=== PATIENT | female | born 1940 | race Caucasian/White ===

== ENCOUNTER 2019-04-19 08:13 | Outpatient (CLI) | payer MEDICARE, SELFPAY ==
[2019-04-17 10:24] VITALS: BMI 24.0
[2019-04-19] VITALS (8 sets, daily range): BP systolic 119–173; BP diastolic 57–77; PULSE 79–110; RESP 20; O2SAT 94–99
--- NOTE | ~2019-04-19 | XR_ITS ---
EXAMINATION: XR chest 1V DATE: 04/19/2019 11:04 INDICATION: Right pleural effusion status post thoracentesis. TECHNIQUE: A single frontal view of the chest was obtained. COMPARISON: Chest CT 04/05/2019 FINDINGS: There is a moderate-sized right pleural effusion. There are airspace opacities at right alejandro g base, likely atelectasis. A calcified left lung nodule and calcified left hilar lymph nodes are con sistent with old granulomatous disease. No pneumothorax. The heart size is normal. There are old heal ed left rib fractures. IMPRESSION: 1. Moderate-sized right pleural effusion with improvement status post thoracentesis. Reviewed, dictated and finalized at location A. AND SCIENCE INSTRUCTOR IMPRESSION: 1. Moderate-sized right pleural effusion with improvement status post thoracent esis.
--- NOTE | ~2019-04-19 | US_ITS ---
EXAMINATION: US thoracentesis DATE: 04/19/2019 11:17 INDICATION: pleural effusion TECHNIQUE: The procedure and its risks, benefits, and alternatives were discussed with the patient. P otential risks discussed included bleeding, infection, and pneumothorax. The patient understood the r isks and agreed to proceed. The skin was prepped and draped in sterile fashion. 1% lidocaine was used for local anesthesia. Under ultrasound guidance, a 5 Fr catheter with trochar was advanced into the right pleural effusion. Fluid was aspirated. The catheter was removed, and a dressing was applied. Th ere were no immediate complications. FINDINGS: Ultrasound images demonstrate a right pleural effusion and the catheter within the fluid. IMPRESSION: 1. Successful ultrasound-guided thoracentesis yielding 1000 mL of clear, sanam-colored fluid. Reviewed, dictated and finalized at location A. MATIC C[employer]TRIF[employer]AL STATION OPERATOR IMPRESSION: 1. Successful ultrasound-guided thoracentesis yielding 1000 mL of clear, sanam -colored fluid.
[2019-04-19 09:20] LABS: Mean Platelet Volume 11.4 fl (7.4-10.4); Platelet Count Result 176 k/mm3 (150-375)
[2019-04-19 09:30] LABS: INR 1.3; Prothrombin Time 15.4 Seconds (11.1-14.7)
--- NOTE | 2019-04-19 13:51 | SUR.PHASEII ---
[address] king on pt condition, ok to be discharged
== END 2019-04-19 13:00 | disposition home or self-care (01) ==
LOC: ANHSURGERY 08:15
PROVIDERS: Radiology Diagnostic Radiology; PCP Family Medicine; Visit Provider Family Medicine
DX: J90 Pleural effusion, not elsewhere classified (principal)
CPT/HCPCS: 32555; 36415; 71045; 85049; 85610

== ENCOUNTER 2019-05-29 14:09 | Inpatient (IN) | payer MEDICARE, SELFPAY ==
[2019-05-29] VITALS (17 sets, daily range): BP systolic 128–227; BP diastolic 53–186; PULSE 89–121; RESP 20–38; TEMP 35.6–37.3; O2SAT 93–100; BMI 23.2
--- NOTE | ~2019-05-29 | XR_ITS ---
EXAMINATION: XR chest 1V portable EXAM DATE: 05/29/2019 14:50 INDICATION: Shortness of breath. TECHNIQUE: Portable AP frontal chest x-ray was obtained. Comparison is made to prior examination from 04/19/2019. FINDINGS: There is large right pleural effusion, interval increase compared to prior examination. The re is adjacent lobar collapse. There is patchy bilateral edema or pneumonia. Difficult to evaluate ca rdiac silhouette given that the right side of the heart is obscured by the pleural effusion. There is left upper lobe granuloma. There is no pneumothorax suspected. There are no osseous abnormalities id entified. IMPRESSION: 1. Worsening, now large right pleural effusion with adjacent lobar atelectasis. 2. Development of moderate bilateral edema and/or pneumonia. Reviewed, dictated and finalized at location B. IMPRESSION: 1. Worsening, now large right pleural effusion with adjacent lobar atelectasis . 2. Development of moderate bilateral edema and/or pneumonia.
--- NOTE | ~2019-05-29 | XR_ITS ---
EXAMINATION: XR chest 1V portable DATE: 05/30/2019 12:32 INDICATION: Right pleural effusion status post thoracentesis. TECHNIQUE: A single frontal view of the chest was obtained. COMPARISON: Chest single view 05/29/2019 FINDINGS: There is a moderate-sized right pleural effusion. There are airspace opacities at the lung bases. A calcified left lung nodule is consistent with old granulomatous disease. No pneumothorax. Th e heart size is normal. IMPRESSION: 1. Moderate-sized right pleural effusion with improvement status post thoracentesis. 2. Airspace opacities at the lung bases with interval improvement, consistent with atelectasis versus pneumonia. Reviewed, dictated and finalized at location A. IMPRESSION: 1. Moderate-sized right pleural effusion with improvement status post thoracent esis. 2. Airspace opacities at the lung bases with interval improvement, consistent w ith atelectasis versus pneumonia.
--- NOTE | ~2019-05-29 | US_ITS ---
EXAMINATION: US thoracentesis DATE: 05/30/2019 12:41 INDICATION: pleural effusion TECHNIQUE: The procedure and its risks, benefits, and alternatives were discussed with the patient. P otential risks discussed included bleeding, infection, and pneumothorax. The patient understood the r isks and agreed to proceed. The skin was prepped and draped in sterile fashion. 1% lidocaine was used for local anesthesia. Under ultrasound guidance, a 5 Fr catheter with trochar was advanced into the right pleural effusion. Fluid was aspirated. The catheter was removed, and a dressing was applied. Th ere were no immediate complications. FINDINGS: Ultrasound images demonstrate a right pleural effusion and the catheter within the fluid. IMPRESSION: 1. Successful ultrasound-guided thoracentesis yielding 1000 mL of clear, yellow fluid. Reviewed, dictated and finalized at location A. IMPRESSION: 1. Successful ultrasound-guided thoracentesis yielding 1000 mL of clear, yello w fluid.
--- NOTE | 2019-05-29 14:14 | ED.SOB ---
HPI - SOB/Dyspnea General Chief Complaint: Shortness of Breath/Dyspnea Stated Complaint: sob, recent thoracentesis Time Seen by Provider: 05/29/19 14:12 Source: patient Mode of arrival: ambulatory Limitations: no limitations History of Present Illness HPI Narrative: Patient is a 78 year old female who presents to the emergency department with complaints of shortness of breath that started a week ago and is worsening. She reports a productive cough with phlegm and a poor appetite. Patient denies chest pain, abdominal pain, headache, fever, chills, or sweats. She states that she had a thoracentesis on 04/19/19 at [facility]. Patient is not on home oxygen and states that he oxygen saturation is normally low. She notes that she had not had a bowel movement in 4 days and yesterday she took pepto bismol and today she had diarrhea. She states that she has been staying inside and she has not been exposed to anyone with COVID-19. She denies having a history of AFIB with RVR. Patient has a history of asthma, ascites, pleural effusion, thyroid cancer, and liver failure. Patients is at the bedside and he denies being around anyone with COVID-19. She used to work in [employer]. MD elicited complaint: shortness of breath Pertinent past history: asthma Onset (ago): week(s) (1) Context: other (thoracentesis) Timing: progressively worsening Known history of: asthma Associated symptoms: cough and other (poor appetite) Related Data Home Medications Medication Instructions Recorded Confirmed furosemide 20 mg PO DAILY 04/17/19 05/29/19 losartan 100 mg PO HS 04/17/19 05/29/19 omeprazole 20 mg PO DAILY 04/17/19 05/29/19 spironolactone 50 mg PO DAILY 04/17/19 05/29/19 tramadol 50 mg PO Q6H PRN 04/17/19 05/29/19 albuterol sulfate [ProAir HFA] 2 puff INHALATION QID PRN 05/29/19 05/29/19 Allergies Allergy/AdvReac Type Severity Reaction Status Date / Time lisinopril Allergy Severe ANAPHYLAXIS Verified 05/29/19 14:22 codeine AdvReac Unknown Nausea and Verified 05/29/19 14:22 Vomiting Review of Systems Review of Systems: All systems reviewed & are unremarkable except as noted in HPI and below Constitutional: Constitutional: Denies chills, Denies fever(s), Reports poor appetite and Denies other (sweats) Cardiovascular: Cardiovascular: Denies chest pain Respiratory: Respiratory: Reports cough and Reports dyspnea Gastrointestinal: Gastrointestinal: Denies abdominal pain and Reports diarrhea Neurologic: Denies headache(s) [facility] Past Medical History Medical History (Updated 05/29/19 @ 14:59 by Kassy Herrera) Ascites Asthma JOEL (nonalcoholic steatohepatitis) Pleural effusion Thyroid cancer Surgical History Surgical History (Updated 05/29/19 @ 14:58 by Kassy Herrera) H/O bilateral cataract extraction H/O partial thyroidectomy H/O: hysterectomy History of thoracentesis Hx of appendectomy Hx of cholecystectomy Hx of LASIK Social History Social History (Updated 05/29/19 @ 14:40 by Kassy Herrera) Smoking status: Never smoker Second hand tobacco smoke exposure: No Alcohol intake: never Substance use: never Living arrangements: with family Gender identity (if verbalized by the patient): Female Spiritual care concerns: No Agree to blood products: Yes Exam Const: General: in distress respiratory Nutritional Appearance: cachectic HENMT: Head: normocephalic and atraumatic Eyes: Pupils: Equal, round and reactive pupils present EOM: EOMs intact bilaterally Resp: Effort & Inspection: Actively coughing, respiratory distress and retractions Auscultation: other (crackles/rales present until patient coughed then lungs were clear) Cardio: Jugular venous distension: no JVD Rate: tachycardic Rhythm: abnormal rhythm irregularly irregular GI: Inspection: other (abdominal prominence) GI Palp: No abdominal tenderness Skin: General skin exam: normal color, dry skin and other (warm) Rashes: no rashes Ursula
--- NOTE | 2019-05-29 14:20 | ECG_ITS ---
Measurements Intervals [place] Rate: 117 P: AK: 0 QRS: -29 QRSD: 103 T: -4 QT: 336 QTc: 470 Interpretive Statements MULTIFOCAL ATRIAL TACHYCARDIA ATRIAL PREMATURE COMPLEXES ANTEROSEPTAL INFARCT, AGE INDETERMINATE CONSIDER INFERIOR INFARCT, AGE INDETERMINATE BASELINE ARTIFACT- V3 ABNORMAL ECG Electronically Signed On 05-29-2019 16:11:26 CDT by Alcides Crowder D.O.
[2019-05-29 14:30] LABS: Basophils Absolute Auto 0.1 K/mm3 (0.0-0.1); Basophils Percent Auto 0.5 % (0.2-1.2); Eosinophils Absolute Auto 0.2 K/mm3 (0-0.3); Eosinophils Percent Auto 1.2 % (0-4.4); Hematocrit 35.3 % (37.0-47.0); Hemoglobin 11.5 g/dL (12.0-15.0); Immature Granulocyte Absolute 0.06 K/mm3 (0.00-0.031); Immature Granulocyte Percent A 0.4 % (0-0.5); Lymphocytes Absolute Auto 2.36 K/mm3 (0.9-3.2); Lymphocytes Percent Auto 17.7 % (18.3-44.2); Mean Corpuscular HGB Conc 32.6 g/dl (32-36); Mean Corpuscular Hemoglobin 29.6 pg (26-34); Mean Corpuscular Volume 90.7 fl (80-100); Mean Platelet Volume 10.8 fl (7.4-10.4); Monocytes Percent Auto 7.8 % (2.6-8.5); Neutrophils Absolute Auto 9.7 K/mm3 (1.3-6.7); Neutrophils Percent Auto 72.4 % (45.5-73.1); Platelet Count Result 210 k/mm3 (150-375); Red Blood Count 3.89 M/mm3 (4.2-5.4); Red Cell Distribution Width 14.6 % (11.5-14.5); White Blood Count 13.4 K/mm3 (4.5-10.0)
[2019-05-29 14:41] LABS: Alanine Aminotransferase 15 U/L (4-35); Albumin Level 3.7 g/dL (3.5-5.1); Alkaline Phosphatase 145 U/L (38-126); Aspartate Amino Transferase 40 U/L (14-36); Bilirubin,Total 1.1 mg/dL (0.2-1.3); Blood Urea Nitrogen 16 mg/dL (7-17); Carbon Dioxide 26 mmol/L (22-30); Chloride 103 mmol/L (98-107); Estimated CRCL calculation 38 ml/min; Estimated Glomerular Filt Rate 53; Glucose 140 mg/dL (65-105); Potassium 3.6 mmol/L (3.4-5.0); Sodium 137 mmol/L (137-145)
[2019-05-29 14:50] LABS: NT Pro B Type Natriuretic Pept 230 PG/ML (5-100)
[2019-05-29 14:53] LABS: Lactic Acid 1.8 mmol/L (0.7-2.1)
[2019-05-29 14:55] LABS: Troponin I < 0.012 ng/mL (0.000-0.034)
[2019-05-29] MEDS: FUROSEMIDE INJ 40 MG/4 ML VIAL IV PUSH (15:52)
--- NOTE | 2019-05-29 16:13 | PC.NURSE ---
Pt swabbed for covid. [facility] authorization # [id number].
--- NOTE | 2019-05-29 16:20 | PC.NURSE ---
No answer in ultrasound. Call to ICU to give report, unable to take.
--- NOTE | 2019-05-29 17:24 | PC.NURSE ---
This patient, Stefanie Pearson I, was admitted to Intensive Care Unit-7. Patient/family oriented to hospital policies and general routines including ID bracelet, bed and alarms, visiting hours, pain management, procedures, bathroom and other care routines, personal items, smoking policy, room service/diet, and visiting hours. Valuables list has been completed. Information on how to activate the Rapid Response Team has been discussed. Patient/Family are encouraged to report perceived risks to care and to ask questions if they do not understand what they are told or what they should do.
--- NOTE | 2019-05-29 18:30 | PM.IMHP ---
H&P: HPI History of Present Illness Chief complaint: Shortness of breath. Narrative: Stefanie Pearson is a 78-year-old female with JOEL and history of breast cancer who presented to the emergency department earlier today for evaluation of shortness of breath. For the past week or so she reports progressive dyspnea on lesser and lesser exertion, much worse over the past 2 days. She has also had a mild cough, occasionally productive of clear phlegm. Chest x-ray today showed a large right pleural effusion with moderate bilateral edema and/or pneumonia. With further questioning, she has had pleural effusions previously with the last thoracentesis being 04/19/2019. Additionally, she mentions having constipation for the last 4 days and took Pepto-Bismol last night, and has since had for, fairly large soft stools. On arrival to the emergency department, she was found to be in atrial fibrillation, which is a new diagnosis for her. She does mention, that on occasion the past couple of days, that will feel as her heart is pounding out of her chest. She is uncertain if it is beating irregularly or not. She denies fever, chills, and sweats. No sinus congestion, rhinorrhea, otalgia, or odynophagia. She denies chest pain and pleuritic pain. She denies orthopnea, PND, and lower extremity edema. She has a history of partial thyroidectomy and was on levothyroxine at 1 point time, but is no longer. Weight fluctuates due to the amount of swelling and ascites that she has on board. No significant hair loss. No recent travel. She has been sheltering in place and denies sick contacts. She does not drink significant amounts of alcohol or caffeine. Review of Systems Review of Systems: Narrative: Twelve systems were reviewed with pertinent positives and negatives as per HPI. No fever, chills, or sweats. No headache or neck ache. No hold nausea or vomiting. She denies blood in mucus in the stool. No dysuria. Except as documented, all other systems were reviewed and are negative. [facility], [facility] Past Medical History Medical History (Updated 05/30/19 @ 00:34 by Deloris Benitez PA-C) Asthma Breast cancer Status post right lumpectomy in 2013. Chronic anemia Essential hypertension JOEL (nonalcoholic steatohepatitis) Osteoarthritis Osteoporosis Surgical History Surgical History (Updated 05/29/19 @ 23:33 by Deloris Benitez PA-C) History of appendectomy History of cataract extraction History of cholecystectomy History of hysterectomy History of laser assisted in situ keratomileusis History of partial thyroidectomy For benign tumor. History of thoracentesis Family History Family History (Updated 05/29/19 @ 23:34 by Deloris Benitez PA-C) Mother Head and neck cancer Sibling Diabetes mellitus Social History Social History (Updated 05/29/19 @ 23:34 by Deloris Benitez PA-C) Social History: The patient lives with her in [place]. She designates her , Abdoulaye, as her surrogate decision maker and she wishes to be a full code. She is a lifelong nonsmoker and denies alcohol and drug use. Spiritual care concerns: No Agree to blood products: Yes Meds Home Medications and Allergies Home Medications Medication Instructions Recorded Confirmed Type furosemide 20 mg PO DAILY 04/17/19 05/29/19 History losartan 100 mg PO HS 04/17/19 05/29/19 History omeprazole 20 mg PO DAILY 04/17/19 05/29/19 History spironolactone 50 mg PO DAILY 04/17/19 05/29/19 History tramadol 50 mg PO Q6H PRN 04/17/19 05/29/19 History albuterol sulfate [ProAir HFA] 2 puff INHALATION QID PRN 05/29/19 05/29/19 History Allergies Allergy/AdvReac Type Severity Reaction Status Date / Time lisinopril Allergy Severe ANAPHYLAXIS Verified 05/29/19 14:22 codeine AdvReac Unknown Nausea and Verified 05/29/19 14:22 Vomiting Vital Signs Vital Signs - 24 hr 05/29/19 14:18 05/29/19 14:20 05/29/19 14:32 Temperature 99.2 F Pulse Rate 12
[2019-05-30] VITALS (14 sets, daily range): BP systolic 140–180; BP diastolic 59–94; PULSE 78–113; RESP 19–31; TEMP 36.4–37.2; O2SAT 92–98
[2019-05-30] MEDS: LOSARTAN POTASSIUM 100 MG TABLET PO (02:56)
[2019-05-30 06:27] LABS: Hemoglobin 10.3 g/dL (12.0-15.0); Mean Corpuscular HGB Conc 33.2 g/dl (32-36); Mean Corpuscular Hemoglobin 29.8 pg (26-34); Mean Corpuscular Volume 89.6 fl (80-100); Mean Platelet Volume 10.9 fl (7.4-10.4); Platelet Count Result 171 k/mm3 (150-375); Red Blood Count 3.46 M/mm3 (4.2-5.4); Red Cell Distribution Width 14.5 % (11.5-14.5); White Blood Count 12.9 K/mm3 (4.5-10.0)
[2019-05-30 06:37] LABS: Alanine Aminotransferase 14 U/L (4-35); Albumin Level 3.4 g/dL (3.5-5.1); Alkaline Phosphatase 127 U/L (38-126); Aspartate Amino Transferase 34 U/L (14-36); Bilirubin,Total 1.3 mg/dL (0.2-1.3); Blood Urea Nitrogen 16 mg/dL (7-17); Calcium 8.9 mg/dL (8.4-10.2); Carbon Dioxide 29 mmol/L (22-30); Chloride 104 mmol/L (98-107); Estimated CRCL calculation 31 ml/min; Estimated Glomerular Filt Rate 43; Glucose 123 mg/dL (65-105); INR 1.3; Potassium 3.7 mmol/L (3.4-5.0); Sodium 137 mmol/L (137-145)
[2019-05-30 06:38] LABS: Partial Thromboplastin Time 30.3 SECONDS (22.3-36.8)
[2019-05-30] MEDS: SPIRONOLACTONE 50 MG TABLET PO (08:49)
[2019-05-30] MEDS: PANTOPRAZOLE 40 MG TABLET PO (08:49)
[2019-05-30] MEDS: FUROSEMIDE 20 MG TABLET PO (08:49)
[2019-05-30 10:04] LABS: IFOB Positive Control Positive; Immunochemical Fecal Occult Bl Negative (N)
[2019-05-30 12:45] LABS: pH Pleural Fluid 7.476 (7.210-7.500)
--- NOTE | 2019-05-30 13:03 | PM.IMPN ---
Progress Note: A&P Assessment and Plan (1) Recurrent right pleural effusion: Code(s): J90 - Pleural effusion, not elsewhere classified Status: Acute Assessment and Plan: Has had previous thoracentesis x 2 with last done here on 04/19/2019. Now S/P thoracentesis here this morning with removal of 1000 mL of clear, yellow fluid. Pleural fluid pH 7.476. Nucleated cells elevated at 1310 but thoracentesis is not new diagnosis for patient. Culture and other studies pending. Pleural effusion better on imaging after thoracentesis. Will monitor this afternoon. Possible discharge later today or at least by tomorrow if stable. COVID-19 testing was initiated in ER with results still pending. Remains on isolation as a result. (2) Pneumonia: Code(s): J18.9 - Pneumonia, unspecified organism Status: Acute Assessment and Plan: Concern on admission with IV ceftriaxone and azithromycin started. Does not appear to be infectious at this point with symptoms improved after thoracentesis. COVID-19 testing initiated as noted above. No fever. Mild elevation of WBC at 12.9 but noted to have mild elevation chronically based on records here. Will stop antibiotics. (3) Atrial tachycardia: Code(s): I47.1 - Supraventricular tachycardia Status: Acute Assessment and Plan: EKG in ER with multifocal atrial tachycardia. With COVID-19 testing pending, echocardiogram not done. Telemetry reviewed on 05/30/2019 with sinus tachycardia with heart rate in low 100s. Adding metoprolol succinate. Will monitor while here. (4) Essential hypertension: Code(s): I10 - Essential (primary) hypertension Status: Acute Assessment and Plan: Blood pressure reviewed on 05/30/2019 and is elevated with SBP 160s-180s. Adding metoprolol succinate as noted above. Continue losartan and diuretics. Will continue to monitor. (5) JOEL (nonalcoholic steatohepatitis): Code(s): K75.81 - Nonalcoholic steatohepatitis (JOEL) Status: Acute Assessment and Plan: Known chronic issue. S/P thoracentesis as noted above. Has not had paracentesis in some time and will not plan to do now. Continue spironolactone and furosemide. (6) Chronic anemia: Code(s): D64.9 - Anemia, unspecified Status: Acute Assessment and Plan: Hgb 10.3 today and stable. (7) DVT prophylaxis: Code(s): Z29.9 - Encounter for prophylactic measures, unspecified Status: Acute Assessment and Plan: SCDs. Time Spent With Patient Time with patient: 15 - 25 minutes Subjective Date/time seen: 05/30/19 13:03 Interval history: Date of Service: 05/30/2019. Admitted with recurrent right pleural effusion. Had thoracentesis already today. Feels much better. Denies shortness of breath. No chest pain. No abdominal pain but hungry. Wants to go home. Review of Systems Review of Systems: Narrative: Feels much better today. Wants to go home. Constitutional: Constitutional: Denies chills and Denies fever(s) ENT: Denies nasal congestion and Denies nasal discharge Cardiovascular: Cardiovascular: Denies chest pain Respiratory: Respiratory: Denies dyspnea Gastrointestinal: Gastrointestinal: Denies abdominal pain, Denies nausea and Denies vomiting Genitourinary: Comments: catheter in place Musculoskeletal: Musculoskeletal: Reports no additional musculoskeletal complaints Integumentary/Breasts: Skin/Breast: Denies rash Neurologic: Denies headache(s) Psychiatric: Psychiatric: Denies confusion Exam Narrative: Exam Narrative: Awake and alert. Const: General: no acute distress HENMT: Mouth: Yes moist mucous membranes Neck: Neck: supple Lymphatic: lymphadenopathy not noted Resp: Auscultation: rales and diminished lung sounds (worse on right) Cardio: Rate: regular rate Rhythm: regular rhythm GI: Inspection: non-distended GI Palp: Yes Soft to palpation and No Tend
[2019-05-30 13:27] LABS: Appearance Pleural Fluid Clear (Clear); Color Pleural Fluid Yellow (Colorless); Nucleated Cell Pleural Fluid 1310 /uL (0-1000); Pleural fluid source Pleural fluid; RBC Pleural Fluid 340 /uL (0-0)
[2019-05-30 13:30] LABS: Lymphocytes Pleural Fluid 67 %; Mesothelial Cells Pleural Flui 30 %; Monocytes Pleural Fluid 1 %; Neutrophils Pleural Fluid 2 % (0-25)
[2019-05-30] MEDS: METOPROLOL SUCCINATE EXT REL 25 MG TABCR PO (15:45)
[2019-05-30 15:50] LABS: Free T4 Free Thyroxine Reflex 1.45 ng/dL (0.78-2.19)
[2019-05-30 17:05] LABS: Total Triiodothyronine (T3) 0.64 NG/ML (0.97-1.69)
--- NOTE | 2019-05-30 17:36 | PM.DS ---
DS: Diagnosis Admitting Diagnosis Admitting Diagnosis: Pleural effusion, not elsewhere classified Discharge Diagnosis (1) Recurrent right pleural effusion: Code(s): J90 - Pleural effusion, not elsewhere classified Status: Acute (2) Pneumonia: Code(s): J18.9 - Pneumonia, unspecified organism Status: Acute Assessment and Plan: RULED OUT (3) Atrial tachycardia: Code(s): I47.1 - Supraventricular tachycardia Status: Acute (4) Essential hypertension: Code(s): I10 - Essential (primary) hypertension Status: Acute (5) JOEL (nonalcoholic steatohepatitis): Code(s): K75.81 - Nonalcoholic steatohepatitis (JOEL) Status: Acute (6) Chronic anemia: Code(s): D64.9 - Anemia, unspecified Status: Acute Assessment and Plan: Hgb 10.3 today and stable. DS: Summary Hospital Course Reason for hospitalization: Shortness of breath. Hospital Course: Date of Service of Discharge: May 30, 2019. History of Present Illness: Patient is a pleasant 78-year-old woman with JOEL, history of breast cancer and recurrent right pleural effusion present to the emergency room for evaluation of shortness of breath. Patient reports increasing shortness of breath on lesser lesser exertion for approximately 1 week. Shortness of breath became worse in the 2 days prior to presentation. She also reports mild cough occasionally productive of a clear sputum. Patient with no recent fever. No chest pain. With increasing symptoms, she presented to the emergency room where imaging did show a large right pleural effusion with moderate bilateral edema and/or pneumonia. Patient did have a thoracentesis done here at [facility] on 04/19/2019. She reports having another thoracentesis prior to the 1 done on 04/19/2019. In the emergency room she was also noted to be tachycardic with concern for atrial fibrillation. With her findings, she was admitted for further evaluation and treatment. Additionally, COVID-19 testing was initiated given increasing shortness of breath with current pandemic. Course in Hospital: Patient was admitted to the IMU where she remained for the duration of her stay. She initially did require 2 L of oxygen. She additionally was also started on IV ceftriaxone and azithromycin to cover for possible pneumonia. Patient was scheduled for ultrasound-guided thoracentesis which was able to be completed around noon on 05/30/2019. She did have removal of 1000 mL of clear fluid with pH normal at 7.476. Pleural fluid did have increased nucleated cells but patient with known previous diagnosis. Patient symptomatically felt much better and was hoping to go home after thoracentesis was completed. She was actually able to wean to room air and no longer required after thoracentesis. An echocardiogram had been ordered but was not completed due to isolation while awaiting COVID-19 testing. Given her improvement after thoracentesis, echocardiogram was not felt necessary at this time. Pneumonia was ruled out during her stay with no plan to continue antibiotics at discharge. Slight elevation of WBC was felt to be either viral in origin or reactive. She did not require paracentesis related to her JOEL during her stay with no GI symptoms throughout her stay. She did however continue spironolactone and furosemide. Hemoglobin remained stable with no sign of bleeding. With regards to tachycardia, on review of EKG patient was noted to have multifocal atrial tachycardia. She did continue to have slight elevation of blood pressure during her stay with metoprolol succinate added. Patient's blood pressure and heart rate did show some improvement with no side effects after starting metoprolol succinate. She did continue her home losartan throughout her stay. With the patient symptomatically improved and not requiring inpatient care, she was discharged home on the afternoon of May 30, 2019. P
[2019-05-31 17:02] LABS: Pneumococcal Antigen Urine Not Detected (Not Detected)
[2019-05-31 18:35] LABS: Legionella pneumophila Ag Ur Not Detected (Not Detected)
[2019-06-01 04:09] LABS: Glucose Pleural Fluid 142 mg/dL; LDH Pleural Fluid 169 U/L; Total Protein Pleural Fluid <3.0 g/dL
--- NOTE | 2019-06-01 11:25 | PC.NURSE ---
Notified patient that her COVID 19 test is negative.
[2019-06-05 14:11] LABS: Albumin Pleural Fluid 1.6 g/dL
== END 2019-05-30 17:55 | disposition home or self-care (01) | DRG 187 ==
LOC: ANHED 14:52 → ANHICU 21:11
PROVIDERS: Physician Assistant; Admitting Provider Family Medicine; Emergency Provider Emergency Medicine; PCP Family Medicine; Visit Provider Hospitalist
DX: J90 Pleural effusion, not elsewhere classified (principal); R64 Cachexia; I47.1 Supraventricular tachycardia; K75.81 Nonalcoholic steatohepatitis (NASH); Z20.828 Contact with and (suspected) exposure to other viral communicable diseases; D64.9 Anemia, unspecified; J45.909 Unspecified asthma, uncomplicated; M19.90 Unspecified osteoarthritis, unspecified site; M81.0 Age-related osteoporosis without current pathological fracture; I10 Essential (primary) hypertension; Z85.850 Personal history of malignant neoplasm of thyroid; Z85.3 Personal history of malignant neoplasm of breast; Z98.42 Cataract extraction status, left eye; Z98.41 Cataract extraction status, right eye; Z90.710 Acquired absence of both cervix and uterus; Z90.49 Acquired absence of other specified parts of digestive tract; Z68.21 Body mass index [BMI] 21.0-21.9, adult
CPT/HCPCS: 32555; 36415; 71045; 80053; 82042; 82274; 82945; 83605; 83615; 83880; 83986; 84157; 84439; 84443; 84478; 84480; 84484; 85025; 85027; 85610; 85730; 87015; 87040; 87070; 87075; 87086; 87102; 87116; 87205; 87206; 87449; 87899; 88104; 88108; 88184; 88305; 89051; 93005; 96365; 96366; 96375; 99285; A9270; J0456; J0696; J1940

== ENCOUNTER 2019-06-05 16:38 | Inpatient (IN) | payer MEDICARE, SELFPAY ==
[2019-06-05] VITALS (9 sets, daily range): BP systolic 108–146; BP diastolic 52–93; PULSE 98–119; RESP 16–40; TEMP 36.4–36.6; O2SAT 96–100; BMI 26.6
--- NOTE | ~2019-06-05 | XR_ITS ---
EXAMINATION: XR chest 1V portable EXAM DATE: 06/05/2019 17:56 INDICATION: Cough and shortness of breath. Right pleural effusion. TECHNIQUE: Portable AP frontal chest x-ray was obtained. Comparison is made to prior examination from 05/30/2019. FINDINGS: There is a large right pleural effusion, was only moderate on 05/29 following a thoracentesis , has increased in size. There is adjacent multisegmental compressive atelectasis. Left lung is clear . There is no pneumothorax suspected. Cardiomediastinal silhouette is normal. There are no osseous ab normalities identified. IMPRESSION: Large right pleural effusion, interval increase in size. Reviewed, dictated and finalized at location A.
--- NOTE | ~2019-06-05 | CT_ITS ---
EXAMINATION: CT chest abdomen wo con DATE: 06/07/2019 12:44 INDICATION: Right pleural effusion. Cirrhosis. TECHNIQUE: Computed tomography (CT) of the chest and abdomen was performed without intravenous contra st. Automated exposure control and iterative reconstruction technique were employed. The dose-length product was 321.44 mGy-cm. COMPARISON: CT chest, abdomen, and pelvis 10/23/2017, chest CT 04/05/2019 FINDINGS: CHEST CT: There are large right and small left pleural effusions. There is dependent passive atelectasis bilate rally. A calcified left lung nodule and calcified left hilar lymph nodes are consistent with old gran ulomatous disease. The heart size is normal. There are coronary artery calcifications. No pericardial effusion. There is a chronic burst fracture of T12. There is mild thoracic spondylosis. There is a c hronic compression fracture of T3. There are old healed bilateral rib fractures. ABDOMEN CT: The liver demonstrates a nodular surface contour, consistent with cirrhosis. There is mild splenomega ly measuring 14.3 cm, consistent with portal venous hypertension. The gallbladder is absent. The sple en and right adrenal gland are normal. There is a 2.1 cm mass in left adrenal gland containing micros copic fat, consistent with an adenoma. The kidneys are normal. There are no dilated loops of bowel. T here is a small volume of ascites. There is widespread edema of the intra-abdominal fat. The stomach is distended with mild wall thickening, likely interstitial edema. 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 There are no pathologically enlarged lymph nodes. There is mild lumbar spondylosis. IMPRESSION: 1. Cirrhosis of the liver with portal venous hypertension. 2. Large right and small left pleural effusions. 3. Small volume of ascites. Reviewed, dictated and finalized at location A.
--- NOTE | ~2019-06-05 | US_ITS ---
EXAMINATION: US thoracentesis DATE: 06/08/2019 14:34 INDICATION: pleural effusion TECHNIQUE: The procedure and its risks, benefits, and alternatives were discussed with the patient. P otential risks discussed included bleeding, infection, and pneumothorax. The patient understood the r isks and agreed to proceed. The skin was prepped and draped in sterile fashion. 1% lidocaine was used for local anesthesia. Under ultrasound guidance, a 5 Fr catheter with trochar was advanced into the right pleural effusion. Fluid was aspirated. The catheter was removed, and a dressing was applied. Th ere were no immediate complications. FINDINGS: Ultrasound images demonstrate a right pleural effusion and the catheter within the fluid. IMPRESSION: 1. Successful ultrasound-guided thoracentesis yielding 1000 mL of yellow fluid. Reviewed, dictated and finalized at location A. IMPRESSION: 1. Successful ultrasound-guided thoracentesis yielding 1000 mL of yellow fluid .
--- NOTE | ~2019-06-05 | XR_ITS ---
EXAMINATION: XR chest 2V EXAM DATE: 06/10/2019 09:10 INDICATION: Right pleural effusion. TECHNIQUE: Portable AP frontal chest x-ray was obtained. Comparison is made to prior examination from 06/09/2019. FINDINGS: There is large right pleural effusion with adjacent right lower, middle lobe atelectasis. S mall left pleural effusion with adjacent subsegmental atelectasis. Cardiac silhouette is stable in si ze compared to prior exam. There is no pneumothorax suspected. There are no osseous abnormalities manuel ntified. Compared to yesterday there has been mild interval increase in size of the right pleural eff usion. IMPRESSION: Large right, small left pleural effusions, adjacent compressive atelectasis. Reviewed, dictated and finalized at location A. IMPRESSION: Large right, small left pleural effusions, adjacent compressive ate lectasis.
--- NOTE | ~2019-06-05 | XR_ITS ---
XR chest 2V 06/08/2019 14:29 Indication: Postthoracentesis. Right pleural effusion. Procedure: AP and lateral views of the chest Comparison: Comparison to multiple prior studies sequentially, with oldest reviewed study dated 09/2019. Findings: Extensive bilateral airspace disease, likely edema. Bilateral pleural effusions, moderate o n the right and small on the left. No pneumothorax. Calcified granuloma left apex. No acute osseous a bnormality. Impression: 1: Bilateral airspace disease, most likely edema. Superimposed pneumonia not excluded. 2: Bilateral pleural effusions, right greater than left. Reviewed, dictated and finalized at location A. Impression: 1: Bilateral airspace disease, most likely edema. Superimposed pneumonia not ex cluded. 2: Bilateral pleural effusions, right greater than left.
--- NOTE | ~2019-06-05 | XR_ITS ---
EXAMINATION: XR chest 1V portable INDICATION: Right pleural effusion TECHNIQUE: Portable AP chest at 1151 hours COMPARISON: 06/06/2019 FINDINGS: A moderate size right pleural effusion persists without significant change. There is a smal l left pleural effusion. Airspace opacities of the right middle and lower lung zones and left lung ba se are stable. There is no pneumothorax. The heart size is normal. A calcified nodule of the left upp er lobe is consistent with old granulomatous disease. IMPRESSION: 1. Stable moderate-sized right pleural effusion. 2. Stable bilateral airspace opacities, likely passive atelectasis. Reviewed, dictated and finalized at location A.
--- NOTE | ~2019-06-05 | XR_ITS ---
EXAMINATION: XR chest 1V DATE: 06/06/2019 12:18 INDICATION: Right pleural effusion status post thoracentesis. TECHNIQUE: A single frontal view of the chest was obtained. COMPARISON: Chest single view 06/05/2019 FINDINGS: A calcified left lung nodule is consistent with old granulomatous disease. There is a moder ate-sized right pleural effusion. There are airspace opacities at the lung bases. No pneumothorax. Th e heart size is normal. IMPRESSION: 1. Moderate-sized right pleural effusion with improvement status post thoracentesis. 2. Airspace opacities at the lung bases, consistent with atelectasis. Pneumonia cannot be excluded. Reviewed, dictated and finalized at location A. IMPRESSION: 1. Moderate-sized right pleural effusion with improvement status post thoracent esis. 2. Airspace opacities at the lung bases, consistent with atelectasis. Pneumonia cannot be excluded.
--- NOTE | ~2019-06-05 | XR_ITS ---
EXAMINATION: XR chest 2V EXAM DATE: 06/09/2019 11:42 INDICATION: Recurrent right pleural effusion, cough. Post thoracentesis. TECHNIQUE: Frontal and lateral projections of the chest obtained and reviewed. Comparison is made to prior examination from 06/08/2019. FINDINGS: Moderate to large right pleural effusion, appearance unchanged compared to prior study, wi th adjacent right lower, middle lobe atelectasis. Small left pleural effusion with adjacent subsegmen sanaz atelectasis. Cardiac silhouette is stable in size compared to prior exam. There is no pneumothora x suspected. There are no osseous abnormalities identified. Accounting for differences in technique, there is no significant interval change. IMPRESSION: 1. Moderate to large right pleural effusion, small pleural effusions, adjacent compressive atelectas is unchanged. Reviewed, dictated and finalized at location A. IMPRESSION: 1. Moderate to large right pleural effusion, small pleural effusions, adjacent compressive atelectasis unchanged.
--- NOTE | ~2019-06-05 | US_ITS ---
EXAMINATION: US thoracentesis DATE: 06/06/2019 12:20 INDICATION: pleural effusion TECHNIQUE: The procedure and its risks, benefits, and alternatives were discussed with the patient. P otential risks discussed included bleeding, infection, and pneumothorax. The patient understood the r isks and agreed to proceed. The skin was prepped and draped in sterile fashion. 1% lidocaine was used for local anesthesia. Under ultrasound guidance, a 5 Fr catheter with trochar was advanced into the right pleural effusion. Fluid was aspirated. The catheter was removed, and a dressing was applied. Th ere were no immediate complications. FINDINGS: Ultrasound images demonstrate a right pleural effusion and the catheter within the fluid. IMPRESSION: 1. Successful ultrasound-guided thoracentesis yielding 1000 mL of yellow fluid. Reviewed, dictated and finalized at location A. IMPRESSION: 1. Successful ultrasound-guided thoracentesis yielding 1000 mL of yellow fluid .
--- NOTE | 2019-06-05 16:45 | ED.GENADULT ---
HPI - General Adult General Chief complaint: Shortness of Breath/Dyspnea Stated complaint: sob/recent thoracentesis Time Seen by Provider: 06/05/19 16:39 Source: patient and family Mode of arrival: wheelchair Limitations: no limitations History of Present Illness HPI narrative: Patient is a 78-year-old with a history of recurrent pleural effusion, history of breast cancer, A. fib, who presents for evaluation of shortness of breath. Patient was discharged on June 04, reportedly has had worsening shortness of breath over the past 2 days. Patient denies any rhinorrhea, runny nose, or congestion. She reports cough and shortness of breath. She denies chest pain or abdominal pain. No nausea, vomiting, leg swelling or leg pain. Coronavirus swab testing from last inpatient admission was negative. Related Data Home Medications Medication Instructions Recorded Confirmed furosemide 20 mg PO DAILY 04/17/19 05/29/19 losartan 100 mg PO HS 04/17/19 05/29/19 omeprazole 20 mg PO DAILY 04/17/19 05/29/19 spironolactone 50 mg PO DAILY 04/17/19 05/29/19 tramadol 50 mg PO Q6H PRN 04/17/19 05/29/19 albuterol sulfate [ProAir HFA] 2 puff INHALATION QID PRN 05/29/19 05/29/19 Allergies Allergy/AdvReac Type Severity Reaction Status Date / Time lisinopril Allergy Severe ANAPHYLAXIS Verified 05/29/19 14:22 codeine AdvReac Unknown Nausea and Verified 05/29/19 14:22 Vomiting Review of Systems Review of Systems: Narrative: CONSTITUTIONAL: Denies fever, chills, or sweats. EYES: Denies visual changes, redness, or discharge. ENT: Denies rhinorrhea, congestion, sore throat, or otalgia. CARDIOVASCULAR: Denies chest pain, palpitations, or edema. RESPIRATORY: Reports cough and shortness of breath GASTROINTESTINAL: Denies abdominal pain, nausea, vomiting, or diarrhea. GENITOURINARY: Denies dysuria or hematuria. SKIN: Denies rash or itching. MUSCULOSKELETAL: Denies back pain, joint pain, or myalgia. NEUROLOGIC: Denies headache, numbness, reports weakness PMFSH Past Medical History Medical History Asthma Breast cancer Status post right lumpectomy in 2013. Chronic anemia Essential hypertension JOEL (nonalcoholic steatohepatitis) Osteoarthritis Osteoporosis Surgical History Surgical History History of appendectomy History of cataract extraction History of cholecystectomy History of hysterectomy History of laser assisted in situ keratomileusis History of partial thyroidectomy For benign tumor. History of thoracentesis Family History Family History Mother Head and neck cancer Sibling Diabetes mellitus Social History Social History Social History: The patient lives with her in [place]. She designates her , Abdoulaye, as her surrogate decision maker and she wishes to be a full code. She is a lifelong nonsmoker and denies alcohol and drug use. Spiritual care concerns: No Agree to blood products: Yes Exam Narrative: Exam Narrative: GENERAL: Awake, alert, conversant, able to speak in full sentences HEAD: Normocephalic, atraumatic. EYES: PERRLA and EOMI. ENT: Nares clear, no rhinorrhea or epistaxis. Mucous membranes slightly dry NECK: Supple. CHEST: Mild respiratory distress, hypoxemia, placed on 2 L via nasal cannula, slightly labored breathing, tachypnea, hypoxemia, crackles bilaterally HEART: Tachycardic rate, sinus rhythm ABDOMEN:Non distended, non tender EXTREMITIES: Normal range of motion. No edema. SKIN: Warm, dry, no rash. NEURO:No focal deficits. Alert and oriented x3 Course Course Emergency Course: Patient presented for return of shortness of breath. At the time of initial assessment, ABCs are intact, vital signs notable for mild tachycardia, hypoxemia, patient was placed on nasal can
--- NOTE | 2019-06-05 17:01 | ECG_ITS ---
Measurements Intervals [place] Rate: 112 P: 35 UT: 176 QRS: -26 QRSD: 92 T: -2 QT: 331 QTc: 453 Interpretive Statements SINUS TACHYCARDIA ATRIAL AND VENTRICULAR PREMATURE COMPLEXES ANTEROSEPTAL INFARCT, AGE INDETERMINATE INFERIOR INFARCT, AGE INDETERMINATE BASELINE ARTIFACT- I, II, V5 ABNORMAL ECG Electronically Signed On 06-06-2019 7:11:45 CDT by Alcides Crowder D.O.
[2019-06-05 17:24] LABS: Alveolar/Arterial O2 Gradient 82.4 mmHg; Base Excess ABG -0.7 mEq/l (+/-2.0); Device NASAL CANNULA; Fractional Inspired Oxygen 28 %; HCO3 ABG 22.7 mEq/l (22.0-26.0); Oxygen Content ABG 15.3 %vol (16.0-22.0); Oxygen Saturation ABG 96.2 % (95.0-100.0); Oxyhemoglobin 94.4 % THb (90.0-100.0); PCO2 ABG 33.2 mmHg (35.0-45.0); PO2 ABG 78.1 mmHg (80.0-100.0); PO2 FiO2 Ratio Arterial Blood 2.79 %; Site Drawn RIGHT BRACHIAL; Total Hemoglobin 11.5 g/dL (12.0-18.0); pH ABG 7.452 (7.350-7.450)
[2019-06-05 17:45] LABS: Basophils Absolute Auto 0.1 K/mm3 (0.0-0.1); Basophils Percent Auto 0.7 % (0.2-1.2); Eosinophils Absolute Auto 0.6 K/mm3 (0-0.3); Eosinophils Percent Auto 3.7 % (0-4.4); Hematocrit 33.5 % (37.0-47.0); Hemoglobin 10.7 g/dL (12.0-15.0); Immature Granulocyte Absolute 0.13 K/mm3 (0.00-0.031); Immature Granulocyte Percent A 0.8 % (0-0.5); Lymphocytes Absolute Auto 3.85 K/mm3 (0.9-3.2); Lymphocytes Percent Auto 23.2 % (18.3-44.2); Mean Corpuscular HGB Conc 31.9 g/dl (32-36); Mean Corpuscular Hemoglobin 29.4 pg (26-34); Mean Platelet Volume 12.1 fl (7.4-10.4); Monocytes Absolute Auto 1.8 K/mm3 (0.1-0.6); Monocytes Percent Auto 10.6 % (2.6-8.5); Neutrophils Absolute Auto 10.1 K/mm3 (1.3-6.7); Platelet Count Result 217 k/mm3 (150-375); Red Blood Count 3.64 M/mm3 (4.2-5.4); Red Cell Distribution Width 15.9 % (11.5-14.5); White Blood Count 16.6 K/mm3 (4.5-10.0)
[2019-06-05 17:55] LABS: INR 1.2; Prothrombin Time 14.7 Seconds (11.1-14.7)
[2019-06-05 17:56] LABS: Partial Thromboplastin Time 29.5 SECONDS (22.3-36.8)
[2019-06-05 18:04] LABS: Alanine Aminotransferase 28 U/L (4-35); Albumin Level 3.5 g/dL (3.5-5.1); Alkaline Phosphatase 146 U/L (38-126); Aspartate Amino Transferase 58 U/L (14-36); Bilirubin,Total 0.6 mg/dL (0.2-1.3); Blood Urea Nitrogen 31 mg/dL (7-17); Calcium 8.6 mg/dL (8.4-10.2); Carbon Dioxide 24 mmol/L (22-30); Chloride 109 mmol/L (98-107); Estimated CRCL calculation 27 ml/min; Estimated Glomerular Filt Rate 40; Glucose 148 mg/dL (65-105); Potassium 3.8 mmol/L (3.4-5.0); Sodium 140 mmol/L (137-145)
[2019-06-05 18:06] LABS: NT Pro B Type Natriuretic Pept 116 PG/ML (5-100)
[2019-06-05 18:15] LABS: Troponin I < 0.012 ng/mL (0.000-0.034)
--- NOTE | 2019-06-05 20:38 | ADMGEN ---
This patient, Stefanie Pearson, was admitted to Medical Room 345-. Patient/family oriented to hospital policies and general routines including ID bracelet, bed and alarms, visiting hours, pain management, procedures, bathroom and other care routines, personal items, smoking policy, room service/diet, and visiting hours. Valuables list has been completed. Information on how to activate the Rapid Response Team has been discussed. Patient/Family are encouraged to report perceived risks to care and to ask questions if they do not understand what they are told or what they should do.
--- NOTE | 2019-06-05 20:56 | PM.IMHP ---
H&P: HPI History of Present Illness Chief complaint: Pleural effusion/hypoxemia Narrative: This is a 78 year old female with known history of JOEL who is followed at [facility] by hepatology and breast cancer who was just admitted and discharged approximately 1 week ago after she was admitted for a recurrent right pleural effusion and underwent thoracentesis. Tonight the patient returned to the hospital tonight with severe shortness of breath, a nonproductive cough and fatigue. She has had ongoing shortness of breath since her last thoracentesis which has slowly progressed. She was supposed to follow up with her PCP tomorrow but her shortness of breath became too severe tonight. The patient was tested for Covid-19 during her last hospitalization which resulted negative. Tonight she denies any worsening abdominal distension, LE edema, fever, chills, chest pain, palpitations, nausea, vomiting, diarrhea, sore throat or focal neurological symptoms. Review of Systems Review of Systems: All systems reviewed & are unremarkable except as noted in HPI and below PMFSH Past Medical History Medical History Asthma Breast cancer Status post right lumpectomy in 2013. Chronic anemia Essential hypertension JOEL (nonalcoholic steatohepatitis) Osteoarthritis Osteoporosis Surgical History Surgical History History of appendectomy History of cataract extraction History of cholecystectomy History of hysterectomy History of laser assisted in situ keratomileusis History of partial thyroidectomy For benign tumor. History of thoracentesis Family History Family History Mother Head and neck cancer Acute myocardial infarction Congestive heart failure Pancreatic cancer Sibling Diabetes mellitus Acute myocardial infarction Social History Social History Social History: The patient lives with her in [place]. She designates her , Abdoulaye, as her surrogate decision maker and she wishes to be a full code. She is a lifelong nonsmoker and denies alcohol and drug use. Smoking status: Never smoker Second hand tobacco smoke exposure: No Alcohol intake: never Substance use: never Gender identity (if verbalized by the patient): Female Spiritual care concerns: No Agree to blood products: Yes Meds Home Medications and Allergies Home Medications Medication Instructions Recorded Confirmed Type furosemide 20 mg PO DAILY 02/25/20 04/14/20 History losartan 100 mg PO DAILY 04/17/19 06/05/19 History omeprazole 20 mg PO DAILY 04/17/19 06/05/19 History albuterol sulfate [ProAir HFA] 2 puff INHALATION QID PRN 05/29/19 06/05/19 History acetaminophen [Tylenol Extra 500 mg PO Q6H PRN 06/05/19 06/05/19 History Strength] Allergies Allergy/AdvReac Type Severity Reaction Status Date / Time lisinopril Allergy Severe ANAPHYLAXIS Verified 05/29/19 14:22 codeine AdvReac Unknown Nausea and Verified 05/29/19 14:22 Vomiting Vital Signs Vital Signs - 24 hr 06/05/19 16:41 06/05/19 16:50 06/05/19 16:51 Temperature 36.6 C Pulse Rate 119 H 117 H Respiratory Rate 40 H Blood Pressure 108/93 H Pulse Oximetry 96 98 06/05/19 17:45 06/05/19 18:15 06/05/19 19:06 Temperature Pulse Rate 109 H 109 H 103 H Respiratory Rate 28 H 24 H 22 H Blood Pressure 133/70 145/62 H 146/67 H Pulse Oximetry 98 98 99 06/05/19 19:47 06/05/19 20:39 Temperature 36.4 C Pulse Rate 100 98 Respiratory Rate 24 H 16 Blood Pressure 122/64 143/52 H Pulse Oximetry 100 99 Exam Const: General: cooperative, alert, awake and other (On oxygen via NC) Nutritional Appearance: well nourished Orientation/consciousness: patient oriented x3 HENMT: Head: normal to inspection General nose exam: Normal external nose
[2019-06-05] MEDS: ACETAMINOPHEN 325 MG TABLET 650 MG PO (20:57)
[2019-06-06] VITALS (13 sets, daily range): BP systolic 123–167; BP diastolic 48–75; PULSE 72–103; RESP 16–28; TEMP 36.6–37.3; O2SAT 92–97
[2019-06-06] MEDS: ACETAMINOPHEN 325 MG TABLET 650 MG PO ×3 (00:57→15:58)
[2019-06-06] MEDS: ONDANSETRON INJ 4 MG/2 ML VIAL IV PUSH (05:11)
--- NOTE | 2019-06-06 11:46 | PM.IMPN ---
Progress Note: A&P Assessment and Plan (1) Recurrent right pleural effusion: Code(s): J90 - Pleural effusion, not elsewhere classified Status: Acute Assessment and Plan: Evident on CXR. Likely secondary to ongoing chronic liver disease and JOEL as the patient has had ascites in the past which also required paracentesis. She has undergone thoracentesis on two prior occasions since March 2019. She is SOB. She is 96% on 2L NC. Therapeutic thoracentesis scheduled for today Pulmonology consult has been ordered to evaluate for possible pleurodesis. Continue oxygen therapy as needed with goal O2 >92%. (2) Leukocytosis: Code(s): D72.829 - Elevated white blood cell count, unspecified Status: Acute Assessment and Plan: Possibly ongoing leukocytosis from recent pneumonia. WBC 16.6 on 06/05/19. She is afebrile and there is no sign of acute infection. Continue to monitor CBC (3) JOEL (nonalcoholic steatohepatitis): Code(s): K75.81 - Nonalcoholic steatohepatitis (JOEL) Status: Chronic Assessment and Plan: Patient sees front desk lead at [facility]. She has undergone paracentesis previously. She is also monitored for varices with EGD and was recently due for appointment but was cancelled due to current pandemic. She does not have significant ascites on exam today. AST is elevated at 58 and ALP is elevated at 146. ALT wnl. Continue to trend LFTs Continue to monitor ascites (4) Essential hypertension: Code(s): I10 - Essential (primary) hypertension Status: Chronic Assessment and Plan: Blood pressure evaluated today and stable at 147/61. Continue home losartan Continue to monitor blood pressure (5) Chronic anemia: Code(s): D64.9 - Anemia, unspecified Status: Chronic Assessment and Plan: Per chart review, she has had anemia for several years. Baseline appears to be 11.0. On 06/04, Hgb 10.7 and Hct 33.5. There are no signs of active bleeding and vitals are stable. Continue to monitor CBC Transfuse prn with threshold Hgb 7.0 Subjective Date/time seen: 06/06/19 11:46 Interval history: Date/time of service: 06/06/2019 at 1130 Ms. Pearson reports she is breathing better than her initial presentation but still is feeling very SOB. She is on 2L NC which has helped her breathing. She denies chest pain, cough, or congestion. Her back is bothering her from lying flat as she has chronic back pain. She has been NPO and reports she is feeling hungry. She had difficulty sleeping last night stating she could not get comfortable. She has been able to get up from bed to transfer to the bedside commodewith assistance. She is able to tolerate this but does feel SOB doing so. She denies urinary symptoms. She denies abdominal pain, N/V/D, fever, chills, dizziness, lightheadedness, headache. She feels somewhat weak. She has trouble hearing and uses hearing aids. Review of Systems Review of Systems: Narrative: A 12 point review of systems was reviewed with pertinent positives and negatives as per HPI. Exam Narrative: Exam Narrative: Ms. Pearson is examined alone today. She is a well nourished 78 year old female who is lying supine in bed. She appears comfortable, is in NARD, and VSS. HR 94, BP 147/61, RR 16, T 98.0F. Neuro: awake, alert and oriented x3, speech clear, no focal neuro deficits noted HEENMT: normocephalic, atraumatic, EOMI, sclerae anicteric, moist oral mucosa, normal oropharynx Neck: supple, no lymphadenopathy, healed surgical scar from thyroid surgery Respiratory: crackles on left side, diminished breath sounds on right, normal respiratory effort without accessory muscle use, 96% on 2L NC Cardio: regular rate, regular rhythm, normal S1 and S2 Abdomen: normal to inspection, protuberant, normoactive bowel sounds, soft, nontender, no rigidity or guarding, no masses Extremities: BLE with scant edema, no erythema, no pain to palpation
[2019-06-06] MEDS: LOSARTAN POTASSIUM 100 MG TABLET PO (14:28)
[2019-06-06] MEDS: PANTOPRAZOLE SOD SESQUIHYDRATE 20 MG TAB PO (14:28)
[2019-06-06] MEDS: FUROSEMIDE 20 MG TABLET PO (14:28)
--- NOTE | 2019-06-06 21:58 | PM.CNPUL ---
Assessment and Plan Assessment and plan (1) Recurrent right pleural effusion: Code(s): J90 - Pleural effusion, not elsewhere classified Status: Acute Assessment and Plan: 1. Has a loud systolic murmur; echo is ordered. May have Aortic Stenosis. If this is due to Aortic stenosis, she will need cardiac evaluation. Start with that. 2. She had 1 L removed by thoracentesis on Apr 20, May 29 and again June 05. Today's procedure is the only fluid that is seen in the lab section. The fluid is consistent with a transudate with normal pH, protein, LDH, glucose. She does have elevated nucleated count 1310 with lymphocyte predominance, and small increase in rbc, not significant. The treatment for her recurrent effusion is to address the underlying cause for accumulation of fluid. She has JOEL, has a transportation analyst at [facility], needs to have her liver issues addressed as this is may be contributing to the recurrent effusions. The interval between needing a thoracentesis is getting shorter. Pleurodesis is an option for recurrent malignant effusions and some nonmalignant effusions. She did not have cytology sent on this specimen. The cytology May 28 was negative for malignancy. A negative cytology on pleural fluid is not sensitive, so she could have a malignant cause, but the remainder of the fluid appears benign, so not highly likely. The pH, rbc count, LDH appear benign. She is requiring low flow O2, saturation is 95% on 2 L, so this could be weaned. She has not had a chest C in our system. This may be helpful to determine if there is an underlying mass, infiltrate, atelectasis; this may add to diagnostic yield. Will call her transportation analyst at [facility] to see what her status is and try to get any records that may help. Pleurodesis is a decision that needs to take into account all the other contributing factors about why she has this. I can discuss with surgery, but overall, this is the type of procedure that thoracic surgeons handle, so she would need to be transferred. May consider [facility] as her other doctors are there. Need to work up her murmur first. (2) Murmur, cardiac: Code(s): R01.1 - Cardiac murmur, unspecified Status: Acute History of Present Illness History of Present Illness Consult date: 06/07/19 Chief complaint: Pleural effusion/hypoxemia Narrative: NEW CONSULT: Stefanie Pearson is a 78 yo female with HTN, anemia, breast cancer 2013, JOEL followed at [facility] bu Dr Sanchez. Her liver is stable, overall. She developed a large Left pleural effusion in 2019, was tapped at [facility]. This year she had a Right pleural effusion tapped Apr 20 with 1 L of yellow fluid, again 4/8 and now 4/15. The fluid is transudative. She presented with increased shortness of breath without signs of infection - no fever, cough, sputum, chills, myalgias, N/N or diarrhea. Review of Systems Review of Systems: All systems reviewed & are unremarkable except as noted in HPI and below PMFSH Past Medical History Medical History Asthma Breast cancer Status post right lumpectomy in 2012. Chronic anemia Essential hypertension JOEL (nonalcoholic steatohepatitis) Osteoarthritis Osteoporosis Surgical History Surgical History History of appendectomy History of cataract extraction History of cholecystectomy History of hysterectomy History of laser assisted in situ keratomileusis History of partial thyroidectomy For benign tumor. History of thoracentesis Family History Family History Mother Head and neck cancer Acute myocardial infarction Congestive heart failure Pancreatic cancer Sibling Diabetes mellitus Acute myocardial infarction Social History Social History Social History: The patient lives with her in
[2019-06-07] VITALS (9 sets, daily range): BP systolic 140–157; BP diastolic 47–67; PULSE 87–103; RESP 12–20; TEMP 36.7–36.8; O2SAT 96–97
--- NOTE | 2019-06-07 | ECHO_ITS ---
Patient Info Name: Stefanie Pearson Age: 78 years : 1940 Gender: Female Ht: 64 in Wt: 155 lbs BSA: 1.80 m2 HR: 94 bpm BP: 123 / 48 mmHg Technical Quality: Fair Exam Date: 06/07/2019 9:48 AM Exam Location: [facility] Patient Status: Inpatient Admit Date: 06/06/2019 Staff Ordering Physician: Nneka Torres MD Grades 9 12 Tutor: Gerri Waggoner RDCS Attending Provider: Alesha Gonzalez PA-C Referring Physician: Brian NAIR; Exam Type: CA echo doppler color flow Study Info Indications R06.02 - Shortness of breath R01.1 - Cardiac murmur, unspecified Complete two-dimensional, color flow and Doppler transthoracic echocardiogram is performed. Summary 1. Left ventricular chamber dimension is normal. 2. Left ventricular systolic function is normal, estimated at 65-70%. 3. There is mildly increased left ventricular wall thickness. 4. The left ventricular diastolic function is grade I diastolic dysfunction. 5. E/e' 12 is mildly elevated. 6. There is moderate aortic valve sclerosis. 7. There is mild to moderate aortic valve stenosis with a peak velocity of 235 cm/s, mean gradient of 12 mmHg, and aortic valve area of 1.5 cm2. 8. By planimetry, aortic valve area is measured to be 1.4 cm2. 9. There is mild mitral valve regurgitation. 10. There is trace tricuspid valve regurgitation. 11. No pulmonary hypertension, estimated pulmonary arterial systolic pressure is 29 mmHg. 12. There are 3 echogenic essentially circumferential masses noted in right lung, measuring 2.8 x 3.3 cm, 2.1 x 2.0 cm, 1.9 x 2.2 cm. It is unclear if these are within lung parenchyma or within pleural effusions. Left Ventricle E/e' 12 is mildly elevated. Left ventricular chamber dimension is normal. Left ventricular systolic function is normal, estimated at 65-70%. There is mildly increased left ventricular wall thickness. The left ventricular diastolic function is grade I diastolic dysfunction. Right Ventricle Right ventricular chamber dimension is normal. Right ventricular systolic function is normal. Left Atria Left atrial chamber dimension is normal. Right Atria Right atrial chamber dimension is normal. Aortic Valve By planimetry, aortic valve area is measured to be 1.4 cm2. The aortic valve is trileaflet. There is moderate aortic valve sclerosis. There is mild to moderate aortic valve stenosis with a peak velocity of 235 cm/s, mean gradient of 12 mmHg, and aortic valve area of 1.5 cm2. There is no aortic valve regurgitation. Pulmonic Valve There is no pulmonic regurgitation. Mitral Valve There is no mitral valve stenosis. There is mild mitral valve regurgitation. Tricuspid Valve There is trace tricuspid valve regurgitation. No pulmonary hypertension, estimated pulmonary arterial systolic pressure is 29 mmHg. Pericardium/Pleural There are 3 echogenic essentially circumferential masses noted in right lung, measuring 2.8 x 3.3 cm, 2.1 x 2.0 cm, 1.9 x 2.2 cm. It is unclear if these are within lung parenchyma or within pleural effusions. There is no pericardial effusion. Inferior Vena Cava Normal inferior vena cava with >50% collapse upon inspiration consistent with normal right atrial pressure, 5 mmHg. Aorta The aortic root size at the sinus of Valsalva is normal. Left Ventricular Outflow Tract Name Value Normal
[2019-06-07 05:51] LABS: Hematocrit 29.3 % (37.0-47.0); Hemoglobin 9.2 g/dL (12.0-15.0); Mean Corpuscular HGB Conc 31.4 g/dl (32-36); Mean Corpuscular Hemoglobin 29.4 pg (26-34); Mean Corpuscular Volume 93.6 fl (80-100); Mean Platelet Volume 10.6 fl (7.4-10.4); Platelet Count Result 163 k/mm3 (150-375); Red Blood Count 3.13 M/mm3 (4.2-5.4); Red Cell Distribution Width 15.9 % (11.5-14.5); White Blood Count 7.5 K/mm3 (4.5-10.0)
[2019-06-07] MEDS: ACETAMINOPHEN 325 MG TABLET 650 MG PO ×4 (05:53→20:25)
[2019-06-07 06:08] LABS: Alanine Aminotransferase 21 U/L (4-35); Albumin Level 2.9 g/dL (3.5-5.1); Alkaline Phosphatase 112 U/L (38-126); Aspartate Amino Transferase 40 U/L (14-36); Bilirubin,Total 0.9 mg/dL (0.2-1.3); Blood Urea Nitrogen 32 mg/dL (7-17); Calcium 8.6 mg/dL (8.4-10.2); Carbon Dioxide 28 mmol/L (22-30); Chloride 107 mmol/L (98-107); Estimated CRCL calculation 24 ml/min; Estimated Glomerular Filt Rate 33; Glucose 117 mg/dL (65-105); Potassium 4.2 mmol/L (3.4-5.0); Sodium 139 mmol/L (137-145)
[2019-06-07] MEDS: FUROSEMIDE 20 MG TABLET PO (09:10)
[2019-06-07] MEDS: PANTOPRAZOLE SOD SESQUIHYDRATE 20 MG TAB PO (09:10)
[2019-06-07] MEDS: LOSARTAN POTASSIUM 100 MG TABLET PO (09:10)
--- NOTE | 2019-06-07 10:47 | PM.IMPN ---
Progress Note: A&P Assessment and Plan (1) Recurrent right pleural effusion: Code(s): J90 - Pleural effusion, not elsewhere classified Status: Acute Assessment and Plan: Evident on CXR. Likely secondary to ongoing chronic liver disease and JEOL as the patient has had ascites in the past which also required paracentesis. She has undergone thoracentesis on two prior occasions since March 2019. She is SOB. She is 96% on 2L NC. Underwent therapeutic thoracentesis 06/05 which yielded 1L yellow transudative fluid with normal pH, LDH, protein, and glucose, elevated lymphocytes and RBC. No cytology reports but prior cytology from previous pleural fluid was negative for malignancy. Pulmonology consult has been ordered to evaluate for possible pleurodesis. If this is indicated, she will need to be transferred to a facility with thoracic surgery. Will need to obtain records from software quality specialist at [facility] at recommendation of Dr. Torres. Continue oxygen therapy as needed with goal O2 >92%. Wean to goal. Consider obtaining chest CT to evaluate for underlying malignancy as cause for recurrent pleural effusions. (2) JOEL (nonalcoholic steatohepatitis): Code(s): K75.81 - Nonalcoholic steatohepatitis (JOEL) Status: Chronic Assessment and Plan: Patient sees software quality specialist at [facility]. She has undergone paracentesis previously. She is also monitored for varices with EGD and was recently due for appointment but was cancelled due to current pandemic. She does not have significant ascites on exam today. AST and ALP were elevated but today ALP wnl and AST trending down. Continue to trend LFTs Continue to monitor ascites Will attempt to obtain records from software quality specialist. JOEL may play a role in recurrent pleural effusion. (3) Murmur, cardiac: Code(s): R01.1 - Cardiac murmur, unspecified Status: Acute Assessment and Plan: Systolic murmur noted on exam by Dr. Torres. Murmur heard best on right chest, which may indicate aortic stenosis. could be contributing to her increased SOB. Echo ordered and being obtained today. Wait for results of Echo. Consider cardiac evaluation depending on results. (4) Leukocytosis: Code(s): D72.829 - Elevated white blood cell count, unspecified Status: Resolved Assessment and Plan: Possibly ongoing leukocytosis from recent pneumonia. WBC 16.6 on 06/05/19. She is afebrile and there is no sign of acute infection. WBC today 7.5. Continue to monitor (5) Essential hypertension: Code(s): I10 - Essential (primary) hypertension Status: Chronic Assessment and Plan: Blood pressure evaluated today and stable at 157/62. Continue home losartan Continue to monitor blood pressure (6) Chronic anemia: Code(s): D64.9 - Anemia, unspecified Status: Chronic Assessment and Plan: Per chart review, she has had normocytic anemia for several years. Today Hgb 9.2 and Hct 29.3. MCV There are no signs of active bleeding and vitals are stable. Continue to monitor CBC Transfuse prn with threshold Hgb 7.0 Subjective Date/time seen: 06/07/19 10:47 Interval history: Date/time seen: 06/07/19 at 1030 Ms. Pearson reports she is doing better today after undergoing therapeutic thoracentesis yesterday. She feels less SOB today. She is now complaining of dry cough that occurs with exertion. She has been ambulating around the room and to the bathroom and the activity brings on the cough. She denies chest pain or orthopnea. She is eating well. She is urinating without difficulty. She denies abdominal pain, N/V/D, fever, chills, dizziness, lightheadedness, palpitations, dysphagia, sore throat, congestion, bleeding, bruising, anxiety or depression. She is hard of hearing. She misses her family given the visitor restrictions but has been staying connected via phone. Review of Systems Review of Systems: Narrative: A 12 p
--- NOTE | 2019-06-07 12:06 | PM.PNPUL ---
Progress Note: A&P Assessment and Plan (1) Pleural effusion: Code(s): J90 - Pleural effusion, not elsewhere classified Status: Acute Assessment and Plan: Quickly recurring right transudated effusion: - DD is hepatic hydrothorax vs CHF. CHF less likely given lack of left pleural effusion, LE edema but still possible. - She may be a candidate for TIPS procedure. Her Hostler Helper at [facility] should be called and discussed with him - will order CT chest/abdomen ( non contrast) to r/o other underlying pathology. No malignant cells seen on pleural effusion on 05/30/19 although this is not very sensitive. Time Spent With Patient Time with patient: Greater than 35 minutes Subjective Date/time seen: 06/07/19 12:06 Interval history: Feelin better after thoracentesis of 1 liter yesterday. Repeat CXR today still shows significant right pleural effusion. She still has an intemittent non productive cough but no fever. Leukocytosis present on admission but has resolved. Pleural effusion has recaccumulated in 1 week but no significant ascites. Chemistry studies on pleural effusion from 05/30/19 suggests a transudated effusion. Echo shows possible mild to moderate with some diastolic dysfucntion. Review of Systems Review of Systems: All systems reviewed & are unremarkable except as noted in HPI and below Exam Const: General: comfortable and no acute distress HENMT: Mouth: Yes moist mucous membranes Neck: Neck: supple and no JVD Resp: Auscultation: diminished lung sounds Other: right > left with dullness to percussion on the right Cardio: Rate: regular rate Rhythm: regular rhythm Heart sounds: Murmur heart sound present (2/6, loudest left lower sternal border and apical area ) GI: Auscultation: normal bowel sounds Other: non distended, no significant ascites Skin: General skin exam: normal color and no rashes or lesions noted Neuro: General: gait normal Speech: normal speech Extrem: General: normal to inspection and normal exam except as noted Psych: Mental Status: mental status grossly normal Affect: normal affect Objective Data Vital Signs Vital Signs: Vital Signs - 24 hr 06/06/19 12:12 06/06/19 14:00 06/06/19 16:00 Temperature 36.8 C Pulse Rate 100 72 90 Respiratory Rate 28 H 16 Blood Pressure 161/67 H 148/62 H Pulse Oximetry 92 97 06/06/19 19:12 06/06/19 20:00 06/06/19 22:00 Temperature 37.3 C Pulse Rate 95 95 Respiratory Rate 20 Blood Pressure 123/48 L Pulse Oximetry 93 95 06/07/19 00:00 06/07/19 04:00 06/07/19 06:00 Temperature 36.8 C Pulse Rate 98 87 94 Respiratory Rate 20 Blood Pressure 157/62 H Pulse Oximetry 96 06/07/19 08:00 Temperature Pulse Rate 103 H Respiratory Rate Blood Pressure Pulse Oximetry Intake/Output Intake/Output: Intake & Output 06/04/19 06/05/19 06/06/19 06/07/19 23:59 23:59 23:59 23:59 Intake Total 1280 240 Output Total 2225 500 Balance -945 -260 Meds/Results Medications: Active Medications Generic Name Dose Route Start Last Admin Trade Name Freq PRN Reason Stop Dose Admin Acetaminophen 650 mg 06/05/19 18:30 06/07/19 10:46 Tylenol Tablet PO 650 mg Q4H PRN Administration Mild Pain (1-3) or Fever Albuterol 2 puff 06/05/19 21:16 Proventil Hfa INHALATION QID PRN Shortness Of Breath Furosemide 20 mg 06/06/19 09:00 06/07/19 09:10 Lasix Tablet PO 20 mg DAILY ROULA Administration Losartan Potassium 100 mg 06/06/19 09:00 06/07/19 09:10 Cozaar PO 100 mg DAILY ROULA Administration Pantoprazole Sodium 20 mg 06/06/19 09:00 06/07/19 09:10 Protonix PO 20 mg QAM ROULA Administration Radiology Results: ITS Impressions Thoracentesis Ultrasound 06/06/19 12:22 IMPRESSION: 1. Successful ultrasound-guided thoracentesis yielding 1000 mL of yellow fluid. Chest X-Ray 06/07/19 11:58 IMPRESSION: 1. Stable moderate-sized right pleural effusion.
[2019-06-08] VITALS (12 sets, daily range): BP systolic 130–156; BP diastolic 58–69; PULSE 86–113; RESP 18–28; TEMP 36.4–37.3; O2SAT 90–96
[2019-06-08 05:30] LABS: Hematocrit 28.8 % (37.0-47.0); Hemoglobin 9.2 g/dL (12.0-15.0); Mean Corpuscular HGB Conc 31.9 g/dl (32-36); Mean Corpuscular Hemoglobin 29.1 pg (26-34); Mean Corpuscular Volume 91.1 fl (80-100); Mean Platelet Volume 10.9 fl (7.4-10.4); Platelet Count Result 167 k/mm3 (150-375); Red Blood Count 3.16 M/mm3 (4.2-5.4); Red Cell Distribution Width 15.4 % (11.5-14.5); White Blood Count 8.1 K/mm3 (4.5-10.0)
[2019-06-08 05:54] LABS: Alanine Aminotransferase 19 U/L (4-35); Albumin Level 2.8 g/dL (3.5-5.1); Alkaline Phosphatase 114 U/L (38-126); Aspartate Amino Transferase 40 U/L (14-36); Bilirubin,Total 0.6 mg/dL (0.2-1.3); Blood Urea Nitrogen 35 mg/dL (7-17); Calcium 8.5 mg/dL (8.4-10.2); Carbon Dioxide 25 mmol/L (22-30); Chloride 108 mmol/L (98-107); Estimated CRCL calculation 25 ml/min; Estimated Glomerular Filt Rate 36; Glucose 121 mg/dL (65-105); Potassium 4.2 mmol/L (3.4-5.0); Sodium 137 mmol/L (137-145)
[2019-06-08] MEDS: ACETAMINOPHEN 325 MG TABLET 650 MG PO (07:23)
[2019-06-08] MEDS: PANTOPRAZOLE SOD SESQUIHYDRATE 20 MG TAB PO (08:41)
[2019-06-08] MEDS: FUROSEMIDE 20 MG TABLET PO (08:41)
[2019-06-08] MEDS: LOSARTAN POTASSIUM 100 MG TABLET PO (08:41)
[2019-06-08] MEDS: LIDOCAINE 5% PATCH 2 PATCH TRANSDERM (09:29)
--- NOTE | 2019-06-08 13:37 | P.PNIM_ITS ---
Progress Note: A&P Assessment and Plan (1) Recurrent right pleural effusion: Code(s): J90 - Pleural effusion, not elsewhere classified Status: Acute Assessment and Plan: Likely secondary to ongoing JOEL. She sees a coating machine helper at [facility]. She has undergone thoracentesis on two prior occasions since March 2019. She is SOB. She is 96% on 2L NC. Underwent therapeutic thoracentesis 06/05 which yielded 1L yellow transudative fluid. No cytology reports but prior cytology from previous pleural fluid was negative for malignancy. Chest CT on 06/06 did not reveal underlying malignancy but did show recurrence of large right pleural effusion. * Right therapeutic thoracentesis today. Interval between thoracentesis is decreasing and effusion is quickly recurring. This will be her 4th thoracentesis since March 2018. * Pulmonology is following the patient. Dr. Torres obtained records from office visit with coating machine helper which reveal portal hypertension. 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 * Spoke to nurse from Dr. Sanz ([facility] Classified Advertising Clerk) office and awaiting phone call from doctor regarding plan of care. Patient may be a candidate for TIPS procedure. * Continue oxygen therapy as needed with goal O2 >92%. Wean to goal. (2) JOEL (nonalcoholic steatohepatitis): Code(s): K75.81 - Nonalcoholic steatohepatitis (JOEL) Status: Chronic Assessment and Plan: Patient sees coating machine helper at [facility]. In September 2018, MELD score was 14. She does not have significant ascites on exam today. LFTs initially elevated but appear to be trending down. MELD score is 12. Records obtained from coating machine helper reveal patient has portal hypertension. * Continue to trend LFTs * Continue to monitor ascites * Patients JOEL likely plays a role in recurrent right pleural effusion. 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 * Continue low sodium diet. (3) Acute kidney injury: Code(s): N17.9 - Acute kidney failure, unspecified Status: Acute Assessment and Plan: At presentation, Cr 1.3 and increased to 1.5 on 06/06. Today, Cr is still elevated at 1.4 but appears to be trending down. Overall, Cr is stable and baseline is unclear. Increase may be related to hepatorenal syndrome. * Hold Losartan and Lasix * Order urine sodium and urine creatinine. * Continue to monitor. (4) Aortic stenosis: Qualifiers: Cardiac valve disease etiology: etiology unspecified Qualified Code(s): I35.0 - Nonrheumatic aortic (valve) stenosis Code(s): I35.0 - Nonrheumatic aortic (valve) stenosis Status: Acute Assessment and Plan: Systolic murmur noted on exam heard best on right chest. Echo revealed mild- moderate aortic valve stenosis. could be contributing to her increased SOB but it is more likely due to recurrent pleural effusion. Besides SOB, she is asymptomatic. * Continue to monitor (5) Essential hypertension: Code(s): I10 - Essential (primary) hypertension Status: Chronic Assessment and Plan: Blood pressure evaluated today and stable at 156/69. * Hold home losartan and furosemide given elevated creatinine. * Continue to monitor blood pressure. * Will add prn hydralazine while home antihypertensives are held. (6) Chronic anemia: Code(s): D64.9 - Anemia, unspecified Status: Chronic Assessment and Plan: Per chart review, she has had normocytic anemia for several years. Today Hgb 9.2 and Hct 28.8. There are no signs of active bleeding and vitals are sta
--- NOTE | 2019-06-08 13:37 | PM.IMPN ---
Progress Note: A&P Assessment and Plan (1) Recurrent right pleural effusion: Code(s): J90 - Pleural effusion, not elsewhere classified Status: Acute Assessment and Plan: Likely secondary to ongoing JOEL. She sees a focusing machine operator at [facility]. She has undergone thoracentesis on two prior occasions since March 2019. She is SOB. She is 96% on 2L NC. Underwent therapeutic thoracentesis 06/05 which yielded 1L yellow transudative fluid. No cytology reports but prior cytology from previous pleural fluid was negative for malignancy. Chest CT on 06/06 did not reveal underlying malignancy but did show recurrence of large right pleural effusion. Right therapeutic thoracentesis today. Interval between thoracentesis is decreasing and effusion is quickly recurring. This will be her 4th thoracentesis since March 2018. Pulmonology is following the patient. Dr. Torres obtained records from office visit with focusing machine operator which reveal portal hypertension. 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 Spoke to nurse from Dr. Sanz ([facility] [employer] Commissioner) office and awaiting phone call from doctor regarding plan of care. Patient may be a candidate for TIPS procedure. Continue oxygen therapy as needed with goal O2 >92%. Wean to goal. (2) JOEL (nonalcoholic steatohepatitis): Code(s): K75.81 - Nonalcoholic steatohepatitis (JOEL) Status: Chronic Assessment and Plan: Patient sees focusing machine operator at [facility]. In September 2018, MELD score was 14. She does not have significant ascites on exam today. LFTs initially elevated but appear to be trending down. MELD score is 12. Records obtained from focusing machine operator reveal patient has portal hypertension. Continue to trend LFTs Continue to monitor ascites Patients JOEL likely plays a role in recurrent right pleural effusion. 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 Continue low sodium diet. (3) Acute kidney injury: Code(s): N17.9 - Acute kidney failure, unspecified Status: Acute Assessment and Plan: At presentation, Cr 1.3 and increased to 1.5 on 06/06. Today, Cr is still elevated at 1.4 but appears to be trending down. Overall, Cr is stable and baseline is unclear. Increase may be related to hepatorenal syndrome. Hold Losartan and Lasix Order urine sodium and urine creatinine. Continue to monitor. (4) Aortic stenosis: Qualifiers: Cardiac valve disease etiology: etiology unspecified Qualified Code(s): I35.0 - Nonrheumatic aortic (valve) stenosis Code(s): I35.0 - Nonrheumatic aortic (valve) stenosis Status: Acute Assessment and Plan: Systolic murmur noted on exam heard best on right chest. Echo revealed mild-moderate aortic valve stenosis. could be contributing to her increased SOB but it is more likely due to recurrent pleural effusion. Besides SOB, she is asymptomatic. Continue to monitor (5) Essential hypertension: Code(s): I10 - Essential (primary) hypertension Status: Chronic Assessment and Plan: Blood pressure evaluated today and stable at 156/69. Hold home losartan and furosemide given elevated creatinine. Continue to monitor blood pressure. Will add prn hydralazine while home antihypertensives are held. (6) Chronic anemia: Code(s): D64.9 - Anemia, unspecified Status: Chronic Assessment and Plan: Per chart review, she has had normocytic anemia for several years. Today Hgb 9.2 and Hct 28.8. There are no signs of active bleeding and vitals are stable. Continue to monitor CBC Transfuse prn with threshold Hgb 7.0 (7) Leukocytosis: Code(s): D72.829 - Elevated white blood cell count, unspecified Status: Resolved Assessment and Plan: WBC 16.6 on 06/05/19, which may have been ongoing from recent pneumonia or may be reactive. She is afebrile and there is no sign of acute infection. WBC today 8.1.
--- NOTE | 2019-06-08 16:35 | PM.PNPUL ---
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 Review of Systems Review of Systems: All systems reviewed & are unremarkable except as noted in HPI and below Exam Const: General: comfortable and no acute distress HENMT: Mouth: Yes moist mucous membranes Neck: Neck: supple and no JVD Resp: Auscultation: diminished lung sounds Other: right > left with dullness to percussion on the right Cardio: Rate: regular rate Rhythm: regular rhythm Heart sounds: Murmur heart sound present (2/6, loudest left lower sternal border and apical area ) GI: Auscultation: normal bowel sounds Other: non distended, no significant ascites Skin: General skin exam: normal color and no rashes or lesions noted Neuro: General: gait normal Speech: normal speech Extrem: General: normal to inspection and normal exam except as noted Psych: Mental Status: mental status grossly normal Affect: normal affect Objective Data Vital Signs Vital Signs: Vital Signs - 24 hr 06/07/19 20:00 06/07/19 21:32 06/08/19 00:00 Temperature 36.7 C Pulse Rate 88 87 86 Respiratory Rate 16 Blood Pressure 146/67 H Pulse Oximetry 97 06/08/19 04:00 06/08/19 05:44 06/08/19 08:00 Temperature 36.6 C Pulse Rate 88 91 109 H Respiratory Rate 24 H Blood Pressure 156/69 H Pulse Oximetry 96 06/08/19 08:41 06/08/19 12:00 06/08/19 14:05 Temperature Pulse Rate 103 H 113 H 104 H Respiratory Rate 24 H 28 H Blood Pressure 155/69 H Pulse Oximetry 96 90 06/08/19 14:20 06/08/19 15:30 Temperature 37.3 C Pulse Rate 106 H 103 H Respiratory Rate 28 H 20 Blood Pressure 133/58 L 155/63 H Pulse Oximetry 91 94 Intake/Output Intake/Output: Intake & Output 06/05/19 06/06/19 06/07/19 06/08/19 23:59 23:59 23:59 23:59 Intake Total 1280 1020 820 Output Total 2225 725 1285 Balance -945 295 -465 Meds/Results Medications: Active Medications Generic Name Dose Route Start Last Admin Trade Name Freq PRN Reason Stop Dose Admin Acetaminophen 650 mg 06/05/19 18:30 06/08/19 07:23 Tylenol Tablet PO 650 mg Q4H PRN Administration Mild Pain (1-3) or Fever Albuterol 2 puff 06/05/19 21:16 Proventil Hfa INHALATION QID PRN Shortness Of Breath Furosemide 20 mg 06/06/19 09:00 06/08/19 08:41 Lasix Tablet PO 20 mg DAILY ROULA Administration Hydralazine HCl 10 mg 06/08/19 14:57 Apresoline Tablet PO QID PRN BP >160 systolic Albumin Human 100 mls @ 60 mls/hr 06/08/19 22:00 Albutein IVPB Q8HR ROULA Lidocaine 2 patch 06/08/19 09:00 06/08/19 09:29 Lidoderm TRANSDERM 2 patch DAILY ROULA Administration Losartan Potassium 100 mg 06/06/19 09:00 06/08/19 08:41 Cozaar PO 100 mg DAILY ROULA Administration Pantoprazole Sodium 20 mg 06/06/19 09:00 06/08/19 08:41 Protonix PO 20 mg QAM ROULA Administration Radiology Results: ITS Impressions Chest/Abdomen CT 06/07/19 12:45 IMPRESSION: 1. Cirrhosis of the liver with portal venous hypertension. 2. Large right and small left pleural effusions. 3. Small volume of ascites. Chest X-Ray 06/08/19 14:32 Impression: 1: Bilateral airspace disease, most likely edema. Superimposed pneumonia not excluded. 2: Bilateral pleural effusions, right greater than left. Thoracentesis Ultrasound 06/08/19 14:42 IMPRESSION: 1. Successful ultrasound-guided thoracentesis y
[2019-06-08] MEDS: ALBUMIN HUMAN 25% 25 GM/100 ML 100 ML IVPB (21:28)
[2019-06-09] VITALS (11 sets, daily range): BP systolic 146–158; BP diastolic 55–70; PULSE 88–108; RESP 18; TEMP 36.7–36.8; O2SAT 93–95
[2019-06-09 05:40] LABS: Hematocrit 28.1 % (37.0-47.0); Mean Corpuscular Hemoglobin 29.3 pg (26-34); Mean Corpuscular Volume 91.5 fl (80-100); Mean Platelet Volume 10.5 fl (7.4-10.4); Platelet Count Result 170 k/mm3 (150-375); Red Blood Count 3.07 M/mm3 (4.2-5.4); Red Cell Distribution Width 15.4 % (11.5-14.5); White Blood Count 8.1 K/mm3 (4.5-10.0)
[2019-06-09] MEDS: ALBUMIN HUMAN 25% 25 GM/100 ML 100 ML IVPB ×3 (05:51→21:55)
[2019-06-09 05:58] LABS: Alanine Aminotransferase 21 U/L (4-35); Albumin Level 3.2 g/dL (3.5-5.1); Alkaline Phosphatase 124 U/L (38-126); Aspartate Amino Transferase 46 U/L (14-36); Bilirubin,Total 0.6 mg/dL (0.2-1.3); Blood Urea Nitrogen 36 mg/dL (7-17); Calcium 8.8 mg/dL (8.4-10.2); Carbon Dioxide 25 mmol/L (22-30); Chloride 108 mmol/L (98-107); Estimated CRCL calculation 27 ml/min; Estimated Glomerular Filt Rate 40; Glucose 113 mg/dL (65-105); Potassium 3.9 mmol/L (3.4-5.0); Sodium 138 mmol/L (137-145)
[2019-06-09 06:42] LABS: Creatinine Urine 75.7 mg/dL
[2019-06-09] MEDS: ONDANSETRON INJ 4 MG/2 ML VIAL IV PUSH (06:42)
[2019-06-09 07:15] LABS: Sodium Urine Random 104 meq/L
[2019-06-09] MEDS: LIDOCAINE 5% PATCH 2 PATCH TRANSDERM (08:41)
[2019-06-09] MEDS: PANTOPRAZOLE SOD SESQUIHYDRATE 20 MG TAB PO (08:41)
[2019-06-09] MEDS: FUROSEMIDE INJ 40 MG/4 ML VIAL 20 MG IV PUSH (11:43)
--- NOTE | 2019-06-09 12:53 | P.PNIM_ITS ---
Progress Note: A&P Assessment and Plan (1) Recurrent right pleural effusion: Code(s): J90 - Pleural effusion, not elsewhere classified Status: Acute Assessment and Plan: Likely secondary to ongoing JOEL. She sees a foreign exchange position clerk at [facility]. She has undergone thoracentesis on two prior occasions since March 2019. She is SOB. She is 96% on 2L NC. Underwent therapeutic thoracentesis 06/05 which yielded 1L yellow transudative fluid. No cytology reports but prior cytology from previous pleural fluid was negative for malignancy. Chest CT on 06/06 did not reveal underlying malignancy but did show recurrence of large right pleural effusion. Underwent right therapeutic thoracentesis again on 06/07 draining 1L yellow fluid. Interval between thoracentesis is decreasing and effusion is quickly recurring. She has had 4 right thoracentesis since March 2018. * Pulmonology is following the patient. Reviewed office visit with foreign exchange position clerk which reveal portal hypertension. Pleural effusion is likely related to he patic hydrothorax. * Spoke to Dr. Doran ([facility] [employer] Operator) on 06/07 who reports she is not a candidate for TIPS or for pleurodesis. Continue IV albumin and IV lasix per [facility] Mononitrotoluene Operator recommendations. * Continue oxygen therapy as needed with goal O2 >92%. Wean to goal. * Monitor daily X-ray * Per Dr. Gunn, if effusions recur she may need small bore chest tube. Will monitor. (2) JOEL (nonalcoholic steatohepatitis): Code(s): K75.81 - Nonalcoholic steatohepatitis (JOEL) Status: Chronic Assessment and Plan: Patient sees foreign exchange position clerk at [facility]. In September 2018, MELD score was 14. She does not have significant ascites on exam today. LFTs initially elevated but appear to be trending down. MELD score is 12. Records obtained from foreign exchange position clerk reveal patient has portal hypertension. * Continue to trend LFTs * Continue to monitor ascites * Patients JOEL likely plays a role in recurrent right pleural effusion. 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 * Continue strict low sodium diet. (3) Acute kidney injury: Code(s): N17.9 - Acute kidney failure, unspecified Status: Acute Assessment and Plan: At presentation, Cr 1.3 and increased to 1.5 on 06/06. Creatinine appears to be trending down and today is 1.3. Increase may be related to hepatorenal syndrome. Per foreign exchange position clerk, baseline is 1.7. * Hold Losartan * Continue to monitor. (4) Aortic stenosis: Qualifiers: Cardiac valve disease etiology: etiology unspecified Qualified Code(s): I35.0 - Nonrheumatic aortic (valve) stenosis Code(s): I35.0 - Nonrheumatic aortic (valve) stenosis Status: Acute Assessment and Plan: Systolic murmur noted on exam heard best on right chest. Echo revealed mild- moderate aortic valve stenosis. could be contributing to her increased SOB but it is more likely due to recurrent pleural effusion. Besides SOB, she is asymptomatic. * Continue to monitor (5) Essential hypertension: Code(s): I10 - Essential (primary) hypertension Status: Chronic Assessment and Plan: Blood pressure evaluated today and stable at 158/70. * Hold home losartan given elevated creatinine. Resume when clinically appropriate. * Continue to monitor blood pressure. * Will add prn hydralazine while home antihypertensives are held. (6) Chronic anemia: Code(s): D64.9 - Anemia, unspecified Status: Chronic Assessment and Plan: Per
--- NOTE | 2019-06-09 12:53 | PM.IMPN ---
Progress Note: A&P Assessment and Plan (1) Recurrent right pleural effusion: Code(s): J90 - Pleural effusion, not elsewhere classified Status: Acute Assessment and Plan: Likely secondary to ongoing JOEL. She sees a info print press operator at [facility]. She has undergone thoracentesis on two prior occasions since March 2019. She is SOB. She is 96% on 2L NC. Underwent therapeutic thoracentesis 06/05 which yielded 1L yellow transudative fluid. No cytology reports but prior cytology from previous pleural fluid was negative for malignancy. Chest CT on 06/06 did not reveal underlying malignancy but did show recurrence of large right pleural effusion. Underwent right therapeutic thoracentesis again on 06/07 draining 1L yellow fluid. Interval between thoracentesis is decreasing and effusion is quickly recurring. She has had 4 right thoracentesis since March 2018. Pulmonology is following the patient. Reviewed office visit with info print press operator which reveal portal hypertension. 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 Spoke to Dr. Doran ([facility] [employer]el[employer]) on 06/07 who reports she is not a candidate for TIPS or for pleurodesis. Continue IV albumin and IV lasix per [facility] [employer] recommendations. Continue oxygen therapy as needed with goal O2 >92%. Wean to goal. Monitor daily X-ray Per Dr. Gunn, if effusions recur she may need small bore chest tube. Will monitor. (2) JOEL (nonalcoholic steatohepatitis): Code(s): K75.81 - Nonalcoholic steatohepatitis (JOEL) Status: Chronic Assessment and Plan: Patient sees info print press operator at [facility]. In September 2018, MELD score was 14. She does not have significant ascites on exam today. LFTs initially elevated but appear to be trending down. MELD score is 12. Records obtained from info print press operator reveal patient has portal hypertension. Continue to trend LFTs Continue to monitor ascites Patients JOEL likely plays a role in recurrent right pleural effusion. 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 Continue strict low sodium diet. (3) Acute kidney injury: Code(s): N17.9 - Acute kidney failure, unspecified Status: Acute Assessment and Plan: At presentation, Cr 1.3 and increased to 1.5 on 06/06. Creatinine appears to be trending down and today is 1.3. Increase may be related to hepatorenal syndrome. Per info print press operator, baseline is 1.7. Hold Losartan Continue to monitor. (4) Aortic stenosis: Qualifiers: Cardiac valve disease etiology: etiology unspecified Qualified Code(s): I35.0 - Nonrheumatic aortic (valve) stenosis Code(s): I35.0 - Nonrheumatic aortic (valve) stenosis Status: Acute Assessment and Plan: Systolic murmur noted on exam heard best on right chest. Echo revealed mild-moderate aortic valve stenosis. could be contributing to her increased SOB but it is more likely due to recurrent pleural effusion. Besides SOB, she is asymptomatic. Continue to monitor (5) Essential hypertension: Code(s): I10 - Essential (primary) hypertension Status: Chronic Assessment and Plan: Blood pressure evaluated today and stable at 158/70. Hold home losartan given elevated creatinine. Resume when clinically appropriate. Continue to monitor blood pressure. Will add prn hydralazine while home antihypertensives are held. (6) Chronic anemia: Code(s): D64.9 - Anemia, unspecified Status: Chronic Assessment and Plan: Per chart review, she has had normocytic anemia for several years. Today Hgb 9.0 and Hct 28.1. There are no signs of active bleeding and vitals are stable. Continue to monitor CBC Transfuse prn with threshold Hgb 7.0 (7) Leukocytosis: Code(s): D72.829 - Elevated white blood cell count, unspecified Status: Resolved Assessment and Plan: WBC 16.6 on 06/05/19, which
[2019-06-09] MEDS: ALBUTEROL SULFATE (*SP) AEROSOL 1 PUFF 2 PUFF INHALATION (13:05)
--- NOTE | 2019-06-09 15:11 | PC.NURSE ---
Waiting on 1400 albumin from pharmacy.
--- NOTE | 2019-06-09 15:54 | PM.PNPUL ---
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 Monitor respiratory status, O2 sats, daily CXR as volume overload and pulmonary edema may develop - I will also add propanolol 20 mg Q8h in an attempt to decrease portal pressures. This can be increased to 40 mg Q8h as tolerated. - If not improving by next week I would consider transferring to [facility] liver service Subjective Date/time seen: 06/09/19 15:54 Interval history: Complains of cough, had another 1000 cc removed by US guided thoracentesis yesterday but unfortunately this is not enough. CXR this morning shows no significant difference when compared to to admission CXR. Alesha spoke to her wrecking mechanic at [facility] and I strongly disagree with him deniying her candidacy without providing a viable alternative treatment. He recommended albumin + lasix but she does not have diffuse volume overload or edema so I'm not sure how effective this is but worth a try. Review of Systems Review of Systems: All systems reviewed & are unremarkable except as noted in HPI and below Exam Const: General: comfortable and no acute distress HENMT: Mouth: Yes moist mucous membranes Neck: Neck: supple and no JVD Resp: Auscultation: diminished lung sounds Other: right > left with dullness to percussion on the right Cardio: Rate: regular rate Rhythm: regular rhythm Heart sounds: Murmur heart sound present (2/6, loudest left lower sternal border and apical area ) GI: Auscultation: normal bowel sounds Other: non distended, no significant ascites Skin: General skin exam: normal color and no rashes or lesions noted Neuro: General: gait normal Speech: normal speech Extrem: General: normal to inspection and normal exam except as noted Psych: Mental Status: mental status grossly normal Affect: normal affect Objective Data Vital Signs Vital Signs: Vital Signs - 24 hr 06/08/19 16:00 06/08/19 20:00 06/08/19 21:51 Temperature 36.4 C Pulse Rate 95 98 96 Respiratory Rate 18 Blood Pressure 130/58 L Pulse Oximetry 95 06/09/19 00:00 06/09/19 04:02 06/09/19 05:24 Temperature 36.7 C Pulse Rate 103 H 91 95 Respiratory Rate 18 Blood Pressure 158/70 H Pulse Oximetry 93 06/09/19 08:00 06/09/19 12:00 06/09/19 14:14 Temperature 36.8 C Pulse Rate 98 108 H 104 H Respiratory Rate 18 Blood Pressure 146/55 H Pulse Oximetry 95 Intake/Output Intake/Output: Intake & Output 06/06/19 06/07/19 06/08/19 06/09/19 23:59 23:59 23:59 23:59 Intake Total 1280 1020 2680 1000 Output Total 2225 725 2485 1425 Balance -945 295 195 -425 Meds/Results Medications: Active Medications Generic Name Dose Route Start Last Admin Trade Name Freq PRN Reason Stop Dose Admin Acetaminophen 650 mg 06/05/19 18:30 06/08/19 07:23 Tylenol Tablet PO 650 mg Q4H PRN Administration Mild Pain (1-3) or Fever Albuterol 2 puff 06/05/19 21:16 06/09/19 13:05 Proventil Hfa INHALATION 2 puff QID PRN Administration Shortness Of Breath Furosemide 20 mg 06/09/19 09:00 06/09/19 11:43 Lasix Inj IV PUSH 20 mg DAILY ROULA Administration Hydralazine HCl 10 mg 06/08/19 14:57 Apresoline Tablet PO QID PRN BP >160 systolic Albumin Human 100 mls @ 60 mls/hr 06/08/19 22:00 06/09/19 07:32 Albutein IVPB Infused Q8HR ROULA Infusion Lidocaine 2 patch 06/08/19 09:00 06/09/19 08:41 Lidoderm TRANSDERM 2 patch DAILY ROULA Administration Losartan Potassium 100 mg 06/06/19 09:00 06/07
[2019-06-09] MEDS: BENZONATATE 100 MG CAPSULE 200 MG PO (17:37)
[2019-06-09] MEDS: PROPRANOLOL HCL 20 MG TABLET PO ×2 (17:38→21:53)
[2019-06-10] VITALS (10 sets, daily range): BP systolic 151–152; BP diastolic 46–59; PULSE 77–86; RESP 18; TEMP 36.9; O2SAT 94–95
[2019-06-10] MEDS: PROPRANOLOL HCL 20 MG TABLET PO ×2 (05:17→13:38)
[2019-06-10] MEDS: ALBUMIN HUMAN 25% 25 GM/100 ML 100 ML IVPB ×2 (05:17→13:36)
[2019-06-10 06:34] LABS: Basophils Percent Auto 0.5 % (0.2-1.2); Eosinophils Absolute Auto 0.4 K/mm3 (0-0.3); Eosinophils Percent Auto 4.8 % (0-4.4); Hematocrit 27.8 % (37.0-47.0); Immature Granulocyte Absolute 0.03 K/mm3 (0.00-0.031); Immature Granulocyte Percent A 0.4 % (0-0.5); Lymphocytes Absolute Auto 1.47 K/mm3 (0.9-3.2); Mean Corpuscular HGB Conc 32.4 g/dl (32-36); Mean Corpuscular Hemoglobin 29.5 pg (26-34); Mean Corpuscular Volume 91.1 fl (80-100); Monocytes Absolute Auto 0.9 K/mm3 (0.1-0.6); Monocytes Percent Auto 10.4 % (2.6-8.5); Neutrophils Absolute Auto 5.4 K/mm3 (1.3-6.7); Neutrophils Percent Auto 65.9 % (45.5-73.1); Platelet Count Result 177 k/mm3 (150-375); Red Blood Count 3.05 M/mm3 (4.2-5.4); Red Cell Distribution Width 15.6 % (11.5-14.5); White Blood Count 8.2 K/mm3 (4.5-10.0)
[2019-06-10 06:37] LABS: Alanine Aminotransferase 20 U/L (4-35); Albumin Level 3.6 g/dL (3.5-5.1); Alkaline Phosphatase 101 U/L (38-126); Aspartate Amino Transferase 42 U/L (14-36); Bilirubin,Total 1.2 mg/dL (0.2-1.3); Blood Urea Nitrogen 33 mg/dL (7-17); Calcium 8.8 mg/dL (8.4-10.2); Carbon Dioxide 25 mmol/L (22-30); Chloride 109 mmol/L (98-107); Estimated CRCL calculation 25 ml/min; Estimated Glomerular Filt Rate 36; Glucose 125 mg/dL (65-105); Potassium 4.1 mmol/L (3.4-5.0); Sodium 140 mmol/L (137-145)
[2019-06-10] MEDS: PANTOPRAZOLE SOD SESQUIHYDRATE 20 MG TAB PO (08:02)
[2019-06-10] MEDS: BENZONATATE 100 MG CAPSULE 200 MG PO ×3 (08:02→17:54)
[2019-06-10] MEDS: FUROSEMIDE INJ 40 MG/4 ML VIAL 20 MG IV PUSH ×2 (08:02→16:00)
[2019-06-10] MEDS: LIDOCAINE 5% PATCH 2 PATCH TRANSDERM (08:02)
--- NOTE | 2019-06-10 14:12 | P.PNIM_ITS ---
Progress Note: A&P Assessment and Plan (1) Recurrent right pleural effusion: Code(s): J90 - Pleural effusion, not elsewhere classified Status: Acute Assessment and Plan: Likely secondary to ongoing JOEL. She sees a home visits nurse at [facility]. She has undergone thoracentesis on two prior occasions since March 2019. She is SOB. She is 96% on 2L NC. Underwent therapeutic thoracentesis 06/05 which yielded 1L yellow transudative fluid. No cytology reports but prior cytology from previous pleural fluid was negative for malignancy. Chest CT on 06/06 did not reveal underlying malignancy but did show recurrence of large right pleural effusion. Underwent right therapeutic thoracentesis again on 06/07 draining 1L yellow fluid. Interval between thoracentesis is decreasing and effusion is quickly recurring. She has had 4 right thoracentesis since March 2018. * Pulmonology is following the patient. Reviewed office visit with home visits nurse which reveal portal hypertension. Pleural effusion is likely related to he patic hydrothorax. * Spoke to Dr. Doran ([facility] [employer]rier) on 06/07 who reports she is not a candidate for TIPS given age or for pleurodesis. Continue IV albumin and IV lasix per [facility] [employer] recommendations. * Continue oxygen therapy as needed with goal O2 >92%. Wean to goal. * Monitor daily X-ray * Discontinue IV albumin per Dr. Gunn * Plan for small bore chest tube insertion tomorrow * Will call [facility] today to initiate transfer to liver service for further treatment - Edited to note: patient accepted for transfer to [facility] liver service on 06/10/[address] Lund at [facility] pending bed availability. (2) JOEL (nonalcoholic steatohepatitis): Code(s): K75.81 - Nonalcoholic steatohepatitis (JOEL) Status: Chronic Assessment and Plan: Patient sees home visits nurse at [facility]. In September 2018, MELD score was 14. She does not have significant ascites on exam today. LFTs initially elevated but appear to be trending down. MELD score is 12. Records obtained from home visits nurse reveal patient has portal hypertension. * Continue to trend LFTs * Continue to monitor ascites * Patients JOEL likely plays a role in recurrent right pleural effusion. 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 * Continue strict low sodium diet. * Continue propranolol to reduce portal pressure * Initiate transfer to [facility] liver service - accepted 06/10/19 pending bed availability (3) Acute kidney injury: Code(s): N17.9 - Acute kidney failure, unspecified Status: Acute Assessment and Plan: At presentation, Cr 1.3 and increased to 1.5 on 06/06. Creatinine appears to be remaining stable and is 1.4 today. Increase may be related to hepatorenal syndrome. Per home visits nurse, baseline is 1.7. * Hold Losartan * Continue to monitor. (4) Aortic stenosis: Qualifiers: Cardiac valve disease etiology: etiology unspecified Qualified Code(s): I35.0 - Nonrheumatic aortic (valve) stenosis Code(s): I35.0 - Nonrheumatic aortic (valve) stenosis Status: Acute Assessment and Plan: Systolic murmur noted on exam heard best on right chest. Echo revealed mild- moderate aortic valve stenosis. could be contributing to her increased SOB but it is more likely due to recurrent pleural effusion. Besides SOB, she is asymptomatic. * Continue to monitor (5) Essential hypertension: Code(s): I10 - Essential (primary) hypertension Status: Chronic Assessment and Plan: Blood pressure raul
--- NOTE | 2019-06-10 14:12 | PM.IMPN ---
Progress Note: A&P Assessment and Plan (1) Recurrent right pleural effusion: Code(s): J90 - Pleural effusion, not elsewhere classified Status: Acute Assessment and Plan: Likely secondary to ongoing JOEL. She sees a digital strategy director at [facility]. She has undergone thoracentesis on two prior occasions since March 2019. She is SOB. She is 96% on 2L NC. Underwent therapeutic thoracentesis 06/05 which yielded 1L yellow transudative fluid. No cytology reports but prior cytology from previous pleural fluid was negative for malignancy. Chest CT on 06/06 did not reveal underlying malignancy but did show recurrence of large right pleural effusion. Underwent right therapeutic thoracentesis again on 06/07 draining 1L yellow fluid. Interval between thoracentesis is decreasing and effusion is quickly recurring. She has had 4 right thoracentesis since March 2018. Pulmonology is following the patient. Reviewed office visit with digital strategy director which reveal portal hypertension. 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 Spoke to Dr. Doran ([facility] [employer]) on 06/07 who reports she is not a candidate for TIPS given age or for pleurodesis. Continue IV albumin and IV lasix per [facility] [employer] recommendations. Continue oxygen therapy as needed with goal O2 >92%. Wean to goal. Monitor daily X-ray Discontinue IV albumin per Dr. Gunn Plan for small bore chest tube insertion tomorrow Will call [facility] today to initiate transfer to liver service for further treatment - Edited to note: patient accepted for transfer to [facility] liver service on 06/10/[address] Lund at [facility] pending bed availability. (2) JOEL (nonalcoholic steatohepatitis): Code(s): K75.81 - Nonalcoholic steatohepatitis (JOEL) Status: Chronic Assessment and Plan: Patient sees digital strategy director at [facility]. In September 2018, MELD score was 14. She does not have significant ascites on exam today. LFTs initially elevated but appear to be trending down. MELD score is 12. Records obtained from digital strategy director reveal patient has portal hypertension. Continue to trend LFTs Continue to monitor ascites Patients JOEL likely plays a role in recurrent right pleural effusion. 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 Continue strict low sodium diet. Continue propranolol to reduce portal pressure Initiate transfer to [facility] liver service - accepted 06/10/19 pending bed availability (3) Acute kidney injury: Code(s): N17.9 - Acute kidney failure, unspecified Status: Acute Assessment and Plan: At presentation, Cr 1.3 and increased to 1.5 on 06/06. Creatinine appears to be remaining stable and is 1.4 today. Increase may be related to hepatorenal syndrome. Per digital strategy director, baseline is 1.7. Hold Losartan Continue to monitor. (4) Aortic stenosis: Qualifiers: Cardiac valve disease etiology: etiology unspecified Qualified Code(s): I35.0 - Nonrheumatic aortic (valve) stenosis Code(s): I35.0 - Nonrheumatic aortic (valve) stenosis Status: Acute Assessment and Plan: Systolic murmur noted on exam heard best on right chest. Echo revealed mild-moderate aortic valve stenosis. could be contributing to her increased SOB but it is more likely due to recurrent pleural effusion. Besides SOB, she is asymptomatic. Continue to monitor (5) Essential hypertension: Code(s): I10 - Essential (primary) hypertension Status: Chronic Assessment and Plan: Blood pressure evaluated today and stable at 151/59. Hold home losartan given elevated creatinine. Resume when clinically appropriate. Continue to monitor blood pressure. Will add prn hydralazine while home antihypertensives are held. (6) Chronic anemia: Code(s): D64.9 - Anemia, unspecified Status: Chronic Assessment and Plan: Per chart review,
--- NOTE | 2019-06-10 17:44 | PC.NURSE ---
Report given to Ivelisse at [facility]. Spoke with patient regarding transfer and is in agreement, and signed transfer form. All questions answered.
--- NOTE | 2019-06-10 18:23 | PC.NURSE ---
Pt left via [facility] to [facility].
--- NOTE | 2019-06-11 07:38 | PM.TDS ---
Transfer Discharge Sum: Prov Provider Date of admission: 06/06/19 09:08 Primary care physician: Megan Bhakta, Admitting clinician: Nathen Farrell MD Attending physician on admission: Nathen Farrell Consults: 06/06/19 Care Coordination Consult Routine Comment: Reason for Consult:: Advanced Directives 06/06/19 05:46 Consult to Physician Routine Comment: Consulting Provider: Nneka Torres collar fuser/MD group to consult: Pulmonology Reason for consultation: Recurrent Pleural effusion - evalute for possible pleurodesis. Has provider been notified: Yes Attending physician on discharge: Dylan Mayorga Discharging clinician: Alesha Gonzalez Anticipated date of transfer: 06/10/19 Receiving physician/facility: Dr. Lund/[facility] DS: Diagnosis Admitting Diagnosis Admitting Diagnosis: Pleural effusion, not elsewhere classified Discharge Diagnosis (1) Recurrent right pleural effusion: Code(s): J90 - Pleural effusion, not elsewhere classified Status: Acute (2) JOEL (nonalcoholic steatohepatitis): Code(s): K75.81 - Nonalcoholic steatohepatitis (JOEL) Status: Chronic (3) Acute kidney injury: Code(s): N17.9 - Acute kidney failure, unspecified Status: Acute (4) Aortic stenosis: Qualifiers: Cardiac valve disease etiology: etiology unspecified Qualified Code(s): I35.0 - Nonrheumatic aortic (valve) stenosis Code(s): I35.0 - Nonrheumatic aortic (valve) stenosis Status: Acute (5) Essential hypertension: Code(s): I10 - Essential (primary) hypertension Status: Chronic (6) Chronic anemia: Code(s): D64.9 - Anemia, unspecified Status: Chronic (7) Leukocytosis: Code(s): D72.829 - Elevated white blood cell count, unspecified Status: Resolved Transfer Discharge Sum: Med Medications Active and Home Medications: Home Medications furosemide 20 mg PO DAILY 04/17/19 [History Confirmed 06/05/19] losartan 100 mg PO DAILY 04/17/19 [History Confirmed 06/05/19] omeprazole 20 mg PO DAILY 04/17/19 [History Confirmed 06/05/19] albuterol sulfate [ProAir HFA] 2 puff INHALATION QID PRN 05/29/19 [History Confirmed 06/05/19] acetaminophen [Tylenol Extra Strength] 500 mg PO Q6H PRN 06/05/19 [History Confirmed 06/05/19] Transfer Discharge Sum: Hosp Hospital Course Hospital course: Date of admission: 06/05/19 Date of transfer: 06/10/19 Stefanie Pearson is a 78 year old female with a PMH significant for JOEL, breast cancer, and HTN who presented to the ED on 06/05/19 with complaints of shortness of breath which had been worsening for 2 days. She had previously been hospitalized 05/28-05/30/19 with right pleural effusion and underwent thoracentesis. She had also previously had thoracentesis in March 2019. At presentation, T 36.6, HR 119, RR 40, WBC 16.6, Cl 109, BUN 31, Cr 1.3, AST 58, ALT 28, ALP 146, Albumin 3.5, BNP 116, ABG with respiratory alkalosis, and CXR with large right pleural effusion. She was admitted to the hospitalist service on 06/05/19 for thoracentesis which was performed on 06/06/19 and yielded 1L yellow transudative fluid. She had some improvement in her SOB but repeat CXR showed persistent effusion. Pulmonology followed the patient. CT chest/abdomen did not reveal underlying malignancy and prior cytology showed no malignant cells. Records were obtained from her wire drawing machine operator at [facility] which revealed she had underlying portal HTN. 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 She required another thoracentesis on 06/08/19 which yielded 1L yellow transudative fluid. I had a conversation with her wire drawing machine operator via phone to determine if she would be a candidate for TIPS procedure, which he denied citing her age as a relative contraindication. He recommended she be started on IV albumin. She was also given IV lasix. However, she did not show any response to these medications and
== END 2019-06-10 18:24 | disposition short-term general hospital (02) | DRG 187 ==
LOC: ANHED 17:13 → ANH3MED 18:44
PROVIDERS: Physician Assistant; Admitting Provider Internal Medicine; Emergency Provider Emergency Medicine; PCP Family Medicine; Visit Provider Internal Medicine
DX: J94.8 Other specified pleural conditions (principal); N17.9 Acute kidney failure, unspecified; I48.20 Chronic atrial fibrillation, unspecified; J98.11 Atelectasis; R09.02 Hypoxemia; K75.81 Nonalcoholic steatohepatitis (NASH); I35.0 Nonrheumatic aortic (valve) stenosis; D64.9 Anemia, unspecified; D72.829 Elevated white blood cell count, unspecified; I10 Essential (primary) hypertension; M19.90 Unspecified osteoarthritis, unspecified site; M81.0 Age-related osteoporosis without current pathological fracture; R01.1 Cardiac murmur, unspecified; Z85.3 Personal history of malignant neoplasm of breast; Z90.49 Acquired absence of other specified parts of digestive tract; Z90.710 Acquired absence of both cervix and uterus; Z98.42 Cataract extraction status, left eye; Z98.41 Cataract extraction status, right eye
CPT/HCPCS: 32555; 36415; 36600; 71045; 71046; 71250; 74150; 80053; 82570; 82805; 83880; 84300; 84484; 85025; 85027; 85610; 85730; 87040; 93005; 93306; 94640; 96374; 99285; A9270; G0378; J1940; J2405; P9047

== ENCOUNTER 2019-06-20 08:30 | Outpatient (CLI) | payer MEDICARE, SELFPAY ==
[2019-06-18 16:22] VITALS: BMI 23.5
[2019-06-20] VITALS (8 sets, daily range): BP systolic 120–155; BP diastolic 48–70; PULSE 86–95; RESP 12–20; O2SAT 92–100
--- NOTE | ~2019-06-20 | US_ITS ---
EXAMINATION: US thoracentesis DATE: 06/20/2019 10:38 INDICATION: pleural effusion TECHNIQUE: The procedure and its risks, benefits, and alternatives were discussed with the patient. P otential risks discussed included bleeding, infection, and pneumothorax. The patient understood the r isks and agreed to proceed. The skin was prepped and draped in sterile fashion. 1% lidocaine was used for local anesthesia. Under ultrasound guidance, a 5 Fr catheter with trochar was advanced into the right pleural effusion. Fluid was aspirated. The catheter was removed, and a dressing was applied. Th ere were no immediate complications. FINDINGS: Ultrasound images demonstrate a right pleural effusion and the catheter within the fluid. IMPRESSION: 1. Successful ultrasound-guided thoracentesis yielding 1000 mL of clear, yellow fluid. Reviewed, dictated and finalized at location A. IMPRESSION: 1. Successful ultrasound-guided thoracentesis yielding 1000 mL of clear, yello w fluid.
--- NOTE | ~2019-06-20 | XR_ITS ---
XR chest 1V 06/20/2019 10:29 Indication: Pleural effusion. Procedure: AP view of the chest Comparison: Comparison to multiple prior studies sequentially, with oldest reviewed study dated 04/08. Findings: Bilateral pleural effusions, right greater than left. There is airspace disease of the lung bases. Calcified granuloma left upper lobe. No pneumothorax. No acute osseous abnormality. Impression: 1: Bibasilar airspace disease which may represent pneumonia, edema and/or atelectasis. 2: Bilateral pleural effusions, right greater than left. Reviewed, dictated and finalized at location A. Impression: 1: Bibasilar airspace disease which may represent pneumonia, edema and/or atele ctasis. 2: Bilateral pleural effusions, right greater than left.
[2019-06-20 09:05] LABS: Platelet Count Result 235 k/mm3 (150-375)
[2019-06-20 09:15] LABS: INR 1.1
--- NOTE | 2019-06-20 12:21 | SUR.PHASEII ---
1218 - dr. king called and updated 1222 - iv dc'd. dressing applied
== END 2019-06-20 08:31 | disposition home or self-care (01) ==
PROVIDERS: Radiology Diagnostic Radiology; PCP Family Medicine
DX: J90 Pleural effusion, not elsewhere classified (principal); R91.8 Other nonspecific abnormal finding of lung field
CPT/HCPCS: 32555; 36415; 71045; 85049; 85610

== ENCOUNTER 2019-06-28 09:10 | Outpatient (CLI) | payer MEDICARE, SELFPAY ==
[2019-06-27 12:37] VITALS: BMI 23.4
--- NOTE | ~2019-06-28 | XR_ITS ---
EXAMINATION: XR chest 1V DATE: 06/28/2019 10:38 INDICATION: Right pleural effusion postthoracentesis TECHNIQUE: Seated AP view of the chest was obtained. COMPARISON: Chest radiograph dated 06/20/[address] dated 06/07/2019 FINDINGS: Small to moderate right and small left pleural effusions. Opacities in the right mid to lower and lef t lower lung zones most likely associated atelectasis although other underlying lung disease cannot b e excluded. Calcified left apical nodule consistent with old granulomatous disease. The cardiomediast inal silhouette appears normal although portions of the cardiac silhouette are obscured by the effusi ons. Chronic T12 first fracture. IMPRESSION: 1. Small left and small to moderate right pleural effusions with associated atelectasis. Reviewed, dictated and finalized at location A. IMPRESSION: 1. Small left and small to moderate right pleural effusions with associated ate lectasis.
--- NOTE | ~2019-06-28 | US_ITS ---
EXAMINATION: US thoracentesis DATE: 06/28/2019 11:03 INDICATION: Right pleural effusion. 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 TECHNIQUE: The procedure and its risks and benefits were discussed with the patient. Potential risks discussed included bleeding, infection, and pneumothorax. The patient understood the risks and agreed to proceed. The skin was prepped and draped in sterile fashion. 1% lidocaine was used for local anes thesia. Under ultrasound guidance, a 5 Fr catheter with trochar was advanced into the right pleural e ffusion. Fluid was aspirated. The catheter was removed, and a dressing was applied. There were no imm ediate complications. FINDINGS: Ultrasound images demonstrate a moderate-sized right pleural effusion and the catheter within the flu id. IMPRESSION: 1. Successful ultrasound-guided thoracentesis yielding 1000 mL of mildly turbid yellowish fluid. Reviewed, dictated and finalized at location A. IMPRESSION: 1. Successful ultrasound-guided thoracentesis yielding 1000 mL of mildly turbi d yellowish fluid.
[2019-06-28 10:45] VITALS: BP 163/68; PULSE 93; O2SAT 97
[2019-06-28 11:00] VITALS: BP 132/53; BP 138/64; BP 144/66; PULSE 100; PULSE 89; PULSE 98; RESP 20; O2SAT 92; O2SAT 94
[2019-06-28 11:15] VITALS: BP 171/63; PULSE 90
[2019-06-28 11:50] VITALS: BP 134/67; PULSE 90; O2SAT 97
--- NOTE | 2019-06-28 11:54 | SUR.PHASEII ---
1150: IV discontinued from LT AC. Catheter intact. Patient tolerated well.
--- NOTE | 2019-06-28 12:28 | SUR.PHASEII ---
1145: Ok to d/c home per Dr. Clemente.
== END 2019-06-28 09:11 | disposition home or self-care (01) ==
LOC: SURGERY 09:16 → ANHIMG 09:19
PROVIDERS: Radiology Diagnostic Radiology; PCP Family Medicine
DX: K75.81 Nonalcoholic steatohepatitis (NASH) (principal); K74.60 Unspecified cirrhosis of liver; R91.8 Other nonspecific abnormal finding of lung field
CPT/HCPCS: 32555; 71045

== ENCOUNTER 2019-07-19 10:29 | Outpatient (CLI) | payer MEDICARE, SELFPAY ==
--- NOTE | ~2019-07-19 | XR_ITS ---
EXAMINATION: XR chest 1V DATE: 07/19/2019 11:36 INDICATION: Right pleural effusion status post thoracentesis. TECHNIQUE: A single frontal view of the chest was obtained. COMPARISON: Chest single view 07/12/2019 FINDINGS: There are moderate-sized pleural effusions, right worse than left. There are airspace opaci ties at the lung bases, likely atelectasis. A calcified left lung nodule is consistent with old granu lomatous disease. No pneumothorax. The heart size is obscured. IMPRESSION: 1. Moderate-sized pleural effusions, right worse than left. Reviewed, dictated and finalized at location A.
--- NOTE | ~2019-07-19 | US_ITS ---
EXAMINATION: US thoracentesis DATE: 07/19/2019 11:46 INDICATION: pleural effusion TECHNIQUE: The procedure and its risks, benefits, and alternatives were discussed with the patient. P otential risks discussed included bleeding, infection, and pneumothorax. The patient understood the r isks and agreed to proceed. The skin was prepped and draped in sterile fashion. 1% lidocaine was used for local anesthesia. Under ultrasound guidance, a 5 Fr catheter with trochar was advanced into the right pleural effusion. Fluid was aspirated. The catheter was removed, and a dressing was applied. Th ere were no immediate complications. FINDINGS: Ultrasound images demonstrate a right pleural effusion and the catheter within the fluid. IMPRESSION: 1. Successful ultrasound-guided thoracentesis yielding 1000 mL of clear, yellow fluid. Reviewed, dictated and finalized at location A. IMPRESSION: 1. Successful ultrasound-guided thoracentesis yielding 1000 mL of clear, yello w fluid.
[2019-07-19 11:44] VITALS: BP 142/71; BP 158/69; PULSE 107; PULSE 99; RESP 30; O2SAT 90; O2SAT 95
== END 2019-07-19 10:30 | disposition home or self-care (01) ==
LOC: ANHIMG 10:36
PROVIDERS: PCP Family Medicine
DX: K75.81 Nonalcoholic steatohepatitis (NASH) (principal); K74.60 Unspecified cirrhosis of liver; J90 Pleural effusion, not elsewhere classified
CPT/HCPCS: 32555; 71045

== ENCOUNTER 2019-07-24 16:50 | Emergency (ER) | payer MEDICARE, SELFPAY ==
--- NOTE | ~2019-07-24 | XR_ITS ---
EXAMINATION: XR chest 1V EXAM DATE: 07/24/2019 17:52 INDICATION: Postthoracentesis. TECHNIQUE: Portable AP frontal chest x-ray was obtained. Comparison is made to prior examination from earlier same date for thoracentesis. FINDINGS: There is moderate to large right pleural effusion. Overall aeration of the right upper lobe does not appear to have improved yet, lung may not have reexpanded at this time. Previously seen rig ht pleural fluid tracking within a fissure is now imaged less tangentially likely accounting for the curvilinear density over the lateral aspect of the aerated right upper lung zone. No pneumothorax abhi pected. There is compressive atelectasis. There is pulmonary vascular congestion. Left upper lobe gra nuloma. IMPRESSION: 1. Moderate to large right pleural effusion, adjacent airspace disease at least partly compressive a telectasis. 2. No pneumothorax suspected. Reviewed, dictated and finalized at location A. IMPRESSION: 1. Moderate to large right pleural effusion, adjacent airspace disease at leas t partly compressive atelectasis. 2. No pneumothorax suspected.
--- NOTE | ~2019-07-24 | US_ITS ---
EXAMINATION: US thoracentesis EXAM DATE: 07/24/2019 17:53 INDICATION: Recurrent right pleural effusion. Tachypnea, shortness of breath. TECHNIQUE: Timeout procedure was performed. I discussed the procedure, its risks and benefits with th e patient. Potential risks discussed included bleeding, infection, and pneumothorax which could poten tially require chest tube. Alternatives were also discussed. The patient understood the risks, was gi preston chance to ask questions, and agreed to proceed. The skin was prepped and draped in sterile fashion. A total of 3 mL 1% lidocaine was used for local a nesthesia. Under ultrasound guidance, a 5 Fr catheter with trochar was advanced into the right pleura l effusion. Fluid was aspirated. The catheter was removed, and a dressing was applied. There were no immediate complications. FINDINGS: Ultrasound images demonstrate a right pleural effusion. IMPRESSION: 1. Successful ultrasound-guided thoracentesis yielding 1000 mL of clear yellow fluid. Reviewed, dictated and finalized at location A.
--- NOTE | ~2019-07-24 | XR_ITS ---
EXAMINATION: XR chest 1V portable EXAM DATE: 07/24/2019 17:22 INDICATION: Tachypnea. Weekly thoracentesis for right pleural effusion. TECHNIQUE: Portable AP frontal chest x-ray was obtained. Comparison is made to prior examination from 07/19/2019. FINDINGS: There is large right-sided pleural effusion, interval increase in size compared to previous examination. Can't evaluate heart size but there is pulmonary vascular congestion. There may be pulm onary edema. Bibasilar compressive atelectasis, can't exclude any underlying pneumonia or cancer. The re are no osseous abnormalities identified. IMPRESSION: Large right pleural effusion, adjacent compressive atelectasis. Pulmonary vascular conge stion. Reviewed, dictated and finalized at location A. IMPRESSION: Large right pleural effusion, adjacent compressive atelectasis. Pu lmonary vascular congestion.
[2019-07-24 16:53] VITALS: PULSE 104; RESP 22; TEMP 36.8; O2SAT 88
--- NOTE | 2019-07-24 16:54 | ED.SOB ---
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 Patient is due for her therapeutic thoracentesis tomorrow, she gets these weekly, but states she has had increased shortness of breath and is going to be unable to make it till tomorrow. Patient reports dry cough without fever. No chest pain. Shortness of breath is worse with exertion. Patient denies lower extremity swelling. She reports some abdominal ascites which is chronic for her. Patient was last admitted to this facility approximately 2 weeks ago, was transferred to [facility] where they did not deem her a candidate for pleurodesis. Patient then discharged home, now to get weekly paracentesis as. Related Data Home Medications Medication Instructions Recorded Confirmed furosemide 60 mg PO DAILY 04/17/19 06/27/19 losartan 100 mg PO DAILY 04/17/19 06/27/19 albuterol sulfate [ProAir HFA] 2 puff INHALATION BID 05/29/19 06/27/19 amlodipine 20 mg PO DAILY 06/18/19 06/27/19 benzonatate 200 mg PO TID 06/18/19 06/27/19 famotidine 20 mg PO DAILY 06/27/19 06/27/19 Allergies Allergy/AdvReac Type Severity Reaction Status Date / Time lisinopril Allergy Severe ANAPHYLAXIS Verified 07/24/19 17:00 codeine AdvReac Unknown Nausea and Verified 07/24/19 17:00 Vomiting acetaminophen [From Tylenol] AdvReac Other Verified 07/24/19 17:00 NSAIDS (Non-Steroidal AdvReac Other Verified 07/24/19 17:00 Anti-Inflamma tramadol AdvReac HALLUCINATI Verified 07/24/19 17:00 ONS Review of Systems Review of Systems: Narrative: CONSTITUTIONAL: Denies fever CARDIOVASCULAR: Denies chest pain RESPIRATORY: Reports cough and shortness of breath GASTROINTESTINAL: Denies abdominal pain SKIN: Denies rash MUSCULOSKELETAL: Denies back pain NEUROLOGIC: Denies headache [facility] Past Medical History Medical History Asthma Breast cancer Status post right lumpectomy in 2013. Chronic anemia Essential hypertension JOEL (nonalcoholic steatohepatitis) Osteoarthritis Osteoporosis Surgical History Surgical History History of appendectomy History of cataract extraction History of cholecystectomy History of hysterectomy History of laser assisted in situ keratomileusis History of partial thyroidectomy For benign tumor. History of thoracentesis Family History Family History Mother Head and neck cancer Acute myocardial infarction Congestive heart failure Pancreatic cancer Sibling Diabetes mellitus Acute myocardial infarction Social History Social History Social History: [place] She designates her , Abdoulaye, as her surrogate decision maker and she wishes to be a full code. She is a lifelong nonsmoker and denies alcohol and drug use. Smoking status: Never smoker Second hand tobacco smoke exposure: No Alcohol intake: never Substance use: never Gender identity (if verbalized by the patient): Female Spiritual care concerns: No Agree to blood products: Yes Exam Narrative: Exam Narrative: GENERAL: Awake, alert, conversant HEAD: Normocephalic, atraumatic. EYES: PERRLA and EOMI. ENT: Nares clear, no rhinorrhea or epistaxis. Mucous membranes moist. NECK: Supple. CHEST: Increased work of breathing, use of accessory muscles to breathe, tachypneic, hypoxemic, crackle
--- NOTE | 2019-07-24 16:57 | PC.NURSE ---
oxygen applied at 2l per nc. patient reports that she uses 1-2L PRN
[2019-07-24 16:58] VITALS: O2SAT 95
[2019-07-24 16:59] VITALS: PULSE 103
--- NOTE | 2019-07-24 17:00 | ECG_ITS ---
Measurements Intervals [place] Rate: 118 P: 52 AK: 177 QRS: -22 QRSD: 89 T: 33 QT: 305 QTc: 428 Interpretive Statements SINUS TACHYCARDIA ATRIAL PREMATURE COMPLEX AND FREQUENT VENTRICULAR PREMATURE COMPLEXES CANNOT RULE OUT SEPTAL INFARCT, AGE INDETERMINATE CONSIDER INFERIOR INFARCT, AGE INDETERMINATE BASELINE ARTIFACT- I, II, AVR, AVF, V1 ABNORMAL ECG Electronically Signed On 07-24-2019 17:09:06 CDT by Alcides Crowder D.O.
[2019-07-24 17:18] LABS: Basophils Absolute Auto 0.1 K/mm3 (0.0-0.1); Basophils Percent Auto 0.6 % (0.2-1.2); Eosinophils Absolute Auto 0.4 K/mm3 (0-0.3); Eosinophils Percent Auto 2.4 % (0-4.4); Hematocrit 36.3 % (37.0-47.0); Hemoglobin 11.7 g/dL (12.0-15.0); Immature Granulocyte Percent A 0.6 % (0-0.5); Lymphocytes Absolute Auto 3.18 K/mm3 (0.9-3.2); Lymphocytes Percent Auto 20.4 % (18.3-44.2); Mean Corpuscular HGB Conc 32.2 g/dl (32-36); Mean Corpuscular Hemoglobin 30.4 pg (26-34); Mean Corpuscular Volume 94.3 fl (80-100); Mean Platelet Volume 11.8 fl (7.4-10.4); Monocytes Absolute Auto 1.5 K/mm3 (0.1-0.6); Monocytes Percent Auto 9.5 % (2.6-8.5); Neutrophils Absolute Auto 10.4 K/mm3 (1.3-6.7); Neutrophils Percent Auto 66.5 % (45.5-73.1); Platelet Count Result 241 k/mm3 (150-375); Red Blood Count 3.85 M/mm3 (4.2-5.4); Red Cell Distribution Width 14.8 % (11.5-14.5); White Blood Count 15.6 K/mm3 (4.5-10.0)
[2019-07-24 17:22] LABS: Alveolar/Arterial O2 Gradient 123.2 mmHg; Base Excess ABG -3.7 mEq/l (+/-2.0); Fractional Inspired Oxygen 32 %; HCO3 ABG 20.4 mEq/l (22.0-26.0); Oxygen Content ABG 15.9 %vol (16.0-22.0); Oxygen Saturation ABG 93.1 % (95.0-100.0); Oxyhemoglobin 91.7 % THb (90.0-100.0); PCO2 ABG 33.7 mmHg (35.0-45.0); PO2 ABG 65.5 mmHg (80.0-100.0); PO2 FiO2 Ratio Arterial Blood 2.05 %; Site Drawn RIGHT BRACHIAL; Total Hemoglobin 12.3 g/dL (12.0-18.0); pH ABG 7.399 (7.350-7.450)
[2019-07-24 17:23] LABS: Device NASAL CANNULA
[2019-07-24 17:28] LABS: INR 1.1
[2019-07-24 17:34] LABS: Blood Urea Nitrogen 35 mg/dL (7-17); Calcium 8.9 mg/dL (8.4-10.2); Carbon Dioxide 21 mmol/L (22-30); Chloride 109 mmol/L (98-107); Estimated CRCL calculation 26 ml/min; Estimated Glomerular Filt Rate 39; Glucose 226 mg/dL (65-105); Potassium 4.6 mmol/L (3.4-5.0); Sodium 137 mmol/L (137-145)
[2019-07-24 17:43] LABS: NT Pro B Type Natriuretic Pept 113 PG/ML (5-100); Troponin I < 0.012 ng/mL (0.000-0.034)
[2019-07-24 17:51] VITALS: BP 171/62; BP 177/84; PULSE 111; PULSE 88; RESP 24; RESP 30; O2SAT 91; O2SAT 94
[2019-07-24 19:21] VITALS: BP 142/86; PULSE 96; RESP 20; O2SAT 99
== END 2019-07-24 19:22 | disposition home or self-care (01) ==
PROVIDERS: Emergency Provider Emergency Medicine; PCP Family Medicine
DX: J90 Pleural effusion, not elsewhere classified (principal); R06.00 Dyspnea, unspecified; J45.909 Unspecified asthma, uncomplicated; I10 Essential (primary) hypertension; Z85.3 Personal history of malignant neoplasm of breast; K75.81 Nonalcoholic steatohepatitis (NASH); M19.90 Unspecified osteoarthritis, unspecified site; M81.0 Age-related osteoporosis without current pathological fracture; Z98.49 Cataract extraction status, unspecified eye; R00.0 Tachycardia, unspecified; I49.1 Atrial premature depolarization; R94.31 Abnormal electrocardiogram [ECG] [EKG]
CPT/HCPCS: 32555; 36415; 36600; 71045; 80048; 82805; 83880; 84484; 85025; 85610; 93005; 99284

== ENCOUNTER 2019-08-01 13:47 | Emergency (ER) | payer MEDICARE, SELFPAY ==
[2019-08-01] VITALS (11 sets, daily range): BP systolic 140–186; BP diastolic 62–113; PULSE 104–117; RESP 16–44; O2SAT 88–100
--- NOTE | ~2019-08-01 | XR_ITS ---
XR chest 1V portable 08/01/2019 14:07 Indication: Shortness of breath Procedure: AP portable chest Comparison: Comparison to multiple prior studies sequentially, with oldest reviewed study dated 07/11. Findings: Large right and small left pleural effusions. Bilateral airspace disease may represent pneu monia and/or atelectasis. No pneumothorax identified. No acute osseous abnormality. No significant ch emily from 07/24/2019 Impression: 1: No significant interval change. Bilateral pleural effusions, right greater than left with bilatera l airspace disease which may reflect atelectasis and/or pneumonia. Reviewed, dictated and finalized at location A. Impression: 1: No significant interval change. Bilateral pleural effusions, right greater t zhang left with bilateral airspace disease which may reflect atelectasis and/or p neumonia.
--- NOTE | ~2019-08-01 | XR_ITS ---
EXAMINATION: XR chest 1V DATE: 08/01/2019 15:27 INDICATION: Pleural effusion status post thoracentesis. TECHNIQUE: A single frontal view of the chest was obtained. COMPARISON: Chest single view 08/01/2019 FINDINGS: There are moderate-sized pleural effusions, right worse than left. There are airspace opaci ties at the lung bases. A calcified left lung nodule is consistent with old granulomatous disease. No pneumothorax. The heart size is obscured. IMPRESSION: 1. Moderate-sized pleural effusions with improvement on the right status post thoracentesis. 2. Stable airspace opacities at the lung bases, consistent with atelectasis versus pneumonia. Reviewed, dictated and finalized at location A. IMPRESSION: 1. Moderate-sized pleural effusions with improvement on the right status post t horacentesis. 2. Stable airspace opacities at the lung bases, consistent with atelectasis chip abhi pneumonia.
--- NOTE | ~2019-08-01 | US_ITS ---
EXAMINATION: US thoracentesis DATE: 08/01/2019 15:33 INDICATION: Right pleural effusion. TECHNIQUE: The procedure and its risks and benefits were discussed with the patient. Potential risks discussed included bleeding, infection, and pneumothorax. The patient understood the risks and agreed to proceed. The skin was prepped and draped in sterile fashion. 1% lidocaine was used for local anes thesia. Under ultrasound guidance, a 5 Fr catheter with trochar was advanced into the large right ple ural effusion. Fluid was aspirated. The catheter was removed, and a dressing was applied. There were no immediate complications. FINDINGS: Ultrasound images demonstrate a large right pleural effusion and the catheter within the fluid. IMPRESSION: 1. Successful ultrasound-guided thoracentesis yielding 1000 mL of cloudy yellow fluid. Reviewed, dictated and finalized at location A. IMPRESSION: 1. Successful ultrasound-guided thoracentesis yielding 1000 mL of cloudy yello w fluid.
--- NOTE | 2019-08-01 13:48 | ECG_ITS ---
Measurements Intervals [place] Rate: 113 P: 55 TN: 176 QRS: -21 QRSD: 88 T: 30 QT: 310 QTc: 426 Interpretive Statements SINUS TACHYCARDIA FREQUENT VENTRICULAR PREMATURE COMPLEXES BORDERLINE R WAVE PROGRESSION, ANTERIOR LEADS CONSIDER INFERIOR INFARCT, AGE INDETERMINATE BASELINE ARTIFACT- I, II, III, AVR, AVL, AVF, V1-V3 ABNORMAL ECG Electronically Signed On 08-01-2019 14:07:29 CDT by Alcides Crowder D.O.
[2019-08-01 14:10] LABS: Basophils Absolute Auto 0.1 K/mm3 (0.0-0.1); Basophils Percent Auto 0.6 % (0.2-1.2); Eosinophils Absolute Auto 0.3 K/mm3 (0-0.3); Eosinophils Percent Auto 1.8 % (0-4.4); Hematocrit 35.6 % (37.0-47.0); Hemoglobin 11.4 g/dL (12.0-15.0); Immature Granulocyte Absolute 0.08 K/mm3 (0.00-0.031); Immature Granulocyte Percent A 0.6 % (0-0.5); Lymphocytes Absolute Auto 2.33 K/mm3 (0.9-3.2); Lymphocytes Percent Auto 16.4 % (18.3-44.2); Mean Corpuscular Volume 93.7 fl (80-100); Mean Platelet Volume 11.6 fl (7.4-10.4); Monocytes Absolute Auto 1.2 K/mm3 (0.1-0.6); Monocytes Percent Auto 8.3 % (2.6-8.5); Neutrophils Absolute Auto 10.3 K/mm3 (1.3-6.7); Neutrophils Percent Auto 72.3 % (45.5-73.1); Platelet Count Result 214 k/mm3 (150-375); Red Cell Distribution Width 14.4 % (11.5-14.5); White Blood Count 14.3 K/mm3 (4.5-10.0)
--- NOTE | 2019-08-01 14:16 | ED.SOB ---
HPI - SOB/Dyspnea General Chief Complaint: Shortness of Breath/Dyspnea Stated Complaint: I CANT BREATH Time Seen by Provider: 08/01/19 14:07 History of Present Illness HPI Narrative: Patient presents with her for extreme shortness of breath. She was oxygenating in the 80s when picked up by EMS. She is in the high 90s now on 2 L nasal prongs. 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 She gets her thoracentesis on a scheduled basis, and is scheduled for tomorrow. She just could not wait. Her appetite is good, she has not been sick, she has known ascites, and her liver doctor is in [place] at [facility]. She has seen the cardiothoracic surgeon there, who told her it was too risky to do the adhesive treatment necessary to keep the effusion from recurring. MD elicited complaint: shortness of breath Pertinent past history: other (Pleural effusion) Onset (ago): hour(s) Timing: constant Related Data Home Medications Medication Instructions Recorded Confirmed furosemide 60 mg PO DAILY 04/17/19 06/27/19 losartan 100 mg PO DAILY 04/17/19 06/27/19 albuterol sulfate [ProAir HFA] 2 puff INHALATION BID 05/29/19 06/27/19 amlodipine 20 mg PO DAILY 06/18/19 06/27/19 benzonatate 200 mg PO TID 06/18/19 06/27/19 famotidine 20 mg PO DAILY 06/27/19 06/27/19 Allergies Allergy/AdvReac Type Severity Reaction Status Date / Time lisinopril Allergy Severe ANAPHYLAXIS Verified 07/24/19 17:00 codeine AdvReac Unknown Nausea and Verified 07/24/19 17:00 Vomiting acetaminophen [From Tylenol] AdvReac Other Verified 07/24/19 17:00 NSAIDS (Non-Steroidal AdvReac Other Verified 07/24/19 17:00 Anti-Inflamma tramadol AdvReac HALLUCINATI Verified 07/24/19 17:00 ONS Review of Systems Review of Systems: Narrative: CONSTITUTIONAL: Denies fever, chills, or sweats. EYES: Denies visual changes, redness, or discharge. ENT: Denies rhinorrhea, congestion, sore throat, or otalgia. CARDIOVASCULAR: Denies chest pain, palpitations, or edema. RESPIRATORY: She has slight cough but severe shortness of breath. GASTROINTESTINAL: Denies abdominal pain, nausea, vomiting, or diarrhea. GENITOURINARY: Denies dysuria or hematuria. SKIN: Denies rash or itching. MUSCULOSKELETAL: Denies back pain, joint pain, or myalgia. NEUROLOGIC: Denies headache, numbness, or weakness. PSYCHIATRIC: Denies anxiety or depression. [facility] Past Medical History Medical History Asthma Breast cancer Status post right lumpectomy in 2013. Chronic anemia Essential hypertension JOEL (nonalcoholic steatohepatitis) Osteoarthritis Osteoporosis Surgical History Surgical History History of appendectomy History of cataract extraction History of cholecystectomy History of hysterectomy History of laser assisted in situ keratomileusis History of partial thyroidectomy For benign tumor. History of thoracentesis Social History Social History Social History: The patient lives with her in [place]. She designates her , Abdoulaye, as her surrogate decision maker and she wishes to be a full code. She is a lifelong nonsmoker and denies alcohol and drug use. Smoking status: Never smoker Second hand tobacco smoke exposure: No Alcohol intake: never Substance use: never Gender identity (if verbalized by the patient): Female Spiritual care concerns: No Agree to blood products: Yes Exam Narrative: Exam Narrative: GENERAL: Well-appearing, well-nourished, and in severe distress. HEAD: Normocephalic, atraumatic. EYES: PERRLA and EOMI. ENT: Nares clear, no rhinorrhea or epistaxis. Mucous membranes moist. NECK: Supple. CHEST: Severely decreased breath sounds on the right side, diffuse retractions, no crackles.. HEART: Regular rate and rhythm. But tacky. no murmur heard.
[2019-08-01 14:23] LABS: Alanine Aminotransferase 27 U/L (4-35); Albumin Level 3.5 g/dL (3.5-5.1); Alkaline Phosphatase 142 U/L (38-126); Aspartate Amino Transferase 51 U/L (14-36); Bilirubin,Total 0.6 mg/dL (0.2-1.3); Blood Urea Nitrogen 39 mg/dL (7-17); Calcium 8.2 mg/dL (8.4-10.2); Carbon Dioxide 24 mmol/L (22-30); Chloride 106 mmol/L (98-107); Estimated CRCL calculation 25 ml/min; Estimated Glomerular Filt Rate 36; Glucose 216 mg/dL (65-105); Potassium 3.9 mmol/L (3.4-5.0); Sodium 136 mmol/L (137-145)
[2019-08-01 14:29] LABS: INR 1.1; Prothrombin Time 14.3 Seconds (11.1-14.7)
[2019-08-01 14:30] LABS: Partial Thromboplastin Time 26.7 SECONDS (22.3-36.8)
== END 2019-08-01 17:42 | disposition home or self-care (01) ==
PROVIDERS: Emergency Provider Emergency Medicine; PCP Family Medicine
DX: R06.00 Dyspnea, unspecified (principal); J90 Pleural effusion, not elsewhere classified; R09.02 Hypoxemia; K75.81 Nonalcoholic steatohepatitis (NASH); K74.60 Unspecified cirrhosis of liver; J45.909 Unspecified asthma, uncomplicated; Z85.3 Personal history of malignant neoplasm of breast; I10 Essential (primary) hypertension; M19.90 Unspecified osteoarthritis, unspecified site; M81.0 Age-related osteoporosis without current pathological fracture; Z98.49 Cataract extraction status, unspecified eye; E89.0 Postprocedural hypothyroidism
CPT/HCPCS: 32555; 36415; 71045; 80053; 85025; 85610; 85730; 93005; 99284

== ENCOUNTER 2019-08-28 08:55 | Outpatient (CLI) | payer MEDICARE, SELFPAY ==
--- NOTE | ~2019-08-28 | US_ITS ---
EXAMINATION: US thoracentesis DATE: 08/28/2019 10:10 INDICATION: Right pleural effusion TECHNIQUE: The procedure and its risks and benefits were discussed with the patient. Potential risks discussed included bleeding, infection, and pneumothorax. The patient understood the risks and agreed to proceed. The skin was prepped and draped in sterile fashion. 1% lidocaine was used for local anes thesia. Under ultrasound guidance, a 5 Fr catheter with trochar was advanced into the moderate-sized right pleural effusion. Fluid was aspirated. The catheter was removed, and a dressing was applied. Th ere were no immediate complications. FINDINGS: Ultrasound images demonstrate a moderate-sized right pleural effusion and the catheter within the flu id. IMPRESSION: 1. Successful ultrasound-guided thoracentesis yielding 1000 mL of clear yellow fluid. Reviewed, dictated and finalized at location A.
--- NOTE | ~2019-08-28 | XR_ITS ---
EXAMINATION: XR chest 1V DATE: 08/28/2019 09:58 INDICATION: Pleural effusion post right thoracentesis TECHNIQUE: frontal view of the chest was obtained. COMPARISON: Chest radiograph dated 08/21/2019 FINDINGS: Small bilateral pleural effusions. Linear discoid atelectasis/scarring in the right lower lung zone a dditional mild bibasilar atelectasis. Calcified nodule at the left upper lung zone consistent with ol d granulomatous disease. No pulmonary edema or pneumothorax. The cardiomediastinal silhouette is norm al. Mild thoracolumbar dextrocurvature. IMPRESSION: 1. Small bilateral pleural effusions with no pneumothorax post right thoracentesis. 2. Opacities in the bilateral lower lung zones most likely atelectasis. Reviewed, dictated and finalized at location A. IMPRESSION: 1. Small bilateral pleural effusions with no pneumothorax post right thoracente sis. 2. Opacities in the bilateral lower lung zones most likely atelectasis.
[2019-08-28 10:05] VITALS: BP 132/65; PULSE 89; RESP 16; O2SAT 98
[2019-08-28 10:06] VITALS: BP 140/73; PULSE 95; RESP 18; O2SAT 93
[2019-08-28 10:07] VITALS: BP 142/68; PULSE 108; RESP 20; O2SAT 95
[2019-08-28 10:20] VITALS: BP 147/66; PULSE 83; RESP 16; O2SAT 99
[2019-08-28 10:35] VITALS: BP 147/66; PULSE 90; RESP 16; O2SAT 99
[2019-08-28 10:55] VITALS: BP 139/78; PULSE 85; RESP 16; O2SAT 98
--- NOTE | 2019-08-28 15:41 | SUR.PHASEII ---
[address] krause on pt condition and vs. ok for discharge per dr krause
== END 2019-08-28 11:30 | disposition home or self-care (01) ==
PROVIDERS: Radiology Diagnostic Radiology; PCP Family Medicine
DX: K75.81 Nonalcoholic steatohepatitis (NASH) (principal); K74.60 Unspecified cirrhosis of liver; J90 Pleural effusion, not elsewhere classified; Z98.890 Other specified postprocedural states; R91.8 Other nonspecific abnormal finding of lung field
CPT/HCPCS: 32555; 71045

== ENCOUNTER 2019-09-18 08:50 | Outpatient (RCR) | payer MEDICARE, SELFPAY ==
[2019-07-06 10:52] VITALS: BP 139/67; PULSE 93; RESP 20; O2SAT 97
[2019-07-06 11:20] VITALS: BP 139/66; PULSE 91; RESP 20; O2SAT 96
[2019-07-06 11:36] VITALS: BP 145/63; BP 153/68; PULSE 100; PULSE 97; RESP 20; O2SAT 92; O2SAT 93
[2019-07-06 11:50] VITALS: BP 135/63; PULSE 89; RESP 20; O2SAT 96
[2019-07-12 15:15] VITALS: BP 144/83; PULSE 97; O2SAT 97
[2019-07-12 15:30] VITALS: BP 144/63; PULSE 93
[2019-07-12 15:42] VITALS: BP 145/63; PULSE 81; RESP 20; O2SAT 92
[2019-07-12 15:43] VITALS: BP 139/66; PULSE 99; RESP 20; O2SAT 96
[2019-07-12 15:45] VITALS: BP 138/60; PULSE 86
[2019-07-12 16:00] VITALS: BP 141/52; PULSE 92
--- NOTE | 2019-07-12 16:16 | SUR.PHASEII ---
1615: Called Dr. Clemente and patient is ok to discharge home.
[2019-07-19 11:40] VITALS: BP 149/55; PULSE 93; RESP 16; O2SAT 95
--- NOTE | 2019-07-19 11:53 | SUR.PHASEII ---
DR. HUI SAID PT MAY HAVE ICE CHIPS AND LEAVE IN 1 HOUR PER PT REQUEST.
--- NOTE | 2019-07-19 11:54 | SUR.PHASEII ---
PIV IN PLACET TO LEFT AC UPON ARRIVAL TO OP AREA.
[2019-07-19 11:55] VITALS: BP 94/59; PULSE 96; RESP 16; O2SAT 93
[2019-07-19 12:05] VITALS: BP 148/59; PULSE 84; RESP 16; O2SAT 96
[2019-07-19 12:20] VITALS: BP 141/55; PULSE 81; RESP 16; O2SAT 96
--- NOTE | 2019-07-19 12:46 | SUR.PHASEII ---
PIV FROM LEFT AC REMOVED; DRESSING PLACED, D/I.
--- NOTE | 2019-07-19 12:47 | SUR.PHASEII ---
CALLED TO TEXTILE STYLIST PT. PT DRESSED, WAITING. TOLERATED SODA.
[2019-08-07 11:50] VITALS: BP 136/65; BP 138/81; PULSE 102; PULSE 103; RESP 22; RESP 24; O2SAT 90; O2SAT 98
[2019-08-07 11:55] VITALS: BP 146/71; PULSE 100; RESP 20; O2SAT 96
--- NOTE | 2019-08-07 12:07 | SUR.PHASEII ---
1207 spoke with and updated him with discharge time
[2019-08-07 12:10] VITALS: BP 172/92; PULSE 94; RESP 24; O2SAT 94
[2019-08-07 12:25] VITALS: BP 139/62; PULSE 93; RESP 20; O2SAT 95
[2019-08-07 12:40] VITALS: BP 132/65; PULSE 93; RESP 20; O2SAT 93
--- NOTE | 2019-08-07 12:53 | SUR.PHASEII ---
[address] king updated him on pt condition, pt is ok for discharge
[2019-08-14 10:37] VITALS: BP 144/71; PULSE 102; O2SAT 99
[2019-08-14 10:55] VITALS: BP 150/65; PULSE 92; O2SAT 95
[2019-08-14 11:10] VITALS: BP 145/69; PULSE 91; O2SAT 96
[2019-08-14 13:04] VITALS: BP 169/74; PULSE 105; RESP 22; O2SAT 96
[2019-08-14 13:05] VITALS: BP 150/70; PULSE 102; RESP 24; O2SAT 99
[2019-08-21 10:08] VITALS: BP 150/58; PULSE 98; RESP 24; O2SAT 92
[2019-08-21 10:17] VITALS: BP 154/105; PULSE 96; TEMP 37.1; O2SAT 95
[2019-08-21 10:21] VITALS: BP 125/64; PULSE 98; RESP 24; O2SAT 95
[2019-08-21 10:47] VITALS: BP 142/56; PULSE 90; TEMP 37.3; O2SAT 95
[2019-08-21 11:16] VITALS: BP 132/62; PULSE 92; O2SAT 95
--- NOTE | 2019-08-21 11:17 | SUR.PHASEII ---
1115- piv removed in lt ac. cath intact.
--- NOTE | 2019-08-21 12:10 | SUR.PHASEII ---
1851- pt did not call to let out pt know he was here. Contacted and he was sitting outside. pt taken to imaging.
[2019-09-04 10:00] VITALS: BP 167/72; PULSE 95
[2019-09-04 10:06] VITALS: BP 140/70; BP 149/71; PULSE 100; PULSE 89; RESP 18; RESP 20; O2SAT 95; O2SAT 96
[2019-09-04 10:20] VITALS: BP 141/69; PULSE 80; O2SAT 97
[2019-09-04 10:40] VITALS: BP 132/70; PULSE 86
[2019-09-04 10:58] VITALS: BP 132/70; PULSE 86
[2019-09-11 10:20] VITALS: BP 165/67; PULSE 96; RESP 16; O2SAT 97
[2019-09-11 10:21] VITALS: BP 146/66; PULSE 91; RESP 20; O2SAT 95
[2019-09-11 10:22] VITALS: BP 143/68; PULSE 96; RESP 20; O2SAT 95
[2019-09-11 10:35] VITALS: BP 144/56; PULSE 91; RESP 16; O2SAT 98
--- NOTE | 2019-09-11 10:39 | SUR.PHASEII ---
DR. HUI CALLED RE: BLOOD SUGAR ORDER; HE SAID TO DISREGARD AND THAT PT CAN LEAVE AFTER 1 HOUR AND NO NEED TO CALL HIM BEFORE SHE LEAVES.
--- NOTE | 2019-09-11 10:42 | SUR.PHASEII ---
LEFT AC PERIPHERAL IV INTACT; SITE WNL.
[2019-09-11 10:50] VITALS: BP 114/65; PULSE 88; RESP 16; O2SAT 98
[2019-09-11 11:05] VITALS: BP 159/63; PULSE 89; RESP 16; O2SAT 97
--- NOTE | 2019-09-11 11:29 | SUR.PHASEII ---
LEFT AC PIV REMOVED; SITE WNL.
--- NOTE | ~2019-09-18 | XR_ITS ---
EXAMINATION: XR chest 1V DATE: 08/07/2019 11:48 INDICATION: Right pleural effusion status post thoracentesis. TECHNIQUE: A single frontal view of the chest was obtained. COMPARISON: Chest single view 08/01/2019 FINDINGS: There are moderate-sized right and small left pleural effusions. A calcified left lung nodu le is consistent with old granulomatous disease. There are airspace opacities in the right perihilar region and at the lung bases. No pneumothorax. The heart size is obscured. IMPRESSION: 1. Moderate-sized right and small left pleural effusions. 2. Airspace opacities in right perihilar region and at the lung bases, likely atelectasis. Reviewed, dictated and finalized at location A. IMPRESSION: 1. Moderate-sized right and small left pleural effusions. 2. Airspace opacities in right perihilar region and at the lung bases, likely a telectasis.
--- NOTE | ~2019-09-18 | XR_ITS ---
EXAMINATION: XR chest 1V DATE: 08/21/2019 10:14 INDICATION: Right pleural effusion post thoracentesis. TECHNIQUE: frontal view of the chest was obtained. COMPARISON: Chest radiograph dated 08/14/2019 FINDINGS: Small bilateral pleural effusions. Masses in the bilateral lower lung zones, with bandlike opacity at the right mid to lower lung zone most likely atelectasis although pneumonia not excludable. No pneum othorax. Calcified nodule at the left apex consistent with old granulomatous disease. The cardiomedia stinal silhouette is normal. IMPRESSION: 1. Small bilateral pleural effusions with no pneumothorax post right thoracentesis. 2. Opacities in the left lower and right mid to lower lung zones most likely atelectasis although und erlying pneumonia is not excludable. Reviewed, dictated and finalized at location A. IMPRESSION: 1. Small bilateral pleural effusions with no pneumothorax post right thoracente sis. 2. Opacities in the left lower and right mid to lower lung zones most likely at electasis although underlying pneumonia is not excludable.
--- NOTE | ~2019-09-18 | XR_ITS ---
XR chest 1V DATE: 09/11/2019 10:14 INDICATION: Pleural effusion. Postthoracentesis examination. TECHNIQUE: AP chest COMPARISON: 09/04/2019 AP chest FINDINGS: There are bibasilar infiltrates and/atelectasis and mild bilateral pleural effusions. There is little interval change in appearance since 09/04/2019. Calcified left apical upper lobe pulmonary granuloma. Heart size appears within normal limits. No pulmonary vascular congestion. No evidence of pneumothora x following reported thoracentesis. Dextro scoliosis of the thoracic spine. Diffuse osteopenia. IMPRESSION: Bibasilar infiltrate and/atelectasis and small bilateral pleural effusions No evidence of pneumothorax following reported thoracentesis Reviewed, dictated and finalized at location B. IMPRESSION: Bibasilar infiltrate and/atelectasis and small bilateral pleural ef fusions No evidence of pneumothorax following reported thoracentesis
--- NOTE | ~2019-09-18 | US_ITS ---
EXAMINATION: US thoracentesis DATE: 08/21/2019 10:24 INDICATION: Left pleural effusion TECHNIQUE: The procedure and its risks and benefits were discussed with the patient. Potential risks discussed included bleeding, infection, and pneumothorax. The patient understood the risks and agreed to proceed. The skin was prepped and draped in sterile fashion. 1% lidocaine was used for local anes thesia. Under ultrasound guidance, a 5 Fr catheter with trochar was advanced into the moderate-sized left pleural effusion. Fluid was aspirated. The catheter was removed, and a dressing was applied. The re were no immediate complications. FINDINGS: Ultrasound images demonstrate a moderate sized left pleural effusion and the catheter within the flui d. IMPRESSION: 1. Successful ultrasound-guided thoracentesis yielding 1000 mL of cloudy yellowish fluid. Reviewed, dictated and finalized at location A. IMPRESSION: 1. Successful ultrasound-guided thoracentesis yielding 1000 mL of cloudy yello wish fluid.
--- NOTE | ~2019-09-18 | XR_ITS ---
EXAMINATION: XR chest 1V DATE: 09/04/2019 09:57 INDICATION: Right pleural effusion post thoracentesis. TECHNIQUE: frontal view of the chest was obtained. COMPARISON: Chest radiograph dated 08/28/2019 FINDINGS: Small bilateral pleural effusions. Airspace opacities at the lung bases which could represent atelect asis and/or pneumonia. Calcified nodule at the left upper lung zone consistent with old granulomatous disease. No pneumothorax. The cardiomediastinal silhouette is normal. Mild thoracic dextrocurvature. IMPRESSION: 1. Small bilateral pleural effusions with no pneumothorax post right thoracentesis. 2. Opacities in the bilateral lower lung zones and favor atelectasis over pneumonia. Reviewed, dictated and finalized at location A. IMPRESSION: 1. Small bilateral pleural effusions with no pneumothorax post right thoracente sis. 2. Opacities in the bilateral lower lung zones and favor atelectasis over pneum onia.
--- NOTE | ~2019-09-18 | US_ITS ---
EXAMINATION: US thoracentesis DATE: 08/14/2019 13:07 INDICATION: Right pleural effusion TECHNIQUE: The procedure and its risks and benefits were discussed with the patient. Potential risks discussed included bleeding, infection, and pneumothorax. The patient understood the risks and agreed to proceed. The skin was prepped and draped in sterile fashion. 1% lidocaine was used for local anes thesia. Under ultrasound guidance, a 5 Fr catheter with trochar was advanced into the moderate-sized right pleural effusion. Fluid was aspirated. The catheter was removed, and a dressing was applied. Th ere were no immediate complications. FINDINGS: Ultrasound images demonstrate a moderate-sized right pleural effusion and the catheter within the flu id. IMPRESSION: 1. Successful ultrasound-guided thoracentesis yielding 1000 mL of cloudy yellow fluid. Reviewed, dictated and finalized at location A. IMPRESSION: 1. Successful ultrasound-guided thoracentesis yielding 1000 mL of cloudy yello w fluid.
--- NOTE | ~2019-09-18 | XR_ITS ---
EXAMINATION: XR chest 1V INDICATION: Right pleural effusion TECHNIQUE: AP view the chest is obtained. COMPARISON: 07/06/2019 FINDINGS: A moderate-sized right pleural effusion persists without significant change. There is a sma ll left pleural effusion, also stable. The cardiomediastinal silhouette is normal. Airspace opacities of the lung bases are unchanged. A calcified nodule of the left upper lobe is consistent with old gr anulomatous disease. IMPRESSION: 1. Stable pleural effusions, moderate on the right and small on the left. 2. Unchanged bibasilar airspace opacities, likely atelectasis. Reviewed, dictated and finalized at location A.
--- NOTE | ~2019-09-18 | US_ITS ---
EXAMINATION: US thoracentesis DATE: 09/04/2019 10:09 INDICATION: Right pleural effusion TECHNIQUE: The procedure and its risks and benefits were discussed with the patient. Potential risks discussed included bleeding, infection, and pneumothorax. The patient understood the risks and agreed to proceed. The skin was prepped and draped in sterile fashion. 1% lidocaine was used for local anes thesia. Under ultrasound guidance, a 5 Fr catheter with trochar was advanced into the right pleural e ffusion. Fluid was aspirated. The catheter was removed, and a dressing was applied. There were no imm ediate complications. FINDINGS: Ultrasound images demonstrate a moderate right pleural effusion and the catheter within the fluid. IMPRESSION: 1. Successful ultrasound-guided thoracentesis yielding 1000 mL of clear yellow fluid. Reviewed, dictated and finalized at location A.
--- NOTE | ~2019-09-18 | US_ITS ---
EXAMINATION: US thoracentesis DATE: 07/06/2019 11:38 INDICATION: pleural effusion TECHNIQUE: The procedure and its risks, benefits, and alternatives were discussed with the patient. P otential risks discussed included bleeding, infection, and pneumothorax. The patient understood the r isks and agreed to proceed. The skin was prepped and draped in sterile fashion. 1% lidocaine was used for local anesthesia. Under ultrasound guidance, a 5 Fr catheter with trochar was advanced into the right pleural effusion. Fluid was aspirated. The catheter was removed, and a dressing was applied. Th ere were no immediate complications. FINDINGS: Ultrasound images demonstrate a right pleural effusion and the catheter within the fluid. IMPRESSION: 1. Successful ultrasound-guided thoracentesis yielding 1000 mL of clear, yellow fluid. Reviewed, dictated and finalized at location A. IMPRESSION: 1. Successful ultrasound-guided thoracentesis yielding 1000 mL of clear, yello w fluid.
--- NOTE | ~2019-09-18 | XR_ITS ---
XR chest 1V DATE: 08/14/2019 10:31 INDICATION: Right pleural effusion TECHNIQUE: AP chest COMPARISON: 08/07/2019 AP chest FINDINGS: There are bilateral pleural effusions, right greater than left, as well as infiltrate and/o r atelectasis in both lower lung zones. IMPRESSION: Minimal interval change since 08/07/2019 Reviewed, dictated and finalized at location A.
--- NOTE | ~2019-09-18 | XR_ITS ---
EXAMINATION: XR chest 1V DATE: 09/18/2019 09:55 INDICATION: Right pleural effusion status post thoracentesis. TECHNIQUE: A single frontal view of the chest was obtained. COMPARISON: Chest single view 09/11/2019 FINDINGS: There are small bilateral pleural effusions. There are airspace opacities at the lung bases . A calcified left lung nodule is consistent with old granulomatous disease. No pneumothorax. The hea rt size is normal. There are old healed left rib fractures. IMPRESSION: 1. Small pleural effusions. 2. Airspace opacities at the lung bases, consistent with atelectasis or less likely pneumonia. Reviewed, dictated and finalized at location A. IMPRESSION: 1. Small pleural effusions. 2. Airspace opacities at the lung bases, consistent with atelectasis or less li rachel pneumonia.
--- NOTE | ~2019-09-18 | US_ITS ---
EXAMINATION: US thoracentesis DATE: 07/12/2019 15:44 INDICATION: Right pleural effusion TECHNIQUE: The procedure and its risks and benefits were discussed with the patient. Potential risks discussed included bleeding, infection, and pneumothorax. The patient understood the risks and agreed to proceed. The skin was prepped and draped in sterile fashion. 1% lidocaine was used for local anes thesia. Under ultrasound guidance, a 5 Fr catheter with trochar was advanced into the right pleural e ffusion. Fluid was aspirated. The catheter was removed, and a dressing was applied. There were no imm ediate complications. FINDINGS: Ultrasound images demonstrate a large right pleural effusion and the catheter within the fluid. IMPRESSION: 1. Successful ultrasound-guided thoracentesis yielding 1000 mL of cloudy yellow fluid. Reviewed, dictated and finalized at location A. IMPRESSION: 1. Successful ultrasound-guided thoracentesis yielding 1000 mL of cloudy yello w fluid.
--- NOTE | ~2019-09-18 | XR_ITS ---
EXAMINATION: XR chest 1V DATE: 07/06/2019 10:51 INDICATION: Right pleural effusion status post thoracentesis. TECHNIQUE: A single frontal view of the chest was obtained. COMPARISON: Chest single view 06/28/2019 FINDINGS: A calcified left lung nodule is consistent with old granulomatous disease. There are modera te-sized right and small left pleural effusions. There are airspace opacities at the lung bases. No p neumothorax. The heart size is normal. IMPRESSION: 1. Moderate-sized right and small left pleural effusions. 2. Airspace opacities at the lung bases, consistent with atelectasis or less likely pneumonia. Reviewed, dictated and finalized at location A. IMPRESSION: 1. Moderate-sized right and small left pleural effusions. 2. Airspace opacities at the lung bases, consistent with atelectasis or less li rachel pneumonia.
--- NOTE | ~2019-09-18 | US_ITS ---
EXAMINATION: US thoracentesis DATE: 09/11/2019 10:30 INDICATION: pleural effusion TECHNIQUE: The procedure and its risks, benefits, and alternatives were discussed with the patient. P otential risks discussed included bleeding, infection, and pneumothorax. The patient understood the r isks and agreed to proceed. The skin was prepped and draped in sterile fashion. 1% lidocaine was used for local anesthesia. Under ultrasound guidance, a 5 Fr catheter with trochar was advanced into the right pleural effusion. Fluid was aspirated. The catheter was removed, and a dressing was applied. Th ere were no immediate complications. FINDINGS: Ultrasound images demonstrate a right pleural effusion and the catheter within the fluid. IMPRESSION: 1. Successful ultrasound-guided thoracentesis yielding 1000 mL of clear, yellow fluid. Reviewed, dictated and finalized at location A. IMPRESSION: 1. Successful ultrasound-guided thoracentesis yielding 1000 mL of clear, yello w fluid.
--- NOTE | ~2019-09-18 | US_ITS ---
EXAMINATION: US thoracentesis DATE: 09/18/2019 10:02 INDICATION: pleural effusion TECHNIQUE: The procedure and its risks, benefits, and alternatives were discussed with the patient. P otential risks discussed included bleeding, infection, and pneumothorax. The patient understood the r isks and agreed to proceed. The skin was prepped and draped in sterile fashion. 1% lidocaine was used for local anesthesia. Under ultrasound guidance, a 5 Fr catheter with trochar was advanced into the right pleural effusion. Fluid was aspirated. The catheter was removed, and a dressing was applied. Th ere were no immediate complications. FINDINGS: Ultrasound images demonstrate a right pleural effusion and the catheter within the fluid. IMPRESSION: 1. Successful ultrasound-guided thoracentesis yielding 1000 mL of yellow fluid. Reviewed, dictated and finalized at location A. IMPRESSION: 1. Successful ultrasound-guided thoracentesis yielding 1000 mL of yellow fluid .
--- NOTE | ~2019-09-18 | US_ITS ---
EXAMINATION: US thoracentesis DATE: 08/07/2019 11:53 INDICATION: pleural effusion TECHNIQUE: The procedure and its risks, benefits, and alternatives were discussed with the patient. P otential risks discussed included bleeding, infection, and pneumothorax. The patient understood the r isks and agreed to proceed. The skin was prepped and draped in sterile fashion. 1% lidocaine was used for local anesthesia. Under ultrasound guidance, a 5 Fr catheter with trochar was advanced into the right pleural effusion. Fluid was aspirated. The catheter was removed, and a dressing was applied. Th ere were no immediate complications. FINDINGS: Ultrasound images demonstrate a right pleural effusion and the catheter within the fluid. IMPRESSION: 1. Successful ultrasound-guided thoracentesis yielding 1000 mL of clear, yellow fluid. Reviewed, dictated and finalized at location A. IMPRESSION: 1. Successful ultrasound-guided thoracentesis yielding 1000 mL of clear, yello w fluid.
[2019-09-18 09:59] VITALS: BP 138/66; BP 143/77; PULSE 96; PULSE 98; RESP 20; RESP 22; O2SAT 95; O2SAT 96
== END 2019-10-04 23:59 | disposition home or self-care (01) ==
LOC: ANHIMG 08:50
PROVIDERS: Radiology Diagnostic Radiology; PCP Family Medicine
DX: J90 Pleural effusion, not elsewhere classified (principal); K75.81 Nonalcoholic steatohepatitis (NASH); K74.60 Unspecified cirrhosis of liver
CPT/HCPCS: 32555; 71045

== ENCOUNTER 2019-09-22 00:45 | Outpatient (CLI) | payer MEDICARE, SELFPAY ==
[2019-09-22 18:31] LABS: SARS-CoV-2 RNA PCR Negative
== END 2019-09-22 00:46 | disposition home or self-care (01) ==
LOC: ANHCOVIDDT 00:45
PROVIDERS: PCP Family Medicine; Visit Provider Radiology Diagnostic Radiology
DX: Z01.812 Encounter for preprocedural laboratory examination (principal); Z11.59 Encounter for screening for other viral diseases
CPT/HCPCS: 87635; C9803; U0003

== ENCOUNTER 2019-10-27 01:08 | Outpatient (CLI) | payer MEDICARE, SELFPAY ==
[2019-10-27 18:12] LABS: SARS-CoV-2 RNA PCR Negative
== END 2019-10-27 01:09 | disposition home or self-care (01) ==
LOC: ANHCOVIDDT 01:10
PROVIDERS: PCP Family Medicine
DX: Z01.812 Encounter for preprocedural laboratory examination (principal); Z20.828 Contact with and (suspected) exposure to other viral communicable diseases
CPT/HCPCS: 87635; C9803; U0003

== ENCOUNTER 2019-11-24 01:15 | Outpatient (CLI) | payer MEDICARE, SELFPAY ==
[2019-11-24 17:58] LABS: SARS-CoV-2 RNA PCR Negative
== END 2019-11-24 01:16 | disposition home or self-care (01) ==
LOC: ANHCOVIDDT 01:15
PROVIDERS: PCP Family Medicine; Visit Provider Family Medicine
DX: Z20.828 Contact with and (suspected) exposure to other viral communicable diseases (principal); Z01.812 Encounter for preprocedural laboratory examination
CPT/HCPCS: 87635; C9803; U0003

== ENCOUNTER 2019-11-27 09:47 | Outpatient (CLI) | payer MEDICARE, SELFPAY ==
--- NOTE | ~2019-11-27 | US_ITS ---
EXAMINATION: US abdomen limited EXAM DATE: 11/27/2019 10:39 INDICATION: Ascites. TECHNIQUE: Multiple grayscale and Doppler images of the abdomen quadrants were obtained (by a technol ogist who performed the scan) and subsequently reviewed. There is no prior study for comparison. FINDINGS: Scanning in the 4 abdominal quadrants demonstrated no evidence of ascites. IMPRESSION: 1. No ascites. Reviewed, dictated and finalized at location B. IMPRESSION: 1. No ascites.
== END 2019-11-27 09:48 | disposition home or self-care (01) ==
PROVIDERS: PCP Family Medicine; Visit Provider Internal Medicine Gastroenterology
DX: K74.69 Other cirrhosis of liver (principal)
CPT/HCPCS: 32555; 76705

== ENCOUNTER 2019-12-18 09:22 | Outpatient (RCR) | payer MEDICARE, SELFPAY ==
[2019-09-18 09:56] VITALS: BP 149/69; PULSE 90; RESP 18; TEMP 36.4; O2SAT 98
--- NOTE | 2019-09-18 10:16 | SUR.PHASEII ---
0956- up in recliner. taking ice chips. no c/o pain. bandaid intact and dry to right posterior chest.
[2019-09-18 10:25] VITALS: BP 174/77; PULSE 91; RESP 18; O2SAT 98
--- NOTE | 2019-09-18 10:28 | SUR.PHASEII ---
1025- ambulated to bathroom with assistance of cane. gait fair. no c/o pain.
--- NOTE | 2019-09-18 10:43 | SUR.PHASEII ---
1044- iv access removed intact and dressing applied.
[2019-09-18 10:50] VITALS: BP 138/66; PULSE 82; RESP 16; O2SAT 98
[2019-09-25] VITALS (7 sets, daily range): BP systolic 146–182; BP diastolic 69–75; PULSE 75–99; RESP 16–20; O2SAT 96–98
--- NOTE | 2019-09-25 11:13 | SUR.PHASEII ---
[address] NICE ON PT CONDITION AND DISCHARGE TIME, CHEST XRAY LOOKS GOOD, PT VSS, ON ROOM AIR, PT DOING FINE. PT WALKED TO BATHROOM TO VOID, NOT SOB. PT OK FOR DISCHARGE PER DR NICE
[2019-10-02 10:40] VITALS: BP 135/57; PULSE 91; RESP 16; TEMP 37.1; O2SAT 97
[2019-10-02 10:43] VITALS: BP 146/69; BP 157/72; PULSE 90; PULSE 95; RESP 20; RESP 24; O2SAT 94; O2SAT 95
[2019-10-02 10:55] VITALS: BP 132/54; PULSE 88; RESP 18; O2SAT 97
[2019-10-02 11:10] VITALS: BP 144/83; PULSE 91; RESP 18; O2SAT 97
[2019-10-02 11:25] VITALS: BP 129/54; PULSE 112; RESP 18; O2SAT 97
[2019-10-02 11:35] VITALS: BP 139/59; PULSE 81; RESP 16; O2SAT 97
[2019-10-09 10:00] VITALS: BP 126/62; PULSE 88; RESP 20; O2SAT 98
[2019-10-09 10:14] VITALS: BP 154/73; PULSE 100; RESP 30; O2SAT 92
[2019-10-09 10:15] VITALS: BP 135/72; PULSE 80; RESP 20
[2019-10-09 10:17] VITALS: BP 127/64; PULSE 100; RESP 30; O2SAT 93
[2019-10-09 10:30] VITALS: BP 127/70; PULSE 78; RESP 20
[2019-10-09 10:45] VITALS: BP 132/72; PULSE 78; RESP 16
[2019-10-16 09:58] VITALS: BP 140/71; PULSE 97; RESP 30; O2SAT 95
[2019-10-16 09:59] VITALS: BP 143/65; PULSE 102; RESP 30; O2SAT 95
[2019-10-16 10:30] VITALS: BP 140/69; PULSE 94; RESP 14
[2019-10-16 11:00] VITALS: BP 161/67; PULSE 91; RESP 14
[2019-10-23] VITALS (7 sets, daily range): BP systolic 109–148; BP diastolic 47–94; PULSE 85–98; RESP 16–30; O2SAT 92–99
--- NOTE | 2019-10-23 11:18 | SUR.PHASEII ---
[address] king about chest xray findings, pt ok for discharge. pt doing ok. no new complaints
[2019-10-30 09:15] VITALS: BP 149/61; PULSE 91; RESP 12; O2SAT 99
[2019-10-30 09:30] VITALS: BP 126/57; PULSE 81; RESP 12; O2SAT 98
[2019-10-30 09:51] VITALS: BP 157/70; PULSE 853; RESP 22; O2SAT 94
[2019-10-30 09:52] VITALS: BP 140/70; PULSE 97; RESP 22; O2SAT 94
[2019-10-30 10:00] VITALS: BP 130/54; PULSE 88; RESP 12; O2SAT 98
[2019-10-30 10:30] VITALS: BP 149/64; PULSE 93; RESP 12; O2SAT 98
[2019-11-06 10:10] VITALS: BP 143/63; PULSE 91; RESP 18; O2SAT 98
[2019-11-06 10:25] VITALS: BP 134/87; PULSE 94; RESP 18; O2SAT 100
[2019-11-06 10:40] VITALS: BP 135/55; PULSE 88; RESP 18; O2SAT 100
[2019-11-06 10:58] VITALS: BP 155/66; PULSE 98; RESP 22; O2SAT 94
[2019-11-06 10:59] VITALS: BP 168/71; PULSE 103; RESP 24; O2SAT 92
[2019-11-06 11:00] VITALS: BP 139/57; PULSE 88; RESP 24; O2SAT 100
[2019-11-14 09:55] VITALS: BP 159/71; PULSE 88; O2SAT 96
[2019-11-14 10:00] VITALS: BP 153/80; BP 171/85; PULSE 107; PULSE 110; RESP 24; O2SAT 91; O2SAT 97
[2019-11-14 10:15] VITALS: BP 156/77; PULSE 82
[2019-11-14 10:30] VITALS: BP 153/79; PULSE 81
[2019-11-14 10:45] VITALS: BP 175/77; PULSE 81; O2SAT 95
--- NOTE | 2019-11-14 10:49 | SUR.PHASEII ---
Patient's BP at 1045 more elevated than it has been d/t ambulation to and from the bathroom.
[2019-11-19 16:42] LABS: Mean Platelet Volume 11.2 fl (7.4-10.4); Platelet Count Result 168 k/mm3 (150-375)
[2019-11-19 16:55] LABS: INR 1.2; Prothrombin Time 15.2 Seconds (11.1-14.7)
[2019-11-20 10:00] VITALS: BP 146/75; PULSE 98; O2SAT 91
[2019-11-20 10:06] VITALS: BP 132/73; PULSE 93; RESP 24; O2SAT 94
[2019-11-20 10:07] VITALS: BP 134/65; PULSE 104; RESP 24; O2SAT 93
[2019-11-20 10:15] VITALS: BP 162/72; PULSE 93
[2019-11-20 10:30] VITALS: BP 162/72; PULSE 87; O2SAT 93
[2019-11-20 10:45] VITALS: BP 149/71; PULSE 86
[2019-11-27 10:30] VITALS: BP 142/85; PULSE 85; RESP 20
[2019-11-27 10:34] VITALS: BP 147/72; PULSE 95; RESP 24; O2SAT 92
[2019-11-27 10:35] VITALS: BP 144/74; PULSE 95; RESP 24; O2SAT 91
[2019-11-27 11:00] VITALS: BP 151/73; PULSE 82; RESP 20
[2019-11-27 12:15] VITALS: BP 164/71; PULSE 81; RESP 20
[2019-11-27 12:28] VITALS: BP 142/70; PULSE 85; RESP 20
--- NOTE | 2019-11-27 12:34 | SUR.PHASEII ---
[address] krause on pt condition, after reading xray and pt being stable, for 1 hour, dr krause ok with discharge
[2019-12-04] VITALS (7 sets, daily range): BP systolic 138–176; BP diastolic 71–81; PULSE 80–96; RESP 20–24; O2SAT 91–94
[2019-12-11 10:00] VITALS: BP 140/74; PULSE 97; RESP 20
[2019-12-11 10:03] VITALS: BP 167/75; PULSE 87; RESP 24; O2SAT 92
[2019-12-11 10:04] VITALS: BP 134/73; PULSE 96; RESP 24; O2SAT 93
[2019-12-11 10:15] VITALS: BP 133/69; PULSE 91; RESP 20
[2019-12-11 10:30] VITALS: BP 153/73; PULSE 98; RESP 20
[2019-12-11 10:45] VITALS: BP 138/69; PULSE 80; RESP 20
--- NOTE | ~2019-12-18 | US_ITS ---
EXAMINATION: US thoracentesis DATE: 10/16/2019 10:03 INDICATION: Right pleural effusion TECHNIQUE: The procedure and its risks and benefits were discussed with the patient. Potential risks discussed included bleeding, infection, and pneumothorax. The patient understood the risks and agreed to proceed. The skin was prepped and draped in sterile fashion. 1% lidocaine was used for local anes thesia. Under ultrasound guidance, a 5 Fr catheter with trochar was advanced into the moderate-sized right pleural effusion. Fluid was aspirated. The catheter was removed, and a dressing was applied. Th ere were no immediate complications. FINDINGS: Ultrasound images demonstrate a moderate-sized right pleural effusion and the catheter within the flu id. IMPRESSION: 1. Successful ultrasound-guided thoracentesis yielding 1000 mL of cloudy yellow fluid. Reviewed, dictated and finalized at location A. IMPRESSION: 1. Successful ultrasound-guided thoracentesis yielding 1000 mL of cloudy yello w fluid.
--- NOTE | ~2019-12-18 | US_ITS ---
EXAMINATION: US thoracentesis DATE: 12/11/2019 10:06 INDICATION: pleural effusion TECHNIQUE: The procedure and its risks and benefits were discussed with the patient. Potential risks discussed included bleeding, infection, and pneumothorax. The patient understood the risks and agreed to proceed. The skin was prepped and draped in sterile fashion. 1% lidocaine was used for local anes thesia. Under ultrasound guidance, a 5 Fr catheter with trochar was advanced into the right pleural e ffusion. Fluid was aspirated. The catheter was removed, and a dressing was applied. There were no imm ediate complications. FINDINGS: Ultrasound images demonstrate a moderate-sized right pleural effusion and the catheter within the flu id. IMPRESSION: 1. Successful ultrasound-guided thoracentesis yielding 1000 mL of clear yellow fluid. Reviewed, dictated and finalized at location A.
--- NOTE | ~2019-12-18 | XR_ITS ---
EXAMINATION: [id number] DATE: 11/20/2019 09:58 INDICATION: Right pleural effusion status post thoracentesis. TECHNIQUE: A single frontal view of the chest was obtained. COMPARISON: Chest single view 11/14/2019 FINDINGS: There are small bilateral pleural effusions. There are airspace opacities at the lung bases , likely atelectasis. A calcified left lung nodule is consistent with old granulomatous disease. No p neumothorax. The heart size is normal. IMPRESSION: 1. Small pleural effusions. 2. Airspace opacities at the lung bases, likely atelectasis. Reviewed, dictated and finalized at location A.
--- NOTE | ~2019-12-18 | XR_ITS ---
EXAMINATION: [id number]_CR DATE: 11/06/2019 10:13 INDICATION: Status post right thoracentesis. TECHNIQUE: frontal view of the chest was obtained. COMPARISON: Chest radiograph dated 10/30/19 FINDINGS: Again seen are small bilateral pleural effusions. No pneumothorax. Calcified nodule at the left apex consistent with old granulomatous disease. Opacities in the bilateral lower lung zones most likely at electasis although pneumonia not excludable. Cardiac silhouette is largely obscured. Mediastinal silh ouette is normal. Mild thoracolumbar dextroscoliosis. IMPRESSION: 1. No pneumothorax. 2. Small bilateral pleural effusions with associated basilar atelectasis versus less likely pneumonia . Reviewed, dictated and finalized at location A. IMPRESSION: 1. No pneumothorax. 2. Small bilateral pleural effusions with associated basilar atelectasis versus less likely pneumonia.
--- NOTE | ~2019-12-18 | US_ITS ---
EXAMINATION: US thoracentesis DATE: 11/14/2019 10:03 INDICATION: pleural effusion TECHNIQUE: The procedure and its risks, benefits, and alternatives were discussed with the patient. P otential risks discussed included bleeding, infection, and pneumothorax. The patient understood the r isks and agreed to proceed. The skin was prepped and draped in sterile fashion. 1% lidocaine was used for local anesthesia. Under ultrasound guidance, a 5 Fr catheter with trochar was advanced into the right pleural effusion. Fluid was aspirated. The catheter was removed, and a dressing was applied. Th ere were no immediate complications. FINDINGS: Ultrasound images demonstrate a right pleural effusion and the catheter within the fluid. IMPRESSION: 1. Successful ultrasound-guided thoracentesis yielding 1000 mL of clear, yellow fluid. Reviewed, dictated and finalized at location A. IMPRESSION: 1. Successful ultrasound-guided thoracentesis yielding 1000 mL of clear, yello w fluid.
--- NOTE | ~2019-12-18 | XR_ITS ---
XR chest 1V DATE: 10/02/2019 10:35 INDICATION: Pleural effusion TECHNIQUE: AP chest COMPARISON: 09/25/2019 AP chest FINDINGS: There are mild bilateral pleural effusions. There are bibasilar infiltrates and/or atelecta sis. Heart size is likely within normal limits. Calcified left upper lobe pulmonary granuloma. IMPRESSION: Persistent bilateral mild pleural effusions and bibasilar infiltrates and/atelectasis, re latively stable since 09/25/2019 Reviewed, dictated and finalized at location A. IMPRESSION: Persistent bilateral mild pleural effusions and bibasilar infiltrat es and/atelectasis, relatively stable since 09/25/2019
--- NOTE | ~2019-12-18 | US_ITS ---
EXAMINATION: US thoracentesis DATE: 11/27/2019 10:36 INDICATION: Right pleural effusion TECHNIQUE: The procedure and its risks and benefits were discussed with the patient. Potential risks discussed included bleeding, infection, and pneumothorax. The patient understood the risks and agreed to proceed. The skin was prepped and draped in sterile fashion. 1% lidocaine was used for local anes thesia. Under ultrasound guidance, a 5 Fr catheter with trochar was advanced into the right pleural e ffusion. Fluid was aspirated. The catheter was removed, and a dressing was applied. There were no imm ediate complications. FINDINGS: Ultrasound images demonstrate a moderate-sized right pleural effusion and the catheter within the flu id. IMPRESSION: 1. Successful ultrasound-guided thoracentesis yielding 1000 mL of clear yellow fluid. Reviewed, dictated and finalized at location A.
--- NOTE | ~2019-12-18 | XR_ITS ---
EXAMINATION: XR chest 1V DATE: 10/23/2019 09:54 INDICATION: Right pleural effusion status post thoracentesis. TECHNIQUE: A single frontal view of the chest was obtained. COMPARISON: Chest single view 10/16/2019 FINDINGS: Calcified left lung nodules and calcified left hilar lymph nodes are consistent with old gr anulomatous disease. There are small pleural effusions. There are airspace opacities at the lung base s, likely atelectasis. No pneumothorax. The heart size is normal. IMPRESSION: 1. Small pleural effusions. 2. Airspace opacities at the lung bases, likely atelectasis. Reviewed, dictated and finalized at location A.
--- NOTE | ~2019-12-18 | XR_ITS ---
XR_[id number] 11/14/2019 09:55 Indication: Pleural effusions. Postthoracentesis. Procedure: AP portable chest Comparison: Comparison to multiple prior studies sequentially, with oldest reviewed study dated 09/2019. Findings: Cardiomegaly with interstitial edema. Moderate bilateral pleural effusions. No pneumothorax identified. Calcified granuloma left upper lobe. No acute osseous abnormality. Impression: 1: Cardiomegaly with interstitial edema. 2: Moderate bilateral pleural effusions. Reviewed, dictated and finalized at location A. Impression: 1: Cardiomegaly with interstitial edema. 2: Moderate bilateral pleural effusions.
--- NOTE | ~2019-12-18 | XR_ITS ---
EXAMINATION: XR chest 1V DATE: 11/27/2019 10:30 INDICATION: Right pleural effusion postthoracentesis TECHNIQUE: frontal view of the chest was obtained. COMPARISON: Chest radiograph dated 10/23/2019 FINDINGS: Opacities in the bilateral lower lung zones consistent with small bilateral pleural effusions and ass ociated atelectasis versus less likely pneumonia. Calcified nodule at the left apex consistent with o ld granulomatous disease. No pulmonary edema or pneumothorax. Heart size is normal. IMPRESSION: 1. Small bilateral pleural effusions with associated bibasilar atelectasis versus less likely pneumon ia. Reviewed, dictated and finalized at location A. IMPRESSION: 1. Small bilateral pleural effusions with associated bibasilar atelectasis vers us less likely pneumonia.
--- NOTE | ~2019-12-18 | US_ITS ---
EXAMINATION: US thoracentesis DATE: 11/20/2019 10:11 INDICATION: pleural effusion TECHNIQUE: The procedure and its risks, benefits, and alternatives were discussed with the patient. P otential risks discussed included bleeding, infection, and pneumothorax. The patient understood the r isks and agreed to proceed. The skin was prepped and draped in sterile fashion. 1% lidocaine was used for local anesthesia. Under ultrasound guidance, a 5 Fr catheter with trochar was advanced into the right pleural effusion. Fluid was aspirated. The catheter was removed, and a dressing was applied. Th ere were no immediate complications. FINDINGS: Ultrasound images demonstrate a right pleural effusion and the catheter within the fluid. IMPRESSION: 1. Successful ultrasound-guided thoracentesis yielding 1000 mL of clear, yellow fluid. Reviewed, dictated and finalized at location A. IMPRESSION: 1. Successful ultrasound-guided thoracentesis yielding 1000 mL of clear, yello w fluid.
--- NOTE | ~2019-12-18 | US_ITS ---
EXAMINATION: US thoracentesis DATE: 12/04/2019 10:06 INDICATION: pleural effusion TECHNIQUE: The procedure and its risks, benefits, and alternatives were discussed with the patient. P otential risks discussed included bleeding, infection, and pneumothorax. The patient understood the r isks and agreed to proceed. The skin was prepped and draped in sterile fashion. 1% lidocaine was used for local anesthesia. Under ultrasound guidance, a 5 Fr catheter with trochar was advanced into the right pleural effusion. Fluid was aspirated. The catheter was removed, and a dressing was applied. Th ere were no immediate complications. FINDINGS: Ultrasound images demonstrate a right pleural effusion and the catheter within the fluid. IMPRESSION: 1. Successful ultrasound-guided thoracentesis yielding 1000 mL of clear, yellow fluid. Reviewed, dictated and finalized at location A. IMPRESSION: 1. Successful ultrasound-guided thoracentesis yielding 1000 mL of clear, yello w fluid.
--- NOTE | ~2019-12-18 | XR_ITS ---
EXAMINATION: XR chest 1V DATE: 12/18/2019 10:08 INDICATION: Right pleural effusion status post thoracentesis. TECHNIQUE: A single frontal view of the chest was obtained. COMPARISON: Chest single view 12/11/2019 FINDINGS: There are small pleural effusions. There are airspace opacities at the lung bases. A calcif ied left lung nodule is consistent with old granulomatous disease. No pneumothorax. The heart size is obscured. IMPRESSION: 1. Small pleural effusions. 2. Airspace opacities at the lung bases, consistent with atelectasis or less likely pneumonia. Reviewed, dictated and finalized at location A. IMPRESSION: 1. Small pleural effusions. 2. Airspace opacities at the lung bases, consistent with atelectasis or less li rachel pneumonia.
--- NOTE | ~2019-12-18 | US_ITS ---
EXAMINATION: US thoracentesis DATE: 12/18/2019 11:11 INDICATION: pleural effusion TECHNIQUE: The procedure and its risks, benefits, and alternatives were discussed with the patient. P otential risks discussed included bleeding, infection, and pneumothorax. The patient understood the r isks and agreed to proceed. The skin was prepped and draped in sterile fashion. 1% lidocaine was used for local anesthesia. Under ultrasound guidance, a 5 Fr catheter with trochar was advanced into the right pleural effusion. Fluid was aspirated. The catheter was removed, and a dressing was applied. Th ere were no immediate complications. FINDINGS: Ultrasound images demonstrate a right pleural effusion and the catheter within the fluid. IMPRESSION: 1. Successful ultrasound-guided thoracentesis yielding 1000 mL of clear, yellow fluid. Reviewed, dictated and finalized at location A. IMPRESSION: 1. Successful ultrasound-guided thoracentesis yielding 1000 mL of clear, yello w fluid.
--- NOTE | ~2019-12-18 | US_ITS ---
EXAMINATION: US thoracentesis DATE: 10/23/2019 10:10 INDICATION: pleural effusion TECHNIQUE: The procedure and its risks, benefits, and alternatives were discussed with the patient. P otential risks discussed included bleeding, infection, and pneumothorax. The patient understood the r isks and agreed to proceed. The skin was prepped and draped in sterile fashion. 1% lidocaine was used for local anesthesia. Under ultrasound guidance, a 5 Fr catheter with trochar was advanced into the right pleural effusion. Fluid was aspirated. The catheter was removed, and a dressing was applied. Th ere were no immediate complications. FINDINGS: Ultrasound images demonstrate a right pleural effusion and the catheter within the fluid. IMPRESSION: 1. Successful ultrasound-guided thoracentesis yielding 1000 mL of clear, yellow fluid. Reviewed, dictated and finalized at location A. IMPRESSION: 1. Successful ultrasound-guided thoracentesis yielding 1000 mL of clear, yello w fluid.
--- NOTE | ~2019-12-18 | US_ITS ---
EXAMINATION: US thoracentesis DATE: 10/02/2019 10:45 INDICATION: Right pleural effusion. TECHNIQUE: The procedure and its risks and benefits were discussed with the patient. Potential risks discussed included bleeding, infection, and pneumothorax. The patient understood the risks and agreed to proceed. The skin was prepped and draped in sterile fashion. 1% lidocaine was used for local anes thesia. Under ultrasound guidance, a 5 Fr catheter with trochar was advanced into the moderate-sized right pleural effusion. Fluid was aspirated. The catheter was removed, and a dressing was applied. Th ere were no immediate complications. FINDINGS: Ultrasound images demonstrate a moderate-sized right pleural effusion and the catheter within the flu id. IMPRESSION: 1. Successful ultrasound-guided thoracentesis yielding 1000 mL of cloudy yellowish fluid. Reviewed, dictated and finalized at location A. IMPRESSION: 1. Successful ultrasound-guided thoracentesis yielding 1000 mL of cloudy yello wish fluid.
--- NOTE | ~2019-12-18 | XR_ITS ---
EXAMINATION: XR chest 1V DATE: 12/11/2019 09:56 INDICATION: Pleural effusions post right thoracentesis. TECHNIQUE: frontal view of the chest was obtained. COMPARISON: Chest radiograph dated 12/04/2019 FINDINGS: Kensinger opacities in the bilateral lower lung zones consistent with small bilateral pleural effusio ns and associated atelectasis and/or pneumonia. Calcified nodule at the left apex consistent with old granulomatous disease. No pneumothorax. Heart size is normal. IMPRESSION: 1. Small bilateral pleural effusions. 2. Opacities at the lung bases most likely atelectasis. Reviewed, dictated and finalized at location A.
--- NOTE | ~2019-12-18 | US_ITS ---
EXAMINATION: US thoracentesis DATE: 10/09/2019 10:26 INDICATION: pleural effusion TECHNIQUE: The procedure and its risks, benefits, and alternatives were discussed with the patient. P otential risks discussed included bleeding, infection, and pneumothorax. The patient understood the r isks and agreed to proceed. The skin was prepped and draped in sterile fashion. 1% lidocaine was used for local anesthesia. Under ultrasound guidance, a 5 Fr catheter with trochar was advanced into the right pleural effusion. Fluid was aspirated. The catheter was removed, and a dressing was applied. Th ere were no immediate complications. FINDINGS: Ultrasound images demonstrate a right pleural effusion and the catheter within the fluid. IMPRESSION: 1. Successful ultrasound-guided thoracentesis yielding 1000 mL of clear, yellow fluid. Reviewed, dictated and finalized at location A. IMPRESSION: 1. Successful ultrasound-guided thoracentesis yielding 1000 mL of clear, yello w fluid.
--- NOTE | ~2019-12-18 | US_ITS ---
EXAMINATION: US thoracentesis DATE: 10/30/2019 09:55 INDICATION: Right pleural effusion. TECHNIQUE: The procedure and its risks and benefits were discussed with the patient. Potential risks discussed included bleeding, infection, and pneumothorax. The patient understood the risks and agreed to proceed. The skin was prepped and draped in sterile fashion. 1% lidocaine was used for local anes thesia. Under ultrasound guidance, a 5 Fr catheter with trochar was advanced into the right pleural e ffusion. Fluid was aspirated. The catheter was removed, and a dressing was applied. There were no imm ediate complications. FINDINGS: Ultrasound images demonstrate a moderate-sized right pleural effusion and the catheter within the flu id. IMPRESSION: 1. Successful ultrasound-guided thoracentesis yielding 1000 mL of clear yellow fluid. Reviewed, dictated and finalized at location A.
--- NOTE | ~2019-12-18 | US_ITS ---
EXAMINATION: US thoracentesis DATE: 11/06/2019 11:02 INDICATION: Right pleural effusion TECHNIQUE: The procedure and its risks and benefits were discussed with the patient. Potential risks discussed included bleeding, infection, and pneumothorax. The patient understood the risks and agreed to proceed. The skin was prepped and draped in sterile fashion. 1% lidocaine was used for local anes thesia. Under ultrasound guidance, a 5 Fr catheter with trochar was advanced into the right pleural e ffusion. Fluid was aspirated. The catheter was removed, and a dressing was applied. There were no imm ediate complications. FINDINGS: Ultrasound images demonstrate a large right pleural effusion and the catheter within the fluid. IMPRESSION: 1. Successful ultrasound-guided thoracentesis yielding 1000 mL of clear yellow fluid. Reviewed, dictated and finalized at location A.
--- NOTE | ~2019-12-18 | XR_ITS ---
EXAMINATION: XR chest 1V DATE: 10/09/2019 09:55 INDICATION: Right pleural effusion status post thoracentesis. TECHNIQUE: A single frontal view of the chest was obtained. COMPARISON: Chest 2 view 10/02/2019 FINDINGS: A calcified left lung nodule is consistent with old granulomatous disease. There are small pleural effusions. There are airspace opacities at the lung bases. No pneumothorax. The heart size is normal. IMPRESSION: 1. Small pleural effusions. 2. Stable airspace opacities at the lung bases, consistent with atelectasis or less likely pneumonia. Reviewed, dictated and finalized at location A.
--- NOTE | ~2019-12-18 | XR_ITS ---
EXAMINATION: XR chest 1V DATE: 12/04/2019 09:52 INDICATION: Right pleural effusion status post thoracentesis. TECHNIQUE: A single frontal view of the chest was obtained. COMPARISON: Chest single view 11/27/2019 FINDINGS: There are small pleural effusions. There are airspace opacities at the lung bases, likely a telectasis. A calcified left lung nodule is consistent with old granulomatous disease. No pneumothora x. The heart size is normal. IMPRESSION: 1. Small pleural effusions. 2. Airspace opacities at the lung bases, likely atelectasis. Reviewed, dictated and finalized at location A.
--- NOTE | ~2019-12-18 | XR_ITS ---
EXAMINATION: XR chest 1V DATE: 10/16/2019 09:57 INDICATION: Pleural effusions post right thoracentesis TECHNIQUE: frontal view of the chest was obtained. COMPARISON: Chest radiograph dated 10/09/2019 FINDINGS: Opacities in the bilateral lower lung zones with blunting at the costophrenic angles consistent with small bilateral pleural effusions with associated atelectasis. Calcified left apical nodule consisten t with old granulomatous disease. No pneumothorax. Heart size is normal. IMPRESSION: 1. Small bilateral pleural effusions. 2. Unchanged opacities at the lung bases consistent with atelectasis or less likely pneumonia. Reviewed, dictated and finalized at location A. IMPRESSION: 1. Small bilateral pleural effusions. 2. Unchanged opacities at the lung bases consistent with atelectasis or less li rachel pneumonia.
--- NOTE | ~2019-12-18 | US_ITS ---
EXAMINATION: US thoracentesis DATE: 09/25/2019 10:21 INDICATION: pleural effusion TECHNIQUE: The procedure and its risks and benefits were discussed with the patient. Potential risks discussed included bleeding, infection, and pneumothorax. The patient understood the risks and agreed to proceed. The skin was prepped and draped in sterile fashion. 1% lidocaine was used for local anes thesia. Under ultrasound guidance, a 5 Fr catheter with trochar was advanced into the right pleural e ffusion. Fluid was aspirated. The catheter was removed, and a dressing was applied. There were no imm ediate complications. FINDINGS: Ultrasound images demonstrate a moderate-sized right pleural effusion and the catheter within the flu id. IMPRESSION: 1. Successful ultrasound-guided thoracentesis yielding 1000 mL of clear yellow fluid. Reviewed, dictated and finalized at location A.
--- NOTE | ~2019-12-18 | XR_ITS ---
EXAMINATION: XR_[id number]_CR DATE: 10/30/2019 09:38 INDICATION: Pleural effusion post right thoracentesis. TECHNIQUE: frontal view of the chest was obtained. COMPARISON: Chest radiograph dated 10/23/2019 FINDINGS: Calcified nodule at the left apex consistent with old granulomatous disease. Small bilateral pleural effusions. Opacities in lung bases likely associated atelectasis. No pulmonary edema or pneumothorax. Heart size is normal. IMPRESSION: 1. Small bilateral pleural effusions. No pneumothorax. 2. Persistent opacities at the bilateral lung bases, likely atelectasis. Reviewed, dictated and finalized at location A.
--- NOTE | ~2019-12-18 | XR_ITS ---
XR chest 1V DATE: 09/25/2019 10:14 INDICATION: Postthoracentesis TECHNIQUE: AP and lateral views COMPARISON: 09/18/2019 AP view FINDINGS: There are bibasilar infiltrates and/or atelectasis and mild bilateral pleural effusions. Heart size appears within normal range. No hilar or mediastinal enlargement. Diffuse osteopenia. One or more probable old left rib fractures. Scoliosis and degenerative changes of the thoracic and lumbar spine. IMPRESSION: Bibasilar infiltrates and/or atelectasis, small pleural effusions No evidence of pneumothorax Reviewed, dictated and finalized at location B.
[2019-12-18 10:08] VITALS: BP 155/95; PULSE 106; RESP 20
[2019-12-18 10:15] VITALS: BP 165/72; PULSE 103; RESP 20
[2019-12-18 10:30] VITALS: BP 166/73; PULSE 95; RESP 20; O2SAT 93
[2019-12-18 10:45] VITALS: BP 143/77; PULSE 95; RESP 20; O2SAT 93
[2019-12-18 11:08] VITALS: BP 161/75; PULSE 90; RESP 24; O2SAT 93
[2019-12-18 11:09] VITALS: BP 150/71; PULSE 98; RESP 24; O2SAT 92
== END 2020-01-03 23:59 | disposition home or self-care (01) ==
LOC: ANHIMG 09:22
PROVIDERS: Radiology Diagnostic Radiology; PCP Family Medicine; Visit Provider Family Medicine
DX: J90 Pleural effusion, not elsewhere classified (principal)
CPT/HCPCS: 32555; 36415; 71045; 85049; 85610; C1729

== ENCOUNTER 2019-12-22 01:23 | Outpatient (CLI) | payer MEDICARE, SELFPAY ==
[2019-12-22 22:13] LABS: SARS-CoV-2 RNA PCR Negative
== END 2019-12-22 01:24 | disposition home or self-care (01) ==
LOC: ANHCOVIDDT 01:23
PROVIDERS: PCP Family Medicine; Visit Provider Family Medicine
DX: Z01.812 Encounter for preprocedural laboratory examination (principal); Z20.828 Contact with and (suspected) exposure to other viral communicable diseases
CPT/HCPCS: 87635; C9803; U0003

== ENCOUNTER 2020-01-19 01:03 | Outpatient (CLI) | payer MEDICARE, SELFPAY ==
[2020-01-19 18:32] LABS: SARS-CoV-2 RNA PCR Negative
== END 2020-01-19 01:04 | disposition home or self-care (01) ==
LOC: ANHCOVIDDT 01:03
PROVIDERS: PCP Family Medicine; Visit Provider Family Medicine
DX: Z01.812 Encounter for preprocedural laboratory examination (principal); Z20.828 Contact with and (suspected) exposure to other viral communicable diseases
CPT/HCPCS: 87635; C9803; U0003

== ENCOUNTER 2020-02-08 13:11 | Outpatient (CLI) | payer MEDICARE, SELFPAY ==
--- NOTE | ~2020-02-08 | XR_ITS ---
EXAMINATION: [id number]_[id number]_CR DATE: 02/08/2020 14:35 INDICATION: Right pleural effusion status post thoracentesis. TECHNIQUE: A single frontal view of the chest was obtained. COMPARISON: Chest single view 02/05/2020 FINDINGS: There are moderate-sized pleural effusions. A calcified left lung nodule is consistent with old granulomatous disease. There are airspace opacities at the lung bases, likely atelectasis. No pn eumothorax. The heart size is obscured. IMPRESSION: 1. Moderate-sized pleural effusions. 2. Airspace opacities at the lung bases, likely atelectasis. Reviewed, dictated and finalized at location A. RVISOR PASTE MIXING
--- NOTE | ~2020-02-08 | US_ITS ---
EXAMINATION: US thoracentesis DATE: 02/08/2020 14:53 INDICATION: pleural effusion TECHNIQUE: The procedure and its risks, benefits, and alternatives were discussed with the patient. P otential risks discussed included bleeding, infection, and pneumothorax. The patient understood the r isks and agreed to proceed. The skin was prepped and draped in sterile fashion. 1% lidocaine was used for local anesthesia. Under ultrasound guidance, a 5 Fr catheter with trochar was advanced into the right pleural effusion. Fluid was aspirated. The catheter was removed, and a dressing was applied. Th ere were no immediate complications. FINDINGS: Ultrasound images demonstrate a right pleural effusion and the catheter within the fluid. IMPRESSION: 1. Successful ultrasound-guided thoracentesis yielding 1000 mL of yellow fluid. Reviewed, dictated and finalized at location A. ITAL ACCOUNT LIAISON IMPRESSION: 1. Successful ultrasound-guided thoracentesis yielding 1000 mL of yellow fluid .
[2020-02-08 14:35] VITALS: BP 155/66; PULSE 101; RESP 20; TEMP 36.9; O2SAT 95
[2020-02-08 14:50] VITALS: BP 145/65; PULSE 93; RESP 22; O2SAT 95
[2020-02-08 14:52] VITALS: BP 144/94; BP 166/71; PULSE 103; RESP 28; O2SAT 93; O2SAT 94
[2020-02-08 15:05] VITALS: BP 135/56; PULSE 88; RESP 20; O2SAT 94
[2020-02-08 15:20] VITALS: BP 171/60; PULSE 96; RESP 20; O2SAT 96
[2020-02-08 15:30] VITALS: BP 148/55; PULSE 90; RESP 20; O2SAT 96
== END 2020-02-08 13:12 | disposition home or self-care (01) ==
PROVIDERS: Radiology Diagnostic Radiology; PCP Family Medicine; Visit Provider Family Medicine
DX: J90 Pleural effusion, not elsewhere classified (principal); R91.8 Other nonspecific abnormal finding of lung field
CPT/HCPCS: 32555

== ENCOUNTER 2020-02-14 00:08 | Outpatient (CLI) | payer MEDICARE, SELFPAY ==
[2020-02-14 17:51] LABS: SARS-CoV-2 RNA PCR Negative
== END 2020-02-14 00:09 | disposition home or self-care (01) ==
LOC: ANHCOVIDDT 00:10
PROVIDERS: PCP Family Medicine; Visit Provider Family Medicine
DX: Z01.812 Encounter for preprocedural laboratory examination (principal); Z20.828 Contact with and (suspected) exposure to other viral communicable diseases
CPT/HCPCS: 87635; C9803; U0003

== ENCOUNTER 2020-03-14 00:25 | Outpatient (CLI) | payer MEDICARE, SELFPAY ==
[2020-03-14 22:24] LABS: SARS-CoV-2 RNA PCR Negative
== END 2020-03-14 00:26 | disposition home or self-care (01) ==
LOC: ANHCOVIDDT 00:25
PROVIDERS: PCP Family Medicine; Visit Provider Family Medicine
DX: Z01.812 Encounter for preprocedural laboratory examination (principal); Z20.822 Contact with and (suspected) exposure to COVID-19
CPT/HCPCS: C9803; U0003; U0005

== ENCOUNTER 2020-03-21 09:13 | Outpatient (RCR) | payer MEDICARE, SELFPAY ==
[2019-12-25] VITALS (7 sets, daily range): BP systolic 140–171; BP diastolic 71–83; PULSE 87–106; RESP 24; O2SAT 92–94
[2020-01-01 10:20] VITALS: BP 154/68; PULSE 96; RESP 20
[2020-01-01 10:35] VITALS: BP 141/70; PULSE 96; RESP 20
[2020-01-01 10:37] VITALS: BP 134/70; BP 151/76; PULSE 97; PULSE 98; RESP 32; O2SAT 91
[2020-01-01 10:50] VITALS: BP 140/64; PULSE 89; RESP 20
[2020-01-01 11:10] VITALS: BP 148/66; PULSE 88; RESP 20
--- NOTE | 2020-01-01 11:27 | SUR.PHASEII ---
1110 - iv merrick'vincent. catheter intact
[2020-01-08 10:07] VITALS: BP 141/83; PULSE 103; RESP 24; O2SAT 90
[2020-01-08 10:08] VITALS: BP 158/74; PULSE 96; RESP 30; O2SAT 90
[2020-01-08 10:09] VITALS: BP 163/71; PULSE 101; RESP 22; O2SAT 94
[2020-01-08 10:20] VITALS: BP 155/69; PULSE 96; RESP 20; O2SAT 94
[2020-01-08 10:35] VITALS: BP 158/70; PULSE 94; RESP 20; O2SAT 94
[2020-01-15 10:05] VITALS: BP 173/90; BP 176/82; PULSE 110; PULSE 114; RESP 24; RESP 28; O2SAT 92; O2SAT 95
[2020-01-15 10:15] VITALS: BP 167/72; PULSE 93; RESP 18
[2020-01-15 10:30] VITALS: BP 168/78; PULSE 86; RESP 20
[2020-01-15 10:45] VITALS: BP 168/72; PULSE 86; RESP 20
[2020-01-22] VITALS (7 sets, daily range): BP systolic 142–166; BP diastolic 49–88; PULSE 79–110; RESP 16–24; O2SAT 95
[2020-01-29 10:56] VITALS: BP 168/74; PULSE 114; RESP 28; O2SAT 95
[2020-01-29 10:57] VITALS: BP 138/70; PULSE 110; RESP 28; O2SAT 95
[2020-01-29 11:00] VITALS: BP 142/72; PULSE 90; RESP 14; O2SAT 97
[2020-01-29 11:30] VITALS: BP 146/60; PULSE 87; RESP 14
[2020-01-29 12:00] VITALS: BP 148/63; PULSE 87; RESP 14; O2SAT 97
--- NOTE | 2020-01-29 15:10 | SUR.PHASEII ---
BANDAID CLEAN DRY INTACT. DR NICE NOTIFIED OF HER DISCHARGE, HE GAVE HIS BLESSING.
[2020-02-01 10:05] VITALS: BP 146/53; PULSE 102; RESP 16; O2SAT 94
[2020-02-01 10:08] VITALS: BP 160/68; PULSE 110; RESP 27; O2SAT 96
[2020-02-01 10:09] VITALS: BP 159/73; PULSE 108; RESP 25; O2SAT 94
[2020-02-01 10:20] VITALS: BP 145/61; PULSE 101; RESP 12; O2SAT 93
[2020-02-01 10:35] VITALS: BP 137/57; PULSE 94; RESP 12; O2SAT 93
[2020-02-01 10:50] VITALS: BP 144/58; PULSE 93; RESP 12; O2SAT 93
[2020-02-05 09:52] VITALS: BP 149/76; BP 151/79; PULSE 107; PULSE 98; RESP 28; O2SAT 94; O2SAT 95
[2020-02-05 09:55] VITALS: BP 112/87; PULSE 99; RESP 16
[2020-02-05 10:10] VITALS: BP 143/55; PULSE 93; RESP 18
[2020-02-05 10:20] VITALS: BP 154/69; PULSE 94; RESP 18
[2020-02-05 10:49] VITALS: BP 140/65; PULSE 94; RESP 18
[2020-02-13] VITALS (7 sets, daily range): BP systolic 130–155; BP diastolic 65–93; PULSE 105–118; RESP 20–26; O2SAT 90–97
--- NOTE | 2020-02-13 12:21 | SUR.PHASEII ---
1100 - dr. Bhakta's office called. spoke with Nella and Lisandra. dr Bhakta aware of pt's o2 at 88%-92% on [facility]air. pt to see Dr. Bhakta tomorrow. Stefanie aware of getting to ER over night if needed. Stefanie verbalizes understanding
[2020-02-18 10:00] VITALS: BP 152/85; PULSE 115; RESP 16; O2SAT 93
[2020-02-18 10:30] VITALS: BP 153/80; PULSE 106; RESP 24; O2SAT 95
[2020-02-18 10:34] VITALS: BP 166/90; PULSE 128; RESP 32; O2SAT 93
[2020-02-18 10:35] VITALS: BP 174/87; PULSE 122; RESP 24; O2SAT 93
[2020-02-18 11:00] VITALS: BP 156/80; PULSE 122; RESP 16; O2SAT 93
[2020-02-20] VITALS (7 sets, daily range): BP systolic 139–158; BP diastolic 67–81; PULSE 94–115; RESP 17–30; O2SAT 93–95
[2020-02-25 12:19] VITALS: BP 153/68; PULSE 108; RESP 21; O2SAT 94
[2020-02-25 12:35] VITALS: BP 152/69; PULSE 102; RESP 22
[2020-02-25 12:45] VITALS: BP 145/62; PULSE 95; RESP 24; O2SAT 92
[2020-02-25 13:10] VITALS: BP 168/67; PULSE 114; RESP 22; O2SAT 92
[2020-02-25 15:07] VITALS: BP 173/69; PULSE 117; RESP 30; O2SAT 93
[2020-02-25 15:08] VITALS: BP 158/67; PULSE 110; RESP 30; O2SAT 97
[2020-02-28 20:00] VITALS: BP 170/83; PULSE 112; RESP 28; O2SAT 95
[2020-02-29 10:12] VITALS: BP 162/69; PULSE 104; RESP 22; O2SAT 94
[2020-02-29 10:23] VITALS: BP 170/83; PULSE 112; RESP 28; O2SAT 95
[2020-02-29 10:26] VITALS: BP 151/68; PULSE 114; RESP 28; O2SAT 95
[2020-02-29 10:42] VITALS: BP 161/74; PULSE 96; RESP 20; O2SAT 95
[2020-02-29 11:12] VITALS: BP 155/67; PULSE 94; RESP 20; O2SAT 95
[2020-03-04 09:45] VITALS: BP 170/69; PULSE 88; RESP 20; O2SAT 93
[2020-03-04 09:47] VITALS: BP 165/68; PULSE 114; RESP 28; O2SAT 97
[2020-03-04 09:48] VITALS: BP 183/76; PULSE 117; RESP 28; O2SAT 95
[2020-03-04 10:00] VITALS: BP 167/65; PULSE 100; RESP 20
[2020-03-04 10:15] VITALS: BP 162/72; PULSE 97; RESP 20; O2SAT 94
[2020-03-04 10:30] VITALS: BP 158/72; PULSE 98; RESP 20
[2020-03-07 10:20] VITALS: BP 144/57; PULSE 97; RESP 20; O2SAT 97
[2020-03-07 10:50] VITALS: BP 121/83; PULSE 106; RESP 20; O2SAT 97
[2020-03-07 10:51] VITALS: BP 157/72; BP 176/73; PULSE 114; PULSE 57; RESP 32; RESP 36; O2SAT 95; O2SAT 96
[2020-03-07 11:20] VITALS: BP 144/57; PULSE 97; RESP 20; O2SAT 97
[2020-03-07 11:50] VITALS: BP 136/80; PULSE 100; RESP 20; O2SAT 100
--- NOTE | 2020-03-07 12:24 | SUR.PHASEII ---
CALLED DR HUI AND GOT HIS BLESSING TO RADHA MEDLEY AT 1150 03/07/20
[2020-03-11 10:00] VITALS: BP 163/76; PULSE 109; RESP 20; O2SAT 93
[2020-03-11 10:01] VITALS: BP 161/76; PULSE 117; RESP 28; O2SAT 94
[2020-03-11 10:02] VITALS: BP 147/81; PULSE 120; RESP 28; O2SAT 93
[2020-03-11 10:36] VITALS: BP 158/72; PULSE 98; RESP 20; O2SAT 93
[2020-03-11 10:50] VITALS: PULSE 78; RESP 20; O2SAT 93
[2020-03-13 12:19] VITALS: BP 166/69; PULSE 101; RESP 17; O2SAT 94
[2020-03-13 12:23] VITALS: BP 151/69; PULSE 110; RESP 28; O2SAT 100
[2020-03-13 12:24] VITALS: BP 154/71; PULSE 117; RESP 30; O2SAT 96
[2020-03-13 12:30] VITALS: BP 160/74; PULSE 90; RESP 16; O2SAT 95
[2020-03-13 12:45] VITALS: BP 159/69; PULSE 88; RESP 16; O2SAT 95
[2020-03-13 13:00] VITALS: BP 155/67; PULSE 98; RESP 16; O2SAT 95
[2020-03-14 10:27] VITALS: BP 138/103; BP 141/64; PULSE 100; PULSE 104; RESP 28; O2SAT 97
[2020-03-14 10:30] VITALS: BP 152/76; PULSE 94; RESP 20
[2020-03-14 11:00] VITALS: BP 147/66; PULSE 80; RESP 20
[2020-03-18 09:56] VITALS: BP 143/91; PULSE 111; RESP 20
[2020-03-18 10:15] VITALS: BP 156/78; PULSE 80; RESP 20
[2020-03-18 10:45] VITALS: O2SAT 93
--- NOTE | ~2020-03-21 | US_ITS ---
EXAMINATION: US thoracentesis DATE: 02/20/2020 10:11 INDICATION: pleural effusion TECHNIQUE: The procedure and its risks and benefits were discussed with the patient. Potential risks discussed included bleeding, infection, and pneumothorax. The patient understood the risks and agreed to proceed. The skin was prepped and draped in sterile fashion. 1% lidocaine was used for local anes thesia. Under ultrasound guidance, a 5 Fr catheter with trochar was advanced into the large right ple ural effusion. Fluid was aspirated. The catheter was removed, and a dressing was applied. There were no immediate complications. FINDINGS: Ultrasound images demonstrate a large right pleural effusion and the catheter within the fluid. IMPRESSION: 1. Successful ultrasound-guided thoracentesis yielding 1000 mL of cloudy yellow fluid. Reviewed, dictated and finalized at location A. R SUPERINTENDENT IMPRESSION: 1. Successful ultrasound-guided thoracentesis yielding 1000 mL of cloudy yello w fluid.
--- NOTE | ~2020-03-21 | XR_ITS ---
. EXAMINATION: XR_[id number]_CR DATE: 01/15/2020 10:00 INDICATION: Right pleural effusion status post thoracentesis. TECHNIQUE: A single frontal view of the chest was obtained. COMPARISON: Chest single view 01/08/2020 FINDINGS: A calcified left lung nodule is consistent with old granulomatous disease. There are modera te-sized pleural effusions. There are airspace opacities in right perihilar region and at the lung ba ses, consistent with atelectasis. No pneumothorax. The heart size is obscured. IMPRESSION: 1. Moderate-sized pleural effusions. Reviewed, dictated and finalized at location A. 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
--- NOTE | ~2020-03-21 | XR_ITS ---
EXAMINATION: [id number]_CR DATE: 01/08/2020 10:06 INDICATION: Right pleural effusion status post thoracentesis. TECHNIQUE: A single frontal view of the chest was obtained. COMPARISON: Chest single view 01/01/2020 FINDINGS: A calcified left lung nodule is consistent with old granulomatous disease. There are small to moderate-sized pleural effusions. There are airspace opacities at the lung bases. No pneumothorax. The heart size is obscured. IMPRESSION: 1. Small to moderate-sized pleural effusions. 2. Airspace opacities at the lung bases, consistent with atelectasis or less likely pneumonia. Reviewed, dictated and finalized at location A. AKER IMPRESSION: 1. Small to moderate-sized pleural effusions. 2. Airspace opacities at the lung bases, consistent with atelectasis or less li rachel pneumonia.
--- NOTE | ~2020-03-21 | XR_ITS ---
EXAMINATION: [id number]_[id number]_CR EXAM DATE: 02/20/2020 10:01 INDICATION: Postthoracentesis. TECHNIQUE: Portable AP frontal chest x-ray was obtained. Comparison is made to prior examination from 02/18/2020. FINDINGS: Reportedly patient had right-sided thoracentesis prior to this x-ray. There are moderate to large bilateral pleural effusions. Adjacent lobar atelectasis. No pneumothorax suspected. Possible s uperimposed edema or pneumonia. Left upper lobe granuloma. Thoracic spondylosis. Can't evaluate heart size, cardiac is silhouetted against the pleural effusions. Compared to 2 days ago, there is less pleural fluid on the right following this thoracentesis. There has been some progression in the quantity of left pleural fluid. IMPRESSION: 1. Moderate to large bilateral pleural effusions. 2. No suspicion of pneumothorax. Reviewed, dictated and finalized at location B. STRIP FINISHER
--- NOTE | ~2020-03-21 | US_ITS ---
EXAMINATION: US thoracentesis DATE: 02/29/2020 10:28 INDICATION: pleural effusion TECHNIQUE: The skin was prepped and draped in sterile fashion. 1% lidocaine was used for local anesth esia. Under ultrasound guidance, a 5 Fr catheter with trochar was advanced into the right pleural eff usion. Fluid was aspirated. The catheter was removed, and a dressing was applied. There were no immed iate complications. FINDINGS: Ultrasound images demonstrate a right pleural effusion and the catheter within the fluid. IMPRESSION: 1. Successful ultrasound-guided thoracentesis yielding 1000 mL of yellow fluid. Reviewed, dictated and finalized at location A. Y PACKER IMPRESSION: 1. Successful ultrasound-guided thoracentesis yielding 1000 mL of yellow fluid .
--- NOTE | ~2020-03-21 | XR_ITS ---
EXAMINATION: [id number]_CR DATE: 03/14/2020 10:24 INDICATION: Bilateral pleural effusions post left thoracentesis TECHNIQUE: frontal view of the chest was obtained. COMPARISON: Chest radiograph dated 03/13/2020 FINDINGS: Decrease in size of a now small left pleural effusion. Interval increase in size of a moderate to lar ge right pleural effusion. Opacities at the right mid and left lower lung zones most likely associate d compressive atelectasis. No pneumothorax. Calcified nodules in the left upper lung zone consistent with old granulomatous disease. Cardiac silhouette remains obscured. Patient is rotated towards the l eft. IMPRESSION: 1. Decrease in a now small left pleural effusion post left thoracentesis and increase in a now modera te to large right pleural effusion. Reviewed, dictated and finalized at location A. RPRISE INFRASTRUCTURE ARCHITECT IMPRESSION: 1. Decrease in a now small left pleural effusion post left thoracentesis and in crease in a now moderate to large right pleural effusion.
--- NOTE | ~2020-03-21 | XR_ITS ---
EXAMINATION: [id number]_CR DATE: 02/25/2020 12:16 INDICATION: Right pleural effusion status post thoracentesis. TECHNIQUE: A single frontal view of the chest was obtained. COMPARISON: Chest single view 02/20/2020 FINDINGS: There are large right and moderate-sized left pleural effusions. There are airspace opaciti es at the lung bases, likely atelectasis. A calcified left lung nodule is consistent with old granulo matous disease. No pneumothorax. The heart size is obscured. IMPRESSION: 1. Large right and moderate-sized left pleural effusions. Reviewed, dictated and finalized at location A. R CUP MACHINE TENDER
--- NOTE | ~2020-03-21 | XR_ITS ---
EXAMINATION: [id number]_CR DATE: 03/18/2020 09:49 INDICATION: Pleural effusion. TECHNIQUE: A single frontal view of the chest was obtained. COMPARISON: Chest single view 03/14/2020 FINDINGS: There are large right and moderate-sized left pleural effusions. There are airspace opaciti es in right upper lobe and at the lung bases, likely atelectasis. A calcified left lung nodule is con sistent with old granulomatous disease. No pneumothorax. The heart size is obscured. IMPRESSION: 1. Large right and moderate-sized left pleural effusions. Reviewed, dictated and finalized at location A. MA NURSE
--- NOTE | ~2020-03-21 | US_ITS ---
EXAMINATION: US thoracentesis DATE: 02/18/2020 10:37 INDICATION: pleural effusion TECHNIQUE: The procedure and its risks and benefits were discussed with the patient. Potential risks discussed included bleeding, infection, and pneumothorax. The patient understood the risks and agreed to proceed. The skin was prepped and draped in sterile fashion. 1% lidocaine was used for local anes thesia. Under ultrasound guidance, a 5 Fr catheter with trochar was advanced into the large right ple ural effusion. Fluid was aspirated. The catheter was removed, and a dressing was applied. There were no immediate complications. FINDINGS: Ultrasound images demonstrate a large right pleural effusion and the catheter within the fluid. IMPRESSION: 1. Successful ultrasound-guided thoracentesis yielding 1000 mL of cloudy yellow fluid. Reviewed, dictated and finalized at location A. ONENT LAB TECH IMPRESSION: 1. Successful ultrasound-guided thoracentesis yielding 1000 mL of cloudy yello w fluid.
--- NOTE | ~2020-03-21 | XR_ITS ---
EXAMINATION: [id number]_CR DATE: 02/05/2020 09:54 INDICATION: Right pleural effusion status post thoracentesis. TECHNIQUE: A single frontal view of the chest was obtained. COMPARISON: Chest single view 02/01/2020 FINDINGS: There are moderate-sized pleural effusions. A calcified left lung nodule is consistent with old granulomatous disease. There are airspace opacities at the lung bases. No pneumothorax. The hear t size is obscured. IMPRESSION: 1. Moderate-sized pleural effusions. 2. Airspace opacities at the lung bases, likely atelectasis. Reviewed, dictated and finalized at location A. TING MACHINE OPERATOR
--- NOTE | ~2020-03-21 | US_ITS ---
EXAMINATION: US thoracentesis DATE: 03/07/2020 10:53 INDICATION: pleural effusion TECHNIQUE: The procedure and its risks, benefits, and alternatives were discussed with the patient. P otential risks discussed included bleeding, infection, and pneumothorax. The patient understood the r isks and agreed to proceed. The skin was prepped and draped in sterile fashion. 1% lidocaine was used for local anesthesia. Under ultrasound guidance, a 5 Fr catheter with trochar was advanced into the right pleural effusion. Fluid was aspirated. The catheter was removed, and a dressing was applied. Th ere were no immediate complications. FINDINGS: Ultrasound images demonstrate a right pleural effusion and the catheter within the fluid. IMPRESSION: 1. Successful ultrasound-guided thoracentesis yielding 1000 mL of clear, yellow fluid. Reviewed, dictated and finalized at location A. TRUCK DRIVER IMPRESSION: 1. Successful ultrasound-guided thoracentesis yielding 1000 mL of clear, yello w fluid.
--- NOTE | ~2020-03-21 | US_ITS ---
EXAMINATION: US thoracentesis DATE: 02/05/2020 09:56 INDICATION: pleural effusion TECHNIQUE: The skin was prepped and draped in sterile fashion. 1% lidocaine was used for local anesth esia. Under ultrasound guidance, a 5 Fr catheter with trochar was advanced into the right pleural eff usion. Fluid was aspirated. The catheter was removed, and a dressing was applied. There were no immed iate complications. FINDINGS: Ultrasound images demonstrate a right pleural effusion and the catheter within the fluid. IMPRESSION: 1. Successful ultrasound-guided thoracentesis yielding 1000 mL of yellow fluid. Reviewed, dictated and finalized at location A. T END MECHANIC IMPRESSION: 1. Successful ultrasound-guided thoracentesis yielding 1000 mL of yellow fluid .
--- NOTE | ~2020-03-21 | US_ITS ---
EXAMINATION: US thoracentesis DATE: 02/01/2020 10:10 INDICATION: pleural effusion TECHNIQUE: The procedure and its risks and benefits were discussed with the patient. Potential risks discussed included bleeding, infection, and pneumothorax. The patient understood the risks and agreed to proceed. The skin was prepped and draped in sterile fashion. 1% lidocaine was used for local anes thesia. Under ultrasound guidance, a 5 Fr catheter with trochar was advanced into the moderate right pleural effusion. Fluid was aspirated. The catheter was removed, and a dressing was applied. There we re no immediate complications. FINDINGS: Ultrasound images demonstrate a moderate right pleural effusion and the catheter within the fluid. IMPRESSION: 1. Successful ultrasound-guided thoracentesis yielding 1000 mL of clear yellow fluid. Reviewed, dictated and finalized at location A. E CLEANER
--- NOTE | ~2020-03-21 | US_ITS ---
EXAMINATION: US thoracentesis DATE: 02/25/2020 15:14 INDICATION: pleural effusion TECHNIQUE: The procedure and its risks, benefits, and alternatives were discussed with the patient. P otential risks discussed included bleeding, infection, and pneumothorax. The patient understood the r isks and agreed to proceed. The skin was prepped and draped in sterile fashion. 1% lidocaine was used for local anesthesia. Under ultrasound guidance, a 5 Fr catheter with trochar was advanced into the right pleural effusion. Fluid was aspirated. The catheter was removed, and a dressing was applied. Th ere were no immediate complications. FINDINGS: Ultrasound images demonstrate a right pleural effusion and the catheter within the fluid. IMPRESSION: 1. Successful ultrasound-guided thoracentesis yielding 1000 mL of clear, yellow fluid. Reviewed, dictated and finalized at location A. MER RECOVERY OPERATOR IMPRESSION: 1. Successful ultrasound-guided thoracentesis yielding 1000 mL of clear, yello w fluid.
--- NOTE | ~2020-03-21 | US_ITS ---
EXAMINATION: US thoracentesis DATE: 12/25/2019 09:47 INDICATION: Right pleural effusion TECHNIQUE: The procedure and its risks and benefits were discussed with the patient. Potential risks discussed included bleeding, infection, and pneumothorax. The patient understood the risks and agreed to proceed. The skin was prepped and draped in sterile fashion. 1% lidocaine was used for local anes thesia. Under ultrasound guidance, a 5 Fr catheter with trochar was advanced into the right pleural e ffusion. Fluid was aspirated. The catheter was removed, and a dressing was applied. There were no imm ediate complications. FINDINGS: Ultrasound images demonstrate a moderate-sized right pleural effusion and the catheter within the flu id. IMPRESSION: 1. Successful ultrasound-guided thoracentesis yielding 1000 mL of clear yellow fluid. Reviewed, dictated and finalized at location A. ECTION TECHNICIAN
--- NOTE | ~2020-03-21 | XR_ITS ---
EXAMINATION: [id number]_[id number]_CR DATE: 03/07/2020 10:47 INDICATION: Right pleural effusion. TECHNIQUE: A single frontal view of the chest was obtained. COMPARISON: Chest single view 03/04/2020 FINDINGS: There are large right and moderate-sized left pleural effusions. A calcified left lung nodu le is consistent with old granulomatous disease. There are airspace opacities at the lung bases, like ly atelectasis. No pneumothorax. The heart size is obscured. IMPRESSION: 1. Large right and moderate-sized left pleural effusions. Reviewed, dictated and finalized at location A. Y MAN
--- NOTE | ~2020-03-21 | US_ITS ---
EXAMINATION: US thoracentesis DATE: 03/11/2020 10:04 INDICATION: Right pleural effusion TECHNIQUE: The procedure and its risks and benefits were discussed with the patient. Potential risks discussed included bleeding, infection, and pneumothorax. The patient understood the risks and agreed to proceed. The skin was prepped and draped in sterile fashion. 1% lidocaine was used for local anes thesia. Under ultrasound guidance, a 5 Fr catheter with trochar was advanced into the right pleural e ffusion. Fluid was aspirated. The catheter was removed, and a dressing was applied. There were no imm ediate complications. FINDINGS: Ultrasound images demonstrate a large right pleural effusion and the catheter within the fluid. IMPRESSION: 1. Successful ultrasound-guided thoracentesis yielding 1000 mL of cloudy yellow fluid. Reviewed, dictated and finalized at location A. H FINISHING RANGE OPERATOR CHIEF IMPRESSION: 1. Successful ultrasound-guided thoracentesis yielding 1000 mL of cloudy yello w fluid.
--- NOTE | ~2020-03-21 | US_ITS ---
EXAMINATION: US thoracentesis DATE: 03/13/2020 12:26 INDICATION: pleural effusion TECHNIQUE: The procedure and its risks and benefits were discussed with the patient. Potential risks discussed included bleeding, infection, and pneumothorax. The patient understood the risks and agreed to proceed. The skin was prepped and draped in sterile fashion. 1% lidocaine was used for local anes thesia. Under ultrasound guidance, a 5 Fr catheter with trochar was advanced into the right pleural e ffusion. Fluid was aspirated. The catheter was removed, and a dressing was applied. There were no imm ediate complications. FINDINGS: Ultrasound images demonstrate a large right pleural effusion and the catheter within the fluid. IMPRESSION: 1. Successful ultrasound-guided thoracentesis yielding 000 mL of cloudy yellow fluid. Reviewed, dictated and finalized at location A. WN SALES AND LENDING TEAM MEMBER
--- NOTE | ~2020-03-21 | US_ITS ---
EXAMINATION: US thoracentesis DATE: 01/01/2020 10:42 INDICATION: Right pleural effusion TECHNIQUE: The procedure and its risks and benefits were discussed with the patient. Potential risks discussed included bleeding, infection, and pneumothorax. The patient understood the risks and agreed to proceed. The skin was prepped and draped in sterile fashion. 1% lidocaine was used for local anes thesia. Under ultrasound guidance, a 5 Fr catheter with trochar was advanced into the right pleural e ffusion. Fluid was aspirated. The catheter was removed, and a dressing was applied. There were no imm ediate complications. FINDINGS: Ultrasound images demonstrate a moderate-sized right pleural effusion and the catheter within the flu id. IMPRESSION: 1. Successful ultrasound-guided thoracentesis yielding 1000 mL of clear dark yellow fluid. Reviewed, dictated and finalized at location A. CIPAL HARDWARE ARCHITECT IMPRESSION: 1. Successful ultrasound-guided thoracentesis yielding 1000 mL of clear dark y ellow fluid.
--- NOTE | ~2020-03-21 | US_ITS ---
EXAMINATION: US thoracentesis DATE: 01/29/2020 10:59 INDICATION: Bilateral pleural effusions TECHNIQUE: The procedure and its risks and benefits were discussed with the patient. Potential risks discussed included bleeding, infection, and pneumothorax. The patient understood the risks and agreed to proceed. The skin was prepped and draped in sterile fashion. 1% lidocaine was used for local anes thesia. Under ultrasound guidance, a 5 Fr catheter with trochar was advanced into the large right ple ural effusion. Fluid was aspirated. The catheter was removed, and a dressing was applied. There were no immediate complications. FINDINGS: Ultrasound images demonstrate a large right pleural effusion and the catheter within the fluid. IMPRESSION: 1. Successful ultrasound-guided thoracentesis yielding 1000 mL of cloudy yellow fluid. Reviewed, dictated and finalized at location A. ROENTEROLOGY TECHNICIAN IMPRESSION: 1. Successful ultrasound-guided thoracentesis yielding 1000 mL of cloudy yello w fluid.
--- NOTE | ~2020-03-21 | XR_ITS ---
EXAMINATION: [id number]_[id number]_CR DATE: 01/29/2020 10:56 INDICATION: Pleural effusion postthoracentesis TECHNIQUE: frontal view of the chest was obtained. COMPARISON: Chest radiograph dated 01/22/2020 FINDINGS: Opacities in the bilateral mid and lower lung zones consistent with moderate-sized bilateral pleural effusions and associated basilar atelectasis and/or pneumonia. No pneumothorax. Calcified left apical nodule consistent with old granulomatous disease. The cardiac silhouette is obscured. IMPRESSION: 1. Bilateral moderate-sized pleural effusions with associated basilar atelectasis and/or pneumonia. Reviewed, dictated and finalized at location A. OM FURRIER IMPRESSION: 1. Bilateral moderate-sized pleural effusions with associated basilar atelectas is and/or pneumonia.
--- NOTE | ~2020-03-21 | XR_ITS ---
EXAMINATION: XR_[id number]_CR DATE: 02/13/2020 10:35 INDICATION: Right pleural effusion status post thoracentesis. TECHNIQUE: A single frontal view of the chest was obtained. COMPARISON: Chest single view 02/08/2020 FINDINGS: A calcified left lung nodule is consistent with old granulomatous disease. There are large right and moderate-sized left pleural effusions. There are airspace opacities at the lung bases, like ly atelectasis. No pneumothorax. The heart size is obscured. IMPRESSION: 1. Large right and moderate-sized left pleural effusions. 2. Airspace opacities at the lung bases, likely atelectasis. Reviewed, dictated and finalized at location A. BINDING MACHINE OPERATOR
--- NOTE | ~2020-03-21 | US_ITS ---
EXAMINATION: US thoracentesis DATE: 03/14/2020 10:29 INDICATION: Bilateral pleural effusions TECHNIQUE: The procedure and its risks and benefits were discussed with the patient. Potential risks discussed included bleeding, infection, and pneumothorax. The patient understood the risks and agreed to proceed. The skin was prepped and draped in sterile fashion. 1% lidocaine was used for local anes thesia. Under ultrasound guidance, a 5 Fr catheter with trochar was advanced into the left pleural ef fusion. Fluid was aspirated. The catheter was removed, and a dressing was applied. There were no imme diate complications. FINDINGS: Ultrasound images demonstrate a moderate-sized left pleural effusion and the catheter within the flui d. IMPRESSION: 1. Successful ultrasound-guided thoracentesis yielding 1000 mL of clear sanam-colored fluid. Reviewed, dictated and finalized at location A. OR DIRECTOR FINANCE IMPRESSION: 1. Successful ultrasound-guided thoracentesis yielding 1000 mL of clear sanam- colored fluid.
--- NOTE | ~2020-03-21 | US_ITS ---
EXAMINATION: US thoracentesis DATE: 03/21/2020 10:09 INDICATION: pleural effusion TECHNIQUE: The skin was prepped and draped in sterile fashion. 1% lidocaine was used for local anesth esia. Under ultrasound guidance, a 5 Fr catheter with trochar was advanced into the right pleural eff usion. Fluid was aspirated. The catheter was removed, and a dressing was applied. There were no immed iate complications. FINDINGS: Ultrasound images demonstrate a right pleural effusion and the catheter within the fluid. IMPRESSION: 1. Successful ultrasound-guided thoracentesis yielding 1000 mL of yellow, cloudy fluid. Reviewed, dictated and finalized at location A. ITE POLISHER MACHINE IMPRESSION: 1. Successful ultrasound-guided thoracentesis yielding 1000 mL of yellow, clou dy fluid.
--- NOTE | ~2020-03-21 | XR_ITS ---
EXAMINATION: [id number]_[id number]_CR DATE: 02/29/2020 10:08 INDICATION: Right pleural effusion status post thoracentesis. TECHNIQUE: A single frontal view of the chest was obtained. COMPARISON: Chest single view 02/25/2020 FINDINGS: There are large right and moderate-sized left pleural effusions. A calcified left lung nodu les consistent with old granulomatous disease. There is atelectasis in the lungs bilaterally with a b asilar predominance. No pneumothorax. The heart size is obscured. IMPRESSION: 1. Large right and moderate-sized left pleural effusions. Reviewed, dictated and finalized at location A. INS SLINGER
--- NOTE | ~2020-03-21 | US_ITS ---
EXAMINATION: US thoracentesis DATE: 03/18/2020 09:54 INDICATION: pleural effusion TECHNIQUE: The skin was prepped and draped in sterile fashion. 1% lidocaine was used for local anesth esia. Under ultrasound guidance, a 5 Fr catheter with trochar was advanced into the left pleural effu suri. Fluid was aspirated. The catheter was removed, and a dressing was applied. There were no immedi ate complications. FINDINGS: Ultrasound images demonstrate a left pleural effusion and the catheter within the fluid. IMPRESSION: 1. Successful ultrasound-guided thoracentesis yielding 1000 mL of yellow fluid. Reviewed, dictated and finalized at location A. NSIC SERGEANT IMPRESSION: 1. Successful ultrasound-guided thoracentesis yielding 1000 mL of yellow fluid .
--- NOTE | ~2020-03-21 | US_ITS ---
EXAMINATION: US thoracentesis DATE: 01/08/2020 10:11 INDICATION: pleural effusion TECHNIQUE: The procedure and its risks, benefits, and alternatives were discussed with the patient. P otential risks discussed included bleeding, infection, and pneumothorax. The patient understood the r isks and agreed to proceed. The skin was prepped and draped in sterile fashion. 1% lidocaine was used for local anesthesia. Under ultrasound guidance, a 5 Fr catheter with trochar was advanced into the right pleural effusion. Fluid was aspirated. The catheter was removed, and a dressing was applied. Th ere were no immediate complications. FINDINGS: Ultrasound images demonstrate a right pleural effusion and the catheter within the fluid. IMPRESSION: 1. Successful ultrasound-guided thoracentesis yielding 1000 mL of clear, yellow fluid. Reviewed, dictated and finalized at location A. L FENCE ERECTOR IMPRESSION: 1. Successful ultrasound-guided thoracentesis yielding 1000 mL of clear, yello w fluid.
--- NOTE | ~2020-03-21 | XR_ITS ---
EXAMINATION: [id number]_[id number]_CR DATE: 01/01/2020 10:23 INDICATION: Pleural effusions post right thoracentesis TECHNIQUE: frontal view of the chest was obtained. COMPARISON: Chest radiograph dated 12/25/2019 FINDINGS: Opacities in the bilateral mid to lower lung zones consistent with small to moderate-sized bilateral pleural effusions with associated compressive atelectasis. This obscures the cardiac silhouette. Medi astinal silhouette is normal. Calcified left apical nodule consistent with old granulomatous disease. No pneumothorax. Mild thoracolumbar dextrocurvature. IMPRESSION: 1. Small to moderate bilateral pleural effusions with associated bibasilar atelectasis. Reviewed, dictated and finalized at location A. FIELD SERVICE ENGINEER IMPRESSION: 1. Small to moderate bilateral pleural effusions with associated bibasilar atel ectasis.
--- NOTE | ~2020-03-21 | XR_ITS ---
EXAMINATION: [id number]_CR DATE: 02/18/2020 10:00 INDICATION: Right pleural effusion postthoracentesis TECHNIQUE: frontal view of the chest was obtained. COMPARISON: Chest radiograph dated 02/13/2020 FINDINGS: Again seen are moderate-sized bilateral pleural effusions. Bandlike discoid atelectasis projecting li rachel obliquely across the right mid to upper lung zone. Opacities in the bilateral mid and lower lung zones most likely associated compressive atelectasis. Calcified left apical nodule consistent with o ld granulomatous disease. No pneumothorax. Cardiac silhouette is obscured. Mediastinal silhouette is normal. IMPRESSION: 1. Moderate-sized bilateral pleural effusions. 2. Opacities at the bilateral lung bases and oblique opacity in the right mid and lower lung zones mo st likely related to atelectasis. Reviewed, dictated and finalized at location A. NING AIDE IMPRESSION: 1. Moderate-sized bilateral pleural effusions. 2. Opacities at the bilateral lung bases and oblique opacity in the right mid a nd lower lung zones most likely related to atelectasis.
--- NOTE | ~2020-03-21 | XR_ITS ---
[id number]_CR DATE: 02/01/2020 10:05 INDICATION: Pleural effusion TECHNIQUE: AP chest COMPARISON: 01/29/2020 AP chest FINDINGS: There are prominent bibasilar infiltrates and/atelectasis and moderate bilateral pleural ef fusions. These findings appear relatively stable since 01/29/2020. IMPRESSION: Persistent prominent bibasilar infiltrate and/atelectasis and moderate pleural effusions Reviewed, dictated and finalized at Location A. Reviewed, dictated and finalized at location A. TROGRAPH OPERATOR IMPRESSION: Persistent prominent bibasilar infiltrate and/atelectasis and moder ate pleural effusions
--- NOTE | ~2020-03-21 | XR_ITS ---
EXAMINATION: [id number]_CR DATE: 03/11/2020 10:02 INDICATION: Status post right thoracentesis TECHNIQUE: frontal view of the chest was obtained. COMPARISON: Chest radiograph dated 03/07/2020 FINDINGS: Lung volumes remain small. Opacities in the mid to lower lung zones consistent with large right and m oderate-sized left pleural effusions with associated bibasilar opacities most likely compressive atel ectasis. Calcified left apical nodule consistent with old granulomatous disease. No pneumothorax. Hea rt size is obscured. The superior mediastinal silhouette is normal. IMPRESSION: 1. Moderate right and moderate-sized left pleural effusions with associated basilar atelectasis. Reviewed, dictated and finalized at location A. TOR CRANE OPERATOR IMPRESSION: 1. Moderate right and moderate-sized left pleural effusions with associated bas ilar atelectasis.
--- NOTE | ~2020-03-21 | XR_ITS ---
EXAMINATION: [id number]_CR DATE: 03/13/2020 12:15 INDICATION: Bilateral pleural effusions post right thoracentesis TECHNIQUE: frontal view of the chest was obtained. COMPARISON: Chest radiograph dated 03/11/2020 FINDINGS: Decrease in size of now moderate bilateral pleural effusions. Opacities in the left midlung zone most likely compressive atelectasis although pneumonia not excludable the appropriate clinical setting. N o pneumothorax. Calcified left apical nodule consistent with old granulomatous disease. Ex silhouette remains largely obscured. IMPRESSION: 1. Decrease in size of moderate bilateral pleural effusions with associated bibasilar atelectasis. Reviewed, dictated and finalized at location A. R REFINER IMPRESSION: 1. Decrease in size of moderate bilateral pleural effusions with associated bib asilar atelectasis.
--- NOTE | ~2020-03-21 | US_ITS ---
EXAMINATION: US thoracentesis DATE: 01/22/2020 10:33 INDICATION: pleural effusion TECHNIQUE: The procedure and its risks, benefits, and alternatives were discussed with the patient. P otential risks discussed included bleeding, infection, and pneumothorax. The patient understood the r isks and agreed to proceed. The skin was prepped and draped in sterile fashion. 1% lidocaine was used for local anesthesia. Under ultrasound guidance, a 5 Fr catheter with trochar was advanced into the right pleural effusion. Fluid was aspirated. The catheter was removed, and a dressing was applied. Th ere were no immediate complications. FINDINGS: Ultrasound images demonstrate a right pleural effusion and the catheter within the fluid. IMPRESSION: 1. Successful ultrasound-guided thoracentesis yielding 1000 mL of clear, yellow fluid. Reviewed, dictated and finalized at location A. DEVELOPER CONSULTANT IMPRESSION: 1. Successful ultrasound-guided thoracentesis yielding 1000 mL of clear, yello w fluid.
--- NOTE | ~2020-03-21 | XR_ITS ---
EXAMINATION: [id number]_[id number]_CR DATE: 03/21/2020 09:58 INDICATION: Right pleural effusion status post thoracentesis. TECHNIQUE: A single frontal view of the chest was obtained. COMPARISON: Chest single view 03/18/2020 FINDINGS: A calcified left lung nodule is consistent with old granulomatous disease. There are large right and moderate-sized left pleural effusions. There are airspace opacities in the lungs with a bas ilar predominance, likely atelectasis. No pneumothorax. The heart size is obscured. IMPRESSION: 1. Large right and moderate-sized left pleural effusions. Reviewed, dictated and finalized at location A. COMMUNICATION TOWER TECHNICIAN
--- NOTE | ~2020-03-21 | XR_ITS ---
[id number]_CR 01/22/2020 09:55 Indication: Right pleural effusion Procedure: AP view of the chest Comparison: Comparison to multiple prior studies sequentially, with oldest reviewed study dated 04/2019. Findings: Bibasilar airspace disease. Bilateral pleural effusions. Visualized bowel gas pattern is no nobstructive. Calcified granuloma left apex. Impression: 1: Persistent bibasilar airspace disease which may represent edema, atelectasis and/or pneumonia. 2: Moderate pleural effusions. Reviewed, dictated and finalized at location B. D ENGAGEMENT PARTNER Impression: 1: Persistent bibasilar airspace disease which may represent edema, atelectasis and/or pneumonia. 2: Moderate pleural effusions.
--- NOTE | ~2020-03-21 | XR_ITS ---
EXAMINATION: [id number]_CR DATE: 12/25/2019 09:43 INDICATION: Pleural effusion post right thoracentesis TECHNIQUE: frontal view of the chest was obtained. COMPARISON: Chest radiograph dated 11/20/2019 FINDINGS: Opacities in the bilateral mid to lower lung zones consistent with small right and small to moderate left pleural effusions with associated atelectasis and/or less likely pneumonia. No pneumothorax. Rafat cified nodule at the left apex consistent with old granulomatous disease. Cardiac silhouette is large ly obscured. IMPRESSION: 1. Small right and [id number] left pleural effusions. 2. Opacities at the lung bases most likely associated atelectasis. Reviewed, dictated and finalized at location A. T LITERACY INSTRUCTOR IMPRESSION: 1. Small right and [id number] left pleural effusions. 2. Opacities at the lung bases most likely associated atelectasis.
--- NOTE | ~2020-03-21 | US_ITS ---
EXAMINATION: US thoracentesis DATE: 02/13/2020 10:44 INDICATION: pleural effusion TECHNIQUE: The skin was prepped and draped in sterile fashion. 1% lidocaine was used for local anesth esia. Under ultrasound guidance, a 5 Fr catheter with trochar was advanced into the right pleural eff usion. Fluid was aspirated. The catheter was removed, and a dressing was applied. There were no immed iate complications. FINDINGS: Ultrasound images demonstrate a right pleural effusion and the catheter within the fluid. IMPRESSION: 1. Successful ultrasound-guided thoracentesis yielding 1000 mL of clear, yellow fluid. Reviewed, dictated and finalized at location A. ALS INTELLIGENCE SUPERINTENDENT IMPRESSION: 1. Successful ultrasound-guided thoracentesis yielding 1000 mL of clear, yello w fluid.
--- NOTE | ~2020-03-21 | US_ITS ---
EXAMINATION: US thoracentesis DATE: 01/15/2020 10:10 INDICATION: pleural effusion TECHNIQUE: The skin was prepped and draped in sterile fashion. 1% lidocaine was used for local anesth esia. Under ultrasound guidance, a 5 Fr catheter with trochar was advanced into the right pleural eff usion. Fluid was aspirated. The catheter was removed, and a dressing was applied. There were no immed iate complications. FINDINGS: Ultrasound images demonstrate a right pleural effusion and the catheter within the fluid. IMPRESSION: 1. Successful ultrasound-guided thoracentesis yielding 1000 mL of clear, yellow fluid. Reviewed, dictated and finalized at location A. SCOOPER MACHINE IMPRESSION: 1. Successful ultrasound-guided thoracentesis yielding 1000 mL of clear, yello w fluid.
--- NOTE | ~2020-03-21 | US_ITS ---
EXAMINATION: US thoracentesis DATE: 03/04/2020 09:52 INDICATION: pleural effusion TECHNIQUE: The procedure and its risks, benefits, and alternatives were discussed with the patient. P otential risks discussed included bleeding, infection, and pneumothorax. The patient understood the r isks and agreed to proceed. The skin was prepped and draped in sterile fashion. 1% lidocaine was used for local anesthesia. Under ultrasound guidance, a 5 Fr catheter with trochar was advanced into the right pleural effusion. Fluid was aspirated. The catheter was removed, and a dressing was applied. Th ere were no immediate complications. FINDINGS: Ultrasound images demonstrate a right pleural effusion and the catheter within the fluid. IMPRESSION: 1. Successful ultrasound-guided thoracentesis yielding 1000 mL of yellow fluid. Reviewed, dictated and finalized at location A. PUMPER IMPRESSION: 1. Successful ultrasound-guided thoracentesis yielding 1000 mL of yellow fluid .
--- NOTE | ~2020-03-21 | XR_ITS ---
EXAMINATION: [id number]_[id number]_CR DATE: 03/04/2020 09:45 INDICATION: Right pleural effusion status post thoracentesis. TECHNIQUE: A single frontal view of the chest was obtained. COMPARISON: Chest single view 02/29/2020 FINDINGS: A calcified left lung nodule is consistent with old granulomatous disease. There are large right and moderate-sized left pleural effusions. There is atelectasis at the lungs with a basilar pre dominance. No pneumothorax. The heart size is obscured. There are old healed left rib fractures. IMPRESSION: 1. Large right and moderate-sized left pleural effusions. Reviewed, dictated and finalized at location A. OR GAME DESIGNER
[2020-03-21 09:55] VITALS: BP 160/71; PULSE 109; RESP 18; O2SAT 97
[2020-03-21 10:06] VITALS: BP 150/71; BP 155/84; PULSE 109; PULSE 114; RESP 26; RESP 28; O2SAT 94
[2020-03-21 10:10] VITALS: BP 160/70; PULSE 106; RESP 20; O2SAT 96
[2020-03-21 10:25] VITALS: BP 154/63; PULSE 96; RESP 20; O2SAT 97
[2020-03-21 10:40] VITALS: BP 157/68; PULSE 89; RESP 18; O2SAT 93
[2020-03-21 11:00] VITALS: BP 170/74; PULSE 109; RESP 20; O2SAT 93
== END 2020-03-24 23:59 | disposition home or self-care (01) ==
LOC: ANHIMG 09:13
PROVIDERS: Radiology Diagnostic Radiology; PCP Family Medicine; Visit Provider Family Medicine
DX: J90 Pleural effusion, not elsewhere classified (principal)
CPT/HCPCS: 32555; C1729

== ENCOUNTER → 2020-04-12 06:34 | Outpatient (CLI) | payer MEDICARE, SELFPAY ==
[2020-04-12 19:11] LABS: SARS-CoV-2 RNA PCR Negative
== END ==
PROVIDERS: PCP Family Medicine; Visit Provider Family Medicine
DX: Z01.812 Encounter for preprocedural laboratory examination (principal); Z20.822 Contact with and (suspected) exposure to COVID-19
CPT/HCPCS: C9803; U0003; U0005

== ENCOUNTER → 2020-05-09 02:27 | Outpatient (CLI) | payer MEDICARE, SELFPAY ==
[2020-05-09 19:28] LABS: SARS-CoV-2 RNA PCR Negative
== END ==
PROVIDERS: PCP Family Medicine
DX: Z01.812 Encounter for preprocedural laboratory examination (principal); Z20.822 Contact with and (suspected) exposure to COVID-19
CPT/HCPCS: C9803; U0003; U0005

== ENCOUNTER 2020-05-30 10:01 | Outpatient (CLI) | payer MEDICARE, SELFPAY ==
--- NOTE | ~2020-05-30 | US_ITS ---
EXAMINATION: US thoracentesis DATE: 05/30/2020 11:18 INDICATION: pleural effusion TECHNIQUE: The procedure and its risks, benefits, and alternatives were discussed with the patient. P otential risks discussed included bleeding, infection, and pneumothorax. The patient understood the r isks and agreed to proceed. The skin was prepped and draped in sterile fashion. 1% lidocaine was used for local anesthesia. Under ultrasound guidance, a 5 Fr catheter with trochar was advanced into the right pleural effusion. Fluid was aspirated. The catheter was removed, and a dressing was applied. Th ere were no immediate complications. FINDINGS: Ultrasound images demonstrate a right pleural effusion and the catheter within the fluid. IMPRESSION: 1. Successful ultrasound-guided thoracentesis yielding 1200 mL of cloudy, yellow fluid. Reviewed, dictated and finalized at location A. IMPRESSION: 1. Successful ultrasound-guided thoracentesis yielding 1200 mL of cloudy, yell ow fluid.
--- NOTE | ~2020-05-30 | XR_ITS ---
EXAMINATION: [id number]_[id number]_CR DATE: 05/30/2020 11:08 INDICATION: Right pleural effusion status post thoracentesis. TECHNIQUE: A single frontal view of the chest was obtained. COMPARISON: Chest single view 05/28/2020 FINDINGS: A calcified left lung nodule is consistent with old granulomatous disease. There are large right and moderate-sized left pleural effusions. There are airspace opacities at the lung bases, like ly atelectasis. No pneumothorax. The heart size is obscured. IMPRESSION: 1. Large right and moderate-sized left pleural effusions. Reviewed, dictated and finalized at location A.
[2020-05-30 11:16] VITALS: BP 104/80; BP 131/77; PULSE 107; PULSE 114; RESP 24; O2SAT 96; O2SAT 97
[2020-05-30 12:18] LABS: Pleural fluid source Pleural fluid
[2020-05-30 12:19] LABS: Appearance Pleural Fluid Hazy (Clear); Color Pleural Fluid Yellow (Colorless); Nucleated Cell Pleural Fluid 767 /uL (0-1000); RBC Pleural Fluid 179 /uL (0-0)
[2020-05-30 12:21] LABS: Neutrophils Pleural Fluid 9 % (0-25)
[2020-05-30 12:22] LABS: Lymphocytes Pleural Fluid 82 %; Macrophages Pleural Fluid 5 %; Mesothelial Cells Pleural Flui 3 %; Monocytes Pleural Fluid 1 %
[2020-06-04 10:23] LABS: LDH Pleural Fluid 54 U/L; Total Protein Pleural Fluid <3.0 g/dL
[2020-06-04 13:19] LABS: Albumin Pleural Fluid 0.7 g/dL
== END 2020-05-30 10:02 | disposition home or self-care (01) ==
LOC: ANHIMG 10:08
PROVIDERS: PCP Family Medicine
DX: J90 Pleural effusion, not elsewhere classified (principal); K74.69 Other cirrhosis of liver
CPT/HCPCS: 32555; 82042; 83615; 84157; 88104; 88108; 88184; 88185; 88305; 88342; 89051

== ENCOUNTER → 2020-06-11 03:25 | Outpatient (CLI) | payer MEDICARE, SELFPAY ==
[2020-06-11 18:26] LABS: SARS-CoV-2 RNA PCR Negative
== END ==
PROVIDERS: PCP Family Medicine; Visit Provider Family Medicine
DX: Z01.812 Encounter for preprocedural laboratory examination (principal); Z20.822 Contact with and (suspected) exposure to COVID-19
CPT/HCPCS: C9803; U0003; U0005

== ENCOUNTER 2020-06-23 08:50 | Outpatient (RCR) | payer MEDICARE, SELFPAY ==
[2020-03-25 11:05] VITALS: BP 130/79; BP 152/74; PULSE 119; PULSE 120; RESP 28; O2SAT 93; O2SAT 94
[2020-03-25 11:10] VITALS: BP 161/58; PULSE 112; RESP 24; O2SAT 92
[2020-03-25 11:25] VITALS: BP 146/61; PULSE 107; RESP 20; O2SAT 93
[2020-03-25 11:45] VITALS: BP 152/72; PULSE 100; RESP 20; O2SAT 94
[2020-03-25 12:00] VITALS: BP 154/70; PULSE 75; RESP 20
[2020-03-25 12:15] VITALS: BP 154/74; PULSE 68; RESP 18; O2SAT 93
[2020-03-28 12:05] VITALS: BP 148/67; PULSE 101; RESP 20
[2020-03-28 12:20] VITALS: BP 160/68; PULSE 100; RESP 20; O2SAT 97
[2020-03-28 12:35] VITALS: BP 149/67; PULSE 100; RESP 20; O2SAT 96
[2020-03-28 12:36] VITALS: BP 156/70; BP 183/77; PULSE 113; PULSE 119; RESP 36; O2SAT 93; O2SAT 94
[2020-03-28 12:50] VITALS: BP 147/70; PULSE 96; RESP 20; O2SAT 94
--- NOTE | 2020-03-28 15:10 | SUR.PHASEII ---
[id number] king on pt status, vss, on roomair, no complaints. pt ok for discharge per dr king
[2020-04-01 10:50] VITALS: BP 151/71; PULSE 111; RESP 20; O2SAT 93
[2020-04-01 11:01] VITALS: BP 182/71; PULSE 124; RESP 28; O2SAT 94
[2020-04-01 11:02] VITALS: BP 140/100; PULSE 118; RESP 28; O2SAT 93
[2020-04-01 11:20] VITALS: BP 149/76; PULSE 106; RESP 20; O2SAT 93
[2020-04-01 11:50] VITALS: BP 150/77; PULSE 98; RESP 20; O2SAT 96
[2020-04-04 11:00] VITALS: BP 171/95; PULSE 74; RESP 15; O2SAT 95
[2020-04-04 11:15] VITALS: BP 150/66; BP 150/72; BP 170/70; PULSE 106; PULSE 114; PULSE 117; RESP 20; RESP 28; RESP 32; O2SAT 94; O2SAT 96; O2SAT 97
[2020-04-04 11:25] VITALS: BP 150/66; PULSE 101; RESP 16; O2SAT 96
[2020-04-04 11:30] VITALS: BP 152/67; PULSE 106; RESP 16; O2SAT 95
[2020-04-04 11:45] VITALS: BP 150/66; PULSE 95; RESP 16; O2SAT 95
[2020-04-08 10:55] VITALS: BP 147/68; PULSE 112; RESP 18; O2SAT 97
[2020-04-08 11:25] VITALS: BP 142/65; PULSE 102; O2SAT 93
[2020-04-08 11:39] VITALS: BP 142/76; BP 158/70; PULSE 113; PULSE 118; RESP 28; O2SAT 94; O2SAT 95
[2020-04-08 11:45] VITALS: BP 163/73; PULSE 113; O2SAT 91
[2020-04-11 10:10] VITALS: BP 175/78; PULSE 115; RESP 30; O2SAT 98
[2020-04-11 10:11] VITALS: BP 149/65; BP 149/69; PULSE 101; PULSE 105; RESP 24; O2SAT 91; O2SAT 96
[2020-04-11 10:30] VITALS: BP 143/68; PULSE 101; O2SAT 92
[2020-04-11 11:00] VITALS: BP 135/71; PULSE 97; O2SAT 91
[2020-04-15 09:52] LABS: Hematocrit 40.9 % (37.0-47.0); Hemoglobin 13.4 g/dL (12.0-15.0); Mean Corpuscular HGB Conc 32.8 g/dl (32-36); Mean Corpuscular Hemoglobin 30.4 pg (26-34); Mean Corpuscular Volume 92.7 fl (80-100); Mean Platelet Volume 10.4 fl (7.4-10.4); Platelet Count Result 204 k/mm3 (150-375); Red Blood Count 4.41 M/mm3 (4.2-5.4); Red Cell Distribution Width 14.2 % (11.5-14.5); White Blood Count 12.8 K/mm3 (4.5-10.0)
[2020-04-15 10:10] LABS: INR 1.1; Prothrombin Time 14.5 Seconds (11.1-14.7)
[2020-04-15 10:11] LABS: Partial Thromboplastin Time 27.8 SECONDS (22.3-36.8)
[2020-04-15 10:25] VITALS: BP 109/87; PULSE 113; RESP 28; O2SAT 96
[2020-04-15 10:50] VITALS: BP 157/66; PULSE 110; RESP 24; O2SAT 96
[2020-04-15 11:00] VITALS: BP 135/88; PULSE 103; O2SAT 97
[2020-04-15 11:15] VITALS: BP 138/72; PULSE 105; RESP 20
[2020-04-15 11:30] VITALS: BP 146/52; PULSE 95; RESP 20
[2020-04-15 11:40] VITALS: BP 111/72; PULSE 103; RESP 20
--- NOTE | 2020-04-15 12:02 | SUR.PHASEII ---
[address] parkinson, radiologist, about pt status. he is ok for discharge. pt vss, room air, chronic dry cough, no pain.
[2020-04-18 09:25] VITALS: BP 170/72; PULSE 116; RESP 28; O2SAT 96
[2020-04-18 09:49] VITALS: BP 151/68; PULSE 111; RESP 24; O2SAT 97
[2020-04-18 10:00] VITALS: BP 155/71; PULSE 107; RESP 20; O2SAT 93
[2020-04-18 10:30] VITALS: BP 162/72; PULSE 98; RESP 16; O2SAT 93
[2020-04-22 13:54] VITALS: BP 148/67; PULSE 95; RESP 18; O2SAT 93
[2020-04-22 13:55] VITALS: BP 167/65; PULSE 125; RESP 32; O2SAT 92
[2020-04-22 13:56] VITALS: BP 147/79; PULSE 118; RESP 24; O2SAT 93
[2020-04-22 14:24] VITALS: BP 144/65; PULSE 103; RESP 20; O2SAT 96
[2020-04-22 14:54] VITALS: BP 131/71; PULSE 98; RESP 20; O2SAT 97
[2020-04-25 12:10] VITALS: BP 150/79; PULSE 98; RESP 18; O2SAT 95
[2020-04-25 12:20] VITALS: BP 169/73; PULSE 120; RESP 28; O2SAT 95
[2020-04-25 12:21] VITALS: BP 149/74; PULSE 114; RESP 24; O2SAT 95
[2020-04-25 12:30] VITALS: BP 145/66; PULSE 96; RESP 20; O2SAT 95
--- NOTE | 2020-04-25 16:28 | SUR.PHASEII ---
PT ONLY STAYED UNTIL 1230, PER DR HUI. PT HAD TO GO GET COVID SHOT.
[2020-04-28] VITALS (7 sets, daily range): BP systolic 147–165; BP diastolic 64–69; PULSE 97–115; RESP 20–30; O2SAT 90–96
[2020-04-30 12:15] VITALS: BP 174/72; PULSE 98; RESP 20; O2SAT 93
[2020-04-30 12:29] VITALS: BP 164/72; PULSE 115; RESP 28; O2SAT 96
[2020-04-30 12:30] VITALS: BP 155/71; PULSE 100; RESP 20
[2020-04-30 12:31] VITALS: BP 144/61; PULSE 109; RESP 28; O2SAT 95
[2020-04-30 12:45] VITALS: BP 154/71; PULSE 98; RESP 20; O2SAT 93
--- NOTE | 2020-04-30 13:35 | SUR.PHASEII ---
1300 - iv merrick'vincent. cathteter intact
[2020-05-02 10:01] VITALS: BP 159/100; PULSE 97; RESP 22; O2SAT 94
[2020-05-02 10:08] VITALS: BP 158/72; BP 165/74; PULSE 110; PULSE 114; RESP 28; RESP 30; O2SAT 98
[2020-05-02 10:20] VITALS: BP 156/69; PULSE 91; RESP 20; O2SAT 94
[2020-05-02 10:50] VITALS: BP 157/66; PULSE 87; RESP 20; O2SAT 94
--- NOTE | 2020-05-02 13:40 | SUR.PHASEII ---
1015; PT ASKING TO REMOVE O2. SAO2 STABLE.
[2020-05-05 13:52] VITALS: BP 163/65; PULSE 120; RESP 28; O2SAT 96
[2020-05-05 13:53] VITALS: BP 177/75; PULSE 121; RESP 32; O2SAT 95
[2020-05-05 14:00] VITALS: BP 170/86; PULSE 98; RESP 20; O2SAT 93
[2020-05-05 14:15] VITALS: BP 155/72; PULSE 88; RESP 20; O2SAT 94
[2020-05-05 14:45] VITALS: BP 168/88; PULSE 92; RESP 20; O2SAT 93
--- NOTE | 2020-05-05 17:07 | SUR.PHASEII ---
1445 - iv merrick'vincent. catheter intact
[2020-05-07 13:50] VITALS: BP 141/62; PULSE 103; RESP 20; O2SAT 100
[2020-05-07 13:57] VITALS: BP 148/71; PULSE 107; RESP 28; O2SAT 97
[2020-05-07 13:58] VITALS: BP 167/69; PULSE 111; RESP 32; O2SAT 96
[2020-05-07 14:05] VITALS: BP 146/61; PULSE 98; RESP 20; O2SAT 96
[2020-05-07 14:30] VITALS: BP 148/76; PULSE 106; RESP 20; O2SAT 97
[2020-05-07 14:45] VITALS: BP 139/55; PULSE 86; RESP 20; O2SAT 96
--- NOTE | 2020-05-07 14:50 | SUR.PHASEII ---
1437- Call to Dr. Bell to verify patient OK for discharge at this time with vital signs stable, patient on room air, no complaints of pain or shortness of breath, regular breathing noted and respiratory rate. Right back thoracentesis site C/D/I with bandaid noted. Per Dr. Bell she is OK for discharge. 1450- Patient discharged home via wheelchair with Bill. Watts verbalized understanding of discharge at this time.
[2020-05-09 09:32] VITALS: BP 162/72; PULSE 108; RESP 20; O2SAT 100
[2020-05-09 09:45] VITALS: BP 135/82; PULSE 118; RESP 30; O2SAT 95
[2020-05-09 09:46] VITALS: BP 141/63; PULSE 116; RESP 24; O2SAT 97
[2020-05-09 10:00] VITALS: BP 140/69; PULSE 103; RESP 24; O2SAT 95
[2020-05-09 10:25] VITALS: BP 157/72; PULSE 102; RESP 20; O2SAT 95
--- NOTE | 2020-05-09 10:37 | SUR.PHASEII ---
1029- Call to Dr. Bell to verify patient OK for discharge at this time with vital signs stable, patient on room air, no complaints of pain or shortness of breath, regular breathing noted and respiratory rate. Right back thoracentesis site C/D/I with bandaid noted. Per Dr. Bell she is OK for discharge. 1037- Patient discharged home via wheelchair with Bill. Watts verbalized understanding of discharge at this time.
[2020-05-12 08:55] VITALS: BP 167/75; PULSE 113; RESP 32; O2SAT 97
[2020-05-12 09:30] VITALS: BP 155/57; PULSE 101; RESP 28; O2SAT 99
[2020-05-12 09:35] VITALS: BP 166/74; PULSE 97; RESP 18; O2SAT 97
[2020-05-12 10:05] VITALS: BP 166/74; PULSE 97; RESP 18; O2SAT 97
[2020-05-12 10:30] VITALS: BP 159/72; PULSE 96; RESP 18; O2SAT 93
--- NOTE | 2020-05-12 10:50 | SUR.PHASEII ---
PT BANDAGE ON BACK IS CLEAN DR INTACT AND IN GOOD STANDING TO BE DISCHARGED. CALL DR NICE AND HE WAS INFORMED AND ALSO SAID OK TO DC.
[2020-05-14 09:34] VITALS: BP 168/72; PULSE 113; RESP 24; O2SAT 98
[2020-05-14 09:35] VITALS: BP 145/85; PULSE 108; RESP 24; O2SAT 99
[2020-05-14 09:40] VITALS: BP 152/68; PULSE 99; RESP 20; O2SAT 98
[2020-05-14 10:10] VITALS: BP 154/73; PULSE 96; RESP 18; O2SAT 94
[2020-05-14 10:40] VITALS: BP 147/67; PULSE 95; RESP 18; O2SAT 93
[2020-05-16 09:15] VITALS: BP 165/75; PULSE 115; RESP 16; O2SAT 97
[2020-05-16 09:40] VITALS: BP 153/75; PULSE 109; RESP 16; O2SAT 98
[2020-05-16 09:52] VITALS: BP 146/67; PULSE 102; RESP 20; O2SAT 97
[2020-05-16 10:22] VITALS: BP 163/69; PULSE 97; RESP 18; O2SAT 98
[2020-05-16 10:52] VITALS: BP 140/64; PULSE 91; RESP 18; O2SAT 93
--- NOTE | 2020-05-16 11:09 | SUR.PHASEII ---
discharge 05-16-2020 @[id number]
[2020-05-19 09:00] VITALS: BP 157/72; PULSE 113; RESP 36; O2SAT 97
[2020-05-19 09:35] VITALS: BP 145/101; PULSE 108; RESP 30; O2SAT 96
[2020-05-19 09:50] VITALS: BP 177/69; PULSE 105
[2020-05-19 10:20] VITALS: BP 149/67; PULSE 88; O2SAT 94
[2020-05-19 10:50] VITALS: BP 154/85; PULSE 87; O2SAT 91
[2020-05-21 09:03] VITALS: BP 162/64; PULSE 114; RESP 24; O2SAT 95
[2020-05-21 09:25] VITALS: BP 131/62; PULSE 108; RESP 24; O2SAT 97
[2020-05-21 09:30] VITALS: BP 150/71; PULSE 100; RESP 24; O2SAT 96
[2020-05-21 09:45] VITALS: BP 144/66; PULSE 97; RESP 22; O2SAT 97
[2020-05-21 10:00] VITALS: BP 150/67; PULSE 90; RESP 22; O2SAT 96
[2020-05-21 10:19] VITALS: BP 154/65; PULSE 93; RESP 22; O2SAT 95
--- NOTE | 2020-05-21 10:25 | SUR.PHASEII ---
[address] krause on pt status, vss, roomair, no pain. ok to be discharged per dr krause
[2020-05-23 09:45] VITALS: BP 150/70; BP 154/71; BP 160/79; PULSE 107; PULSE 116; PULSE 95; RESP 20; RESP 30; O2SAT 95; O2SAT 96; O2SAT 98
[2020-05-23 10:00] VITALS: BP 151/62; PULSE 90; RESP 22; O2SAT 95
[2020-05-23 10:15] VITALS: BP 165/70; PULSE 80; RESP 22; O2SAT 95
[2020-05-23 10:30] VITALS: BP 171/73; PULSE 86; RESP 20; O2SAT 95
[2020-05-26 11:38] VITALS: BP 150/73; PULSE 100; RESP 20; O2SAT 98
[2020-05-26 11:53] VITALS: BP 147/57; PULSE 93; RESP 20; O2SAT 95
[2020-05-26 12:08] VITALS: BP 164/67; PULSE 102; RESP 20; O2SAT 94
[2020-05-26 12:38] VITALS: BP 155/51; PULSE 95; RESP 20; O2SAT 95
[2020-05-28 11:56] VITALS: BP 154/77; PULSE 107; RESP 30; O2SAT 95
[2020-05-28 11:57] VITALS: BP 159/63; PULSE 107; RESP 24; O2SAT 97
[2020-05-28 12:00] VITALS: BP 157/69; PULSE 107; RESP 20; O2SAT 94
[2020-05-28 12:15] VITALS: BP 135/62; PULSE 92; RESP 20
[2020-05-28 12:30] VITALS: BP 155/65; PULSE 92; RESP 20
[2020-05-28 12:45] VITALS: BP 140/62; PULSE 92; RESP 20; O2SAT 94
--- NOTE | 2020-05-28 13:21 | SUR.PHASEII ---
1320 - IV DC'D. CATHETER INTACT
[2020-05-30 11:00] VITALS: BP 158/67; PULSE 102; RESP 20; O2SAT 94
[2020-05-30 11:15] VITALS: BP 138/65; PULSE 93; RESP 20; O2SAT 93
[2020-05-30 11:30] VITALS: BP 149/71; PULSE 88; RESP 20; O2SAT 93
[2020-05-30 11:55] VITALS: BP 149/77; PULSE 88; RESP 20; O2SAT 93
[2020-06-02 10:29] VITALS: BP 146/69; PULSE 111; RESP 30; O2SAT 94
[2020-06-02 10:34] VITALS: BP 158/71; PULSE 106; RESP 20; O2SAT 92
[2020-06-02 10:44] VITALS: BP 163/82; PULSE 114; RESP 36; O2SAT 97
[2020-06-02 10:50] VITALS: BP 149/66; PULSE 95; RESP 18; O2SAT 96
[2020-06-02 11:05] VITALS: BP 151/66; PULSE 90; O2SAT 93
[2020-06-02 11:20] VITALS: BP 179/70; PULSE 97
--- NOTE | 2020-06-02 11:29 | SUR.PHASEII ---
Last Bp was higher than the others which is expected since she just got back from using the restroom.
[2020-06-04 09:30] VITALS: BP 150/67; PULSE 101; RESP 24; O2SAT 97
[2020-06-04 09:45] VITALS: BP 161/70; PULSE 93; RESP 23
[2020-06-04 10:00] VITALS: BP 162/69; PULSE 96; RESP 22; O2SAT 98
[2020-06-04 10:14] VITALS: BP 186/73; PULSE 114; RESP 28; O2SAT 97
[2020-06-04 10:15] VITALS: BP 148/64; BP 170/68; PULSE 108; PULSE 93; RESP 22; RESP 24; O2SAT 95; O2SAT 98
[2020-06-04 10:35] VITALS: BP 154/89; PULSE 91; RESP 23; O2SAT 95
[2020-06-06 09:59] VITALS: BP 140/67; PULSE 101; RESP 18; O2SAT 99
[2020-06-06 10:00] VITALS: BP 137/58; BP 149/68; PULSE 110; PULSE 87; RESP 28; O2SAT 100; O2SAT 96
[2020-06-06 10:15] VITALS: BP 143/65; PULSE 95; O2SAT 98
[2020-06-06 10:30] VITALS: BP 132/73; PULSE 89; O2SAT 99
[2020-06-06 10:45] VITALS: BP 147/55; PULSE 89; O2SAT 95
--- NOTE | 2020-06-06 10:51 | SUR.PHASEII ---
called Dr. Bell and patient is good to discharge.
[2020-06-06 10:55] VITALS: BP 155/56; PULSE 88
[2020-06-09 10:14] VITALS: BP 158/71; PULSE 97; O2SAT 98
[2020-06-09 10:44] VITALS: BP 151/67; PULSE 91; O2SAT 97
[2020-06-09 10:56] VITALS: BP 171/71; PULSE 93; RESP 28; O2SAT 94
[2020-06-09 10:57] VITALS: BP 149/65; PULSE 108; RESP 24; O2SAT 97
[2020-06-09 11:14] VITALS: BP 145/60; PULSE 75; O2SAT 95
[2020-06-11 09:40] VITALS: BP 156/66; PULSE 105; RESP 22; O2SAT 96
[2020-06-11 09:42] VITALS: BP 112/64; BP 153/79; PULSE 112; PULSE 117; RESP 24; RESP 28; O2SAT 95; O2SAT 96
[2020-06-11 09:55] VITALS: BP 148/80; PULSE 107; RESP 21; O2SAT 96
--- NOTE | 2020-06-11 09:59 | SUR.PHASEII ---
0945- Spouse notified regarding time for pt pickup.
[2020-06-11 10:00] VITALS: BP 138/91; PULSE 101; RESP 20
[2020-06-11 10:30] VITALS: BP 145/67; PULSE 98; RESP 20; O2SAT 96
[2020-06-13 14:20] VITALS: BP 156/74; PULSE 107; RESP 20; O2SAT 96
[2020-06-13 14:35] VITALS: BP 167/76; PULSE 98; RESP 20; O2SAT 96
[2020-06-13 14:50] VITALS: BP 159/71; PULSE 98; RESP 20; O2SAT 99
[2020-06-13 15:04] VITALS: BP 159/67; PULSE 117; RESP 28; O2SAT 94
[2020-06-13 15:05] VITALS: BP 157/65; BP 166/71; PULSE 100; PULSE 110; RESP 20; RESP 24; O2SAT 100; O2SAT 96
[2020-06-13 15:25] VITALS: BP 160/70; PULSE 98; RESP 20; O2SAT 98
[2020-06-16 09:40] VITALS: BP 153/67; PULSE 102; RESP 20; O2SAT 96
[2020-06-16 09:49] VITALS: BP 139/64; PULSE 107; RESP 28; O2SAT 96
[2020-06-16 09:50] VITALS: BP 150/77; PULSE 114; RESP 32; O2SAT 98
[2020-06-16 09:55] VITALS: BP 144/67; PULSE 95; RESP 20; O2SAT 96
[2020-06-16 10:10] VITALS: BP 165/68; PULSE 97; RESP 22; O2SAT 97
[2020-06-16 10:25] VITALS: BP 145/69; PULSE 86; RESP 20; O2SAT 95
[2020-06-18 09:30] VITALS: BP 152/65; PULSE 92; RESP 20; O2SAT 92
[2020-06-18 09:37] VITALS: BP 160/75; PULSE 117; RESP 30; O2SAT 96
[2020-06-18 09:38] VITALS: BP 134/66; PULSE 108; RESP 30; O2SAT 98
[2020-06-18 10:00] VITALS: BP 144/71; PULSE 87; RESP 20; O2SAT 93
[2020-06-18 10:30] VITALS: BP 150/65; PULSE 94; RESP 20; O2SAT 95
[2020-06-20 10:00] VITALS: BP 162/60; PULSE 98; RESP 20; O2SAT 97
[2020-06-20 10:15] VITALS: BP 162/66; PULSE 90; RESP 20; O2SAT 95
[2020-06-20 10:18] VITALS: BP 163/96; PULSE 114; RESP 30; O2SAT 98
[2020-06-20 10:19] VITALS: BP 153/75; PULSE 112; RESP 30; O2SAT 97
[2020-06-20 10:30] VITALS: BP 152/74; PULSE 72; RESP 20; O2SAT 93
[2020-06-20 10:45] VITALS: BP 154/72; PULSE 88; RESP 20
[2020-06-21 12:08] VITALS: BP 150/88; PULSE 103; RESP 18; O2SAT 97
[2020-06-21 12:24] VITALS: BP 152/66; PULSE 103; RESP 18; O2SAT 97
[2020-06-21 12:32] VITALS: BP 151/81; PULSE 100; RESP 20; O2SAT 98
[2020-06-21 12:45] VITALS: BP 143/61; PULSE 90; RESP 20
[2020-06-21 13:00] VITALS: BP 156/54; PULSE 86; RESP 20
[2020-06-21 13:15] VITALS: BP 150/60; PULSE 80; RESP 20
[2020-06-23] VITALS (7 sets, daily range): BP systolic 135–154; BP diastolic 56–70; PULSE 80–112; RESP 12–32; O2SAT 97–98
--- NOTE | ~2020-06-23 | XR_ITS ---
EXAMINATION: [id number]_[id number]_CR DATE: 05/23/2020 09:41 INDICATION: Right pleural effusion postthoracentesis TECHNIQUE: frontal view of the chest was obtained. COMPARISON: Chest radiograph dated 05/21/2020 FINDINGS: Moderate to large right and moderate left pleural effusions with associated atelectasis in the bilate ral mid and lower lung zones. Calcified left apical nodule consistent with old granulomatous disease. No pneumothorax. Cardiac silhouette is obscured. The more cephalad mediastinal silhouette is normal. IMPRESSION: 1. Moderate to large residual right and moderate left pleural effusions with associated compressive a telectasis at the lung bases. Reviewed, dictated and finalized at location A. IMPRESSION: 1. Moderate to large residual right and moderate left pleural effusions with as sociated compressive atelectasis at the lung bases.
--- NOTE | ~2020-06-23 | US_ITS ---
EXAMINATION: US thoracentesis DATE: 06/06/2020 10:03 INDICATION: pleural effusion TECHNIQUE: The skin was prepped and draped in sterile fashion. 1% lidocaine was used for local anesth esia. Under ultrasound guidance, a 5 Fr catheter with trochar was advanced into the right pleural eff usion. Fluid was aspirated. The catheter was removed, and a dressing was applied. There were no immed iate complications. FINDINGS: Ultrasound images demonstrate a right pleural effusion and the catheter within the fluid. IMPRESSION: 1. Successful ultrasound-guided thoracentesis yielding 1200 mL of cloudy, yellow fluid. Reviewed, dictated and finalized at location A. IMPRESSION: 1. Successful ultrasound-guided thoracentesis yielding 1200 mL of cloudy, yell ow fluid.
--- NOTE | ~2020-06-23 | US_ITS ---
EXAMINATION: US thoracentesis DATE: 04/08/2020 11:42 INDICATION: pleural effusion TECHNIQUE: The procedure and its risks and benefits were discussed with the patient. Potential risks discussed included bleeding, infection, and pneumothorax. The patient understood the risks and agreed to proceed. The skin was prepped and draped in sterile fashion. 1% lidocaine was used for local anes thesia. Under ultrasound guidance, a 5 Fr catheter with trochar was advanced into the right pleural e ffusion. Fluid was aspirated. The catheter was removed, and a dressing was applied. There were no imm ediate complications. FINDINGS: Ultrasound images demonstrate a large right pleural effusion and the catheter within the fluid. IMPRESSION: 1. Successful ultrasound-guided thoracentesis yielding 1000 mL of cloudy yellow fluid. Reviewed, dictated and finalized at location A. KFAST SUPERVISOR IMPRESSION: 1. Successful ultrasound-guided thoracentesis yielding 1000 mL of cloudy yello w fluid.
--- NOTE | ~2020-06-23 | US_ITS ---
EXAMINATION: US thoracentesis DATE: 06/04/2020 09:37 INDICATION: pleural effusion TECHNIQUE: The skin was prepped and draped in sterile fashion. 1% lidocaine was used for local anesth esia. Under ultrasound guidance, a 5 Fr catheter with trochar was advanced into the right pleural eff usion. Fluid was aspirated. The catheter was removed, and a dressing was applied. There were no immed iate complications. FINDINGS: Ultrasound images demonstrate a right pleural effusion and the catheter within the fluid. IMPRESSION: 1. Successful ultrasound-guided thoracentesis yielding 1200 mL of cloudy, yellow fluid. Reviewed, dictated and finalized at location A. IMPRESSION: 1. Successful ultrasound-guided thoracentesis yielding 1200 mL of cloudy, yell ow fluid.
--- NOTE | ~2020-06-23 | US_ITS ---
EXAMINATION: US thoracentesis DATE: 04/22/2020 13:58 INDICATION: pleural effusion TECHNIQUE: The skin was prepped and draped in sterile fashion. 1% lidocaine was used for local anesth esia. Under ultrasound guidance, a 5 Fr catheter with trochar was advanced into the left pleural effu suri. Fluid was aspirated. The catheter was removed, and a dressing was applied. There were no immedi ate complications. FINDINGS: Ultrasound images demonstrate a left pleural effusion and the catheter within the fluid. IMPRESSION: 1. Successful ultrasound-guided thoracentesis yielding 1000 mL of clear, yellow fluid. Reviewed, dictated and finalized at location A. IONARY ENGINEER IMPRESSION: 1. Successful ultrasound-guided thoracentesis yielding 1000 mL of clear, yello w fluid.
--- NOTE | ~2020-06-23 | XR_ITS ---
EXAMINATION: [id number]_[id number]_CR DATE: 06/18/2020 09:29 INDICATION: Right pleural effusion status post thoracentesis. TECHNIQUE: A single frontal view of the chest was obtained. COMPARISON: Chest single view 06/16/2020 FINDINGS: A calcified left lung nodule is consistent with old granulomatous disease. There are large pleural effusions, right worse than left. There are airspace opacities at the lung bases, likely atel ectasis. No pneumothorax. The heart size is obscured. IMPRESSION: 1. Large pleural effusions, right worse than left. Reviewed, dictated and finalized at location A.
--- NOTE | ~2020-06-23 | XR_ITS ---
EXAMINATION: [id number]_[id number]_CR DATE: 03/25/2020 11:04 INDICATION: Right pleural effusion status post thoracentesis. TECHNIQUE: A single frontal view of the chest was obtained. COMPARISON: Chest single view 03/21/2020 FINDINGS: There are large right and moderate-sized left pleural effusions. There are airspace opaciti es at the lung bases and in the right perihilar region, likely atelectasis. A calcified left lung nod ule is consistent with old granulomatous disease. No pneumothorax. The heart size is obscured. IMPRESSION: 1. Large right and moderate-sized left pleural effusions. Reviewed, dictated and finalized at location A. ER LOADER
--- NOTE | ~2020-06-23 | XR_ITS ---
EXAMINATION: [id number]_[id number]_CR DATE: 04/30/2020 12:18 INDICATION: Right pleural effusion status post thoracentesis. TECHNIQUE: A single frontal view of the chest was obtained. COMPARISON: Chest single view 04/28/2020 FINDINGS: There are large bilateral pleural effusions. A calcified left lung nodule is consistent wit h old granulomatous disease. There are airspace opacities at the lung bases, likely atelectasis. No p neumothorax. The heart size is obscured. There are multiple old healed left rib fractures. IMPRESSION: 1. Large bilateral pleural effusions. Reviewed, dictated and finalized at location A. ALCHOLIZER
--- NOTE | ~2020-06-23 | US_ITS ---
EXAMINATION: US thoracentesis DATE: 04/25/2020 12:22 INDICATION: pleural effusion TECHNIQUE: The skin was prepped and draped in sterile fashion. 1% lidocaine was used for local anesth esia. Under ultrasound guidance, a 5 Fr catheter with trochar was advanced into the right pleural eff usion. Fluid was aspirated. The catheter was removed, and a dressing was applied. There were no immed iate complications. FINDINGS: Ultrasound images demonstrate a right pleural effusion and the catheter within the fluid. IMPRESSION: 1. Successful ultrasound-guided thoracentesis yielding 1000 mL of cloudy, yellow fluid. Reviewed, dictated and finalized at location A. ITE DEVELOPER IMPRESSION: 1. Successful ultrasound-guided thoracentesis yielding 1000 mL of cloudy, yell ow fluid.
--- NOTE | ~2020-06-23 | XR_ITS ---
EXAMINATION: [id number]_[id number]_CR INDICATION: Pleural effusion TECHNIQUE: AP view of the chest is obtained. COMPARISON: 04/30/2020 FINDINGS: There are large right and moderate-sized left pleural effusions. No pneumothorax is identif ied. Airspace opacities of the lung bases likely reflect passive atelectasis. The heart size is obscu red. A calcified nodule of the left upper lobe is consistent with old granulomatous disease. IMPRESSION: 1. Bilateral pleural effusions, no pneumothorax. Reviewed, dictated and finalized at location A. MENT CONTROL MANAGER
--- NOTE | ~2020-06-23 | XR_ITS ---
EXAMINATION: [id number]_[id number]_CR DATE: 04/28/2020 12:01 INDICATION: Right pleural effusion status post thoracentesis. TECHNIQUE: A single frontal view of the chest was obtained. COMPARISON: Chest single view 04/25/2020 FINDINGS: There are large right and moderate-sized left pleural effusions. There are airspace opaciti es with a basilar predominance, likely atelectasis. A calcified left lung nodule is consistent with o ld granulomatous disease. No pneumothorax. The heart size is obscured. IMPRESSION: 1. Large right and moderate-sized left pleural effusions. Reviewed, dictated and finalized at location A. ASSEMBLER
--- NOTE | ~2020-06-23 | XR_ITS ---
EXAMINATION: [id number]_CR DATE: 03/28/2020 12:03 INDICATION: Right pleural effusion status post thoracentesis. TECHNIQUE: A single frontal view of the chest was obtained. COMPARISON: Chest single view 03/25/2020 FINDINGS: There are large right and moderate-sized left pleural effusions. There are airspace opaciti es at the lung bases, likely atelectasis. A calcified left lung nodule is consistent with old granulo matous disease. No pneumothorax. The heart size is obscured. IMPRESSION: 1. Large right and moderate-sized left pleural effusions. Reviewed, dictated and finalized at location A. TERM CARE SOCIAL WORKER
--- NOTE | ~2020-06-23 | US_ITS ---
EXAMINATION: US thoracentesis DATE: 05/16/2020 09:54 INDICATION: pleural effusion TECHNIQUE: The procedure and its risks and benefits were discussed with the patient. Potential risks discussed included bleeding, infection, and pneumothorax. The patient understood the risks and agreed to proceed. The skin was prepped and draped in sterile fashion. 1% lidocaine was used for local anes thesia. Under ultrasound guidance, a 5 Fr catheter with trochar was advanced into the large right ple ural effusion. Fluid was aspirated. The catheter was removed, and a dressing was applied. There were no immediate complications. FINDINGS: Ultrasound images demonstrate a large right pleural effusion and the catheter within the fluid. IMPRESSION: 1. Successful ultrasound-guided thoracentesis yielding 1200 mL of cloudy yellow fluid. Reviewed, dictated and finalized at location A. IMPRESSION: 1. Successful ultrasound-guided thoracentesis yielding 1200 mL of cloudy yello w fluid.
--- NOTE | ~2020-06-23 | XR_ITS ---
EXAMINATION: [id number] DATE: 06/09/2020 10:12 INDICATION: Right pleural effusion status post thoracentesis. TECHNIQUE: A single frontal view of the chest was obtained. COMPARISON: Chest single view 06/06/2020 FINDINGS: A calcified left lung nodule is consistent with old granulomatous disease. There are large right and moderate-sized left pleural effusions. There are airspace opacities at the lung bases, like ly atelectasis. The heart size is obscured. IMPRESSION: 1. Large right and moderate-sized left pleural effusions. Reviewed, dictated and finalized at location B.
--- NOTE | ~2020-06-23 | US_ITS ---
EXAMINATION: US thoracentesis DATE: 04/01/2020 11:03 INDICATION: pleural effusion TECHNIQUE: The procedure and its risks, benefits, and alternatives were discussed with the patient. P otential risks discussed included bleeding, infection, and pneumothorax. The patient understood the r isks and agreed to proceed. The skin was prepped and draped in sterile fashion. 1% lidocaine was used for local anesthesia. Under ultrasound guidance, a 5 Fr catheter with trochar was advanced into the right pleural effusion. Fluid was aspirated. The catheter was removed, and a dressing was applied. Th ere were no immediate complications. FINDINGS: Ultrasound images demonstrate a right pleural effusion and the catheter within the fluid. IMPRESSION: 1. Successful ultrasound-guided thoracentesis yielding 1000 mL of clear, yellow fluid. Reviewed, dictated and finalized at location A. AN IMPRESSION: 1. Successful ultrasound-guided thoracentesis yielding 1000 mL of clear, yello w fluid.
--- NOTE | ~2020-06-23 | US_ITS ---
EXAMINATION: US thoracentesis DATE: 04/18/2020 10:06 INDICATION: pleural effusion TECHNIQUE: The procedure and its risks and benefits were discussed with the patient. Potential risks discussed included bleeding, infection, and pneumothorax. The patient understood the risks and agreed to proceed. The skin was prepped and draped in sterile fashion. 1% lidocaine was used for local anes thesia. Under ultrasound guidance, a 5 Fr catheter with trochar was advanced into the right pleural e ffusion. Fluid was aspirated. The catheter was removed, and a dressing was applied. There were no imm ediate complications. FINDINGS: Ultrasound images demonstrate a large right pleural effusion and the catheter within the fluid. IMPRESSION: 1. Successful ultrasound-guided thoracentesis yielding 1000 mL of cloudy yellow fluid. Reviewed, dictated and finalized at location A. ROLLER IMPRESSION: 1. Successful ultrasound-guided thoracentesis yielding 1000 mL of cloudy yello w fluid.
--- NOTE | ~2020-06-23 | XR_ITS ---
[id number] 05/16/2020 09:46 Indication: Postthoracentesis. Procedure: AP portable chest Comparison: Comparison to multiple prior studies sequentially, with oldest reviewed study dated 05/07. Findings: No pneumothorax identified post thoracentesis. Moderate bilateral pleural effusions. Bilate ral consolidation of the mid and lower lung zones. Calcified granuloma left apex. No acute osseous ab normality. Impression: 1: Persistent moderate bilateral pleural effusions with underlying compressive atelectasis. Superimpo sed pneumonia not excluded. Reviewed, dictated and finalized at location B. Impression: 1: Persistent moderate bilateral pleural effusions with underlying compressive atelectasis. Superimposed pneumonia not excluded.
--- NOTE | ~2020-06-23 | US_ITS ---
EXAMINATION: US thoracentesis DATE: 05/26/2020 11:36 INDICATION: pleural effusion TECHNIQUE: The skin was prepped and draped in sterile fashion. 1% lidocaine was used for local anesth esia. Under ultrasound guidance, a 5 Fr catheter with trochar was advanced into the right pleural eff usion. Fluid was aspirated. The catheter was removed, and a dressing was applied. There were no immed iate complications. FINDINGS: Ultrasound images demonstrate a right pleural effusion and the catheter within the fluid. IMPRESSION: 1. Successful ultrasound-guided thoracentesis yielding 1200 mL of cloudy, yellow fluid. Reviewed, dictated and finalized at location A. IMPRESSION: 1. Successful ultrasound-guided thoracentesis yielding 1200 mL of cloudy, yell ow fluid.
--- NOTE | ~2020-06-23 | XR_ITS ---
EXAMINATION: [id number] DATE: 04/25/2020 12:05 INDICATION: Right pleural effusion status post thoracentesis. TECHNIQUE: A single frontal view of the chest was obtained. COMPARISON: Chest single view 04/22/2020 FINDINGS: There are large right and moderate-sized left pleural effusions. There are airspace opaciti es at the lung bases, likely atelectasis. A calcified left lung nodule is consistent with old granulo matous disease. There is no pneumothorax. The heart size is obscured. IMPRESSION: 1. Large right and moderate-sized left pleural effusions. Reviewed, dictated and finalized at location A. GER PRICING
--- NOTE | ~2020-06-23 | US_ITS ---
EXAMINATION: US thoracentesis DATE: 06/02/2020 10:50 INDICATION: pleural effusion TECHNIQUE: The procedure and its risks, benefits, and alternatives were discussed with the patient. P otential risks discussed included bleeding, infection, and pneumothorax. The patient understood the r isks and agreed to proceed. The skin was prepped and draped in sterile fashion. 1% lidocaine was used for local anesthesia. Under ultrasound guidance, a 5 Fr catheter with trochar was advanced into the right pleural effusion. Fluid was aspirated. The catheter was removed, and a dressing was applied. Th ere were no immediate complications. FINDINGS: Ultrasound images demonstrate a right pleural effusion and the catheter within the fluid. IMPRESSION: 1. Successful ultrasound-guided thoracentesis yielding 1200 mL of cloudy, yellow fluid. Reviewed, dictated and finalized at location A. IMPRESSION: 1. Successful ultrasound-guided thoracentesis yielding 1200 mL of cloudy, yell ow fluid.
--- NOTE | ~2020-06-23 | XR_ITS ---
EXAMINATION: XR chest 1V DATE: 05/26/2020 11:37 INDICATION: Right pleural effusion status post thoracentesis TECHNIQUE: A single frontal view of the chest was obtained. COMPARISON: Chest single view 05/23/2020 FINDINGS: A calcified left lung nodule is consistent with old granulomatous disease. There are airspa ce opacities bilaterally with a basilar predominance, right worse than left, likely atelectasis. Ther e are large right and moderate-sized left pleural effusions. No pneumothorax. The heart size is obscu red. IMPRESSION: 1. Large right and moderate-sized left pleural effusions. Reviewed, dictated and finalized at location A.
--- NOTE | ~2020-06-23 | US_ITS ---
EXAMINATION: US thoracentesis DATE: 06/13/2020 15:07 INDICATION: pleural effusion TECHNIQUE: The procedure and its risks and benefits were discussed with the patient. Potential risks discussed included bleeding, infection, and pneumothorax. The patient understood the risks and agreed to proceed. The skin was prepped and draped in sterile fashion. 1% lidocaine was used for local anes thesia. Under ultrasound guidance, a 5 Fr catheter with trochar was advanced into the right pleural e ffusion. Fluid was aspirated. The catheter was removed, and a dressing was applied. There were no imm ediate complications. FINDINGS: Ultrasound images demonstrate a large right pleural effusion and the catheter within the fluid. IMPRESSION: 1. Successful ultrasound-guided thoracentesis yielding 1200 mL of cloudy yellow fluid. Reviewed, dictated and finalized at location A. IMPRESSION: 1. Successful ultrasound-guided thoracentesis yielding 1200 mL of cloudy yello w fluid.
--- NOTE | ~2020-06-23 | XR_ITS ---
EXAMINATION: [id number]_CR DATE: 06/13/2020 14:18 INDICATION: Pleural effusion TECHNIQUE: frontal view of the chest was obtained. COMPARISON: Chest radiograph dated 06/11/2020 FINDINGS: Opacities in the right upper and bilateral mid and lower lung zones consistent with moderate sized le ft and moderate to large right pleural effusions with associated compressive atelectasis. Pneumonia n ot excludable in the appropriate clinical setting. No pneumothorax. Calcified left apical nodule cons istent with old granulomatous disease. Cardiac silhouette is obscured. IMPRESSION: 1. Moderate to large right and moderate left pleural effusions with associated atelectasis. Reviewed, dictated and finalized at location A.
--- NOTE | ~2020-06-23 | US_ITS ---
EXAMINATION: US thoracentesis DATE: 06/23/2020 09:58 INDICATION: pleural effusion TECHNIQUE: The procedure and its risks and benefits were discussed with the patient. Potential risks discussed included bleeding, infection, and pneumothorax. The patient understood the risks and agreed to proceed. The skin was prepped and draped in sterile fashion. 1% lidocaine was used for local anes thesia. Under ultrasound guidance, a 5 Fr catheter with trochar was advanced into the large right ple ural effusion. Fluid was aspirated. The catheter was removed, and a dressing was applied. There were no immediate complications. FINDINGS: Ultrasound images demonstrate a right pleural effusion and the catheter within the fluid. IMPRESSION: 1. Successful ultrasound-guided thoracentesis yielding 1200 mL of cloudy yellow fluid. Reviewed, dictated and finalized at location A. IMPRESSION: 1. Successful ultrasound-guided thoracentesis yielding 1200 mL of cloudy yello w fluid.
--- NOTE | ~2020-06-23 | XR_ITS ---
[id number]_CR DATE: 06/21/2020 12:32 INDICATION: Post thoracentesis chest radiograph TECHNIQUE: AP chest COMPARISON: 06/20/2020 AP chest FINDINGS: Bilateral pleural effusions are noted, right greater than left, with bibasilar compressive atelectasis. There is no evidence of pneumothorax following thoracentesis. IMPRESSION: No evidence of iatrogenic pneumothorax following right thoracentesis Persistent bilateral pleural effusions and bibasilar atelectasis Reviewed, dictated and finalized at Location A. Reviewed, dictated and finalized at location A. IMPRESSION: No evidence of iatrogenic pneumothorax following right thoracentesi s Persistent bilateral pleural effusions and bibasilar atelectasis
--- NOTE | ~2020-06-23 | US_ITS ---
EXAMINATION: US thoracentesis DATE: 04/11/2020 10:14 INDICATION: Pleural effusion. Cirrhosis of liver. TECHNIQUE: The procedure and its risks and benefits were discussed with the patient. Potential risks discussed included bleeding, infection, and pneumothorax. The patient understood the risks and agreed to proceed. The skin was prepped and draped in sterile fashion. 1% lidocaine was used for local anes thesia. Under ultrasound guidance, a 5 Fr catheter with trochar was advanced into the right pleural e ffusion. Fluid was aspirated. The catheter was removed, and a dressing was applied. There were no imm ediate complications. FINDINGS: Ultrasound images demonstrate a large right pleural effusion and the catheter within the fluid. IMPRESSION: 1. Successful ultrasound-guided thoracentesis yielding 1000 mL of cloudy yellow fluid. Reviewed, dictated and finalized at location A. ST IMPRESSION: 1. Successful ultrasound-guided thoracentesis yielding 1000 mL of cloudy yello w fluid.
--- NOTE | ~2020-06-23 | XR_ITS ---
EXAMINATION: [id number]_CR DATE: 05/14/2020 09:34 INDICATION: Right pleural effusion postthoracentesis TECHNIQUE: frontal view of the chest was obtained. COMPARISON: 05/12/2020 FINDINGS: Moderate-sized bilateral pleural effusions with associated compressive atelectasis in the mid to lowe r lungs. Calcified nodules in the left upper lung zone consistent with old granulomatous disease. The cardiac silhouette is obscured. The more cephalad mediastinal silhouette is normal. A few old left-s ided rib fractures. IMPRESSION: 1. Moderate-sized bilateral pleural effusions with compressive atelectasis in the mid and lower lungs . Reviewed, dictated and finalized at location A. IMPRESSION: 1. Moderate-sized bilateral pleural effusions with compressive atelectasis in t he mid and lower lungs.
--- NOTE | ~2020-06-23 | US_ITS ---
EXAMINATION: US thoracentesis DATE: 06/16/2020 10:00 INDICATION: pleural effusion TECHNIQUE: The procedure and its risks, benefits, and alternatives were discussed with the patient. P otential risks discussed included bleeding, infection, and pneumothorax. The patient understood the r isks and agreed to proceed. The skin was prepped and draped in sterile fashion. 1% lidocaine was used for local anesthesia. Under ultrasound guidance, a 5 Fr catheter with trochar was advanced into the right pleural effusion. Fluid was aspirated. The catheter was removed, and a dressing was applied. Th ere were no immediate complications. FINDINGS: Ultrasound images demonstrate a right pleural effusion and the catheter within the fluid. IMPRESSION: 1. Successful ultrasound-guided thoracentesis yielding 1200 mL of cloudy, yellow fluid. Reviewed, dictated and finalized at location A. IMPRESSION: 1. Successful ultrasound-guided thoracentesis yielding 1200 mL of cloudy, yell ow fluid.
--- NOTE | ~2020-06-23 | XR_ITS ---
EXAMINATION: [id number]_CR DATE: 06/23/2020 09:56 INDICATION: Pleural effusion post right thoracentesis TECHNIQUE: frontal view of the chest was obtained. COMPARISON: Chest radiograph dated 06/21/2020 FINDINGS: Again seen are moderate to large bilateral pleural effusions with associated atelectasis and/or pneum onia in the mid and lower lung zones. Calcified left apical nodule consistent with old granulomatous disease. No pneumothorax. Heart X silhouette is obscured. Superior mediastinal silhouette is normal. IMPRESSION: 1. Moderate to large bilateral pleural effusions with associated atelectasis. Reviewed, dictated and finalized at location A.
--- NOTE | ~2020-06-23 | XR_ITS ---
EXAMINATION: [id number]_CR DATE: 04/22/2020 13:52 INDICATION: Left pleural effusion status post thoracentesis. TECHNIQUE: A single frontal view of the chest was obtained. COMPARISON: Chest single view 05/16/2020 FINDINGS: There are large right and moderate-sized left pleural effusions. There are airspace opaciti es in the lungs with a basilar predominance, likely atelectasis. A calcified left lung nodule is cons istent with old granulomatous disease. No pneumothorax. The heart size is obscured. IMPRESSION: 1. Large right and moderate-sized left pleural effusions. Reviewed, dictated and finalized at location A. CAR DRIVER
--- NOTE | ~2020-06-23 | XR_ITS ---
EXAMINATION: [id number] INDICATION: Pleural effusion postthoracentesis TECHNIQUE: AP view of the chest is obtained. COMPARISON: 04/11/2020 FINDINGS: There are moderate-sized pleural effusions, right greater than left. There are airspace opa cities of the mid and lower lung zones. No pneumothorax is identified. The cardiac silhouette is obsc ured. A calcified nodule in the left upper lobe is consistent with old granulomatous disease. IMPRESSION: 1. Moderate-sized pleural effusions, no pneumothorax. 2. Opacities of the mid and lower lung zones, likely passive atelectasis. Reviewed, dictated and finalized at location A. E GRADER
--- NOTE | ~2020-06-23 | US_ITS ---
EXAMINATION: US thoracentesis DATE: 03/28/2020 12:39 INDICATION: pleural effusion TECHNIQUE: The procedure and its risks, benefits, and alternatives were discussed with the patient. P otential risks discussed included bleeding, infection, and pneumothorax. The patient understood the r isks and agreed to proceed. The skin was prepped and draped in sterile fashion. 1% lidocaine was used for local anesthesia. Under ultrasound guidance, a 5 Fr catheter with trochar was advanced into the right pleural effusion. Fluid was aspirated. The catheter was removed, and a dressing was applied. Th ere were no immediate complications. FINDINGS: Ultrasound images demonstrate a right pleural effusion and the catheter within the fluid. IMPRESSION: 1. Successful ultrasound-guided thoracentesis yielding 1000 mL of cloudy, yellow fluid. Reviewed, dictated and finalized at location A. TREER IMPRESSION: 1. Successful ultrasound-guided thoracentesis yielding 1000 mL of cloudy, yell ow fluid.
--- NOTE | ~2020-06-23 | US_ITS ---
EXAMINATION: US thoracentesis DATE: 05/09/2020 09:42 INDICATION: pleural effusion TECHNIQUE: The skin was prepped and draped in sterile fashion. 1% lidocaine was used for local anesth esia. Under ultrasound guidance, a 5 Fr catheter with trochar was advanced into the right pleural eff usion. Fluid was aspirated. The catheter was removed, and a dressing was applied. There were no immed iate complications. FINDINGS: Ultrasound images demonstrate a right pleural effusion and the catheter within the fluid. IMPRESSION: 1. Successful ultrasound-guided thoracentesis yielding 1200 mL of cloudy, yellow fluid. Reviewed, dictated and finalized at location A. IMPRESSION: 1. Successful ultrasound-guided thoracentesis yielding 1200 mL of cloudy, yell ow fluid.
--- NOTE | ~2020-06-23 | XR_ITS ---
EXAMINATION: [id number]_CR DATE: 04/04/2020 11:09 INDICATION: Right pleural effusion status post thoracentesis. TECHNIQUE: A single frontal view of the chest was obtained. COMPARISON: Chest single view 04/01/2020 FINDINGS: There are large bilateral pleural effusions. A calcified left lung nodules consistent with old granulomatous disease. There are airspace opacities at the lung bases, likely atelectasis. No pne umothorax. The heart size is obscured. There are old healed left rib fractures. IMPRESSION: 1. Large bilateral pleural effusions. Reviewed, dictated and finalized at location A. TRATOR
--- NOTE | ~2020-06-23 | XR_ITS ---
EXAMINATION: [id number]_CR DATE: 04/18/2020 09:54 INDICATION: Pleural effusion post right thoracentesis. TECHNIQUE: frontal view of the chest was obtained. COMPARISON: Chest radiograph dated 04/15/2020 FINDINGS: Moderate bilateral pleural effusions with associated atelectasis. No pneumothorax. Calcified left api angie nodule consistent with old granulomatous disease. Cardiac silhouette is obscured. A few old left- sided rib fractures. IMPRESSION: 1. Moderate-sized bilateral pleural effusions with by basilar compressive atelectasis. Reviewed, dictated and finalized at location A. MAL INTELLIGENCE ANALYST IMPRESSION: 1. Moderate-sized bilateral pleural effusions with by basilar compressive atele ctasis.
--- NOTE | ~2020-06-23 | US_ITS ---
EXAMINATION: US thoracentesis DATE: 05/21/2020 09:28 INDICATION: Right pleural effusion TECHNIQUE: The procedure and its risks and benefits were discussed with the patient. Potential risks discussed included bleeding, infection, and pneumothorax. The patient understood the risks and agreed to proceed. The skin was prepped and draped in sterile fashion. 1% lidocaine was used for local anes thesia. Under ultrasound guidance, a 5 Fr catheter with trochar was advanced into the right pleural e ffusion. Fluid was aspirated. The catheter was removed, and a dressing was applied. There were no imm ediate complications. FINDINGS: Ultrasound images demonstrate a large right pleural effusion and the catheter within the fluid. IMPRESSION: 1. Successful ultrasound-guided thoracentesis yielding 1200 mL of cloudy yellow fluid. Reviewed, dictated and finalized at location A. IMPRESSION: 1. Successful ultrasound-guided thoracentesis yielding 1200 mL of cloudy yello w fluid.
--- NOTE | ~2020-06-23 | US_ITS ---
EXAMINATION: US thoracentesis DATE: 04/15/2020 15:05 INDICATION: Right pleural effusion TECHNIQUE: The patient has had this procedure several times, understood the risks of bleeding, infe ction, and pneumothorax, and agreed to proceed. A time out was performed to verify patient name, jerardo hdate, and procedure to be performed. The skin was prepared and draped in sterile fashion. 1% lidocai ne was used for local anesthesia. Under ultrasound guidance, a 5 Fr catheter with trochar was advance d into the right pleural effusion. Fluid was aspirated. The catheter was removed, and a dressing was applied. There were no immediate complications. FINDINGS: Ultrasound images demonstrate a right pleural effusion and the catheter within the fluid. IMPRESSION: 1. Successful ultrasound-guided thoracentesis yielding 1000 mL of cloudy elbow fluid. Reviewed, dictated and finalized at location A. ER COMPRESSED GASES
--- NOTE | ~2020-06-23 | XR_ITS ---
EXAMINATION: [id number]_CR DATE: 05/09/2020 09:38 INDICATION: Right pleural effusion status post thoracentesis. TECHNIQUE: A single frontal view of the chest was obtained. COMPARISON: Chest single view 05/07/2020 FINDINGS: A calcified left lung nodule is consistent with old granulomatous disease. There are large pleural effusions. There are airspace opacities at the lung bases, likely atelectasis. No pneumothora x. The heart size is obscured. IMPRESSION: 1. Large pleural effusions. Reviewed, dictated and finalized at location A. IMPRESSION: 1. Large pleural effusions.
--- NOTE | ~2020-06-23 | US_ITS ---
EXAMINATION: US thoracentesis DATE: 04/28/2020 12:11 INDICATION: pleural effusion TECHNIQUE: The skin was prepped and draped in sterile fashion. 1% lidocaine was used for local anesth esia. Under ultrasound guidance, a 5 Fr catheter with trochar was advanced into the right pleural eff usion. Fluid was aspirated. The catheter was removed, and a dressing was applied. There were no immed iate complications. FINDINGS: Ultrasound images demonstrate a right pleural effusion and the catheter within the fluid. IMPRESSION: 1. Successful ultrasound-guided thoracentesis yielding 1000 mL of cloudy, yellow fluid. Reviewed, dictated and finalized at location A. ER AND CELLOPHANER MACHINE IMPRESSION: 1. Successful ultrasound-guided thoracentesis yielding 1000 mL of cloudy, yell ow fluid.
--- NOTE | ~2020-06-23 | XR_ITS ---
[id number]_CR 05/19/2020 09:45 Indication: Postthoracentesis. Pleural effusion. Procedure: AP view of the chest Comparison: Comparison to multiple prior studies sequentially, with oldest reviewed study dated 05/09. Findings: No pneumothorax identified post thoracentesis. Large right and small left pleural effusions . Underlying compressive atelectasis. Heart size difficult to evaluate. No acute osseous abnormality. Impression: 1: Large right and small left pleural effusions with underlying compressive atelectasis. 2: No pneumothorax. Reviewed, dictated and finalized at location B. Impression: 1: Large right and small left pleural effusions with underlying compressive ate lectasis. 2: No pneumothorax.
--- NOTE | ~2020-06-23 | XR_ITS ---
EXAMINATION: [id number]_CR DATE: 06/04/2020 09:30 INDICATION: Right pleural effusion status post thoracentesis. TECHNIQUE: A single frontal view of the chest was obtained. COMPARISON: Chest single view 06/02/2020 FINDINGS: A calcified left lung nodule is consistent with old granulomatous disease. There are large right and moderate-sized left pleural effusions. There are airspace opacities at the lung bases, like ly atelectasis. No pneumothorax. The heart size is obscured. IMPRESSION: 1. Large right and moderate-sized left pleural effusions. Reviewed, dictated and finalized at location A.
--- NOTE | ~2020-06-23 | XR_ITS ---
[id number] 05/21/2020 09:30 Indication: Pleural effusion Procedure: AP view of the chest Comparison: Comparison to multiple prior studies sequentially, with oldest reviewed study dated 05/12. Findings: There is a large right and moderate left pleural effusions. There is bibasilar atelectasis. Cannot exclude superimposed pneumonia or edema. No pneumothorax. Calcified granuloma left apex. Impression: 1: Decreased size of right pleural effusion postthoracentesis without evidence for pneumothorax. 2: Bilateral pleural effusions, right greater than left. 3: Bibasilar and perihilar infiltrates may represent atelectasis, edema and/or pneumonia. Reviewed, dictated and finalized at location B. Impression: 1: Decreased size of right pleural effusion postthoracentesis without evidence for pneumothorax. 2: Bilateral pleural effusions, right greater than left. 3: Bibasilar and perihilar infiltrates may represent atelectasis, edema and/or pneumonia.
--- NOTE | ~2020-06-23 | XR_ITS ---
EXAMINATION: [id number]_CR DATE: 04/01/2020 10:50 INDICATION: Right pleural effusion status post thoracentesis. TECHNIQUE: A single frontal view of the chest was obtained. COMPARISON: Chest single view 03/28/2020 FINDINGS: A calcified left lung nodule is consistent with old granulomatous disease. There are airspa ce opacities in the lungs with a basilar predominance, likely atelectasis. There are large right and moderate-sized left pleural effusions. No pneumothorax. The heart size is obscured. IMPRESSION: 1. Large right and moderate-sized left pleural effusions. Reviewed, dictated and finalized at location A. 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
--- NOTE | ~2020-06-23 | XR_ITS ---
EXAMINATION: [id number] DATE: 05/07/2020 13:48 INDICATION: Right pleural effusion status post thoracentesis. TECHNIQUE: A single frontal view of the chest was obtained. COMPARISON: Chest single view 05/05/2020 FINDINGS: A calcified left lung nodule is consistent with old granulomatous disease. There are large pleural effusions. There is atelectasis at the lung bases. No pneumothorax. The heart size is obscure d. IMPRESSION: 1. Large pleural effusions. Reviewed, dictated and finalized at location A. IMPRESSION: 1. Large pleural effusions.
--- NOTE | ~2020-06-23 | US_ITS ---
EXAMINATION: US thoracentesis DATE: 05/05/2020 13:55 INDICATION: pleural effusion TECHNIQUE: The skin was prepped and draped in sterile fashion. 1% lidocaine was used for local anesth esia. Under ultrasound guidance, a 5 Fr catheter with trochar was advanced into the right pleural eff usion. Fluid was aspirated. The catheter was removed, and a dressing was applied. There were no immed iate complications. FINDINGS: Ultrasound images demonstrate a right pleural effusion and the catheter within the fluid. IMPRESSION: 1. Successful ultrasound-guided thoracentesis yielding 1200 mL of cloudy, yellow fluid. Reviewed, dictated and finalized at location A. IMPRESSION: 1. Successful ultrasound-guided thoracentesis yielding 1200 mL of cloudy, yell ow fluid.
--- NOTE | ~2020-06-23 | US_ITS ---
EXAMINATION: US thoracentesis DATE: 06/11/2020 09:43 INDICATION: pleural effusion TECHNIQUE: The procedure and its risks and benefits were discussed with the patient. Potential risks discussed included bleeding, infection, and pneumothorax. The patient understood the risks and agreed to proceed. The skin was prepped and draped in sterile fashion. 1% lidocaine was used for local anes thesia. Under ultrasound guidance, a 5 Fr catheter with trochar was advanced into the right pleural e ffusion. Fluid was aspirated. The catheter was removed, and a dressing was applied. There were no imm ediate complications. FINDINGS: Ultrasound images demonstrate a large right pleural effusion and the catheter within the fluid. IMPRESSION: 1. Successful ultrasound-guided thoracentesis yielding 1200 mL of cloudy yellow fluid. Reviewed, dictated and finalized at location A. IMPRESSION: 1. Successful ultrasound-guided thoracentesis yielding 1200 mL of cloudy yello w fluid.
--- NOTE | ~2020-06-23 | XR_ITS ---
EXAMINATION: [id number]_CR DATE: 06/06/2020 09:58 INDICATION: Right pleural effusion status post thoracentesis. TECHNIQUE: A single frontal view of the chest was obtained. COMPARISON: Chest single view 06/04/2020 FINDINGS: A calcified left lung nodule is consistent with old granulomatous disease. There are large right and moderate-sized left pleural effusions. There are airspace opacities at the lung bases, like ly atelectasis. No pneumothorax. The heart size is obscured. IMPRESSION: 1. Large right and moderate-sized left pleural effusions. Reviewed, dictated and finalized at location A.
--- NOTE | ~2020-06-23 | XR_ITS ---
EXAMINATION: [id number] DATE: 06/20/2020 09:52 INDICATION: Right pleural effusion status post thoracentesis. TECHNIQUE: A single frontal view of the chest was obtained. COMPARISON: Chest single view 06/18/2020 FINDINGS: A calcified left lung nodule is consistent with old granulomatous disease. There are large right and moderate-sized left pleural effusions. There are airspace opacities at the lung bases, like ly atelectasis. No pneumothorax. The heart size is obscured. There are old healed left rib fractures. IMPRESSION: 1. Large right and moderate-sized left pleural effusions. Reviewed, dictated and finalized at location A.
--- NOTE | ~2020-06-23 | XR_ITS ---
EXAMINATION: [id number] DATE: 04/11/2020 10:11 INDICATION: Pleural effusions post right thoracentesis TECHNIQUE: frontal view of the chest was obtained. COMPARISON: Chest radiograph dated 04/08/20 FINDINGS: Opacities in the bilateral mid and lower lung zones consistent with moderate sized bilateral pleural effusions and associated compressive atelectasis. Calcified nodule in the left upper lung zone consis tent with old granulomatous disease. Cardiac silhouette is obscured. Old left-sided rib fractures. IMPRESSION: 1. Moderate-sized bilateral pleural effusions with bibasilar compressive atelectasis. Reviewed, dictated and finalized at location A. INTERNSHIP IMPRESSION: 1. Moderate-sized bilateral pleural effusions with bibasilar compressive atelec tasis.
--- NOTE | ~2020-06-23 | US_ITS ---
EXAMINATION: US thoracentesis DATE: 03/25/2020 11:09 INDICATION: pleural effusion TECHNIQUE: The skin was prepped and draped in sterile fashion. 1% lidocaine was used for local anesth esia. Under ultrasound guidance, a 5 Fr catheter with trochar was advanced into the right pleural eff usion. Fluid was aspirated. The catheter was removed, and a dressing was applied. There were no immed iate complications. FINDINGS: Ultrasound images demonstrate a right pleural effusion and the catheter within the fluid. IMPRESSION: 1. Successful ultrasound-guided thoracentesis yielding 1000 mL of clear, yellow fluid. Reviewed, dictated and finalized at location A. 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 Successful ultrasound-guided thoracentesis yielding 1000 mL of clear, yello w fluid.
--- NOTE | ~2020-06-23 | US_ITS ---
EXAMINATION: US thoracentesis DATE: 05/12/2020 09:36 INDICATION: Right pleural effusion TECHNIQUE: The procedure and its risks and benefits were discussed with the patient. Potential risks discussed included bleeding, infection, and pneumothorax. The patient understood the risks and agreed to proceed. The skin was prepped and draped in sterile fashion. 1% lidocaine was used for local anes thesia. Under ultrasound guidance, a 5 Fr catheter with trochar was advanced into the right pleural e ffusion. Fluid was aspirated. The catheter was removed, and a dressing was applied. There were no imm ediate complications. FINDINGS: Ultrasound images demonstrate a large right pleural effusion and the catheter within the fluid. IMPRESSION: 1. Successful ultrasound-guided thoracentesis yielding 1200 mL of cloudy yellow fluid. Reviewed, dictated and finalized at location A. IMPRESSION: 1. Successful ultrasound-guided thoracentesis yielding 1200 mL of cloudy yello w fluid.
--- NOTE | ~2020-06-23 | XR_ITS ---
EXAMINATION: [id number]_CR DATE: 05/05/2020 13:52 INDICATION: Right pleural effusion status post thoracentesis. TECHNIQUE: A single frontal view of the chest was obtained. COMPARISON: Chest single view 05/02/2020 FINDINGS: A calcified left lung nodule is consistent with old granulomatous disease. There are large bilateral pleural effusions. There are airspace opacities in the lungs with a basilar predominance, l ikely atelectasis. No pneumothorax. The heart size is obscured. IMPRESSION: 1. Large pleural effusions. Reviewed, dictated and finalized at location A. IMPRESSION: 1. Large pleural effusions.
--- NOTE | ~2020-06-23 | XR_ITS ---
EXAMINATION: XR chest 1V DATE: 06/02/2020 10:32 INDICATION: Right pleural effusion status post thoracentesis. TECHNIQUE: A single frontal view of the chest was obtained. COMPARISON: Chest single view 05/30/2020 FINDINGS: A calcified left lung nodule is consistent with old granulomatous disease. There are large right and moderate-sized left pleural effusions. There are airspace opacities at the lung bases, like ly atelectasis. No pneumothorax. The heart size is obscured. IMPRESSION: 1. Large right and moderate-sized left pleural effusions. Reviewed, dictated and finalized at location A.
--- NOTE | ~2020-06-23 | US_ITS ---
EXAMINATION: US thoracentesis DATE: 05/23/2020 09:47 INDICATION: pleural effusion TECHNIQUE: The procedure and its risks and benefits were discussed with the patient. Potential risks discussed included bleeding, infection, and pneumothorax. The patient understood the risks and agreed to proceed. The skin was prepped and draped in sterile fashion. 1% lidocaine was used for local anes thesia. Under ultrasound guidance, a 5 Fr catheter with trochar was advanced into the right pleural e ffusion. Fluid was aspirated. The catheter was removed, and a dressing was applied. There were no imm ediate complications. FINDINGS: Ultrasound images demonstrate a large right pleural effusion and the catheter within the fluid. IMPRESSION: 1. Successful ultrasound-guided thoracentesis yielding 1200 mL of cloudy yellow fluid. Reviewed, dictated and finalized at location A. IMPRESSION: 1. Successful ultrasound-guided thoracentesis yielding 1200 mL of cloudy yello w fluid.
--- NOTE | ~2020-06-23 | XR_ITS ---
EXAMINATION: [id number]_CR DATE: 06/16/2020 09:39 INDICATION: Right pleural effusion status post thoracentesis. TECHNIQUE: A single frontal view of the chest was obtained. COMPARISON: Chest single view 06/13/2020 FINDINGS: A calcified left lung nodule is consistent with old granulomatous disease. There are large bilateral pleural effusions, right worse than left. There are airspace opacities at the lung bases, l ikely atelectasis. The heart size is obscured. There are old healed left rib fractures. IMPRESSION: 1. Large pleural effusions, right worse than left. Reviewed, dictated and finalized at location A.
--- NOTE | ~2020-06-23 | XR_ITS ---
EXAMINATION: [id number]_CR DATE: 04/08/2020 10:52 INDICATION: Pleural effusions post right thoracentesis TECHNIQUE: frontal view of the chest was obtained. COMPARISON: Chest radiograph dated 04/04/2020 FINDINGS: Opacities in bilateral mid and lower lung zones consistent with moderate sized bilateral pleural effu sions and associated compressive atelectasis. No pulmonary edema in the visualized aerated portion of the lungs. Calcified left apical nodule consistent with old granulomatous disease. No pneumothorax. Cardiac silhouette is obscured. Old healed left-sided rib fractures. IMPRESSION: 1. Moderate-sized bilateral pleural effusions with bibasilar compressive atelectasis. Reviewed, dictated and finalized at location A. 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 Moderate-sized bilateral pleural effusions with bibasilar compressive atelec tasis.
--- NOTE | ~2020-06-23 | US_ITS ---
EXAMINATION: US thoracentesis DATE: 04/04/2020 11:17 INDICATION: pleural effusion TECHNIQUE: The skin was prepped and draped in sterile fashion. 1% lidocaine was used for local anesth esia. Under ultrasound guidance, a 5 Fr catheter with trochar was advanced into the right pleural eff usion. Fluid was aspirated. The catheter was removed, and a dressing was applied. There were no immed iate complications. FINDINGS: Ultrasound images demonstrate a right pleural effusion and the catheter within the fluid. IMPRESSION: 1. Successful ultrasound-guided thoracentesis yielding 1000 mL of cloudy, yellow fluid. Reviewed, dictated and finalized at location A. WORKER IMPRESSION: 1. Successful ultrasound-guided thoracentesis yielding 1000 mL of cloudy, yell ow fluid.
--- NOTE | ~2020-06-23 | XR_ITS ---
EXAMINATION: [id number]_CR DATE: 06/11/2020 09:38 INDICATION: Pleural effusion postthoracentesis TECHNIQUE: frontal view of the chest was obtained. COMPARISON: Chest radiograph dated 06/09/20 FINDINGS: Opacities in the bilateral mid and lower lung zones consistent with large right and moderate to large left pleural effusions and associated atelectasis although pneumonia not excludable. No pneumothorax . Cardiac silhouette is obscured. IMPRESSION: 1. Large right and moderate to large left pleural effusions with associated atelectasis. Reviewed, dictated and finalized at location A. IMPRESSION: 1. Large right and moderate to large left pleural effusions with associated ate lectasis.
--- NOTE | ~2020-06-23 | US_ITS ---
EXAMINATION: US thoracentesis DATE: 06/20/2020 10:20 INDICATION: pleural effusion TECHNIQUE: The skin was prepped and draped in sterile fashion. 1% lidocaine was used for local anesth esia. Under ultrasound guidance, a 5 Fr catheter with trochar was advanced into the right pleural eff usion. Fluid was aspirated. The catheter was removed, and a dressing was applied. There were no immed iate complications. FINDINGS: Ultrasound images demonstrate a right pleural effusion and the catheter within the fluid. IMPRESSION: 1. Successful ultrasound-guided thoracentesis yielding 1200 mL of yellow fluid. Reviewed, dictated and finalized at location A. IMPRESSION: 1. Successful ultrasound-guided thoracentesis yielding 1200 mL of yellow fluid .
--- NOTE | ~2020-06-23 | US_ITS ---
EXAMINATION: US thoracentesis DATE: 05/14/2020 09:38 INDICATION: Right pleural effusion TECHNIQUE: The procedure and its risks and benefits were discussed with the patient. Potential risks discussed included bleeding, infection, and pneumothorax. The patient understood the risks and agreed to proceed. The skin was prepped and draped in sterile fashion. 1% lidocaine was used for local anes thesia. Under ultrasound guidance, a 5 Fr catheter with trochar was advanced into the right pleural e ffusion. Fluid was aspirated. The catheter was removed, and a dressing was applied. There were no imm ediate complications. FINDINGS: Ultrasound images demonstrate a large pleural effusion and the catheter within the fluid. IMPRESSION: 1. Successful ultrasound-guided thoracentesis yielding 1200 mL of cloudy yellow fluid. Reviewed, dictated and finalized at location A. IMPRESSION: 1. Successful ultrasound-guided thoracentesis yielding 1200 mL of cloudy yello w fluid.
--- NOTE | ~2020-06-23 | XR_ITS ---
[id number]_CR 05/12/2020 09:32 Indication: Pleural effusion Procedure: AP view of the chest Comparison: Comparison to multiple prior studies sequentially, with oldest reviewed study dated 05/02. Findings: There is pulmonary edema with moderate pleural effusions. Calcified granuloma left apex. No acute osseous abnormality. Impression: 1: Persistent pulmonary edema with moderate pleural effusions. Reviewed, dictated and finalized at location A. Impression: 1: Persistent pulmonary edema with moderate pleural effusions.
--- NOTE | ~2020-06-23 | US_ITS ---
US thoracentesis DATE: 06/21/2020 12:57 INDICATION: Right pleural effusion TECHNIQUE: Purpose of the procedure, technique and potential complications including pneumothorax wer e explained to patient. Patient indicated understanding and gave consent. A lower posterior lateral right intercostal space with access to the right pleural fluid collection w as identified sonographically. The overlying skin and subcutaneous tissues were prepared with sterile Betadine. 1% lidocaine was administered to the skin and subcutaneous tissues. A single stick percutaneous needle/catheter was introduced into the pleural space uneventfully, with return of clear yellowish pleural fluid; 1200 cc was drained into a vacuum container. The patient was very cooperative and tolerated the procedure well, without apparent complication. Portable chest radiograph following the procedure revealed no evidence of iatrogenic pneumothorax. IMPRESSION: Successful sonographically directed percutaneous right thoracentesis yielding 1200 cc kenny ar yellowish pleural fluid, without pneumothorax Reviewed, dictated and finalized at Location A. Reviewed, dictated and finalized at location A. IMPRESSION: Successful sonographically directed percutaneous right thoracentesi s yielding 1200 cc clear yellowish pleural fluid, without pneumothorax
--- NOTE | ~2020-06-23 | XR_ITS ---
EXAMINATION: [id number]_CR DATE: 05/28/2020 11:56 INDICATION: Right pleural effusion status post thoracentesis. TECHNIQUE: A single frontal view of the chest was obtained. COMPARISON: Chest single view 05/26/2020 FINDINGS: There are large pleural effusions, right worse than left. A calcified left lung nodule is c onsistent with old granulomatous disease. There are airspace opacities at the lung bases, likely atel ectasis. No pneumothorax. The heart size is obscured. IMPRESSION: 1. Large pleural effusions, right worse than left. Reviewed, dictated and finalized at location A.
--- NOTE | ~2020-06-23 | US_ITS ---
EXAMINATION: US thoracentesis DATE: 06/18/2020 09:39 INDICATION: pleural effusion TECHNIQUE: The skin was prepped and draped in sterile fashion. 1% lidocaine was used for local anesth esia. Under ultrasound guidance, a 5 Fr catheter with trochar was advanced into the right pleural eff usion. Fluid was aspirated. The catheter was removed, and a dressing was applied. There were no immed iate complications. FINDINGS: Ultrasound images demonstrate a right pleural effusion and the catheter within the fluid. IMPRESSION: 1. Successful ultrasound-guided thoracentesis yielding 1200 mL of cloudy, yellow fluid. Reviewed, dictated and finalized at location A. IMPRESSION: 1. Successful ultrasound-guided thoracentesis yielding 1200 mL of cloudy, yell ow fluid.
--- NOTE | ~2020-06-23 | US_ITS ---
EXAMINATION: US thoracentesis DATE: 05/19/2020 09:47 INDICATION: pleural effusion TECHNIQUE: The procedure and its risks and benefits were discussed with the patient. Potential risks discussed included bleeding, infection, and pneumothorax. The patient understood the risks and agreed to proceed. The skin was prepped and draped in sterile fashion. 1% lidocaine was used for local anes thesia. Under ultrasound guidance, a 5 Fr catheter with trochar was advanced into the right pleural e ffusion. Fluid was aspirated. The catheter was removed, and a dressing was applied. There were no imm ediate complications. FINDINGS: Ultrasound images demonstrate a large right pleural effusion and the catheter within the fluid. IMPRESSION: 1. Successful ultrasound-guided thoracentesis yielding 1200 mL of cloudy yellow fluid. Reviewed, dictated and finalized at location A. IMPRESSION: 1. Successful ultrasound-guided thoracentesis yielding 1200 mL of cloudy yello w fluid.
--- NOTE | ~2020-06-23 | US_ITS ---
EXAMINATION: US thoracentesis DATE: 05/28/2020 11:59 INDICATION: pleural effusion TECHNIQUE: The skin was prepped and draped in sterile fashion. 1% lidocaine was used for local anesth esia. Under ultrasound guidance, a 5 Fr catheter with trochar was advanced into the right pleural eff usion. Fluid was aspirated. The catheter was removed, and a dressing was applied. There were no immed iate complications. FINDINGS: Ultrasound images demonstrate a right pleural effusion and the catheter within the fluid. IMPRESSION: 1. Successful ultrasound-guided thoracentesis yielding 1200 mL of cloudy, yellow fluid. Reviewed, dictated and finalized at location A. IMPRESSION: 1. Successful ultrasound-guided thoracentesis yielding 1200 mL of cloudy, yell ow fluid.
--- NOTE | ~2020-06-23 | US_ITS ---
EXAMINATION: US thoracentesis DATE: 06/09/2020 10:58 INDICATION: Right pleural effusion TECHNIQUE: The procedure and its risks and benefits were discussed with the patient. Potential risks discussed included bleeding, infection, and pneumothorax. The patient understood the risks and agreed to proceed. The skin was prepped and draped in sterile fashion. 1% lidocaine was used for local anes thesia. Under ultrasound guidance, a 5 Fr catheter with trochar was advanced into the right pleural e ffusion. Fluid was aspirated. The catheter was removed, and a dressing was applied. There were no imm ediate complications. FINDINGS: Ultrasound images demonstrate a large right pleural effusion and the catheter within the fluid. IMPRESSION: 1. Successful ultrasound-guided thoracentesis yielding 1200 mL of cloudy yellow fluid. Reviewed, dictated and finalized at location A. IMPRESSION: 1. Successful ultrasound-guided thoracentesis yielding 1200 mL of cloudy yello w fluid.
--- NOTE | ~2020-06-23 | US_ITS ---
EXAMINATION: US thoracentesis DATE: 05/07/2020 14:02 INDICATION: pleural effusion TECHNIQUE: The skin was prepped and draped in sterile fashion. 1% lidocaine was used for local anesth esia. Under ultrasound guidance, a 5 Fr catheter with trochar was advanced into the right pleural eff usion. Fluid was aspirated. The catheter was removed, and a dressing was applied. There were no immed iate complications. FINDINGS: Ultrasound images demonstrate a right pleural effusion and the catheter within the fluid. IMPRESSION: 1. Successful ultrasound-guided thoracentesis yielding 1200 mL of cloudy, yellow fluid. Reviewed, dictated and finalized at location A. IMPRESSION: 1. Successful ultrasound-guided thoracentesis yielding 1200 mL of cloudy, yell ow fluid.
--- NOTE | ~2020-06-23 | US_ITS ---
EXAMINATION: US thoracentesis DATE: 05/02/2020 10:11 INDICATION: Right pleural effusion TECHNIQUE: The patient has this procedure to 3 times weekly. She knowledge and understanding of the r isks of bleeding and infection and pneumothorax and agreed to proceed. A time out was performed to ve rify the patient's name, birthdate, and procedure to be performed. The skin was prepared and draped i n sterile fashion. 1% lidocaine was used for local anesthesia. Under ultrasound guidance, a 5 Fr cath eter with trochar was advanced into the right pleural effusion. Fluid was aspirated. The catheter was removed, and a dressing was applied. There were no immediate complications. FINDINGS: Ultrasound images demonstrate a right pleural effusion and the catheter within the fluid. IMPRESSION: 1. Successful ultrasound-guided thoracentesis yielding 1000 mL of cloudy yellow fluid. Reviewed, dictated and finalized at location A. 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 Successful ultrasound-guided thoracentesis yielding 1000 mL of cloudy yello w fluid.
--- NOTE | ~2020-06-23 | US_ITS ---
EXAMINATION: US thoracentesis DATE: 04/30/2020 12:34 INDICATION: pleural effusion TECHNIQUE: The procedure and its risks, benefits, and alternatives were discussed with the patient. P otential risks discussed included bleeding, infection, and pneumothorax. The patient understood the r isks and agreed to proceed. The skin was prepped and draped in sterile fashion. 1% lidocaine was used for local anesthesia. Under ultrasound guidance, a 5 Fr catheter with trochar was advanced into the right pleural effusion. Fluid was aspirated. The catheter was removed, and a dressing was applied. Th ere were no immediate complications. FINDINGS: Ultrasound images demonstrate a right pleural effusion and the catheter within the fluid. IMPRESSION: 1. Successful ultrasound-guided thoracentesis yielding 1100 mL of cloudy, yellow fluid. Reviewed, dictated and finalized at location A. 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 Successful ultrasound-guided thoracentesis yielding 1100 mL of cloudy, yell ow fluid.
--- NOTE | 2020-06-23 10:58 | SUR.PHASEII ---
1050 -LT AC IV catheter removed. catheter intact. dressing applied.
--- NOTE | 2020-06-23 12:33 | SUR.PHASEII ---
1320 - iv dc'd and catheter intact
== END 2020-06-23 23:59 | disposition home or self-care (01) ==
LOC: ANHIMG 08:50
PROVIDERS: Radiology Diagnostic Radiology; PCP Family Medicine; Referring Provider Family Medicine; Visit Provider Family Medicine
DX: K74.60 Unspecified cirrhosis of liver (principal); J90 Pleural effusion, not elsewhere classified
CPT/HCPCS: 32555; 36415; 71045; 85027; 85610; 85730; C9803; U0003; U0005

== ENCOUNTER 2020-07-14 09:30 | Outpatient (RCR) | payer MEDICARE, SELFPAY ==
[2020-06-25 09:55] VITALS: BP 149/66; PULSE 98; RESP 20; O2SAT 96
[2020-06-25 09:57] VITALS: BP 143/62; BP 161/85; PULSE 108; PULSE 109; RESP 32; O2SAT 97; O2SAT 98
[2020-06-25 10:10] VITALS: BP 146/76; PULSE 98; RESP 20; O2SAT 99
[2020-06-25 10:25] VITALS: BP 144/67; PULSE 86; RESP 20; O2SAT 98
[2020-06-25 10:40] VITALS: BP 145/70; PULSE 85; RESP 20; O2SAT 97
[2020-06-26 12:27] VITALS: BP 127/64; BP 147/70; PULSE 100; PULSE 104; RESP 24; RESP 30; O2SAT 100; O2SAT 99
[2020-06-27 12:16] VITALS: BP 134/52; PULSE 98; RESP 20; O2SAT 97
[2020-06-27 12:30] VITALS: BP 130/54; PULSE 90; RESP 20; O2SAT 98
[2020-06-27 12:36] VITALS: BP 148/64; PULSE 106; RESP 24; O2SAT 99
[2020-06-27 12:37] VITALS: BP 137/83; PULSE 105; RESP 28; O2SAT 98
[2020-06-27 12:45] VITALS: BP 125/63; PULSE 82; RESP 20; O2SAT 95
[2020-06-27 13:00] VITALS: BP 144/60; PULSE 83; RESP 20; O2SAT 95
[2020-06-30 10:08] VITALS: BP 140/67; PULSE 104; RESP 20; O2SAT 97
[2020-06-30 10:13] VITALS: BP 154/82; BP 160/73; PULSE 114; PULSE 117; RESP 28; RESP 30; O2SAT 96; O2SAT 97
[2020-06-30 10:20] VITALS: BP 152/61; PULSE 108; RESP 22; O2SAT 94
[2020-06-30 10:35] VITALS: BP 158/58; PULSE 103; RESP 20; O2SAT 95
[2020-06-30 10:50] VITALS: BP 138/66; PULSE 97; RESP 20; O2SAT 95
[2020-07-02 09:50] VITALS: BP 151/75; PULSE 100; RESP 22; O2SAT 99
[2020-07-02 10:05] VITALS: BP 147/68; PULSE 95; RESP 20; O2SAT 98
[2020-07-02 10:19] VITALS: BP 154/60; PULSE 113; RESP 32; O2SAT 97
[2020-07-02 10:20] VITALS: BP 143/52; BP 145/67; PULSE 109; PULSE 96; RESP 22; RESP 30; O2SAT 96; O2SAT 99
[2020-07-02 10:35] VITALS: BP 135/66; PULSE 93; RESP 22; O2SAT 95
--- NOTE | 2020-07-02 10:43 | SUR.PHASEII ---
1043- Notified Dr. Clemente patient ready for discharge with stable vital signs.
--- NOTE | ~2020-07-14 | XR_ITS ---
EXAMINATION: XR_[id number]_CR DATE: 06/30/2020 10:07 INDICATION: Pleural effusion status post thoracentesis. TECHNIQUE: A single frontal view of the chest was obtained. COMPARISON: Chest single view 06/27/2020 FINDINGS: A calcified left lung nodule is consistent with old granulomatous disease. There are large right and moderate-sized left pleural effusions. There are airspace opacities at the lung bases, like ly atelectasis. No pneumothorax. The heart size is obscured. IMPRESSION: 1. Large right and moderate-sized left pleural effusions. Reviewed, dictated and finalized at location B.
--- NOTE | ~2020-07-14 | US_ITS ---
EXAMINATION: US thoracentesis DATE: 06/26/2020 12:30 INDICATION: pleural effusion. Cirrhosis of liver. TECHNIQUE: The procedure and its risks and benefits were discussed with the patient. Potential risks discussed included bleeding, infection, and pneumothorax. The patient understood the risks and agreed to proceed. The skin was prepped and draped in sterile fashion. 1% lidocaine was used for local anes thesia. Under ultrasound guidance, a 5 Fr catheter with trochar was advanced into the left pleural ef fusion. Fluid was aspirated. The catheter was removed, and a dressing was applied. There were no imme diate complications. FINDINGS: Ultrasound images demonstrate a moderate-sized left pleural effusion and the catheter within the flui d. IMPRESSION: 1. Successful ultrasound-guided thoracentesis yielding 1200 mL of cloudy yellow fluid. Reviewed, dictated and finalized at location A. IMPRESSION: 1. Successful ultrasound-guided thoracentesis yielding 1200 mL of cloudy yello w fluid.
--- NOTE | ~2020-07-14 | XR_ITS ---
EXAMINATION: [id number]_CR INDICATION: Pleural effusion post thoracentesis TECHNIQUE: AP view of the chest is obtained. COMPARISON: 06/26/2020 FINDINGS: Bilateral pleural effusions persist with slight decrease on the right. There are moderate-s ized bilateral pleural effusions. No pneumothorax is identified. Persistent opacities are present in the mid and lower lung zones. The heart border is obscured. IMPRESSION: 1. Pleural effusions with slight decrease on the right post thoracentesis. No pneumothorax. Reviewed, dictated and finalized at location A. IMPRESSION: 1. Pleural effusions with slight decrease on the right post thoracentesis. No p neumothorax.
--- NOTE | ~2020-07-14 | US_ITS ---
EXAMINATION: US thoracentesis DATE: 06/30/2020 10:16 INDICATION: pleural effusion TECHNIQUE: The procedure and its risks and benefits were discussed with the patient. Potential risks discussed included bleeding, infection, and pneumothorax. The patient understood the risks and agreed to proceed. The skin was prepped and draped in sterile fashion. 1% lidocaine was used for local anes thesia. Under ultrasound guidance, a 5 Fr catheter with trochar was advanced into the right pleural e ffusion. Fluid was aspirated. The catheter was removed, and a dressing was applied. There were no imm ediate complications. FINDINGS: Ultrasound images demonstrate a large right pleural effusion and the catheter within the fluid. IMPRESSION: 1. Successful ultrasound-guided thoracentesis yielding 1200 mL of cloudy reddish-yellow fluid. Reviewed, dictated and finalized at location A. IMPRESSION: 1. Successful ultrasound-guided thoracentesis yielding 1200 mL of cloudy chano sh-yellow fluid.
--- NOTE | ~2020-07-14 | XR_ITS ---
EXAMINATION: [id number]_[id number]_CR DATE: 06/25/2020 09:55 INDICATION: Pleural effusion postthoracentesis TECHNIQUE: frontal view of the chest was obtained. COMPARISON: Chest radiograph dated 06/23/2020 FINDINGS: Persistent moderate to large bilateral pleural effusions with associated atelectasis in the bilateral mid and lower lung zones. Calcified left apical nodule consistent with old granulomatous disease. No pneumothorax. The cardiac silhouette is obscured. Superior mediastinal silhouette is normal. IMPRESSION: 1. Moderate to large bilateral pleural effusions with associated atelectasis Reviewed, dictated and finalized at location A.
--- NOTE | ~2020-07-14 | US_ITS ---
EXAMINATION: US thoracentesis DATE: 06/27/2020 12:39 INDICATION: Pleural effusions TECHNIQUE: The patient has this procedure several times per week. She understands the risks and benef its and agreed to proceed. The skin was prepared and draped in sterile fashion. 1% lidocaine was used for local anesthesia. Under ultrasound guidance, a 5 Fr catheter with trochar was advanced into the right pleural effusion. Fluid was aspirated. The catheter was removed, and a dressing was applied. Th ere were no immediate complications. FINDINGS: Ultrasound images demonstrate a right pleural effusion and the catheter within the fluid. IMPRESSION: 1. Successful ultrasound-guided right thoracentesis yielding 1200 mL of yellow fluid. Reviewed, dictated and finalized at location A.
--- NOTE | ~2020-07-14 | XR_ITS ---
XR_[id number]_CR DATE: 07/02/2020 09:51 INDICATION: Post right thoracentesis examination TECHNIQUE: AP chest on 07/02/2020 at 0948 hours COMPARISON: 06/30/2020 AP chest FINDINGS: There are bilateral pleural effusions, right greater than left. Right pleural effusion is d iminished compared to 06/30/2020. There is no evidence of right pneumothorax following thoracentesis p rior to this examination. There are bibasilar infiltrates/compressive atelectasis. Heart size is not optimally evaluated due to the surrounding infiltrates, atelectasis and pleural eff usions. IMPRESSION: No evidence of iatrogenic pneumothorax post right thoracentesis Reviewed, dictated and finalized at Location A. Reviewed, dictated and finalized at location A.
--- NOTE | ~2020-07-14 | US_ITS ---
EXAMINATION: US thoracentesis DATE: 07/02/2020 10:21 INDICATION: pleural effusion TECHNIQUE: The procedure and its risks and benefits were discussed with the patient. Potential risks discussed included bleeding, infection, and pneumothorax. The patient understood the risks and agreed to proceed. The skin was prepped and draped in sterile fashion. 1% lidocaine was used for local anes thesia. Under ultrasound guidance, a 5 Fr catheter with trochar was advanced into the right pleural e ffusion. Fluid was aspirated. The catheter was removed, and a dressing was applied. There were no imm ediate complications. FINDINGS: Ultrasound images demonstrate a large right pleural effusion and the catheter within the fluid. IMPRESSION: 1. Successful ultrasound-guided thoracentesis yielding 1200 mL of cloudy mfkpbkr-wytei-bqpvefz fluid . Reviewed, dictated and finalized at location A. IMPRESSION: 1. Successful ultrasound-guided thoracentesis yielding 1200 mL of cloudy pinki bu-blaoa-vmrcxap fluid.
--- NOTE | ~2020-07-14 | XR_ITS ---
EXAMINATION: XR_[id number]_CR DATE: 06/26/2020 12:29 INDICATION: Pleural effusion post left thoracentesis TECHNIQUE: frontal view of the chest was obtained. COMPARISON: Chest radiograph dated 06/25/2020 FINDINGS: Opacities in the right mid to lower and left lower lung zones consistent with moderate sized right an d small left pleural effusions and associated compressive atelectasis. Calcified left upper lobe nodu le consistent with old granulomatous disease. No pneumothorax. Cardiac silhouette is obscured. Superi or mediastinal silhouette is normal. IMPRESSION: 1. Moderate-sized right and small left pleural effusions with associated atelectasis. Reviewed, dictated and finalized at location A. IMPRESSION: 1. Moderate-sized right and small left pleural effusions with associated atelec tasis.
--- NOTE | ~2020-07-14 | US_ITS ---
EXAMINATION: US thoracentesis DATE: 06/25/2020 09:59 INDICATION: pleural effusion TECHNIQUE: The procedure and its risks and benefits were discussed with the patient. Potential risks discussed included bleeding, infection, and pneumothorax. The patient understood the risks and agreed to proceed. The skin was prepped and draped in sterile fashion. 1% lidocaine was used for local anes thesia. Under ultrasound guidance, a 5 Fr catheter with trochar was advanced into the right pleural e ffusion. Fluid was aspirated. The catheter was removed, and a dressing was applied. There were no imm ediate complications. FINDINGS: Ultrasound images demonstrate a large right pleural effusion and the catheter within the fluid. IMPRESSION: 1. Successful ultrasound-guided thoracentesis yielding 1200 mL of cloudy yellow fluid. Reviewed, dictated and finalized at location A. IMPRESSION: 1. Successful ultrasound-guided thoracentesis yielding 1200 mL of cloudy yello w fluid.
== END 2020-09-23 23:59 | disposition home or self-care (01) ==
LOC: ANHIMG 09:30
PROVIDERS: Radiology Diagnostic Radiology; PCP Family Medicine; Visit Provider Family Medicine
DX: K74.60 Unspecified cirrhosis of liver (principal)
CPT/HCPCS: 32555

== ENCOUNTER 2020-11-11 13:01 | Outpatient (CLI) | payer MEDICARE, SELFPAY ==
--- NOTE | ~2020-11-11 | XR_ITS ---
EXAMINATION: XR chest 2V DATE: 11/11/2020 13:22 INDICATION: Pleural effusion. TECHNIQUE: Frontal and lateral views of the chest were obtained. COMPARISON: Chest single view 07/02/2020, chest CT 06/07/2019 FINDINGS: A calcified left lung nodule is consistent with old granulomatous disease. There are small right and moderate-sized left pleural effusions. A right-sided chest tube is noted. There are airspac e opacities at the lung bases. There is a tiny right apical pneumothorax. The heart size is normal. A partially visualized stent in right abdomen may be an internal ureteral stent. There is a chronic bu rst fracture of T12. IMPRESSION: 1. Small right pleural effusion and tiny right apical pneumothorax with right-sided chest tube in exp ected position. 2. Moderate-sized left pleural effusion. 3. Airspace opacities at the lung bases, consistent with atelectasis or less likely pneumonia. Reviewed, dictated and finalized at location A. IMPRESSION: 1. Small right pleural effusion and tiny right apical pneumothorax with right-s ided chest tube in expected position. 2. Moderate-sized left pleural effusion. 3. Airspace opacities at the lung bases, consistent with atelectasis or less li rachel pneumonia.
== END 2020-11-11 13:02 | disposition home or self-care (01) ==
LOC: ANHIMG 13:05
PROVIDERS: PCP Family Medicine; Visit Provider Family Medicine
DX: J90 Pleural effusion, not elsewhere classified (principal); R91.8 Other nonspecific abnormal finding of lung field
CPT/HCPCS: 71046

== ENCOUNTER 2021-03-12 10:53 | Inpatient (IN) | payer MEDICARE, SELFPAY ==
[2021-03-12] VITALS (28 sets, daily range): BP systolic 90–149; BP diastolic 46–106; PULSE 72–93; RESP 12–32; TEMP 36.6–38; O2SAT 96–100; BMI 26.7
--- NOTE | ~2021-03-12 | XR_ITS ---
XR chest 2V DATE: 03/15/2021 13:43 INDICATION: Shortness of breath TECHNIQUE: PA and lateral views COMPARISON: 03/12/2021 CTA chest abdomen pelvis Portable AP chest on 03/12/2021 FINDINGS: Heart size is normal. There are bilateral pleural effusions, moderate on the right, mild on the left. There is infiltrate a nd/atelectasis in both lower lung zones, also greater on the right. Right Port-A-Cath catheter tip is situated in the superior cavoatrial junction. No pneumothorax. IMPRESSION: Increased right pleural effusion and right basilar infiltrate or atelectasis and mildly d iminished infiltrate or atelectasis in the left lower lung since 03/12/2021. Moderate right and mild left pleural effusion Reviewed, dictated and finalized at location A. MIC PROSPECTING SUPERVISOR IMPRESSION: Increased right pleural effusion and right basilar infiltrate or at electasis and mildly diminished infiltrate or atelectasis in the left lower alejandro g since 03/12/2021. Moderate right and mild left pleural effusion
--- NOTE | ~2021-03-12 | CT_ITS ---
EXAMINATION: CT chest abdomen pelvis wo con DATE: 03/12/2021 15:33 INDICATION: Pleural effusion and COPD TECHNIQUE: Transaxial computed tomographic images of the chest, abdomen, and pelvis were obtained wi thout intravenous contrast. The dose-length product (DLP) was 522.85 mGy-cm. Automated exposure contr ol and iterative reconstruction technique were employed. COMPARISON: 06/07/2019 FINDINGS: CHEST CT: There are small pleural effusions. A drainage catheter is present in the right pleural space. There i s dependent atelectasis, worst in the lower lobes. Calcified pulmonary nodules and calcified left hil ar lymph nodes are consistent with old granulomatous disease. There is no pneumothorax. A right inter nal jugular Port-A-Cath ends with its tip in the proximal right atrium. No pathologically enlarged th oracic lymph nodes are identified. The heart size is normal. Calcified coronary artery atherosclerosi s is noted. There is a chronic burst fracture of T12. Also noted is a chronic mild compression deform ity of T3. ABDOMEN/PELVIS CT: There is nodularity of the liver surface. The mildly enlarged spleen measures up to 14.1 cm. The gall bladder is absent. The pancreas and right adrenal gland are normal. There is a stable 2.1 cm mass of the left adrenal gland containing macroscopic fat, consistent with an adenoma. A right internal urete ral stent is in expected position. There is mild right hydronephrosis. There is an 8 mm cyst of the r ight kidney. The left kidney is unremarkable. There is calcified atherosclerosis of the aorta and man y of the other arteries. There is a small volume of pelvic ascites. Colonic diverticulosis is present without evidence of diverticulitis. No pathologically enlarged abdominal or pelvic lymph nodes are i dentified. There is no free intraperitoneal gas or evidence of bowel obstruction. There is a right in guinal hernia containing fat and a small volume of ascites. IMPRESSION: 1. Small pleural effusions with a drainage catheter in the right pleural space. 2. Mild dependent atelectasis, worst in the lower lobes. 3. Cirrhosis with portal hypertension and a small volume of pelvic ascites. Reviewed, dictated and finalized at location F. LIGHT INSPECTOR
--- NOTE | ~2021-03-12 | XR_ITS ---
EXAMINATION: XR chest 1V portable EXAM DATE: 03/12/2021 11:28 INDICATION: SOB, general malaise. TECHNIQUE: Portable AP frontal chest x-ray was obtained. Comparison is made to prior examination from 11/11/2020. FINDINGS: Mild cardiomegaly. Small to moderate left, small right pleural effusions. There is adjacent atelectasis. Possible superimposed pneumonia or edema. CT injectable portacatheter. Moderate to gayatri re anterior wedging of lower thoracic level probably T12. No pneumothorax. Left apical granuloma. Old left rib fractures. IMPRESSION: 1. Small to moderate left, small right pleural effusions with adjacent atelectasis. 2. Probable superimposed pneumonia or edema. 3. Mild cardiomegaly. Reviewed, dictated and finalized at location B. SPRING STRIP GAUGER IMPRESSION: 1. Small to moderate left, small right pleural effusions with adjacent atelect asis. 2. Probable superimposed pneumonia or edema. 3. Mild cardiomegaly.
--- NOTE | 2021-03-12 11:06 | ECG_ITS ---
Measurements Intervals [place] Rate: 81 P: 25 GA: 173 QRS: -18 QRSD: 89 T: 31 QT: 344 QTc: 402 Interpretive Statements SINUS RHYTHM WITH SINUS ARRHYTHMIA INFERIOR INFARCT, AGE INDETERMINATE BASELINE ARTIFACT- V3, V5 ABNORMAL ECG Electronically Signed On 03-12-2021 11:45:02 REFUGE WORKER by Alcides Crowder D.O.
[2021-03-12 11:23] LABS: Basophils Absolute Auto 0.1 K/mm3 (0.0-0.1); Basophils Percent Auto 0.8 % (0.2-1.2); Eosinophils Absolute Auto 0.1 K/mm3 (0-0.3); Eosinophils Percent Auto 1.2 % (0-4.4); Hematocrit 29.2 % (37.0-47.0); Hemoglobin 9.8 g/dL (12.0-15.0); Immature Granulocyte Percent A 7.6 % (0-0.5); Lymphocytes Absolute Auto 0.39 K/mm3 (0.9-3.2); Lymphocytes Percent Auto 5.9 % (18.3-44.2); Mean Corpuscular HGB Conc 33.6 g/dl (32-36); Mean Corpuscular Hemoglobin 30.8 pg (26-34); Mean Corpuscular Volume 91.8 fl (80-100); Mean Platelet Volume 9.6 fl (7.4-10.4); Monocytes Absolute Auto 0.9 K/mm3 (0.1-0.6); Monocytes Percent Auto 13.6 % (2.6-8.5); Neutrophils Absolute Auto 4.7 K/mm3 (1.3-6.7); Neutrophils Percent Auto 70.9 % (45.5-73.1); Platelet Count Result 179 k/mm3 (150-375); Red Blood Count 3.18 M/mm3 (4.2-5.4); Red Cell Distribution Width 13.2 % (11.5-14.5); White Blood Count 6.6 K/mm3 (4.5-10.0)
[2021-03-12 11:31] LABS: Alanine Aminotransferase 23 U/L (4-35); Albumin Level 2.5 g/dL (3.5-5.1); Alkaline Phosphatase 265 U/L (38-126); Anion Gap 7 mmol/L (8-16); Aspartate Amino Transferase 46 U/L (14-36); Bilirubin,Total 0.6 mg/dL (0.2-1.3); Blood Urea Nitrogen 46 mg/dL (7-17); Calcium 8.4 mg/dL (8.4-10.2); Carbon Dioxide 22 mmol/L (22-30); Chloride 102 mmol/L (98-107); Estimated CRCL calculation 19 ml/min; Estimated Glomerular Filt Rate 27; Glucose 169 mg/dL (65-110); Potassium 4.6 mmol/L (3.4-5.0); Sodium 131 mmol/L (137-145)
[2021-03-12 11:58] LABS: NT Pro B Type Natriuretic Pept 464 pg/mL (5-100); Troponin I < 0.012 ng/mL (0.000-0.034)
--- NOTE | 2021-03-12 12:59 | ED.GENADULT ---
HPI - General Adult General Chief complaint: Shortness of Breath/Dyspnea Stated complaint: fever, SOB Time Seen by Provider: 03/12/21 11:31 History of Present Illness HPI narrative: Patient is 80-year-old female who presents the emergency department with chief complaint of shortness of breath. Patient reports that she has a history of a pleural drain she has had history of cancer which she has undergone treatment and is reported to be cancer free. Patient also has history of cirrhosis. Patient reports that her nurse quintin off about 250 mL of pleural fluid but has not had any more draining and reports that she had a fever at home for the last 24 hours. The patient states that she had a cough with this and reports that she is felt weaker than normal. The patient reports symptoms are not improved by anything or they worsened by anything. Related Data Home Medications Medication Instructions Recorded Confirmed furosemide 80 mg PO DAILY 04/17/19 10/16/19 famotidine 20 mg PO DAILY 06/27/19 10/16/19 spironolactone 50 mg PO DAILY 10/16/19 10/16/19 albuterol sulfate 1 inh INHALATION PRN PRN 10/23/19 10/23/19 Allergies Allergy/AdvReac Type Severity Reaction Status Date / Time lisinopril Allergy Severe ANAPHYLAXIS Verified 03/12/21 11:08 codeine AdvReac Unknown Nausea and Verified 03/12/21 11:08 Vomiting NSAIDS (Non-Steroidal AdvReac Other Verified 03/12/21 11:08 Anti-Inflamma tramadol AdvReac HALLUCINATI Verified 03/12/21 11:08 ONS Review of Systems Review of Systems: A 10 system review of systems was completed on the patient and is negative except for what is stated in the HPI. Nursing and ancillary documentation was reviewed. REPLACED BY [facility] Past Medical History Medical History (Updated 03/12/21 @ 13:01 by Dylan Núñez MD) Asthma Breast cancer Status post right lumpectomy in 2013. Chronic anemia Essential hypertension JOEL (nonalcoholic steatohepatitis) Osteoarthritis Osteoporosis Surgical History Surgical History History of appendectomy History of cataract extraction History of cholecystectomy History of hysterectomy History of laser assisted in situ keratomileusis History of partial thyroidectomy For benign tumor. History of thoracentesis Family History Family History Mother Head and neck cancer Acute myocardial infarction Congestive heart failure Pancreatic cancer Sibling Diabetes mellitus Acute myocardial infarction Social History Social History Social History: The patient lives with her in [place]. She designates her , Abdoulaye, as her surrogate decision maker and she wishes to be a full code. She is a lifelong nonsmoker and denies alcohol and drug use. Smoking status: Never smoker Second hand tobacco smoke exposure: No Alcohol intake: never Substance use: never Gender identity (if verbalized by the patient): Female Spiritual care concerns: No Agree to blood products: Yes Exam Narrative: GENERAL: Well-appearing, well-nourished, and in no acute distress. HEAD: Normocephalic, atraumatic. EYES: PERRLA and EOMI. ENT: Nares clear, no rhinorrhea or epistaxis. Mucous membranes moist. NECK: Supple. CHEST: Clear to auscultation. No respiratory distress. HEART: Regular rate and rhythm. No murmur heard. Normal peripheral pulses. ABDOMEN: Soft, nontender, nondistended, normal active bowel sounds. EXTREMITIES: Normal range of motion. No edema. SKIN: Warm, dry, no rash. NEURO: No focal deficits. Alert and oriented x3. PSYCH: Normal mood and affect. Course Vital Signs Vital signs: Vital Signs Temperature 36.6 C 03/12/21 10:58 Pulse Rate 93 03/12/21 10:58 Respiratory Rate 32 H 03/12/21 10:58 Blood Pressure 125/60 03/12/21 10:58 Pulse Oxime
--- NOTE | 2021-03-12 13:25 | PM.IMHP ---
H&P: HPI History of Present Illness Date/Time: 03/12/21 13:25 Chief Complaint: Shortness of breath. Narrative: This is an 80-year-old female with history of breast cancer and lymphoma, cirrhosis secondary to JOEL, hypertension, and chronic kidney disease who presented to the emergency department earlier today from home for evaluation of increasing shortness of breath. Over the past couple of days she has not been feeling well with rhinorrhea, nonproductive cough, low-grade fever up to 100.5?, and increasing shortness of breath from her chronic dyspnea on exertion. She has a history of recurrent pleural effusions, hepatic hydrothorax, and has an indwelling pleural catheter which is drained every other day. Typically the visiting nurses are able to drain between 800 to 1000 mL though yesterday they were only able to obtain 250 mL of fluid which appeared more bloody than the typical sanam colored fluid. Chest x-ray done on arrival to the emergency department showed small to moderate left and small right pleural effusions with adjacent atelectasis and probable superimposed pneumonia or edema as well as mild cardiomegaly and she is being admitted in this setting. She denies sick contacts and known exposure to those positive for COVID 19. Appetite has been fair though that is per usual. She denies nausea, vomiting, and diarrhea. No exertional chest pain or pleuritic pain. She denies orthopnea, PND, and lower extremity edema. No history of venous thromboembolism. Review of Systems Review of Systems: Twelve systems were reviewed. Occasional lightheadedness when changing positions quickly. No syncope or near syncope. Her tongue has been more red and slightly sore over the past few days and initially she was worried that perhaps she had thrush though she denies white plaquing. No dysphagia or otalgia. She denies dysuria. She has a stent in the right ureter that has been present for quite some time, change every 4 to 6 months, which sounds like it was placed due to compression from her lymphoma. She has an upcoming appointment in the few weeks to have it removed permanently to see how she does. Except as documented, all other systems were reviewed and are negative. [facility] Past Medical History Medical History (Updated 03/12/21 @ 20:22 by Deloris Benitez PA-C) Aortic stenosis [id number]-tk-[id number] with an aortic valve area of 1.5 cm2 on echocardiogram in May 2019. Asthma Breast cancer Status post right lumpectomy in 2012. Chronic anemia Chronic kidney disease, stage 3 Creatinine ranges between 1.3 and 1.50. Essential hypertension Hydronephrosis of right kidney Status post stent. 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 Surgical History Surgical History (Updated 03/12/21 @ 20:22 by Deloris Benitez PA-C) History of appendectomy History of bilateral carpal tunnel release History of cataract extraction History of cholecystectomy History of hysterectomy History of laser assisted in situ keratomileusis History of partial thyroidectomy For benign tumor. History of thoracentesis History of ureter stent Family History Family History Mother Head and neck cancer Acute myocardial infarction Congestive heart failure Pancreatic cancer Sibling Diabetes mellitus Acute myocardial infarction Social History Social History (Updated 03/12/21 @ 20:22 by Deloris Benitez PA-C) Social History: The patient lives with her in [place]. She is a lifelong nonsmoker and denies alcohol and drug use. She designates her , Abdoulaye, as her surrogate decision maker and she wishes to be a full code. Meds Home Medications and Allergies Home Medications Medication Instructions Recorded Confirmed Type doxycycline hy
[2021-03-12 14:08] LABS: Magnesium 1.8 mg/dL (1.6-2.3)
[2021-03-12 14:10] LABS: Hemoglobin A1C 7.1 % (<5.7)
[2021-03-12 14:36] LABS: Procalcitonin 1.6 ng/mL
--- NOTE | 2021-03-12 18:22 | PC.NURSE ---
This patient, Stefanie Pearson, was admitted to 3 [facility] Surg Room 313-01. Report received from JAY Shanks. Patient/family oriented to hospital policies and general routines including ID bracelet, bed and alarms, visiting hours, pain management, procedures, bathroom and other care routines, personal items, smoking policy, room service/diet, and visiting hours. Information on how to activate the Rapid Response Team has been discussed. Patient/Family are encouraged to report perceived risks to care and to ask questions if they do not understand what they are told or what they should do.
[2021-03-12 19:09] LABS: INR 1.2; Prothrombin Time 14.9 Seconds (11.1-14.7)
[2021-03-12 19:10] LABS: Partial Thromboplastin Time 37.1 SECONDS (22.3-36.8)
[2021-03-12 20:59] LABS: CRP 12.7 mg/dL (<1.0)
[2021-03-12 21:12] LABS: SARS-CoV-2 RNA PCR Negative
[2021-03-13 02:39] LABS: Free T4 Free Thyroxine Reflex 1.17 ng/dL (0.78-2.19)
[2021-03-13 03:21] LABS: Total Triiodothyronine (T3) 0.75 NG/ML (0.97-1.69)
[2021-03-13 06:00] VITALS: BP 109/56; PULSE 80; RESP 16; TEMP 37.9; O2SAT 100
[2021-03-13] MEDS: LEVOTHYROXINE SODIUM 75 MCG TABLET PO (06:14)
[2021-03-13 06:52] LABS: Basophils Percent Auto 0.7 % (0.2-1.2); Eosinophils Absolute Auto 0.2 K/mm3 (0-0.3); Hematocrit 27.8 % (37.0-47.0); Hemoglobin 9.2 g/dL (12.0-15.0); Immature Granulocyte Absolute 0.37 K/mm3 (0.00-0.031); Immature Granulocyte Percent A 6.1 % (0-0.5); Lymphocytes Absolute Auto 0.72 K/mm3 (0.9-3.2); Lymphocytes Percent Auto 11.9 % (18.3-44.2); Mean Corpuscular HGB Conc 33.1 g/dl (32-36); Mean Corpuscular Hemoglobin 30.3 pg (26-34); Mean Corpuscular Volume 91.4 fl (80-100); Mean Platelet Volume 9.9 fl (7.4-10.4); Monocytes Absolute Auto 0.9 K/mm3 (0.1-0.6); Monocytes Percent Auto 14.8 % (2.6-8.5); Neutrophils Absolute Auto 3.8 K/mm3 (1.3-6.7); Neutrophils Percent Auto 63.5 % (45.5-73.1); Platelet Count Result 189 k/mm3 (150-375); Red Blood Count 3.04 M/mm3 (4.2-5.4); Red Cell Distribution Width 13.2 % (11.5-14.5)
[2021-03-13 07:02] LABS: Anion Gap 4 mmol/L (8-16); Blood Urea Nitrogen 44 mg/dL (7-17); Calcium 8.3 mg/dL (8.4-10.2); Carbon Dioxide 23 mmol/L (22-30); Chloride 103 mmol/L (98-107); Estimated CRCL calculation 22 ml/min; Estimated Glomerular Filt Rate 27; Glucose 125 mg/dL (65-110); Potassium 4.8 mmol/L (3.4-5.0); Sodium 130 mmol/L (137-145)
[2021-03-13 07:50] LABS: Vitamin B12 > 1000.0 pg/mL (239-931)
[2021-03-13 08:00] VITALS: PULSE 80; RESP 16; O2SAT 100
[2021-03-13] MEDS: FERROUS SULFATE 324 MG TABLET PO ×2 (08:24→16:02)
[2021-03-13] MEDS: ENOXAPARIN 30 MG/0.3 ML SYRINGE SUB-Q (08:24)
[2021-03-13 08:32] LABS: Free T4 Free Thyroxine Reflex 1.18 ng/dL (0.78-2.19)
--- NOTE | 2021-03-13 12:38 | PM.IMPN ---
Progress Note: A&P Assessment and Plan (1) Shortness of breath: Code(s): R06.02 - Shortness of breath Status: Acute Assessment and Plan: Chest x-ray shows small to moderate left and small right pleural effusions with probable superimposed pneumonia or edema CT of the chest has been ordered to further evaluate the pleural effusions-->Small pleural effusions with a drainage catheter in the right pleural space Continue empiric antibiotics for possible underlying pneumonia COVID 19 negative BNP is only mildly elevated PE considered but seems to be less likely by history and exam findings (2) Abnormal chest x-ray: Code(s): R93.89 - Abnormal findings on diagnostic imaging of other specified body structures Status: Acute Assessment and Plan: Pneumonia verses edema As above, pneumonia seems a bit more likely 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 Chest CT noted above (3) 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): Code(s): K75.81 - Nonalcoholic steatohepatitis (JOEL); K74.60 - Unspecified cirrhosis of liver Status: Acute Assessment and Plan: No acute decompensation No evidence of ascites (4) Chronic kidney disease, stage 3: Code(s): N18.30 - Chronic kidney disease, stage 3 unspecified Status: Acute Assessment and Plan: Creatinine is a bit elevated from baseline She may in fact be a bit dry given poor appetite though she states that is chronic Continue to encourage oral intake Monitor (5) Essential hypertension: Code(s): I10 - Essential (primary) hypertension Status: Chronic Assessment and Plan: Blood pressure stable Continue to monitor daily (6) Aortic stenosis: Qualifiers: Cardiac valve disease etiology: etiology unspecified Qualified Code(s): I35.0 - Nonrheumatic aortic (valve) stenosis Code(s): I35.0 - Nonrheumatic aortic (valve) stenosis Status: Acute Assessment and Plan: [id number] on echocardiogram taken nearly 2 years ago Echocardiogram--> EF60-65%; grade I diastolic dysfunction;moderate aortic valve sclerosis; mild to moderate aortic valve stenosis; trace mitral valve regurgitation (7) Chronic anemia: Code(s): D64.9 - Anemia, unspecified Status: Chronic Assessment and Plan: Hemoglobin and hematocrit are stable on review of previous labs (8) Recurrent pleural effusion: Code(s): J90 - Pleural effusion, not elsewhere classified Status: Acute Assessment and Plan: Patient has an indwelling pleural catheter on the right (9) Hyperglycemia: Code(s): R73.9 - Hyperglycemia, unspecified Status: Acute Assessment and Plan: Hgb A1c 7.1 accuchecks, SSI Consult DM educator Monitor Subjective Date/time seen: 03/13/21 12:38 Interval history: Pt seen and evaluated; labs, vs, diagnostic results reviewed; pt continues with SOB and generalized weakness Review of Systems Review of Systems: All systems reviewed & are unremarkable except as noted in HPI and below Exam Narrative: General: Chronically ill-appearing. HEENT: EOMI. Sclerae anicteric. Moist mucous membranes. Neck: Supple. No JVD. Thyroidectomy scar noted. Respiratory: Lung sounds are diminished at the bases, left greater than right with faint crackles at the right base. No wheezing. Cardiovascular: Regular rate and rhythm with S1-S2. Gastrointestinal: Abdomen is soft, nontender, and nondistended with positive bowel sounds. Skin: Warm and dry. No rash or lesions on limited exam. Extremities: No cyanosis, clubbing, or edema. Radial and pedal pulses intact. Neurological: Alert. No gross focal deficits. Psychiatric: Pleasant and cooperative with normal mood and affect. Judgment and insight intact. Objective Data Vital Signs Vital Signs: Vital Signs - 24 hr 03/12/21 12:53 03/12/21 13:00 03/12/21
--- NOTE | 2021-03-13 13:42 | ECHO_ITS ---
Patient Info Name: Stefanie Pearson Age: 80 years : 1940 Gender: Female Ht: 64 in Wt: 149 lbs BSA: 1.76 m2 HR: 76 bpm BP: 109 / 56 mmHg Technical Quality: Fair Exam Date: 03/13/2021 8:19 AM Exam Location: [facility] Patient Status: Outpatient Admit Date: 03/12/2021 Staff Ordering Physician: Deloris Benitez PA-C Drafter (Cad) Electrical: Bryan Reyes RDCS, RT Attending Provider: Dylan Mayorga MD Referring Physician: Eli GILBERT; Exam Type: CA echo dop color flow w con Study Info Indications I35.0 - Nonrheumatic aortic (valve) stenosis Complete two-dimensional, color flow and Doppler transthoracic echocardiogram is performed with contrast to opacify the left ventricle and to improve the deliniation of the left ventricle endocardial borders. Summary 1. Left ventricular chamber dimension is normal. 2. Definity contrast administered improved wall motion interpretation. 3. Left ventricular systolic function is normal, estimated at 60-65%. 4. There is mildly increased left ventricular wall thickness. 5. The left ventricular diastolic function is grade I diastolic dysfunction. 6. E/e' 6 is not elevated. 7. Left atrial chamber dimension is mildly enlarged. 8. There is moderate aortic valve sclerosis. 9. There is mild to moderate aortic valve stenosis with a peak velocity of 228.73 cm/s, mean gradient of 12 mmHg, and aortic valve area of 1.11 cm2. 10. There is trace mitral valve regurgitation. 11. No pulmonary hypertension, estimated pulmonary arterial systolic pressure is 31 mmHg. 12. There is small basal posterior pericardial effusion. Left Ventricle E/e' 6 is not elevated. Definity contrast administered improved wall motion interpretation. Left ventricular chamber dimension is normal. Left ventricular systolic function is normal, estimated at 60-65%. There is mildly increased left ventricular wall thickness. The left ventricular diastolic function is grade I diastolic dysfunction. Right Ventricle Right ventricular systolic function is normal and with normal TAPSE 2.3 cm. Right ventricular chamber dimension is normal. Left Atria Left atrial chamber dimension is mildly enlarged. Right Atria Right atrial chamber dimension is normal. Aortic Valve The aortic valve is trileaflet. There is moderate aortic valve sclerosis. There is mild to moderate aortic valve stenosis with a peak velocity of 228.73 cm/s, mean gradient of 12 mmHg, and aortic valve area of 1.11 cm2. There is no aortic valve regurgitation. Pulmonic Valve There is no pulmonic regurgitation. Mitral Valve There is no mitral valve stenosis. There is trace mitral valve regurgitation. Tricuspid Valve There is no tricuspid valve regurgitation. No pulmonary hypertension, estimated pulmonary arterial systolic pressure is 31 mmHg. Pericardium/Pleural There is small basal posterior pericardial effusion. Inferior Vena Cava Normal inferior vena cava with >50% collapse upon inspiration consistent with normal right atrial pressure, 5 mmHg. Aorta The aortic root size at the sinus of Valsalva is normal. Left Ventricular Outflow Tract Name Value Normal LVOT 2D LVOT Diameter 1.97 cm LVOT Doppler
[2021-03-13 14:00] VITALS: BP 112/48; PULSE 78; RESP 18; TEMP 36.4; O2SAT 100
--- NOTE | 2021-03-13 15:52 | PC.NURSE ---
Messaged left with DM educator.
[2021-03-13 17:29] LABS: Glucose Point of Care 140 mg/dl (65-105)
[2021-03-13 20:15] VITALS: PULSE 73; RESP 16; O2SAT 100
[2021-03-13 22:00] VITALS: BP 122/46; PULSE 73; RESP 16; TEMP 37.1; O2SAT 100
[2021-03-14] MEDS: LEVOTHYROXINE SODIUM 75 MCG TABLET PO (05:19)
[2021-03-14 06:00] VITALS: BP 130/57; PULSE 83; RESP 16; TEMP 36.4; O2SAT 99
[2021-03-14 07:04] LABS: Anion Gap 4 mmol/L (8-16); Blood Urea Nitrogen 45 mg/dL (7-17); Calcium 8.1 mg/dL (8.4-10.2); Carbon Dioxide 25 mmol/L (22-30); Chloride 101 mmol/L (98-107); Estimated CRCL calculation 22 ml/min; Estimated Glomerular Filt Rate 27; Glucose 176 mg/dL (65-110); Potassium 4.7 mmol/L (3.4-5.0); Sodium 130 mmol/L (137-145)
[2021-03-14 08:00] VITALS: PULSE 83; RESP 16; O2SAT 99
[2021-03-14] MEDS: MORPHINE SULFATE (*CRX) 15 MG TAB IR PO (08:19)
[2021-03-14] MEDS: ACETAMINOPHEN 325 MG TABLET 650 MG PO ×3 (08:21→20:45)
[2021-03-14] MEDS: FERROUS SULFATE 324 MG TABLET PO ×2 (08:22→17:21)
[2021-03-14 08:38] LABS: Glucose Point of Care 162 mg/dl (65-105)
--- NOTE | 2021-03-14 11:10 | PM.IMPN ---
Progress Note: A&P Assessment and Plan (1) Shortness of breath: Code(s): R06.02 - Shortness of breath Status: Acute Assessment and Plan: Chest x-ray shows small to moderate left and small right pleural effusions with probable superimposed pneumonia or edema CT of the chest has been ordered to further evaluate the pleural effusions-->Small pleural effusions with a drainage catheter in the right pleural space Continue empiric antibiotics for possible underlying pneumonia BC NGTD COVID 19 negative BNP is only mildly elevated PE considered but seems to be less likely by history and exam findings (2) Abnormal chest x-ray: Code(s): R93.89 - Abnormal findings on diagnostic imaging of other specified body structures Status: Acute Assessment and Plan: Pneumonia verses edema As above, pneumonia seems a bit more likely 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 Chest CT noted above BC NGTD (3) 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): Code(s): K75.81 - Nonalcoholic steatohepatitis (JOEL); K74.60 - Unspecified cirrhosis of liver Status: Acute Assessment and Plan: No acute decompensation No evidence of ascites (4) Chronic kidney disease, stage 3: Code(s): N18.30 - Chronic kidney disease, stage 3 unspecified Status: Acute Assessment and Plan: Creatinine is a bit elevated from baseline She may in fact be a bit dry given poor appetite though she states that is chronic Continue to encourage oral intake Monitor (5) Essential hypertension: Code(s): I10 - Essential (primary) hypertension Status: Chronic Assessment and Plan: Blood pressure stable Continue to monitor daily (6) Aortic stenosis: Qualifiers: Cardiac valve disease etiology: etiology unspecified Qualified Code(s): I35.0 - Nonrheumatic aortic (valve) stenosis Code(s): I35.0 - Nonrheumatic aortic (valve) stenosis Status: Acute Assessment and Plan: [id number]-[id number] on echocardiogram taken nearly 2 years ago Echocardiogram--> EF60-65%; grade I diastolic dysfunction;moderate aortic valve sclerosis; mild to moderate aortic valve stenosis; trace mitral valve regurgitation (7) Chronic anemia: Code(s): D64.9 - Anemia, unspecified Status: Chronic Assessment and Plan: Hemoglobin and hematocrit are stable on review of previous labs (8) Recurrent pleural effusion: Code(s): J90 - Pleural effusion, not elsewhere classified Status: Acute Assessment and Plan: Patient has an indwelling pleural catheter on the right (9) Hyperglycemia: Code(s): R73.9 - Hyperglycemia, unspecified Status: Acute Assessment and Plan: Hgb A1c 7.1 accuchecks, SSI Consult DM educator Monitor Subjective Date/time seen: 03/14/21 11:10 Interval history: 03/13/2021: Pt seen and evaluated; labs, vs, diagnostic results reviewed; pt continues with SOB and generalized weakness 03/14/2021: Pt seen and evaluated; overall she feels about the same Review of Systems Review of Systems: All systems reviewed & are unremarkable except as noted in HPI and below Exam Narrative: General: Chronically ill-appearing. HEENT: EOMI. Sclerae anicteric. Moist mucous membranes. Neck: Supple. No JVD. Thyroidectomy scar noted. Respiratory: Lung sounds are diminished at the bases, left greater than right with faint crackles at the right base. No wheezing. Cardiovascular: Regular rate and rhythm with S1-S2. Gastrointestinal: Abdomen is soft, nontender, and nondistended with positive bowel sounds. Skin: Warm and dry. No rash or lesions on limited exam. Extremities: No cyanosis, clubbing, or edema. Radial and pedal pulses intact. Neurological: Alert. No gross focal deficits. Psychiatric: Pleasant and cooperative with normal mood and affect. Judgment and insight intact. Objective
[2021-03-14 12:20] VITALS: O2SAT 93
[2021-03-14 12:25] LABS: Glucose Point of Care 186 mg/dl (65-105)
[2021-03-14 14:00] VITALS: BP 124/44; PULSE 78; RESP 14; TEMP 35.9; O2SAT 100
[2021-03-14 16:49] LABS: Glucose Point of Care 175 mg/dl (65-105)
[2021-03-14 20:00] VITALS: O2SAT 95
[2021-03-14 21:55] VITALS: BP 107/50; PULSE 70; RESP 16; TEMP 36.2; O2SAT 100
[2021-03-14 21:56] LABS: Glucose Point of Care 186 mg/dl (65-105)
[2021-03-15] VITALS (8 sets, daily range): BP systolic 110–124; BP diastolic 48–60; PULSE 72–78; RESP 16–18; TEMP 36.3–37.2; O2SAT 94–100
[2021-03-15] MEDS: LEVOTHYROXINE SODIUM 75 MCG TABLET PO (05:35)
[2021-03-15 08:08] LABS: Hematocrit 27.5 % (37.0-47.0); Hemoglobin 9.1 g/dL (12.0-15.0); Mean Corpuscular HGB Conc 33.1 g/dl (32-36); Mean Corpuscular Hemoglobin 31.2 pg (26-34); Mean Corpuscular Volume 94.2 fl (80-100); Mean Platelet Volume 10.2 fl (7.4-10.4); Platelet Count Result 176 k/mm3 (150-375); Red Blood Count 2.92 M/mm3 (4.2-5.4); Red Cell Distribution Width 13.1 % (11.5-14.5); White Blood Count 6.4 K/mm3 (4.5-10.0)
[2021-03-15 08:25] LABS: Anion Gap 6 mmol/L (8-16); Blood Urea Nitrogen 46 mg/dL (7-17); Carbon Dioxide 20 mmol/L (22-30); Chloride 103 mmol/L (98-107); Estimated CRCL calculation 25 ml/min; Estimated Glomerular Filt Rate 31; Glucose 142 mg/dL (65-110); Potassium 4.6 mmol/L (3.4-5.0); Sodium 129 mmol/L (137-145)
[2021-03-15] MEDS: MORPHINE SULFATE (*CRX) 15 MG TAB IR PO ×2 (09:21→18:07)
[2021-03-15] MEDS: FERROUS SULFATE 324 MG TABLET PO ×2 (09:22→17:09)
[2021-03-15 09:35] LABS: Magnesium 1.9 mg/dL (1.6-2.3); Phosphorus 3.5 mg/dL (2.5-4.5)
[2021-03-15 09:45] LABS: NT Pro B Type Natriuretic Pept 326 pg/mL (5-100)
[2021-03-15] MEDS: ACETAMINOPHEN 325 MG TABLET 650 MG PO (12:22)
[2021-03-15] MEDS: INSULIN ASPART (*BKC) 100 UNITS/ML SUB-Q (12:22)
[2021-03-15 12:32] LABS: Glucose Point of Care 241 mg/dl (65-105)
--- NOTE | 2021-03-15 13:05 | PM.IMPN ---
Progress Note: A&P Assessment and Plan (1) Shortness of breath: Code(s): R06.02 - Shortness of breath Status: Acute Assessment and Plan: Chest x-ray shows small to moderate left and small right pleural effusions with probable superimposed pneumonia or edema CT of the chest has been ordered to further evaluate the pleural effusions-->Small pleural effusions with a drainage catheter in the right pleural space Continue empiric antibiotics for possible underlying pneumonia BC NGTD COVID 19 negative BNP 326 today, was 464 on 03/12/21. (baseline BNP 116 and 230 in year 2020) PE considered but seems to be less likely by history and exam findings Incentive spirometry. 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 working to get pleur-x catheter accessed safely, perhaps by IR. 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): Code(s): K75.81 - Nonalcoholic steatohepatitis (JOEL); K74.60 - Unspecified cirrhosis of liver Status: Chronic Assessment and Plan: No acute decompensation No evidence of ascites see pleural drain discussion below (4) Chronic kidney disease, stage 3: Code(s): N18.30 - Chronic kidney disease, stage 3 unspecified Status: Acute Assessment and Plan: Creatinine is a bit elevated from baseline, was 1.8, now 1.6 She may in fact be a bit dry given poor appetite though she states that is chronic Continue to encourage oral intake (5) Essential hypertension: Code(s): I10 - Essential (primary) hypertension Status: Chronic Assessment and Plan: Blood pressure stable Continue to monitor daily (6) Aortic stenosis: Qualifiers: Cardiac valve disease etiology: etiology unspecified Qualified Code(s): I35.0 - Nonrheumatic aortic (valve) stenosis Code(s): I35.0 - Nonrheumatic aortic (valve) stenosis Status: Acute Assessment and Plan: [id number] on echocardiogram taken nearly 2 years ago Echocardiogram--> EF60-65%; grade I diastolic dysfunction;moderate aortic valve sclerosis; mild to moderate aortic valve stenosis; trace mitral valve regurgitation (7) Chronic anemia: Code(s): D64.9 - Anemia, unspecified Status: Chronic Assessment and Plan: Hemoglobin and hematocrit are stable on review of previous labs H/H 9.1 .5 today vital signs stable, HR. and BPs stable. (8) Recurrent pleural effusion: Code(s): J90 - Pleural effusion, not elsewhere classified Status: Acute Assessment and Plan: Patient has an indwelling pleural catheter on the right but it has not been accessed since her admission for pnuemonia. working to verify patency of pleur-x catheter to drain well (the 800-1000ml volumes that she was getting at home) ordered pleural fluid cultures (aerobic/anaerobic/cytology/fungal) to be done on pleural fluid from pleur-x. May need to consult interventional radiology to drain pleur-x appropriately and get culture sample. (9) Hyperglycemia: Code(s): R73.9 - Hyperglycemia, unspecified Status: Acute Assessment and Plan: Hgb A1c 7.1 accuchecks, SSI Consult DM educator Glucose has been 186, 142 today Subjective Date/time seen: 03/15/21 13:05 Interval history: 03/13/2021: Pt seen and evaluated; labs, vs, diagnostic results reviewed; pt continues with SOB and generalized weakness 03/14/2021: Pt seen and evaluated; overall she feels about the same 03/15/2021: Stefanie (Dot) was sitting on her bed when I went to see her today. She still has a dry nonproductive cough. Even wit
--- NOTE | 2021-03-15 13:32 | PM.CNNEP ---
Assessment and Plan Assessment and plan (1) Hyponatremia: Code(s): E87.1 - Hypo-osmolality and hyponatremia Status: Acute Assessment and Plan: as noted on this admission prior sodium levels were normal (but these were from July 2019) risk factors include: current pneumonia poor oral intake previous history of malignancy (breast cancer/lymphoma) lung disease (asthma, recurrent right pleural effusion) liver disease thyroid disease narcotic use (morphine) check urine electrolytes check cortisol, TSH, SPEP, UPEP, and kappa/lambda ratio follow trend of repeat sodium levels try to obtain records to assess more recent sodium levels 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 (2) Stage 3b chronic kidney disease: Code(s): N18.32 - Chronic kidney disease, stage 3b Status: Chronic Assessment and Plan: baseline creatinine seems to run ~ 1.3 - 1.5mg/dl (from labs in 2019) possible disease progression versus acute decline related to current illness follow trend for now (3) Pneumonia: Qualifiers: Laterality: bilateral Lung location: unspecified part of lung Pneumonia type: due to unspecified organism Qualified Code(s): J18.9 - Pneumonia, unspecified organism Code(s): J18.9 - Pneumonia, unspecified organism Status: Acute Assessment and Plan: as suggested by imaging to date on antibiotics follow culture data (4) Recurrent right pleural effusion: Code(s): J90 - Pleural effusion, not elsewhere classified Status: Chronic Assessment and Plan: secondary to hepatic hydrothorax indwelling pleural catheter in place (5) 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 History of Present Illness Reason for Consult Consult date: 03/15/21 Reason for consult: chronic renal failure and hyponatremia Chief Complaint Chief complaint: pneumonia History of Present Illness Narrative: The patient is an 80-year-old female with a past medical history as outlined below who presented to [facility] Emergency room for further evaluation of shortness of breath. The patient states that over the past few days prior to her admission she has not been feeling very well with symptoms including rhinorrhea, nonproductive cough low-grade fever and the a for mentioned shortness of breath. She does have some chronic shortness of breath at baseline in association with exertional activities but as already mentioned, this time, her shortness of breath appears to be somewhat worse than baseline. She does have issues with regard to a recurrent right pleural effusion that has necessitated placement of an indwelling pleural catheter. This is usually drained every other day by visiting nurses and usually averages anywhere from 800 to a 1000 cc but apparently on the day prior to admission, only 250 cc was able to be drained and the fluid cell single bit more sanam colored as well as hemorrhagic. Given all the symptoms and concerns, she presented to the emergency room for further evaluation. Workup and evaluation emergency room did demonstrate the patient be somewhat more short of breath than usual and a chest x-ray done at that time demonstrated a small to moderate left and small right pleural effusion with adjacent atelectasis and probable superimposed pneumonia in association with cardiomega
--- NOTE | 2021-03-15 13:32 | P.CONNP_ITS ---
Assessment and Plan Assessment and plan (1) Hyponatremia: Code(s): E87.1 - Hypo-osmolality and hyponatremia Status: Acute Assessment and Plan: * as noted on this admission * prior sodium levels were normal (but these were from July 2019) * risk factors include: * current pneumonia * poor oral intake * previous history of malignancy (breast cancer/lymphoma) * lung disease (asthma, recurrent right pleural effusion) * liver disease * thyroid disease * narcotic use (morphine) * check urine electrolytes * check cortisol, TSH, SPEP, UPEP, and kappa/lambda ratio * follow trend of repeat sodium levels * try to obtain records to assess more recent sodium 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 (2) Stage 3b chronic kidney disease: Code(s): N18.32 - Chronic kidney disease, stage 3b Status: Chronic Assessment and Plan: * baseline creatinine seems to run ~ 1.3 - 1.5mg/dl (from labs in 2019) * possible disease progression versus acute decline related to current illness * follow trend for now (3) Pneumonia: Qualifiers: Laterality: bilateral Lung location: unspecified part of lung Pneumonia type: due to unspecified organism Qualified Code(s): J18.9 - Pneumonia, unspecified organism Code(s): J18.9 - Pneumonia, unspecified organism Status: Acute Assessment and Plan: * as suggested by imaging to date * on antibiotics * follow culture data (4) Recurrent right pleural effusion: Code(s): J90 - Pleural effusion, not elsewhere classified Status: Chronic Assessment and Plan: * secondary to hepatic hydrothorax * indwelling pleural catheter in place (5) 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 History of Present Illness Reason for Consult Consult date: 03/15/21 Reason for consult: chronic renal failure and hyponatremia Chief Complaint Chief complaint: pneumonia History of Present Illness Narrative: The patient is an 80-year-old female with a past medical history as outlined below who presented to [facility] Emergency room for further evaluation of shortness of breath. The patient states that over the past few days prior to her admission she has not been feeling very well with symptoms including rhinorrhea, nonproductive cough low-grade fever and the a for mentioned shortness of breath. She does h ave some chronic shortness of breath at baseline in association with exertional activities but as already mentioned, this time, her shortness of breath appears to be somewhat worse than baseline. She does have issues with regard to a recurrent right pleural effusion that has necessitated placement of an indwelling pleural catheter. This is usually drained every other day by visiting nurses and usually averages anywhere from 800 to a 1000 cc but apparently on the day prior to admission, only 250 cc was able to be drained and the fluid cell single bit more sanam
[2021-03-15] MEDS: ALBUTEROL SULFATE NEB 2.5 MG/0.5 ML INH 5 MG INHALATION (16:11)
[2021-03-15 17:09] LABS: Glucose Point of Care 163 mg/dl (65-105)
--- NOTE | 2021-03-15 20:20 | PCRCNOTE ---
Pt refuses nebulizer treatments. States that she was told at [place] when she was there for her lymphoma not to use her nebulizer or inhalers at home, so she does not feel comfortable using them here.
[2021-03-16] VITALS (7 sets, daily range): BP systolic 105–119; BP diastolic 39–60; PULSE 72–81; RESP 16–18; TEMP 36.3–37; O2SAT 94–100
[2021-03-16] MEDS: LEVOTHYROXINE SODIUM 75 MCG TABLET PO (05:51)
[2021-03-16] MEDS: MORPHINE SULFATE (*CRX) 15 MG TAB IR PO ×2 (06:19→15:28)
[2021-03-16] MEDS: FERROUS SULFATE 324 MG TABLET PO ×2 (08:15→18:21)
[2021-03-16 08:34] LABS: Albumin Level 2.3 g/dL (3.5-5.1); Anion Gap 7 mmol/L (8-16); Blood Urea Nitrogen 42 mg/dL (7-17); Carbon Dioxide 22 mmol/L (22-30); Chloride 100 mmol/L (98-107); Estimated CRCL calculation 26 ml/min; Estimated Glomerular Filt Rate 33; Glucose 131 mg/dL (65-110); Phosphorus 3.3 mg/dL (2.5-4.5); Potassium 4.6 mmol/L (3.4-5.0); Sodium 129 mmol/L (137-145)
[2021-03-16 08:37] LABS: Alanine Aminotransferase 21 U/L (4-35); Albumin Level 2.3 g/dL (3.5-5.1); Alkaline Phosphatase 249 U/L (38-126); Anion Gap 5 mmol/L (8-16); Aspartate Amino Transferase 41 U/L (14-36); Bilirubin,Total 0.5 mg/dL (0.2-1.3); Blood Urea Nitrogen 42 mg/dL (7-17); Calcium 7.9 mg/dL (8.4-10.2); Carbon Dioxide 23 mmol/L (22-30); Chloride 100 mmol/L (98-107); Estimated CRCL calculation 26 ml/min; Estimated Glomerular Filt Rate 33; Glucose 130 mg/dL (65-110); Potassium 4.5 mmol/L (3.4-5.0); Sodium 128 mmol/L (137-145)
[2021-03-16 08:46] LABS: Glucose Point of Care 127 mg/dl (65-105)
[2021-03-16 08:57] LABS: Basophils Absolute Auto 0.1 K/mm3 (0.0-0.1); Basophils Percent Auto 0.8 % (0.2-1.2); Eosinophils Absolute Auto 0.2 K/mm3 (0-0.3); Eosinophils Percent Auto 3.1 % (0-4.4); Hematocrit 24.8 % (37.0-47.0); Hemoglobin 8.2 g/dL (12.0-15.0); Immature Granulocyte Absolute 0.27 K/mm3 (0.00-0.031); Immature Granulocyte Percent A 4.3 % (0-0.5); Lymphocytes Absolute Auto 0.45 K/mm3 (0.9-3.2); Lymphocytes Percent Auto 7.2 % (18.3-44.2); Mean Corpuscular HGB Conc 33.1 g/dl (32-36); Mean Corpuscular Hemoglobin 30.3 pg (26-34); Mean Corpuscular Volume 91.5 fl (80-100); Mean Platelet Volume 10.2 fl (7.4-10.4); Monocytes Percent Auto 15.9 % (2.6-8.5); Neutrophils Absolute Auto 4.3 K/mm3 (1.3-6.7); Neutrophils Percent Auto 68.7 % (45.5-73.1); Platelet Count Result 196 k/mm3 (150-375); Red Blood Count 2.71 M/mm3 (4.2-5.4); Red Cell Distribution Width 13.2 % (11.5-14.5); White Blood Count 6.2 K/mm3 (4.5-10.0)
[2021-03-16] MEDS: IPRATROPIUM BR 0.02% INH SOLN 0.5 MG/2.5 ML VIAL INHALATION ×3 (08:58→20:45)
[2021-03-16] MEDS: ALBUTEROL SULFATE NEB 2.5 MG/0.5 ML INH 5 MG INHALATION ×3 (08:58→20:45)
--- NOTE | 2021-03-16 10:00 | PM.IMPN ---
Progress Note: A&P Assessment and Plan (1) Shortness of breath: Code(s): R06.02 - Shortness of breath Status: Acute Assessment and Plan: Chest x-ray shows small to moderate left and small right pleural effusions with probable superimposed pneumonia or edema CT of the chest has been ordered to further evaluate the pleural effusions-->Small pleural effusions with a drainage catheter in the right pleural space Continue empiric antibiotics for possible underlying pneumonia BC NGTD COVID 19 negative BNP 326 PE considered but seems to be less likely by history and exam findings Incentive spirometry. 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 Pleural effusion drained Pleural effusion is drained every other day at home 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): Code(s): K75.81 - Nonalcoholic steatohepatitis (JOEL); K74.60 - Unspecified cirrhosis of liver Status: Chronic Assessment and Plan: No acute decompensation No evidence of ascites see pleural drain discussion below (4) Chronic kidney disease, stage 3: Code(s): N18.30 - Chronic kidney disease, stage 3 unspecified Status: Acute Assessment and Plan: Creatinine is a bit elevated from baseline, was 1.8, now 1.5 She may in fact be a bit dry given poor appetite though she states that is chronic Continue to encourage oral intake (5) Essential hypertension: Code(s): I10 - Essential (primary) hypertension Status: Chronic Assessment and Plan: Blood pressure stable Continue to monitor daily (6) Aortic stenosis: Qualifiers: Cardiac valve disease etiology: etiology unspecified Qualified Code(s): I35.0 - Nonrheumatic aortic (valve) stenosis Code(s): I35.0 - Nonrheumatic aortic (valve) stenosis Status: Acute Assessment and Plan: [id number] on echocardiogram taken nearly 2 years ago Echocardiogram--> EF60-65%; grade I diastolic dysfunction;moderate aortic valve sclerosis; mild to moderate aortic valve stenosis; trace mitral valve regurgitation (7) Chronic anemia: Code(s): D64.9 - Anemia, unspecified Status: Chronic Assessment and Plan: Hemoglobin and hematocrit are stable on review of previous labs H/H 8.2/24.8 today Probably dilutional due to possible fluid overload vital signs stable, HR. and BPs stable. (8) Recurrent pleural effusion: Code(s): J90 - Pleural effusion, not elsewhere classified Status: Acute Assessment and Plan: Patient has an indwelling pleural catheter on the right but it has not been accessed since her admission for pnuemonia. working to verify patency of pleur-x catheter to drain well (the 800-1000ml volumes that she was getting at home) ordered pleural fluid cultures (aerobic/anaerobic/cytology/fungal) to be done on pleural fluid from pleur-x. Drained off 500ml (9) Hyperglycemia: Code(s): R73.9 - Hyperglycemia, unspecified Status: Acute Assessment and Plan: Hgb A1c 7.1 accuchecks, SSI Consult DM educator Glucose 130 per labs Subjective Date/time seen: 03/16/21 1000 Interval history: 03/13/2021: Pt seen and evaluated; labs, vs, diagnostic results reviewed; pt continues with SOB and generalized weakness 03/14/2021: Pt seen and evaluated; overall she feels about the same 03/15/2021: Stefaine (Dot) was sitting on her bed when I went to see her today. She still has a dry nonproductive cough. Even with auscultation and deep breathing she continued to cough. She is julito
[2021-03-16 12:22] LABS: Glucose Point of Care 257 mg/dl (65-105)
[2021-03-16] MEDS: INSULIN ASPART (*BKC) 100 UNITS/ML SUB-Q (13:10)
[2021-03-16 13:53] LABS: Free T4 Free Thyroxine Reflex 1.64 ng/dL (0.78-2.19)
[2021-03-16 14:35] LABS: Total Triiodothyronine (T3) 0.75 NG/ML (0.97-1.69)
--- NOTE | 2021-03-16 15:14 | P.PNNP_ITS ---
Progress Note: A&P Assessment and Plan (1) Hyponatremia: Code(s): E87.1 - Hypo-osmolality and hyponatremia Status: Acute Assessment and Plan: * as noted on this admission but relatively stable * prior sodium levels were normal (but these were from July 2019) * risk factors include: * current pneumonia * poor oral intake * previous history of malignancy (breast cancer/lymphoma) * lung disease (asthma, recurrent right pleural effusion) * liver disease * thyroid disease * narcotic use (morphine) * urine electrolytes pending * cortisol and TSH okay * SPEP, UPEP, and kappa/lambda ratio pending * change carrier fluid of IV meds/IVPB to normal saline * follow trend of repeat sodium levels (2) Stage 3b chronic kidney disease: Code(s): N18.32 - Chronic kidney disease, stage 3b Status: Chronic Assessment and Plan: * baseline creatinine seems to run ~ 1.3 - 1.5mg/dl (from labs in 2019) * possible disease progression versus acute decline related to current illness * follow trend for now (3) Pneumonia: Qualifiers: Laterality: bilateral Lung location: unspecified part of lung Pneumonia type: due to unspecified organism Qualified Code(s): J18.9 - Pneumonia, unspecified organism Code(s): J18.9 - Pneumonia, unspecified organism Status: Acute Assessment and Plan: * as suggested by imaging to date * on antibiotics * follow culture data (4) Recurrent right pleural effusion: Code(s): J90 - Pleural effusion, not elsewhere classified Status: Chronic Assessment and Plan: * secondary to hepatic hydrothorax * indwelling pleural catheter in place (5) 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 Subjective Date/time seen: 03/16/21 15:14 Breathing/respiratory status appears stable if not better since I last saw her; no apparent distress voiced; sodium remains relatively stable as well; anxious for discharge at the time of my visit; no events/issues overnight or earlier this morning; s/p indwelling pleurex catheter drainage. Exam Narrative: General: WD/WN female in NAD Heart: normal S1 and S2; no rub Lungs: decreased at bases Abdomen: soft, nontender, nondistended, positive bowel sounds Extremities: no cyanosis or clubbing; no edema Skin: warm and dry Objective Data Vital Signs Vital Signs: Vital Signs Temp Pulse Resp BP Pulse Ox 03/16/21 08:00 97 03/16/21 06:00 36.6 C 72 18 118/57 L 97 03/15/21 23:02 94 03/15/21 22:00 36.4 C L 78 16 124/50 L 100 03/15/21 20:00 124/50 L 95 03/15/21 16:10 95 Intake/Output Intake/Output: Intake & Output
--- NOTE | 2021-03-16 15:14 | PM.PNNEP ---
Progress Note: A&P Assessment and Plan (1) Hyponatremia: Code(s): E87.1 - Hypo-osmolality and hyponatremia Status: Acute Assessment and Plan: as noted on this admission but relatively stable prior sodium levels were normal (but these were from July 2019) risk factors include: current pneumonia poor oral intake previous history of malignancy (breast cancer/lymphoma) lung disease (asthma, recurrent right pleural effusion) liver disease thyroid disease narcotic use (morphine) urine electrolytes pending cortisol and TSH okay SPEP, UPEP, and kappa/lambda ratio pending change carrier fluid of IV meds/IVPB to normal saline follow trend of repeat sodium levels (2) Stage 3b chronic kidney disease: Code(s): N18.32 - Chronic kidney disease, stage 3b Status: Chronic Assessment and Plan: baseline creatinine seems to run ~ 1.3 - 1.5mg/dl (from labs in 2019) possible disease progression versus acute decline related to current illness follow trend for now (3) Pneumonia: Qualifiers: Laterality: bilateral Lung location: unspecified part of lung Pneumonia type: due to unspecified organism Qualified Code(s): J18.9 - Pneumonia, unspecified organism Code(s): J18.9 - Pneumonia, unspecified organism Status: Acute Assessment and Plan: as suggested by imaging to date on antibiotics follow culture data (4) Recurrent right pleural effusion: Code(s): J90 - Pleural effusion, not elsewhere classified Status: Chronic Assessment and Plan: secondary to hepatic hydrothorax indwelling pleural catheter in place (5) 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 Subjective Date/time seen: 03/16/21 15:14 Breathing/respiratory status appears stable if not better since I last saw her; no apparent distress voiced; sodium remains relatively stable as well; anxious for discharge at the time of my visit; no events/issues overnight or earlier this morning; s/p indwelling pleurex catheter drainage. Exam Narrative: General: WD/WN female in NAD Heart: normal S1 and S2; no rub Lungs: decreased at bases Abdomen: soft, nontender, nondistended, positive bowel sounds Extremities: no cyanosis or clubbing; no edema Skin: warm and dry Objective Data Vital Signs Vital Signs: Vital Signs Temp Pulse Resp BP Pulse Ox 03/16/21 08:00 97 03/16/21 06:00 36.6 C 72 18 118/57 L 97 03/15/21 23:02 94 03/15/21 22:00 36.4 C L 78 16 124/50 L 100 03/15/21 20:00 124/50 L 95 03/15/21 16:10 95 Intake/Output Intake/Output: Intake & Output 03/13/21 03/14/21 03/15/21 03/16/21 23:59 23:59 23:59 23:59 Intake Total 2080 2150 720 240 Output Total 1000 Balance 1080 2150 720 240 Meds/Results Medications: Active Medications Generic Name Dose Route Start Last Admin Trade Name Freq PRN Reason Stop Dose Admin Acetaminophen 650 mg 03/13/21 15:27 03/15/21 12:22 Acetaminophen 325 Mg Tablet PO 650 mg Q4H PRN Administration Mild Pain (1-3) or Fever Albuterol 5 mg 03/15/21 14:00 03/16/21 15:09 Albuterol Sulfate Neb 2.5 Mg/0.5 Ml Inh INHALATION 5 mg Q6HRT ROULA Administration Dextrose 12.5 gm 03/13/21 14:59 Dextrose 50% 25 Gm/50 Ml Syringe IV PUSH PRN PRN
[2021-03-16 17:14] LABS: Glucose Point of Care 182 mg/dl (65-105)
[2021-03-16] MEDS: ACETAMINOPHEN 325 MG TABLET 650 MG PO (18:21)
[2021-03-17 00:46] LABS: Glucose Point of Care 141 mg/dl (65-105)
[2021-03-17 04:31] VITALS: BP 129/46; PULSE 88; RESP 18; TEMP 36.4; O2SAT 100
[2021-03-17] MEDS: LEVOTHYROXINE SODIUM 75 MCG TABLET PO (05:44)
[2021-03-17] MEDS: MORPHINE SULFATE (*CRX) 15 MG TAB IR PO (07:54)
[2021-03-17 07:57] LABS: Basophils Absolute Auto 0.1 K/mm3 (0.0-0.1); Basophils Percent Auto 0.8 % (0.2-1.2); Eosinophils Absolute Auto 0.2 K/mm3 (0-0.3); Hematocrit 26.9 % (37.0-47.0); Hemoglobin 8.9 g/dL (12.0-15.0); Immature Granulocyte Absolute 0.35 K/mm3 (0.00-0.031); Immature Granulocyte Percent A 4.8 % (0-0.5); Lymphocytes Absolute Auto 0.79 K/mm3 (0.9-3.2); Lymphocytes Percent Auto 10.8 % (18.3-44.2); Mean Corpuscular HGB Conc 33.1 g/dl (32-36); Mean Corpuscular Hemoglobin 30.6 pg (26-34); Mean Corpuscular Volume 92.4 fl (80-100); Mean Platelet Volume 9.5 fl (7.4-10.4); Monocytes Absolute Auto 1.1 K/mm3 (0.1-0.6); Monocytes Percent Auto 14.3 % (2.6-8.5); Neutrophils Absolute Auto 4.9 K/mm3 (1.3-6.7); Neutrophils Percent Auto 66.3 % (45.5-73.1); Platelet Count Result 203 k/mm3 (150-375); Red Blood Count 2.91 M/mm3 (4.2-5.4); Red Cell Distribution Width 13.1 % (11.5-14.5); White Blood Count 7.3 K/mm3 (4.5-10.0)
[2021-03-17] MEDS: FERROUS SULFATE 324 MG TABLET PO (07:58)
[2021-03-17 08:00] VITALS: O2SAT 100
[2021-03-17 08:20] LABS: Alanine Aminotransferase 21 U/L (4-35); Albumin Level 2.5 g/dL (3.5-5.1); Alkaline Phosphatase 250 U/L (38-126); Anion Gap 7 mmol/L (8-16); Aspartate Amino Transferase 38 U/L (14-36); Bilirubin,Total 0.6 mg/dL (0.2-1.3); Blood Urea Nitrogen 42 mg/dL (7-17); Calcium 8.3 mg/dL (8.4-10.2); Carbon Dioxide 23 mmol/L (22-30); Chloride 101 mmol/L (98-107); Estimated CRCL calculation 26 ml/min; Estimated Glomerular Filt Rate 33; Glucose 132 mg/dL (65-110); Phosphorus 3.6 mg/dL (2.5-4.5); Potassium 4.5 mmol/L (3.4-5.0); Sodium 131 mmol/L (137-145)
[2021-03-17 08:49] LABS: Glucose Point of Care 62 mg/dl (65-105)
--- NOTE | 2021-03-17 09:30 | PM.DS ---
DS: Admitting Diagnosis Discharge Date 03/17/21 0930 Admitting Diagnosis Pneumonia/fluid overload/pleural effusion DS: Discharge Diagnosis Discharge Diagnosis (1) Shortness of breath: Code(s): R06.02 - Shortness of breath Status: Acute Assessment and Plan: Chest x-ray shows small to moderate left and small right pleural effusions with probable superimposed pneumonia or edema CT of the chest has been ordered to further evaluate the pleural effusions-->Small pleural effusions with a drainage catheter in the right pleural space Continue empiric antibiotics for possible underlying pneumonia BC NGTD COVID 19 negative BNP 326 today, was 464 on 03/12/21. (baseline BNP 116 and 230 in year 2020) PE considered but seems to be less likely by history and exam findings Incentive spirometry. 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 working to get pleur-x catheter accessed safely, perhaps by IR. 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): Code(s): K75.81 - Nonalcoholic steatohepatitis (JOEL); K74.60 - Unspecified cirrhosis of liver Status: Chronic Assessment and Plan: No acute decompensation No evidence of ascites see pleural drain discussion below (4) Chronic kidney disease, stage 3: Code(s): N18.30 - Chronic kidney disease, stage 3 unspecified Status: Acute Assessment and Plan: Creatinine is a bit elevated from baseline, was 1.8, now 1.6 She may in fact be a bit dry given poor appetite though she states that is chronic Continue to encourage oral intake (5) Essential hypertension: Code(s): I10 - Essential (primary) hypertension Status: Chronic Assessment and Plan: Blood pressure stable Continue to monitor daily (6) Aortic stenosis: Qualifiers: Cardiac valve disease etiology: etiology unspecified Qualified Code(s): I35.0 - Nonrheumatic aortic (valve) stenosis Code(s): I35.0 - Nonrheumatic aortic (valve) stenosis Status: Acute Assessment and Plan: [id number] on echocardiogram taken nearly 2 years ago Echocardiogram--> EF60-65%; grade I diastolic dysfunction;moderate aortic valve sclerosis; mild to moderate aortic valve stenosis; trace mitral valve regurgitation (7) Chronic anemia: Code(s): D64.9 - Anemia, unspecified Status: Chronic Assessment and Plan: Hemoglobin and hematocrit are stable on review of previous labs H/H 9.1 / 27.5 today vital signs stable, HR. and BPs stable. (8) Recurrent pleural effusion: Code(s): J90 - Pleural effusion, not elsewhere classified Status: Acute Assessment and Plan: Patient has an indwelling pleural catheter on the right but it has not been accessed since her admission for pnuemonia. working to verify patency of pleur-x catheter to drain well (the 800-1000ml volumes that she was getting at home) ordered pleural fluid cultures (aerobic/anaerobic/cytology/fungal) to be done on pleural fluid from pleur-x. May need to consult interventional radiology to drain pleur-x appropriately and get culture sample. (9) Hyperglycemia: Code(s): R73.9 - Hyperglycemia, unspecified Status: Acute Assessment and Plan: Hgb A1c 7.1 accuchecks, SSI Consult DM educator Glucose has been 186, 142 today DS: Summary Hospital Course Hospital Course: Patient is an 80-year-old female with a past medical history of breast cancer, lymphoma, cirrhosis, hypertension and chronic
--- NOTE | 2021-03-17 09:46 | P.PNNP_ITS ---
Progress Note: A&P Assessment and Plan (1) Hyponatremia: Code(s): E87.1 - Hypo-osmolality and hyponatremia Status: Acute Assessment and Plan: * as noted on this admission but relatively stable if not better * prior sodium levels were normal (but these were from July 2019) * risk factors include: * current pneumonia * poor oral intake * previous history of malignancy (breast cancer/lymphoma) * lung disease (asthma, recurrent right pleural effusion) * liver disease * thyroid disease * narcotic use (morphine) * urine electrolytes pending * cortisol and TSH okay * SPEP, UPEP, and kappa/lambda ratio pending * changed carrier fluid of IV meds/IVPB to normal saline * s/p drainage of indwelling pleural catheter (500cc drained yesterday) * follow trend of repeat sodium levels (2) Stage 3b chronic kidney disease: Code(s): N18.32 - Chronic kidney disease, stage 3b Status: Chronic Assessment and Plan: * baseline creatinine seems to run ~ 1.3 - 1.5mg/dl (from labs in 2019) * appears relatively stable * follow trend for now (3) Pneumonia: Qualifiers: Laterality: bilateral Lung location: unspecified part of lung Pneumonia type: due to unspecified organism Qualified Code(s): J18.9 - Pneu monia, unspecified organism Code(s): J18.9 - Pneumonia, unspecified organism Status: Acute Assessment and Plan: * as suggested by imaging to date * on antibiotics * follow culture data (4) Recurrent right pleural effusion: Code(s): J90 - Pleural effusion, not elsewhere classified Status: Chronic Assessment and Plan: * secondary to hepatic hydrothorax * indwelling pleural catheter in place (5) 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 Subjective Date/time seen: 03/17/21 09:46 No apparent issues or problems voiced at this time; suppose to be discharged yesterday (?) but this did not occur; sodium doing better without any signific ant intervention; no distress noted; no issues/events overnight or earlier this AM. Exam Narrative: General: WD/WN female in NAD Heart: normal S1 and S2; no rub Lungs: decreased at bases Abdomen: soft, nontender, nondistended, positive bowel sounds Extremities: no cyanosis or clubbing; no edema Skin: warm and intact Objective Data Vital Signs Vital Signs: Vital Signs Temp Pulse Resp BP Pulse Ox 03/17/21 04:31 36.4 C 88 18 129/46 L 100 03/16/21 22:00 36.3 C L 72 16 118/40 L 100 03/16/21 20:10 81 18 105/39 L 100 03/16/21 20:05 76 16 112/44 L 100 03/16/21 20:00 36.4 C L 74 16 119/40 L 94 03/16/21 14:00 37.0 C 80 18 113/60 100 Intake/Output Intake/Output:
--- NOTE | 2021-03-17 09:46 | PM.PNNEP ---
Progress Note: A&P Assessment and Plan (1) Hyponatremia: Code(s): E87.1 - Hypo-osmolality and hyponatremia Status: Acute Assessment and Plan: as noted on this admission but relatively stable if not better prior sodium levels were normal (but these were from July 2019) risk factors include: current pneumonia poor oral intake previous history of malignancy (breast cancer/lymphoma) lung disease (asthma, recurrent right pleural effusion) liver disease thyroid disease narcotic use (morphine) urine electrolytes pending cortisol and TSH okay SPEP, UPEP, and kappa/lambda ratio pending changed carrier fluid of IV meds/IVPB to normal saline s/p drainage of indwelling pleural catheter (500cc drained yesterday) follow trend of repeat sodium levels (2) Stage 3b chronic kidney disease: Code(s): N18.32 - Chronic kidney disease, stage 3b Status: Chronic Assessment and Plan: baseline creatinine seems to run ~ 1.3 - 1.5mg/dl (from labs in 2019) appears relatively stable follow trend for now (3) Pneumonia: Qualifiers: Laterality: bilateral Lung location: unspecified part of lung Pneumonia type: due to unspecified organism Qualified Code(s): J18.9 - Pneumonia, unspecified organism Code(s): J18.9 - Pneumonia, unspecified organism Status: Acute Assessment and Plan: as suggested by imaging to date on antibiotics follow culture data (4) Recurrent right pleural effusion: Code(s): J90 - Pleural effusion, not elsewhere classified Status: Chronic Assessment and Plan: secondary to hepatic hydrothorax indwelling pleural catheter in place (5) 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 Subjective Date/time seen: 03/17/21 09:46 No apparent issues or problems voiced at this time; suppose to be discharged yesterday (?) but this did not occur; sodium doing better without any significant intervention; no distress noted; no issues/events overnight or earlier this AM. Exam Narrative: General: WD/WN female in NAD Heart: normal S1 and S2; no rub Lungs: decreased at bases Abdomen: soft, nontender, nondistended, positive bowel sounds Extremities: no cyanosis or clubbing; no edema Skin: warm and intact Objective Data Vital Signs Vital Signs: Vital Signs Temp Pulse Resp BP Pulse Ox 03/17/21 04:31 36.4 C 88 18 129/46 L 100 03/16/21 22:00 36.3 C L 72 16 118/40 L 100 03/16/21 20:10 81 18 105/39 L 100 03/16/21 20:05 76 16 112/44 L 100 03/16/21 20:00 36.4 C L 74 16 119/40 L 94 03/16/21 14:00 37.0 C 80 18 113/60 100 Intake/Output Intake/Output: Intake & Output 03/14/21 03/15/21 03/16/21 03/17/21 23:59 23:59 23:59 23:59 Intake Total 2150 1020 1240 300 Output Total 1250 600 Balance 2150 1020 -10 -300 Meds/Results Medications: Active Medications Generic Name Dose Route Start Last Admin Trade Name Freq PRN Reason Stop Dose Admin Acetaminophen 650 mg 03/13/21 15:27 03/16/21 18:21 Acetaminophen 325 Mg Tablet PO 650 mg Q4H PRN Administration Mild Pain (1-3) or Fever Albuterol 5 mg 03/15/21 14:00 03/17/21 09:14 Albuterol Sulfate Neb 2.5 Mg/0.5 Ml Inh INHALATION Not Given Q6HRT ON LICENSE OF [facility] Dextrose 12.5 gm 03/13/21 14:59 Dextrose 50%
[2021-03-17 11:33] LABS: Glucose Point of Care 279 mg/dl (65-105)
[2021-03-17 12:21] LABS: Glucose Point of Care 248 mg/dl (65-105)
[2021-03-17] MEDS: INSULIN ASPART (*BKC) 100 UNITS/ML SUB-Q (12:33)
[2021-03-19 07:23] LABS: Albumin 1.9 g/dL (3.8-4.8); Alpha 1 Globulin 0.6 g/dL (0.2-0.3); Alpha 2 Globulin 0.8 g/dL (0.5-0.9); Beta 1 Globulin 0.2 g/dL (0.4-0.6); Gamma Globulin 0.5 g/dL (0.8-1.7); Protein, Total 4.2 g/dL (6.1-8.1)
== END 2021-03-17 13:10 | disposition home health service (06) | DRG 194 ==
LOC: ANHED 13:01 → ANH3MEDSUR 17:42
PROVIDERS: Emergency Medicine; Internal Medicine Nephrology; Nurse Practitioner Adult Health; Physician Assistant; Admitting Provider Internal Medicine; Emergency Provider Emergency Medicine; PCP Family Medicine; Visit Provider Nurse Practitioner
DX: J18.9 Pneumonia, unspecified organism (principal); E87.1 Hypo-osmolality and hyponatremia; J94.8 Other specified pleural conditions; J91.8 Pleural effusion in other conditions classified elsewhere; D63.1 Anemia in chronic kidney disease; E89.0 Postprocedural hypothyroidism; J45.909 Unspecified asthma, uncomplicated; Z20.822 Contact with and (suspected) exposure to COVID-19; R93.89 Abnormal findings on diagnostic imaging of other specified body structures; K74.60 Unspecified cirrhosis of liver; K75.81 Nonalcoholic steatohepatitis (NASH); I12.9 Hypertensive chronic kidney disease with stage 1 through stage 4 chronic kidney disease, or unspecified chronic kidney disease; N18.32 Chronic kidney disease, stage 3b; I35.0 Nonrheumatic aortic (valve) stenosis; R73.9 Hyperglycemia, unspecified; M19.90 Unspecified osteoarthritis, unspecified site; M81.0 Age-related osteoporosis without current pathological fracture; Z79.899 Other long term (current) drug therapy; Z85.3 Personal history of malignant neoplasm of breast; Z85.72 Personal history of non-Hodgkin lymphomas; Z96.89 Presence of other specified functional implants; Z98.49 Cataract extraction status, unspecified eye
CPT/HCPCS: 36415; 71045; 71046; 71250; 74176; 80048; 80053; 80069; 82533; 82607; 82948; 83036; 83605; 83735; 83880; 83930; 84100; 84145; 84155; 84165; 84439; 84443; 84480; 84484; 85025; 85027; 85610; 85730; 86140; 87015; 87040; 87070; 87075; 87102; 87116; 87205; 87206; 88104; 88108; 88305; 93005; 96365; 96366; 96367; 96368; 96372; 97162; 97165; 99285; A9270; C8929; C9803; G0378; J0456; J0692; J0696; J1650; J1815; J3370; Q9957; U0003; U0005

== ENCOUNTER 2021-05-29 17:26 | Inpatient (IN) | payer MEDICARE, SELFPAY ==
[2021-05-29] VITALS (13 sets, daily range): BP systolic 157–167; BP diastolic 46–69; PULSE 86–104; RESP 16–34; TEMP 36.9–37.1; O2SAT 94–100; BMI 27.3
--- NOTE | ~2021-05-29 | XR_ITS ---
XR shoulder RT min 2V DATE: 05/29/2021 18:08 INDICATION: Fall. Right shoulder pain, deformity TECHNIQUE: 2 Limited views COMPARISON: None FINDINGS: There is diffuse osteopenia. Alignment appears intact at the acromioclavicular and glenohumeral joints. No right clavicular or sca pular fracture is evident. Due to positioning, the examination is not diagnostic, cannot exclude proximal right humeral fracture , particularly the surgical neck fracture. Additional views are necessary. IMPRESSION: Limited incomplete examination; cannot clear possible right surgical neck humeral fractur e Reviewed, dictated and finalized at location A. IMPRESSION: Limited incomplete examination; cannot clear possible right surgica l neck humeral fracture
--- NOTE | ~2021-05-29 | CT_ITS ---
EXAMINATION: CT shoulder RT wo con DATE: 05/29/2021 19:01 INDICATION: Patient fell. Right shoulder injury, deformity TECHNIQUE: Computed tomography (CT) of the head was performed without intravenous contrast. The mA wa s adjusted according to patient size. Iterative reconstruction technique was employed. Exam dose: 24 7.74 mGy-cm total exam DLP. Right shoulder COMPARISON: right shoulder FINDINGS: There is an impacted mildly medially displaced right humeral surgical neck fracture. No other fracture or dislocation. Normal alignment at the acromioclavicular and glenohumeral joints. IMPRESSION: Right humeral surgical neck fracture Reviewed, dictated and finalized at Location [facility]. Reviewed, dictated and finalized at location A.
--- NOTE | ~2021-05-29 | CT_ITS ---
EXAMINATION: CT brain wo con DATE: 05/29/2021 19:01 INDICATION: Patient fell and struck head. TECHNIQUE: Computed tomography (CT) of the head was performed without intravenous contrast. The mA wa s adjusted according to patient size. Iterative reconstruction technique was employed. Exam dose: 60 5.33 mGy-cm total exam DLP. COMPARISON: 10/23/2017 CT brain FINDINGS: Bilateral carotid siphon internal carotid artery calcifications. There is nonspecific dimin ished attenuation of the cerebral white matter, likely due to chronic small vessel ischemic changes. No intracranial mass lesion or hemorrhage or cerebrovascular accident. No midline shift or mass effec t. Normal ventricular size. No subdural or epidural hematoma. Approximately 1 cm mucous retention cyst or polyp of the posterior lower left maxillary sinus. The pa ranasal sinuses and mastoid air cells are otherwise unremarkable. No skull fracture or bone destruction. IMPRESSION: Cerebral atherosclerosis and chronic small vessel ischemic changes of the cerebral white matter No skull fracture or acute intracranial finding Reviewed, dictated and finalized at Location [facility]. Reviewed, dictated and finalized at location A.
--- NOTE | ~2021-05-29 | CT_ITS ---
EXAMINATION: CT cervical spine wo con DATE: 05/29/2021 19:01 INDICATION: Patient fell and struck head. Neck injury, right shoulder deformity TECHNIQUE: Computed tomography (CT) of the cervical spine was performed without intravenous contrast. Automated exposure control and iterative reconstruction technique were employed. Exam dose: 335.55 mGy-cm total exam DLP. COMPARISON: None FINDINGS: Minimal levoscoliosis of the cervical spine. C1 and C2 are normally aligned and the odontoi d process is intact. No fracture or dislocation, locked facet or prevertebral soft tissue swelling. There is severe degenerative disc disease and mild retrolisthesis at C5-6. There is degenerative change at the apophyseal joints throughout the cervical spine Prominent uncovertebral joint spurring at C5-6 and to a lesser extent C6-7. Status post right thyroid lobectomy IMPRESSION: No fracture, dislocation or locked facet Cervical spondylosis Reviewed, dictated and finalized at Location [facility]. Reviewed, dictated and finalized at location A.
--- NOTE | ~2021-05-29 | CT_ITS ---
EXAMINATION: CT abdomen pelvis wo con DATE: 05/29/2021 21:21 INDICATION: Hematuria TECHNIQUE: Computed tomography (CT) of the abdomen and pelvis was performed without intravenous contr ast. Automated exposure control and iterative reconstruction technique were employed. Exam dose: 748 .01 mGy-cm total exam DLP. COMPARISON: 03/12/2021 CTA chest abdomen pelvis FINDINGS: Moderately large bilateral pleural effusions are noted. Again noted is a percutaneous drain age catheter in the posterior right lower pleural space. Bilateral dependent lower lobe compressive atelectasis. Cardiomegaly. No pericardial effusion. There is prominent surface nodularity and some diminished size of the liver consistent with cirrhosis . The spleen measures 11.7 cm vertical dimension, within upper normal limits. No obvious hepatic, spl enic, pancreatic, and adrenal or renal space-occupying mass lesion is noted on this limited noncontra st examination. Right internal urinary stent. No urinary tract calculus is evident. The urinary bladder appears unrem arkable. Status post hysterectomy. Atherosclerotic calcification but normal caliber of the abdominal aorta. No intraperitoneal or retrop eritoneal or pelvic mass lesion or adenopathy. There is mild ascites. Diverticulosis of the sigmoid colon; no CT evidence of diverticulitis. No bowel obstruction or intrap eritoneal free air. Small fat and fluid containing lower midline ventral abdominal wall hernia. Old healed left rib fractures and probable old ununited left L2 transverse process fracture Mild chronic anterior wedge compression fracture deformity of T8. Vertebra plana/burst fracture at T12. Prominent degenerative change at the apophyseal joints of the lumbar spine with associated minimal gr jimmy 1 anterolisthesis at L4-5. Diffuse osteopenia. IMPRESSION: Moderately large bilateral pleural effusions with bilateral lower lobe compressive atele ctasis Cardiomegaly Cirrhosis Mild ascites Right internal urinary stent Diverticulosis of left colon Reviewed, dictated and finalized at Location A. Reviewed, dictated and finalized at location A. IMPRESSION: Moderately large bilateral pleural effusions with bilateral lower lobe compressive atelectasis Cardiomegaly Cirrhosis Mild ascites Right internal urinary stent Diverticulosis of left colon
--- NOTE | 2021-05-29 17:42 | ED.FALL ---
HPI - Fall General Chief Complaint: Fall Stated Complaint: fall, RUE pain Time Seen by Provider: 05/29/21 17:42 Source: patient and EMS Mode of arrival: EMS Limitations: no limitations History of Present Illness HPI Narrative: Patient is an 80-year-old female who presents the ED via EMS with report of a fall. Patient reports she slipped and fell prior to arrival and fell into a wooden gate or ladder. She is unsure exactly what she hit. She did land mostly on her right shoulder. She has an obvious deformity on exam. Patient complains of pain to her right shoulder. Denies any other pain. She did hit her head in the fall, but denies losing consciousness. She is not on any blood thinners. No prodromal symptoms. Patient was given 50 mcg of fentanyl by EMS in route. She is on morphine at home. Patient has a PleurX catheter in her right lung due to chronic right pleural effusion which she has drained every 3 days. She chronically wears 5 L nasal cannula oxygen. Related Data Home Medications Medication Instructions Recorded Confirmed ferrous sulfate 325 mg PO BID 03/12/21 03/12/21 levothyroxine 75 mcg PO DAILY 03/12/21 03/12/21 morphine 15 mg PO QID PRN 03/12/21 03/12/21 Allergies Allergy/AdvReac Type Severity Reaction Status Date / Time lisinopril Allergy Severe ANAPHYLAXIS Verified 05/29/21 17:48 codeine AdvReac Unknown Nausea and Verified 05/29/21 17:48 Vomiting NSAIDS (Non-Steroidal AdvReac Other Verified 05/29/21 17:48 Anti-Inflamma tramadol AdvReac HALLUCINATI Verified 05/29/21 17:48 ONS Review of Systems Review of Systems: CONSTITUTIONAL: Denies fever. EYES: Denies visual changes. CARDIOVASCULAR: Denies chest pain, palpitations. RESPIRATORY: Denies dyspnea. GASTROINTESTINAL: Denies abdominal pain, nausea, vomiting. MUSCULOSKELETAL: Reports pain to R shoulder. Denies neck pain. NEUROLOGIC: Reports head injury. Denies LOC, dizziness, lightheadedness, headache, numbness, or weakness. All systems reviewed & are unremarkable except as noted in HPI and below PMFSH Past Medical History Medical History Aortic stenosis [id number] with an aortic valve area of 1.5 cm2 on echocardiogram in May 2019. Asthma Breast cancer Status post right lumpectomy in 2012. Chronic anemia Chronic kidney disease, stage 3 Creatinine ranges between 1.3 and 1.50. Essential hypertension Hydronephrosis of right kidney Status post stent. 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 Surgical History Surgical History History of appendectomy History of bilateral carpal tunnel release History of cataract extraction History of cholecystectomy History of hysterectomy History of laser assisted in situ keratomileusis History of partial thyroidectomy For benign tumor. History of thoracentesis History of ureter stent Family History Family History Mother Head and neck cancer Acute myocardial infarction Congestive heart failure Pancreatic cancer Sibling Diabetes mellitus Acute myocardial infarction Social History Social History Social History: The patient lives with her in [place]. She is a lifelong nonsmoker and denies alcohol and drug use. She designates her , Abdoulaye, as her surrogate decision maker and she wishes to be a full code. Exam Narrative: GENERAL: Well appearing, well-nourished, non-toxic, in no acute distress. HEAD: Normocephalic, atraumatic. No scalp tenderness to palpation. EYES: PERRL/EOMI, conjunctivae clear bilaterally. NECK: Supple. No adenopathy, no masses. No midline cervical spine
[2021-05-29 18:06] LABS: Basophils Absolute Auto 0.1 K/mm3 (0.0-0.1); Basophils Percent Auto 0.6 % (0.2-1.2); Eosinophils Absolute Auto 0.1 K/mm3 (0-0.3); Eosinophils Percent Auto 1.7 % (0-4.4); Hematocrit 29.1 % (37.0-47.0); Hemoglobin 9.4 g/dL (12.0-15.0); Immature Granulocyte Absolute 0.19 K/mm3 (0.00-0.031); Immature Granulocyte Percent A 2.4 % (0-0.5); Lymphocytes Absolute Auto 0.65 K/mm3 (0.9-3.2); Lymphocytes Percent Auto 8.3 % (18.3-44.2); Mean Corpuscular HGB Conc 32.3 g/dl (32-36); Mean Corpuscular Hemoglobin 31.8 pg (26-34); Mean Corpuscular Volume 98.3 fl (80-100); Mean Platelet Volume 10.7 fl (7.4-10.4); Monocytes Percent Auto 13.2 % (2.6-8.5); Neutrophils Absolute Auto 5.8 K/mm3 (1.3-6.7); Neutrophils Percent Auto 73.8 % (45.5-73.1); Platelet Count Result 169 k/mm3 (150-375); Red Blood Count 2.96 M/mm3 (4.2-5.4); Red Cell Distribution Width 13.5 % (11.5-14.5); White Blood Count 7.8 K/mm3 (4.5-10.0)
[2021-05-29] MEDS: ONDANSETRON INJ 4 MG/2 ML VIAL IV PUSH ×2 (18:06→21:31)
[2021-05-29] MEDS: MORPHINE SULFATE (*CRX) 4 MG/ML INJ IV PUSH (18:08)
[2021-05-29 18:11] LABS: Alanine Aminotransferase 24 U/L (4-35); Alkaline Phosphatase 216 U/L (38-126); Anion Gap 5 mmol/L (8-16); Aspartate Amino Transferase 48 U/L (14-36); Bilirubin,Total 0.9 mg/dL (0.2-1.3); Blood Urea Nitrogen 39 mg/dL (7-17); Calcium 8.1 mg/dL (8.4-10.2); Carbon Dioxide 20 mmol/L (22-30); Chloride 110 mmol/L (98-107); Estimated CRCL calculation 24 ml/min; Estimated Glomerular Filt Rate 36; Glucose 134 mg/dL (65-110); Potassium 4.1 mmol/L (3.4-5.0); Sodium 135 mmol/L (137-145)
[2021-05-29] MEDS: HYDROmorphone HCL INJ (*CRX) 1 MG/ML SYR IV PUSH (19:20)
--- NOTE | 2021-05-29 19:26 | PC.NURSE ---
RN and ERPA applied splint to right shoulder. Pillow also placed under shoulder. Pt resting comfortably.
--- NOTE | 2021-05-29 19:54 | PC.NURSE ---
Pt updated pain is improved. Pt has no needs. Pt has abrasion noted to right knee as well as bruising from a previous fall. Wound care performed.
[2021-05-29 20:56] LABS: Add Urine Microscopic? YES; Appearance Urine Cloudy (Clear); Bilirubin Urine Negative (Negative); Blood Urine 3+ (Negative); Budding Yeast Urine Present /hpf; Color Urine Yellow (Yellow); Glucose Urine UA Negative (Negative); Ketones Urine Negative (Negative); Leukocyte Esterase Ur 3+ LEU/UL (Negative); Nitrate Urine Negative (Negative); Protein Urine Negative (Negative); RBC Urine >75 /hpf (0-2); Specific Grav Ur 1.015 (1.001-1.035); Urobilinogen Urine Negative mg/dL (<2.0); WBC Urine >75 /hpf
--- NOTE | 2021-05-29 21:03 | PM.IMHP ---
H&P: HPI History of Present Illness Date/Time: 05/29/21 21:03 Chief Complaint: 80 years old female with past medical history of Joel liver cirrhosis chronic renal failure pleural effusion status post PleurX catheter chronic narcotic dependence presented to the hospital with fall patient fill today which was walking she hit her head also she hit the right shoulder during the fall with deformity of the right shoulder patient started complaining of severe right shoulder pain not controlled by oral morphine that she takes at home patient denies loss of consciousness fever or chills at the ER patient was found to right humeral neck fracture orthopedic was consulted also has abnormal UA with positive glucose trace and leukocytosis and hematuria admitted for further evaluation and treatment. Review of Systems Review of Systems: All systems reviewed & are unremarkable except as noted in HPI and below PMFSH Past Medical History Medical History Aortic stenosis [id number] with an aortic valve area of 1.5 cm2 on echocardiogram in May 2019. Asthma Breast cancer Status post right lumpectomy in 2012. Chronic anemia Chronic kidney disease, stage 3 Creatinine ranges between 1.3 and 1.50. Essential hypertension Hydronephrosis of right kidney Status post stent. 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 Surgical History Surgical History History of appendectomy History of bilateral carpal tunnel release History of cataract extraction History of cholecystectomy History of hysterectomy History of laser assisted in situ keratomileusis History of partial thyroidectomy For benign tumor. History of thoracentesis History of ureter stent Family History Family History Mother Head and neck cancer Acute myocardial infarction Congestive heart failure Pancreatic cancer Sibling Diabetes mellitus Acute myocardial infarction Social History Social History Social History: The patient lives with her in [place]. She is a lifelong nonsmoker and denies alcohol and drug use. She designates her , Abdoulaye, as her surrogate decision maker and she wishes to be a full code. Meds Home Medications and Allergies Home Medications Medication Instructions Recorded Confirmed Type ferrous sulfate 325 mg PO BID 03/12/21 03/12/21 History levothyroxine 75 mcg PO DAILY 03/12/21 03/12/21 History morphine 15 mg PO QID PRN 03/12/21 03/12/21 History albuterol sulfate 1 inh INHALATION QID PRN #6.7 g 03/16/21 Rx azithromycin 250 mg PO DAILY 5 Days #5 tablet 03/16/21 Rx cefdinir 300 mg PO Q12H #10 cap 03/16/21 Rx Allergies Allergy/AdvReac Type Severity Reaction Status Date / Time lisinopril Allergy Severe ANAPHYLAXIS Verified 05/29/21 17:48 codeine AdvReac Unknown Nausea and Verified 05/29/21 17:48 Vomiting NSAIDS (Non-Steroidal AdvReac Other Verified 05/29/21 17:48 Anti-Inflamma tramadol AdvReac HALLUCINATI Verified 05/29/21 17:48 ONS Vital Signs Vital Signs - 24 hr 05/29/21 17:28 05/29/21 17:36 05/29/21 17:37 Temperature 98.7 F Pulse Rate 95 97 97 Respiratory Rate 16 20 22 H Blood Pressure 167/69 H 167/69 H Pulse Oximetry 100 100 100 05/29/21 17:45 05/29/21 18:00 05/29/21 18:02 Temperature Pulse Rate 96 94 104 H Respiratory Rate 20 34 H 21 H Blood Pressure 160/60 H Pulse Oximetry 100 05/29/21 18:15 05/29/21 18:58 05/29/21 19:00 Temperature Pulse Rate 95 89 Respiratory Rate 24 H 20 Blood Pressure 161/62 H Pulse Oximetry 98 100 98 05/29/21 19:16 Temperature Puls
[2021-05-29] MEDS: MORPHINE SULFATE (*CRX) 2 MG/ML INJ IV PUSH (21:31)
--- NOTE | 2021-05-29 21:53 | PC.NURSE ---
Pt transported with IV ceftriaxone infusing
--- NOTE | 2021-05-29 21:55 | ADMGEN ---
This patient, Stefanie Pearson, was admitted to 2 Medical Room 256-01 @ 2951. Patient/family oriented to hospital policies and general routines including ID bracelet, bed and alarms, visiting hours, pain management, procedures, bathroom and other care routines, personal items, smoking policy, room service/diet, and visiting hours. Information on how to activate the Rapid Response Team has been discussed. Patient/Family are encouraged to report perceived risks to care and to ask questions if they do not understand what they are told or what they should do.
[2021-05-30] VITALS (13 sets, daily range): BP systolic 124–152; BP diastolic 44–71; PULSE 76–87; RESP 17–20; TEMP 35.7–37.4; O2SAT 97–100
[2021-05-30] MEDS: MORPHINE SULFATE (*CRX) 2 MG/ML INJ IV PUSH ×6 (01:00→20:16)
[2021-05-30] MEDS: SODIUM CHLORIDE 0.9% IV 1,000 ML 50 ML IV CONT (03:56)
[2021-05-30] MEDS: MORPHINE SULFATE (*CRX) 15 MG TAB IR PO ×2 (04:54→22:17)
[2021-05-30 05:34] LABS: Basophils Percent Auto 0.7 % (0.2-1.2); Eosinophils Absolute Auto 0.1 K/mm3 (0-0.3); Hematocrit 25.3 % (37.0-47.0); Hemoglobin 8.3 g/dL (12.0-15.0); Immature Granulocyte Absolute 0.13 K/mm3 (0.00-0.031); Immature Granulocyte Percent A 2.2 % (0-0.5); Lymphocytes Absolute Auto 0.47 K/mm3 (0.9-3.2); Lymphocytes Percent Auto 8.1 % (18.3-44.2); Mean Corpuscular HGB Conc 32.8 g/dl (32-36); Mean Corpuscular Hemoglobin 31.7 pg (26-34); Mean Corpuscular Volume 96.6 fl (80-100); Mean Platelet Volume 10.7 fl (7.4-10.4); Monocytes Absolute Auto 0.8 K/mm3 (0.1-0.6); Monocytes Percent Auto 13.4 % (2.6-8.5); Neutrophils Absolute Auto 4.3 K/mm3 (1.3-6.7); Neutrophils Percent Auto 74.6 % (45.5-73.1); Platelet Count Result 130 k/mm3 (150-375); Red Blood Count 2.62 M/mm3 (4.2-5.4); Red Cell Distribution Width 13.5 % (11.5-14.5); White Blood Count 5.8 K/mm3 (4.5-10.0)
[2021-05-30 05:52] LABS: Alanine Aminotransferase 22 U/L (4-35); Albumin Level 2.7 g/dL (3.5-5.1); Alkaline Phosphatase 179 U/L (38-126); Anion Gap 5 mmol/L (8-16); Aspartate Amino Transferase 41 U/L (14-36); Bilirubin,Total 1.1 mg/dL (0.2-1.3); Blood Urea Nitrogen 38 mg/dL (7-17); Carbon Dioxide 21 mmol/L (22-30); Chloride 110 mmol/L (98-107); Estimated CRCL calculation 28 ml/min; Estimated Glomerular Filt Rate 36; Glucose 150 mg/dL (65-110); Potassium 4.7 mmol/L (3.4-5.0); Sodium 136 mmol/L (137-145)
[2021-05-30 05:53] LABS: Ammonia 32 umol/L (9-30)
[2021-05-30 07:39] LABS: Glucose Point of Care 137 mg/dl (65-105)
[2021-05-30] MEDS: ACETAMINOPHEN 325 MG TABLET 650 MG PO ×3 (07:44→21:39)
--- NOTE | 2021-05-30 08:40 | PM.IMPN ---
Progress Note: A&P Assessment and Plan (1) Hypothyroidism: Code(s): E03.9 - Hypothyroidism, unspecified Status: Acute (2) Fracture of surgical neck of humerus: Qualifiers: Encounter type: initial encounter Fracture alignment: nondisplaced Fracture morphology: unspecified fracture morphology Fracture type: closed Laterality: right Qualified Code(s): S42.214A - Unspecified nondisplaced fracture of surgical neck of right humerus, initial encounter for closed fracture Code(s): S42.213A - Unspecified displaced fracture of surgical neck of unspecified humerus, initial encounter for closed fracture Status: Acute (3) Stage 3b chronic kidney disease: Code(s): N18.32 - Chronic kidney disease, stage 3b Status: Chronic (4) Anemia: Code(s): D64.9 - Anemia, unspecified Status: Acute (5) Recurrent right pleural effusion: Code(s): J90 - Pleural effusion, not elsewhere classified Status: Chronic (6) Hypertension: Code(s): I10 - Essential (primary) hypertension Status: Chronic (7) Lymphoma: Code(s): C85.90 - Non-Hodgkin lymphoma, unspecified, unspecified site Status: Acute (8) Diabetes mellitus: Code(s): E11.9 - Type 2 diabetes mellitus without complications Status: Acute (9) Chronic kidney disease, stage 3: Code(s): N18.30 - Chronic kidney disease, stage 3 unspecified Status: Acute (10) 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 Subjective Date/time seen: 05/30/21 08:40 pt ok would like snf if qualifies humerus fx likely inoperative will try and control pain bedside all questions answered Exam Narrative: GEN: NAD, AAOx3, cooperative HEENT: NCAT, MMM, EOMI Neck: no JVD Heart: S1S2 RRR Lungs: CTA B/l Abd: soft, NT, ND, bowel sounds normoactive Ext: moves all, no cyanosis, no clubbing, no edema, ROWDY in sling tender to palpation and movement during lung exam Neuro: slow cognition, moves all extremities equally, unsteady gait Psych: mood reduced, affect congruent flattened, poor eye contact Objective Data Vital Signs Vital Signs: Vital Signs - 24 hr 05/29/21 17:28 05/29/21 17:36 05/29/21 17:37 Temperature 98.7 F Pulse Rate 95 97 97 Respiratory Rate 16 20 22 H Blood Pressure 167/69 H 167/69 H Pulse Oximetry 100 100 100 05/29/21 17:45 05/29/21 18:00 05/29/21 18:02 Temperature Pulse Rate 96 94 104 H Respiratory Rate 20 34 H 21 H Blood Pressure 160/60 H Pulse Oximetry 100 05/29/21 18:15 05/29/21 18:58 05/29/21 19:00 Temperature Pulse Rate 95 89 Respiratory Rate 24 H 20 Blood Pressure 161/62 H Pulse Oximetry 98 100 98 05/29/21 19:16 05/29/21 21:25 05/29/21 21:54 Temperature 98.5 F Pulse Rate 95 86 Respiratory Rate 16 20 Blood Pressure 159/46 H 157/56 H Pulse Oximetry 97 97 100 05/29/21 22:04 05/30/21 00:00 05/30/21 04:00 Temperature 98.3 F 98.0 F Pulse Rate 84 82 Respiratory Rate 20 20 Blood Pressure 152/57 H 144/54 H Pulse Oximetry 94 100 100 05/30/21 08:34 Temperature Pulse Rate Respiratory Rate Blood Pressure Pulse Oximetry 97 Intake/Output Intake/Output: Intake & Output 05/27/21 05/28/21 05/29/21 05/30/21 23:59 23:59 23:59 23:59 Intake Total 50 0 Balance 50 0 Meds/Results Medications: Active Medications Generic Name Dose Route Start Last Admin Trade Name Freq PRN Reas
--- NOTE | 2021-05-30 09:00 | PCPTNOTE ---
Will complete physical therapy evaluation after orthopedic consultation.
[2021-05-30] MEDS: FUROSEMIDE INJ 40 MG/4 ML VIAL 20 MG IV PUSH ×2 (09:06→16:00)
[2021-05-30] MEDS: LEVOTHYROXINE SODIUM 75 MCG TABLET PO (09:07)
[2021-05-30 11:13] LABS: Glucose Point of Care 134 mg/dl (65-105)
--- NOTE | 2021-05-30 11:59 | PCOTNOTE ---
Will complete OT evaluation after ortho consult is completed. Will follow.
[2021-05-30] MEDS: FERROUS SULFATE 324 MG TABLET PO ×2 (12:22→16:00)
[2021-05-30] MEDS: PANTOPRAZOLE 40 MG TABLET PO ×2 (12:22→16:00)
[2021-05-30 16:04] LABS: Glucose Point of Care 168 mg/dl (65-105)
--- NOTE | 2021-05-30 17:42 | PM.CNOR ---
Assessment and Plan Assessment and plan (1) Fracture of surgical neck of humerus: Qualifiers: Encounter type: initial encounter Fracture alignment: nondisplaced Fracture morphology: unspecified fracture morphology Fracture type: closed Laterality: right Qualified Code(s): S42.214A - Unspecified nondisplaced fracture of surgical neck of right humerus, initial encounter for closed fracture Code(s): S42.213A - Unspecified displaced fracture of surgical neck of unspecified humerus, initial encounter for closed fracture Status: Acute Assessment and Plan: Pleasant elderly female complains of exquisite right shoulder pain after a fall. No prior symptoms. She uses a walker typically. She was admitted through the emergency room for further management at pain control. Denies numbness, tingling, or associated symptoms. Examination Appears slightly uncomfortable. Vital signs stable. Tender at the proximal humerus. Moderate swelling and mild ecchymosis. Examination limited by pain. Distal neurovascular status intact. No obvious clinical deformity. Able to sit up in the bed. Diagnostics Shoulder films reviewed by me show nondisplaced impacted humeral surgical neck fracture. I reviewed the CT scan which shows more clearly the fracture with mild impaction and varus angulation. Impression Nondisplaced proximal humerus surgical neck fracture can be treated non operatively. I discussed the expected history and healing of the fracture. The patient is pleased. Continue with the sling for comfort for 2-4 weeks. Follow-up in the clinic in 2 weeks. Anticipate starting physical therapy after that. For now she can do gentle elbow wrist and hand exercises at [facility] exercises. No weight bearing on the right upper extremity for now. History of Present Illness HPI Consult date: 05/30/21 Chief complaint: R humeral surgical neck fracture Review of Systems Review of Systems: All systems reviewed & are unremarkable except as noted in HPI and below [facility] Past Medical History Medical History Aortic stenosis [id number] with an aortic valve area of 1.5 cm2 on echocardiogram in May 2019. Asthma Breast cancer Status post right lumpectomy in 2012. Chronic anemia Chronic kidney disease, stage 3 Creatinine ranges between 1.3 and 1.50. Essential hypertension Hydronephrosis of right kidney Status post stent. 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 Surgical History Surgical History History of appendectomy History of bilateral carpal tunnel release History of cataract extraction History of cholecystectomy History of hysterectomy History of laser assisted in situ keratomileusis History of partial thyroidectomy For benign tumor. History of thoracentesis History of ureter stent Family History Family History Mother Head and neck cancer Acute myocardial infarction Congestive heart failure Pancreatic cancer Sibling Diabetes mellitus Acute myocardial infarction Social History Social History Social History: The patient lives with her in [place]. She is a lifelong nonsmoker and denies alcohol and drug use. She designates her , Abdoulaye, as her surrogate decision maker and she wishes to be a full code. Smoking status: Never smoker Alcohol intake: never Substance use: never Substance use type: does not use Spiritual care concerns: No Meds Home Medications and Allergies Home Medications Medication Instructions Recorded Confirmed Type ferrous sulfate 325 mg PO BID 03/12/2105/29
[2021-05-30 19:33] LABS: Glucose Point of Care 215 mg/dl (65-105)
[2021-05-31] VITALS (13 sets, daily range): BP systolic 128–150; BP diastolic 44–52; PULSE 72–92; RESP 16–19; TEMP 35.8–37.1; O2SAT 96–100
[2021-05-31] MEDS: MORPHINE SULFATE (*CRX) 2 MG/ML INJ IV PUSH ×4 (02:01→19:17)
[2021-05-31 05:26] LABS: Basophils Percent Auto 0.5 % (0.2-1.2); Eosinophils Absolute Auto 0.1 K/mm3 (0-0.3); Hematocrit 24.8 % (37.0-47.0); Hemoglobin 7.8 g/dL (12.0-15.0); Immature Granulocyte Absolute 0.07 K/mm3 (0.00-0.031); Immature Granulocyte Percent A 1.7 % (0-0.5); Lymphocytes Absolute Auto 0.25 K/mm3 (0.9-3.2); Lymphocytes Percent Auto 6.2 % (18.3-44.2); Mean Corpuscular HGB Conc 31.5 g/dl (32-36); Mean Corpuscular Hemoglobin 30.8 pg (26-34); Mean Platelet Volume 10.7 fl (7.4-10.4); Monocytes Absolute Auto 0.6 K/mm3 (0.1-0.6); Neutrophils Absolute Auto 2.9 K/mm3 (1.3-6.7); Neutrophils Percent Auto 72.6 % (45.5-73.1); Platelet Count Result 107 k/mm3 (150-375); Red Blood Count 2.53 M/mm3 (4.2-5.4); Red Cell Distribution Width 13.6 % (11.5-14.5)
[2021-05-31] MEDS: MORPHINE SULFATE (*CRX) 15 MG TAB IR PO ×2 (05:29→21:08)
[2021-05-31] MEDS: LEVOTHYROXINE SODIUM 75 MCG TABLET PO (05:30)
[2021-05-31 05:40] LABS: Alanine Aminotransferase 20 U/L (4-35); Albumin Level 2.7 g/dL (3.5-5.1); Alkaline Phosphatase 171 U/L (38-126); Anion Gap 4 mmol/L (8-16); Aspartate Amino Transferase 36 U/L (14-36); Bilirubin,Total 0.6 mg/dL (0.2-1.3); Blood Urea Nitrogen 43 mg/dL (7-17); Calcium 7.8 mg/dL (8.4-10.2); Carbon Dioxide 22 mmol/L (22-30); Chloride 108 mmol/L (98-107); Estimated CRCL calculation 23 ml/min; Estimated Glomerular Filt Rate 29; Glucose 128 mg/dL (65-110); Sodium 134 mmol/L (137-145)
[2021-05-31 07:40] LABS: Glucose Point of Care 134 mg/dl (65-105)
[2021-05-31] MEDS: FERROUS SULFATE 324 MG TABLET PO ×2 (08:21→16:07)
[2021-05-31] MEDS: PANTOPRAZOLE 40 MG TABLET PO ×2 (08:21→16:07)
[2021-05-31] MEDS: FUROSEMIDE INJ 40 MG/4 ML VIAL 20 MG IV PUSH ×3 (08:21→16:07)
[2021-05-31] MEDS: ACETAMINOPHEN 325 MG TABLET 650 MG PO ×2 (09:30→17:41)
[2021-05-31 11:36] LABS: Glucose Point of Care 172 mg/dl (65-105)
--- NOTE | 2021-05-31 14:28 | PM.IMPN ---
Progress Note: A&P Assessment and Plan (1) Hypothyroidism: Code(s): E03.9 - Hypothyroidism, unspecified Status: Acute (2) Fracture of surgical neck of humerus: Qualifiers: Encounter type: initial encounter Fracture alignment: nondisplaced Fracture morphology: unspecified fracture morphology Fracture type: closed Laterality: right Qualified Code(s): S42.214A - Unspecified nondisplaced fracture of surgical neck of right humerus, initial encounter for closed fracture Code(s): S42.213A - Unspecified displaced fracture of surgical neck of unspecified humerus, initial encounter for closed fracture Status: Acute (3) Stage 3b chronic kidney disease: Code(s): N18.32 - Chronic kidney disease, stage 3b Status: Chronic (4) Anemia: Code(s): D64.9 - Anemia, unspecified Status: Acute (5) Recurrent right pleural effusion: Code(s): J90 - Pleural effusion, not elsewhere classified Status: Chronic (6) Hypertension: Code(s): I10 - Essential (primary) hypertension Status: Chronic (7) Lymphoma: Code(s): C85.90 - Non-Hodgkin lymphoma, unspecified, unspecified site Status: Acute (8) Diabetes mellitus: Code(s): E11.9 - Type 2 diabetes mellitus without complications Status: Acute (9) Chronic kidney disease, stage 3: Code(s): N18.30 - Chronic kidney disease, stage 3 unspecified Status: Acute (10) 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): Code(s): K75.81 - Nonalcoholic steatohepatitis (JOEL); K74.60 - Unspecified cirrhosis of liver Status: Chronic (11) Recurrent pleural effusion: Code(s): J90 - Pleural effusion, not elsewhere classified Status: Acute (12) UTI (urinary tract infection): Code(s): N39.0 - Urinary tract infection, site not specified Status: Acute Additional Plan 05/30/21 dc IVFs cont abx cont pain management cont PT/OT c/s CC for dc to SNF RN notified and POC discussed at length 05/31/21 cont abx urine cx to be reviewed in am cont current care anticipate dc home tomorrow w [facility] Subjective Date/time seen: 05/31/21 14:28 pt doing ok agrees to go home if does not qualify for rehab Exam Narrative: GEN: NAD, AAOx3, cooperative HEENT: NCAT, MMM, EOMI Neck: no JVD Heart: S1S2 RRR Lungs: CTA B/l Abd: soft, NT, ND, bowel sounds normoactive Ext: moves all, no cyanosis, no clubbing, no edema, RUE in sling tender to palpation and movement during lung exam Neuro: slow cognition, moves all extremities equally, unsteady gait Psych: mood reduced, affect congruent flattened, poor eye contact Objective Data Vital Signs Vital Signs: Vital Signs - 24 hr 05/30/21 16:00 05/30/21 18:00 05/30/21 19:09 Temperature 99.4 F 97.5 F L Pulse Rate 76 84 78 Respiratory Rate 20 17 Blood Pressure 151/71 H 139/49 L Pulse Oximetry 100 99 05/30/21 20:00 05/30/21 23:07 05/31/21 00:00 Temperature 96.2 F L Pulse Rate 84 81 84 Respiratory Rate 18 Blood Pressure 133/50 L Pulse Oximetry 100 05/31/21 03:56 05/31/21 04:00 05/31/21 07:31 Temperature 96.5 F L Pulse Rate 90 82 Respiratory Rate 17 Blood Pressure 128/44 L Pulse Oximetry 100 98 05/31/21 08:00 05/31/21 11:04 05/31/21 12:00 Temperature 98.6 F Pulse Rate 92 90 82 Respiratory Rate 19 Blood Pressure 128/49 L Pulse Oximetry 97 Intake/Output Intake/Output: Intake & Output 05/28/21 05/29/21 05/30/21 05/31/21 23:59 23:59 23:59 23:59 Intake Total 50 1370 920 Output Total 1200 50 Balance 50 170 870 Meds/Results Medications: Active Medications Generic Name Dose Route Start Last Admin Trade Name Freq PRN Reason Stop Dose Admin Acetaminophen 650 mg 05/29/21 20:54 05/31/21 09:30 Acetaminophen 325 Mg Tablet PO 650 mg Q4H PRN Administration Mild Pain (1-3) or Fever Dextrose 12.5 gm 05/29/21 21:34 Dextrose 50% 25
[2021-05-31 16:26] LABS: Glucose Point of Care 156 mg/dl (65-105)
[2021-05-31 20:24] LABS: Glucose Point of Care 188 mg/dl (65-105)
[2021-06-01] VITALS: PULSE 81
[2021-06-01] MEDS: ACETAMINOPHEN 325 MG TABLET 650 MG PO ×2 (00:48→05:57)
[2021-06-01] MEDS: MORPHINE SULFATE (*CRX) 15 MG TAB IR PO (03:58)
[2021-06-01 04:00] VITALS: PULSE 79
[2021-06-01 04:02] VITALS: BP 129/52; PULSE 80; RESP 17; TEMP 36; O2SAT 100
[2021-06-01 05:09] LABS: Basophils Percent Auto 0.7 % (0.2-1.2); Eosinophils Absolute Auto 0.1 K/mm3 (0-0.3); Eosinophils Percent Auto 3.3 % (0-4.4); Hematocrit 22.8 % (37.0-47.0); Hemoglobin 7.6 g/dL (12.0-15.0); Immature Granulocyte Percent A 2.3 % (0-0.5); Lymphocytes Absolute Auto 0.36 K/mm3 (0.9-3.2); Lymphocytes Percent Auto 8.4 % (18.3-44.2); Mean Corpuscular HGB Conc 33.3 g/dl (32-36); Mean Corpuscular Hemoglobin 31.4 pg (26-34); Mean Corpuscular Volume 94.2 fl (80-100); Mean Platelet Volume 11.3 fl (7.4-10.4); Monocytes Absolute Auto 0.6 K/mm3 (0.1-0.6); Monocytes Percent Auto 14.5 % (2.6-8.5); Neutrophils Percent Auto 70.8 % (45.5-73.1); Platelet Count Result 110 k/mm3 (150-375); Red Blood Count 2.42 M/mm3 (4.2-5.4); Red Cell Distribution Width 13.4 % (11.5-14.5); White Blood Count 4.3 K/mm3 (4.5-10.0)
[2021-06-01 05:26] LABS: Alanine Aminotransferase 19 U/L (4-35); Albumin Level 2.7 g/dL (3.5-5.1); Alkaline Phosphatase 170 U/L (38-126); Anion Gap 7 mmol/L (8-16); Aspartate Amino Transferase 36 U/L (14-36); Bilirubin,Total 0.5 mg/dL (0.2-1.3); Blood Urea Nitrogen 45 mg/dL (7-17); Calcium 7.7 mg/dL (8.4-10.2); Carbon Dioxide 23 mmol/L (22-30); Chloride 102 mmol/L (98-107); Estimated CRCL calculation 21 ml/min; Estimated Glomerular Filt Rate 25; Glucose 141 mg/dL (65-110); Potassium 3.8 mmol/L (3.4-5.0); Sodium 132 mmol/L (137-145)
[2021-06-01] MEDS: LEVOTHYROXINE SODIUM 75 MCG TABLET PO (05:57)
[2021-06-01 07:37] LABS: Glucose Point of Care 216 mg/dl (65-105)
[2021-06-01] MEDS: INSULIN ASPART (*BKC) 100 UNITS/ML SUB-Q (07:41)
--- NOTE | 2021-06-01 07:43 | PM.DS ---
DS: Admitting Diagnosis Discharge Date 06/01/21 Admitting Diagnosis (1) Fracture of surgical neck of humerus: Qualifiers: Encounter type: initial encounter Fracture alignment: nondisplaced Fracture morphology: unspecified fracture morphology Fracture type: closed Laterality: right Qualified Code(s): S42.214A - Unspecified nondisplaced fracture of surgical neck of right humerus, initial encounter for closed fracture Code(s): S42.213A - Unspecified displaced fracture of surgical neck of unspecified humerus, initial encounter for closed fracture Status: Acute (2) Stage 3b chronic kidney disease: Code(s): N18.32 - Chronic kidney disease, stage 3b Status: Chronic (3) Anemia: Code(s): D64.9 - Anemia, unspecified Status: Acute (4) Hypertension: Code(s): I10 - Essential (primary) hypertension Status: Chronic (5) Recurrent right pleural effusion: Code(s): J90 - Pleural effusion, not elsewhere classified Status: Chronic (6) Hyperglycemia: Code(s): R73.9 - Hyperglycemia, unspecified Status: Acute (7) 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): Code(s): K75.81 - Nonalcoholic steatohepatitis (JOEL); K74.60 - Unspecified cirrhosis of liver Status: Chronic (8) Lymphoma: Code(s): C85.90 - Non-Hodgkin lymphoma, unspecified, unspecified site Status: Acute (9) Hypothyroidism: Code(s): E03.9 - Hypothyroidism, unspecified Status: Acute DS: Discharge Diagnosis Discharge Diagnosis (1) UTI (urinary tract infection): Code(s): N39.0 - Urinary tract infection, site not specified Status: Acute (2) Diabetes mellitus: Code(s): E11.9 - Type 2 diabetes mellitus without complications Status: Acute (3) Hypothyroidism: Code(s): E03.9 - Hypothyroidism, unspecified Status: Acute (4) Fracture of surgical neck of humerus: Qualifiers: Encounter type: initial encounter Fracture alignment: nondisplaced Fracture morphology: unspecified fracture morphology Fracture type: closed Laterality: right Qualified Code(s): S42.214A - Unspecified nondisplaced fracture of surgical neck of right humerus, initial encounter for closed fracture Code(s): S42.213A - Unspecified displaced fracture of surgical neck of unspecified humerus, initial encounter for closed fracture Status: Acute (5) Stage 3b chronic kidney disease: Code(s): N18.32 - Chronic kidney disease, stage 3b Status: Chronic (6) Anemia: Code(s): D64.9 - Anemia, unspecified Status: Acute (7) Hypertension: Code(s): I10 - Essential (primary) hypertension Status: Chronic (8) Recurrent right pleural effusion: Code(s): J90 - Pleural effusion, not elsewhere classified Status: Chronic (9) 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 Ortho was consulted and fracture was considered to be a non operative. Patient was placed in sling and pain controlled with her home MS Contin and IV morphine p.r.n.. Urinalysis showed enterococcal infection less than 100,000 colony-forming units however patient was treated with ampicillin at the time of discharge given her comorbidities and overall immunocompromised state. She was evaluated by PT OT and home with home health care was recommended. She is discharged home in stable condition with indications to follow up with Ortho Dr. Lynch son and her primary care physician for ongoing care. Status at Discharge Overall status at discharge: patient is progressing back to b
[2021-06-01 07:57] VITALS: PULSE 80; RESP 18; O2SAT 100
[2021-06-01 08:04] VITALS: PULSE 98
[2021-06-01] MEDS: FERROUS SULFATE 324 MG TABLET PO (08:27)
[2021-06-01] MEDS: PANTOPRAZOLE 40 MG TABLET PO (08:27)
[2021-06-01] MEDS: FUROSEMIDE INJ 40 MG/4 ML VIAL 20 MG IV PUSH (08:27)
== END 2021-06-01 11:15 | disposition home health service (06) | DRG 563 ==
LOC: ANHED 20:40 → ANH2MED 21:30
PROVIDERS: Physician Assistant; Admitting Provider Internal Medicine; Emergency Provider Emergency Medicine; PCP Family Medicine; Visit Provider Hospitalist
DX: S42.211A Unspecified displaced fracture of surgical neck of right humerus, initial encounter for closed fracture (principal); J90 Pleural effusion, not elsewhere classified; N39.0 Urinary tract infection, site not specified; W01.198A Fall on same level from slipping, tripping and stumbling with subsequent striking against other object, initial encounter; B95.2 Enterococcus as the cause of diseases classified elsewhere; I35.0 Nonrheumatic aortic (valve) stenosis; D64.9 Anemia, unspecified; E11.22 Type 2 diabetes mellitus with diabetic chronic kidney disease; N18.9 Chronic kidney disease, unspecified; I12.9 Hypertensive chronic kidney disease with stage 1 through stage 4 chronic kidney disease, or unspecified chronic kidney disease; N18.32 Chronic kidney disease, stage 3b; E11.65 Type 2 diabetes mellitus with hyperglycemia; M19.90 Unspecified osteoarthritis, unspecified site; M81.0 Age-related osteoporosis without current pathological fracture; J45.909 Unspecified asthma, uncomplicated; D63.8 Anemia in other chronic diseases classified elsewhere; K75.81 Nonalcoholic steatohepatitis (NASH); K74.60 Unspecified cirrhosis of liver; E03.9 Hypothyroidism, unspecified; Z85.3 Personal history of malignant neoplasm of breast; Z90.49 Acquired absence of other specified parts of digestive tract; Z85.72 Personal history of non-Hodgkin lymphomas
CPT/HCPCS: 36415; 70450; 72125; 73030; 73200; 74176; 80053; 81001; 82140; 82948; 85025; 87086; 87147; 87181; 87186; 96365; 96375; 96376; 97110; 97162; 97165; 97530; 97535; 99285; A9270; G0378; J0696; J1170; J1815; J1940; J2270; J2405; J7030

== ENCOUNTER 2022-01-18 08:11 | Observation (INO) | payer MEDICARE, SELFPAY ==
[2022-01-18] VITALS (23 sets, daily range): BP systolic 126–164; BP diastolic 42–87; PULSE 92–127; RESP 14–29; TEMP 36.2–36.5; O2SAT 92–100; BMI 22.4
--- NOTE | ~2022-01-18 | CT_ITS ---
EXAMINATION: CT cervical spine wo con DATE: 01/18/2022 08:58 INDICATION: Neck pain after fall TECHNIQUE: Computed tomography (CT) of the cervical spine was performed without intravenous contrast. The dose-length product was 136 mGy-cm. Automated exposure control and iterative reconstruction tech Waggl were employed. COMPARISON: 05/29/2021 FINDINGS: There are bilateral pleural effusions. There is stable degenerative disc disease at C5-6 an d C6-7. There is levoscoliosis. There are facet and uncinate degenerative changes of the mid and lowe r cervical spine unchanged. Linear vertebral junction within normal limits. Odontoid process is unrem arkable. No acute fracture or traumatic malalignment. IMPRESSION: 1. No acute fracture. 2: Increased cervical levocurvature since prior examination with moderate-severe cervical spondylosis . Levoscoliosis may be related to muscle spasm or patient positioning. Reviewed, dictated and finalized at location A. SPLITTER IMPRESSION: 1. No acute fracture. 2: Increased cervical levocurvature since prior examination with moderate-sever e cervical spondylosis. Levoscoliosis may be related to muscle spasm or patient positioning.
--- NOTE | ~2022-01-18 | CT_ITS ---
EXAMINATION: CT brain wo con DATE: 01/18/2022 08:58 INDICATION: Altered mental status. Fall. TECHNIQUE: Computed tomography (CT) of the head was performed without intravenous contrast. The mA wa s adjusted according to patient size. Iterative reconstruction technique was employed. The dose-lengt h product was 605.33 mGy-cm. COMPARISON: Head CT 05/29/2021 FINDINGS: There are scattered areas of low attenuation in the cerebral white matter. There is no intr acranial hemorrhage, acute infarction, or abnormal intracranial mass lesion. The ventricles are mario l in size. There are likely changes of ocular lens replacement surgeries. The paranasal sinuses are c lear. The mastoid air cells are normal. IMPRESSION: 1. Stable moderate nonspecific cerebral white matter disease, which likely represents chronic small v essel ischemic disease. Reviewed, dictated and finalized at location A. C JOURNALIST IMPRESSION: 1. Stable moderate nonspecific cerebral white matter disease, which likely repr esents chronic small vessel ischemic disease.
--- NOTE | ~2022-01-18 | XR_ITS ---
EXAMINATION: XR chest 2V DATE: 01/18/2022 17:48 INDICATION: Shortness of breath. TECHNIQUE: Frontal and lateral views of the chest were obtained. COMPARISON: Chest 2 views 03/15/2021 FINDINGS: There are small right and moderate-sized left pleural effusions. A calcified left lung nodu le and calcified left hilar lymph nodes are consistent with old granulomatous disease. There are airs pace opacities in right mid and lower lung zones and all left lung zones with a basilar predominance. No pneumothorax. The heart size is normal. There is a chronic burst fracture of T12. There is chroni c mild anterior wedging of multiple vertebral bodies. A right-sided pleural catheter is noted. There is an old healed fracture deformity of proximal right humerus. There are old healed left rib fracture s. IMPRESSION: 1. Small right and moderate-sized left pleural effusions with right-sided pleural catheter. 2. Airspace opacities in the lungs with a basilar predominance, likely atelectasis. Pneumonia cannot be excluded. Reviewed, dictated and finalized at location A. HER STRIP INSTALLER IMPRESSION: 1. Small right and moderate-sized left pleural effusions with right-sided pleur al catheter. 2. Airspace opacities in the lungs with a basilar predominance, likely atelecta sis. Pneumonia cannot be excluded.
--- NOTE | ~2022-01-18 | XR_ITS ---
EXAMINATION: XR abdomen/kub 1V DATE: 01/19/2022 01:41 INDICATION: Hematemesis. TECHNIQUE: A supine view of the abdomen on 2 radiographs was obtained. COMPARISON: CT abdomen and pelvis 05/29/2021 FINDINGS: There are no dilated loops of small or large bowel. There is a moderate volume of stool in the colon. There is gaseous distention of the stomach. There is a right internal ureteral stent in ex pected position. A right-sided pleural catheter is noted. There are bilateral pleural effusions. IMPRESSION: 1. Gaseous distention of the stomach. Reviewed, dictated and finalized at location A. ENISHMENT ASSOCIATE
--- NOTE | ~2022-01-18 | US_ITS ---
EXAMINATION: US renal BI DATE: 01/18/2022 17:45 INDICATION: Elevated creatinine. TECHNIQUE: Multiple ultrasound grayscale images of the kidneys were obtained. COMPARISON: None. FINDINGS: The right kidney measures 8.2 x 3.9 x 3.6 cm. The left kidney measures 8.0 x 4.0 x 4.0 cm. The kidney s demonstrate normal parenchymal echogenicity. There is a 9 mm cyst in right kidney. There is mild ri ght hydronephrosis. The right-sided internal ureteral stent is visualized in the bladder. There is a small volume of ascites. IMPRESSION: 1. Mild right hydronephrosis with internal ureteral stent. Mild atrophy of the kidneys. 2. Small volume of ascites. Reviewed, dictated and finalized at location A. ING DEPARTMENT SUPERVISOR
--- NOTE | 2022-01-18 08:19 | ECG_ITS ---
Measurements Intervals [place] Rate: 114 P: 51 AL: 178 QRS: -17 QRSD: 99 T: 78 QT: 300 QTc: 414 Interpretive Statements SINUS TACHYCARDIA LOW QRS VOLTAGE IN LIMB LEADS CANNOT RULE OUT SEPTAL INFARCT, AGE INDETERMINATE BORDERLINE ST-T WAVE ABNORMALITY- HIGH LATERAL LEADS BASELINE ARTIFACT- II, AVR, AVF ABNORMAL ECG COMPARED TO ECG 03/12/2021 11:08:50 SINUS TACHYCARDIA NOW PRESENT Electronically Signed On 01-18-2022 10:50:50 [employer] by Alcides Crowder D.O.
[2022-01-18 08:52] LABS: Basophils Absolute Auto 0.1 K/mm3 (0.0-0.1); Basophils Percent Auto 0.6 % (0.2-1.2); Eosinophils Percent Auto 0.1 % (0-4.4); Hematocrit 33.2 % (37.0-47.0); Hemoglobin 11.1 g/dL (12.0-15.0); Lymphocytes Absolute Auto 0.44 K/mm3 (0.9-3.2); Lymphocytes Percent Auto 2.7 % (18.3-44.2); Mean Corpuscular HGB Conc 33.4 g/dl (32-36); Mean Corpuscular Hemoglobin 31.4 pg (26-34); Mean Corpuscular Volume 94.1 fl (80-100); Mean Platelet Volume 10.3 fl (7.4-10.4); Monocytes Percent Auto 6.1 % (2.6-8.5); Neutrophils Absolute Auto 14.4 K/mm3 (1.3-6.7); Neutrophils Percent Auto 87.5 % (45.5-73.1); Platelet Count Result 238 k/mm3 (150-375); Red Blood Count 3.53 M/mm3 (4.2-5.4); Red Cell Distribution Width 14.6 % (11.5-14.5); White Blood Count 16.5 K/mm3 (4.5-10.0)
[2022-01-18 08:53] LABS: Appearance Urine Cloudy (Clear); Bilirubin Urine Negative (Negative); Blood Urine 2+ (Negative); Color Urine Yellow (Yellow); Glucose Urine UA Negative (Negative); Ketones Urine Negative (Negative); Leukocyte Esterase Ur 3+ LEU/UL (Negative); Nitrate Urine Negative (Negative); Protein Urine 1+ mg/dL (Negative); Urobilinogen Urine 0.2 mg/dL (<2.0); pH Urine 5.5 (5.0-9.0)
[2022-01-18 09:05] LABS: Bacteria Urine Trace /hpf; Budding Yeast Urine Present /hpf; RBC Urine 21-50 /hpf (0-2); Squamous Epithelial Cell Urine Few /hpf (Few); WBC Clumps Urine Present /HPF; WBC Urine >75 /hpf
[2022-01-18 09:07] LABS: INR 1.3; Prothrombin Time 15.4 Seconds (11.1-14.7)
[2022-01-18 09:14] LABS: Add Urine Microscopic? YES
[2022-01-18 09:15] LABS: Platelet Estimate Adequate (Adequate)
[2022-01-18 09:16] LABS: Anisocytosis 1+ (NORMAL); Ovalocytes 2+ (NORMAL); Poikilocytosis 1+ (NORMAL); Schistocytes None Seen (NORMAL)
[2022-01-18 09:20] LABS: Alanine Aminotransferase 22 U/L (6-35); Albumin Level 2.6 g/dL (3.5-5.1); Alkaline Phosphatase 132 U/L (38-126); Anion Gap 11 mmol/L (8-16); Aspartate Amino Transferase 50 U/L (14-36); Bilirubin,Total 1.7 mg/dL (0.2-1.3); Blood Urea Nitrogen 80 mg/dL (7-17); Calcium 8.8 mg/dL (8.4-10.2); Carbon Dioxide 15 mmol/L (22-30); Chloride 106 mmol/L (98-107); Estimated Glomerular Filt Rate 20; Glucose 151 mg/dL (65-110); Potassium 6.2 mmol/L (3.4-5.0); Sodium 132 mmol/L (137-145)
[2022-01-18] MEDS: CALCIUM GLUCONATE 1,000 MG/10 ML VIAL 1000 MG IV PUSH (09:56)
[2022-01-18] MEDS: INSULIN HUMAN REGULAR (*BKC) 100 UNITS/ML 10 UNITS IV PUSH (10:26)
[2022-01-18] MEDS: DEXTROSE 50% 25 GM/50 ML SYRINGE IV PUSH (10:26)
[2022-01-18 10:30] LABS: Potassium 6.1 mmol/L (3.4-5.0)
--- NOTE | 2022-01-18 10:35 | ED.GENADULT ---
HPI - General Adult General Chief complaint: Fall Stated complaint: fall, AMS Time Seen by Provider: 01/18/22 08:20 Source: patient Mode of arrival: EMS Limitations: dementia History of Present Illness HPI narrative: 81-year-old with a history of COPD on 2 L of home oxygen , CKD was brought in from home with complaints of fall , as per the EMS patient was found on the floor on the bedside. Patient presently has no pain. She denies any shortness of breath, nausea or vomiting or abdominal pain. Onset (ago): day(s) (1) Exacerbating factors: none Associated symptoms: denies other symptoms Related Data Home Medications Medication Instructions Recorded Confirmed ferrous sulfate 325 mg (65 mg 325 mg PO BID 03/12/21 06/17/21 iron) tablet levothyroxine 75 mcg tablet 75 mcg PO DAILY 03/12/21 06/17/21 morphine 15 mg immediate release 15 mg PO QID PRN Pain 03/12/21 06/17/21 tablet omeprazole 40 mg capsule,delayed 40 mg PO DAILY 05/29/21 06/17/21 release polyethylene glycol 3350 17 17 g PO DAILY PRN Constipation 05/29/21 06/17/21 gram/dose oral powder Allergies Allergy/AdvReac Type Severity Reaction Status Date / Time lisinopril Allergy Severe ANAPHYLAXIS Verified 05/29/21 22:15 codeine AdvReac Unknown Nausea and Verified 05/29/21 22:15 Vomiting NSAIDS (Non-Steroidal AdvReac Other Verified 05/29/21 22:15 Anti-Inflamma tramadol AdvReac HALLUCINATI Verified 05/29/21 22:15 ONS Review of Systems Review of Systems: All systems reviewed & are unremarkable except as noted in HPI and below Constitutional: Constitutional: Reports no additional constitutional complaints Eyes: Eyes: Reports no additional eye complaints ENT: Reports system reviewed and no additional complaints, except as documented Cardiovascular: Cardiovascular: Reports no additional cardiovascular complaints Respiratory: Respiratory: Reports no additional respiratory complaints Gastrointestinal: Gastrointestinal: Reports no additional gastrointestinal complaints Musculoskeletal: Musculoskeletal: Reports no additional musculoskeletal complaints Neurologic: Reports system reviewed and no additional complaints, except as documented [facility] Past Medical History Medical History Aortic stenosis Vrql-ih-[id number] with an aortic valve area of 1.5 cm2 on echocardiogram in May 2019. Asthma Breast cancer Status post right lumpectomy in 2013. Chronic anemia Chronic kidney disease, stage 3 Creatinine ranges between 1.3 and 1.50. Essential hypertension Hydronephrosis of right kidney Status post stent. 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 Surgical History Surgical History History of appendectomy History of bilateral carpal tunnel release History of cataract extraction History of cholecystectomy History of hysterectomy History of laser assisted in situ keratomileusis History of partial thyroidectomy For benign tumor. History of thoracentesis History of ureter stent Family History Family History Mother Head and neck cancer Acute myocardial infarction Congestive heart failure Pancreatic cancer Sibling Diabetes mellitus Acute myocardial infarction Social History Social History Social History: The patient lives with her in [place]. She is a lifelong nonsmoker and denies alcohol and drug use. She designates her , Abdoulaye, as her surrogate decision maker and she wishes to be a full code. Smoking status: Never smoker Alcohol intake: never Substance use: never Substance use type: does not use Spiritual care concerns: No
[2022-01-18] MEDS: SODIUM ZIRCONIUM CYCLOSILICATE 10 GM POWD.PACK PO (11:08)
[2022-01-18] MEDS: SODIUM CHLORIDE 0.9% IV 1,000 ML 125 ML IV CONT (11:35)
--- NOTE | 2022-01-18 12:42 | PM.IMHP ---
H&P: HPI History of Present Illness Date/Time: 01/18/22 12:42 Chief Complaint: Fall with altered mental status Narrative: This is an 81-year-old female patient who chronically has oxygen on at 2 L per nasal cannula due to her COPD. The patient was brought into the ER from home with complaints of a fall. The patient was found on the floor at the bedside and was confused. She denied any shortness of breath. No nausea vomiting or abdominal pain. The patient is very restless and is attempting to get out of bed. The patient is a poor historian. Her white count is noted to be 16.5. H&H is 11.1 and 33.2. Initially her potassium was 6.1 with a repeat of 5.1. Patient was treated in the emergency room with the hyper kalemia protocol. Her creatinine was 2.3 and is down to 2.1 now. Her creatinine baseline is anywhere from 1.4-1.9. The patient was found have a UTI. She was started on Rocephin. The patient initially was admitted for inpatient status but was changed observation status on the date of service of 01/18/2022. Review of Systems Review of Systems: See HPI All systems reviewed & are unremarkable except as noted in HPI and below Constitutional: Constitutional: Reports as per HPI and Reports no additional constitutional complaints Eyes: Eyes: Reports as per HPI and Reports no additional eye complaints ENT: Reports system reviewed and no additional complaints, except as documented and Reports Normal hearing present Cardiovascular: Cardiovascular: Reports no additional cardiovascular complaints Respiratory: Respiratory: Reports no additional respiratory complaints and Reports no additional respiratory complaints Gastrointestinal: Gastrointestinal: Reports as per HPI and Reports no additional gastrointestinal complaints Musculoskeletal: Musculoskeletal: Reports no additional musculoskeletal complaints Integumentary/Breasts: Skin/Breast: Reports system reviewed and no additional complaints, except as docu and Reports as per HPI Neurologic: Reports system reviewed and no additional complaints, except as documented, Reports as per HPI and Reports Normal hearing present Psychiatric: Psychiatric: Reports no additional psychiatric complaints and Reports as per HPI Endocrine: Endocrine: Reports no additional endocrine complaints Hematologic/Lymphatic: Hematologic/Lymphatic: Reports no additional hematologic/lymphatic complaints Allergic/Immunologic: Allergic/Immunologic: Reports no additional allergic/immunologic complaints [facility] Past Medical History Medical History (Updated 01/18/22 @ 17:01 by Miguel Balderas MD) Acute kidney injury Aortic stenosis [id number]-[id number] with an aortic valve area of 1.5 cm2 on echocardiogram in May 2019. Asthma Breast cancer Status post right lumpectomy in 2012. Chronic anemia Chronic kidney disease, stage 3 Creatinine ranges between 1.3 and 1.50. Essential hypertension Hydronephrosis of right kidney Status post stent. 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 Surgical History Surgical History (Updated 01/18/22 @ 17:29 by Najma Kate NP) H/O breast biopsy H/O lumpectomy History of appendectomy History of bilateral carpal tunnel release History of cataract extraction History of cholecystectomy History of hysterectomy History of laser assisted in situ keratomileusis History of partial thyroidectomy For benign tumor. History of thoracentesis History of ureter stent Family History Family History Mother Head and neck cancer Acute myocardial infarction Congestive heart failure Pancreatic cancer Sibling Diabetes mellitus Acute myocardial infarction Social History Social History Social History: The
[2022-01-18 13:38] LABS: Anion Gap 10 mmol/L (8-16); Blood Urea Nitrogen 74 mg/dL (7-17); Carbon Dioxide 19 mmol/L (22-30); Chloride 106 mmol/L (98-107); Estimated Glomerular Filt Rate 21; Glucose 112 mg/dL (65-110); Potassium 5.1 mmol/L (3.4-5.0); Sodium 135 mmol/L (137-145)
[2022-01-18] MEDS: ALBUTEROL SULFATE NEB 2.5 MG/3 ML INH 5 MG INHALATION ×2 (14:41→19:26)
[2022-01-18] MEDS: IPRATROPIUM BR 0.02% INH SOLN 0.5 MG/2.5 ML VIAL INHALATION ×2 (14:42→19:26)
--- NOTE | 2022-01-18 15:17 | ADMGEN ---
This patient, Stefanie Pearson, was admitted to IMU Room 203-01. Patient/family oriented to hospital policies and general routines including ID bracelet, bed and alarms, visiting hours, pain management, procedures, bathroom and other care routines, personal items, smoking policy, room service/diet, and visiting hours. Information on how to activate the Rapid Response Team has been discussed. Patient/Family are encouraged to report perceived risks to care and to ask questions if they do not understand what they are told or what they should do.
[2022-01-18 16:28] LABS: Anion Gap 11 mmol/L (8-16); Blood Urea Nitrogen 77 mg/dL (7-17); Calcium 9.1 mg/dL (8.4-10.2); Carbon Dioxide 17 mmol/L (22-30); Chloride 106 mmol/L (98-107); Estimated Glomerular Filt Rate 23; Glucose 123 mg/dL (65-110); Potassium 5.1 mmol/L (3.4-5.0); Sodium 134 mmol/L (137-145)
--- NOTE | 2022-01-18 16:55 | PM.CNNEP ---
Assessment and Plan Assessment and plan (1) CKD (chronic kidney disease): Qualifiers: Chronic kidney disease stage: unspecified stage Qualified Code(s): N18.9 - Chronic kidney disease, unspecified Code(s): N18.9 - Chronic kidney disease, unspecified Status: Acute Assessment and Plan: the patient has chronic kidney disease. Her creatinine was running between 1.4 and 1.5 up until May but then at the end of May she was discharged with a creatinine of 1.9. We do not have any values in between then and now. Patient does have hypertension and diabetes which are probably affecting her kidneys. She has not had an evaluation for CKD so will check serology and immunofixation as well as an ultrasound. (2) Acute kidney injury: Code(s): N17.9 - Acute kidney failure, unspecified Status: Acute Assessment and Plan: The patient has acute kidney injury as well. She looks fairly sick. She has a UTI and may have urosepsis. She had urine cultures done. I added blood cultures as well. Najma will be seeing the patient soon and can put her on the antibiotics that she wishes to put her on. Sepsis could do this. Interstitial nephritis could do this but she is not on any medications that would do this. Rhabdomyolysis could do this. She was lying on the floor when she was found so will check a CK. Obstruction could do this. We will see what her ultrasound shows. UTI could do this as well. Glomerulonephritis could do this but usually does not present this way. Will check an ultrasound, urine electrolytes, CPK, get some cultures in give her antibiotics. (3) Hyperkalemia: Code(s): E87.5 - Hyperkalemia Status: Acute Assessment and Plan: Potassium was high on admission. This was treated and is now down to 5.1. (4) Fall: Qualifiers: Encounter type: initial encounter Qualified Code(s): W19.XXXA - Unspecified fall, initial encounter Code(s): W19.XXXA - Unspecified fall, initial encounter Status: Acute Assessment and Plan: This may have been caused by the infection. (5) Acute UTI: Code(s): N39.0 - Urinary tract infection, site not specified Status: Acute Assessment and Plan: The patient has pyuria. Cultures are Ordered. Will leave it up to NAMRATA Kate to write for the antibiotics. (6) Diabetes mellitus: Code(s): E11.9 - Type 2 diabetes mellitus without complications Status: Acute Assessment and Plan: Management per hospitalist (7) Hypothyroidism: Code(s): E03.9 - Hypothyroidism, unspecified Status: Acute Assessment and Plan: will check a TSH (8) Anemia: Code(s): D64.9 - Anemia, unspecified Status: Acute Assessment and Plan: hemoglobin is mildly low. Much better than it was in May. (9) Hypertension: Code(s): I10 - Essential (primary) hypertension Status: Chronic Assessment and Plan: Blood pressure is a bit high. Will follow this along overnight and then treat tomorrow if the blood pressure isn't better. (10) Lymphoma: Code(s): C85.90 - Non-Hodgkin lymphoma, unspecified, unspecified site Status: Acute (11) 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): Code(s): K75.81 - Nonalcoholic steatohepatitis (JOEL); K74.60 - Unspecified cirrhosis of liver Status: Chronic (12) Aortic stenosis: Qualifiers: Cardiac valve disease etiology: etiology unspecified Qualified Code(s): I35.0 - Nonrheumatic aortic (valve) stenosis Code(s): I35.0 - Nonrheumatic aortic (valve) stenosis Status: Acute Assessment and Plan: No chest pain History of Present Illness Reason for Consult Consult date: 01/18/22 Chief Complaint Chief complaint: Hyperkalemia/CKD/Fall/UTI History of Present Illness Narrative: Stefanie is an unfortunate 81-year-old lady w
[2022-01-18 17:10] LABS: Creatine Kinase 48 U/L (30-135)
[2022-01-18 20:33] LABS: Glucose Point of Care 162 mg/dl (65-105)
[2022-01-18] MEDS: ONDANSETRON INJ 4 MG/2 ML VIAL IV PUSH (21:28)
[2022-01-18 21:46] LABS: Creatinine Urine 102.3 mg/dL; Total Protein Urine Random 18 mg/dL; Ur Ttl Prot Creatinine Ratio 0.18 mg/mg (0-0.20)
[2022-01-18 22:04] LABS: Sodium Urine Random 6 meq/L
[2022-01-19] VITALS (14 sets, daily range): BP systolic 120–151; BP diastolic 41–88; PULSE 71–110; RESP 16–20; TEMP 36.4–36.7; O2SAT 96–100; BMI 22.4
[2022-01-19] MEDS: MORPHINE SULFATE (*CRX) 15 MG TAB IR PO (00:56)
[2022-01-19] MEDS: PANTOPRAZOLE SODIUM IV 40 MG VIAL IV PUSH (01:22)
[2022-01-19] MEDS: ONDANSETRON INJ 4 MG/2 ML VIAL IV PUSH ×2 (01:22→05:35)
[2022-01-19 04:53] LABS: Albumin Level 2.6 g/dL (3.5-5.1); Anion Gap 10 mmol/L (8-16); Blood Urea Nitrogen 78 mg/dL (7-17); Calcium 8.6 mg/dL (8.4-10.2); Carbon Dioxide 16 mmol/L (22-30); Chloride 108 mmol/L (98-107); Estimated CRCL calculation 16 ml/min; Estimated Glomerular Filt Rate 23; Glucose 157 mg/dL (65-110); Lactate Dehydrogenase 745 U/L (120-246); Magnesium 1.9 mg/dL (1.6-2.3); Phosphorus 4.3 mg/dL (2.5-4.5); Potassium 5.6 mmol/L (3.4-5.0); Sodium 134 mmol/L (137-145)
[2022-01-19 05:26] LABS: Basophils Absolute Auto 0.1 K/mm3 (0.0-0.1); Basophils Percent Auto 0.3 % (0.2-1.2); Hematocrit 32.7 % (37.0-47.0); Hemoglobin 11.2 g/dL (12.0-15.0); Immature Granulocyte Absolute 0.38 K/mm3 (0.00-0.031); Immature Granulocyte Percent A 1.7 % (0-0.5); Lymphocytes Absolute Auto 0.45 K/mm3 (0.9-3.2); Mean Corpuscular HGB Conc 34.3 g/dl (32-36); Mean Corpuscular Hemoglobin 31.5 pg (26-34); Mean Corpuscular Volume 91.9 fl (80-100); Mean Platelet Volume 10.4 fl (7.4-10.4); Monocytes Absolute Auto 1.3 K/mm3 (0.1-0.6); Monocytes Percent Auto 5.9 % (2.6-8.5); Neutrophils Absolute Auto 19.8 K/mm3 (1.3-6.7); Neutrophils Percent Auto 90.1 % (45.5-73.1); Platelet Count Result 237 k/mm3 (150-375); Red Blood Count 3.56 M/mm3 (4.2-5.4); Red Cell Distribution Width 14.6 % (11.5-14.5)
[2022-01-19] MEDS: SODIUM CHLORIDE 0.9% IV 1,000 ML 75 ML IV CONT (05:35)
[2022-01-19 06:03] LABS: Platelet Estimate Adequate (Adequate)
[2022-01-19 06:04] LABS: Anisocytosis 2+ (NORMAL); Poikilocytosis 1+ (NORMAL); Schistocytes 1+ (NORMAL)
--- NOTE | 2022-01-19 07:02 | PM.PNNEP ---
Progress Note: A&P Assessment and Plan (1) CKD (chronic kidney disease): Qualifiers: Chronic kidney disease stage: unspecified stage Qualified Code(s): N18.9 - Chronic kidney disease, unspecified Code(s): N18.9 - Chronic kidney disease, unspecified Status: Acute Assessment and Plan: the patient has chronic kidney disease. Her creatinine was running between 1.4 and 1.5 up until May but then at the end of May she was discharged with a creatinine of 1.9. We do not have any values in between then and now. Renal ultrasound is pending UA shows blood protein and white cells. Urine electrolytes are pre renal CK is normal LDH is a little high at 745 Platelet count is normal Patient does have hypertension and diabetes which are probably affecting her kidneys. She has not had an evaluation for CKD so will check serology and immunofixation as well as an ultrasound. (2) Acute kidney injury: Code(s): N17.9 - Acute kidney failure, unspecified Status: Acute Assessment and Plan: The patient has acute kidney injury as well. She looks fairly sick. She has a UTI and may have urosepsis. She had urine cultures done. I added blood cultures as well. Najma will be seeing the patient soon and can put her on the antibiotics that she wishes to put her on. Dehydration can do this as well. She probably was not eating and drinking well before admission. Urine electrolytes are pre renal. Sepsis could do this. Blood and urine cultures are pending. She is on ceftriaxone. Interstitial nephritis could do this but she is not on any medications that would do this. Obstruction could do this. We will see what her ultrasound shows. UTI could do this as well. Glomerulonephritis could do this but usually does not present this way. Creatinine is slightly better than admission at 2.1. Will continue IV fluids. (3) Hyperkalemia: Code(s): E87.5 - Hyperkalemia Status: Acute Assessment and Plan: Potassium was high on admission. This was treated and dropped to 5.1 but now is 5.6. Will give more Lokelma. (4) Fall: Qualifiers: Encounter type: initial encounter Qualified Code(s): W19.XXXA - Unspecified fall, initial encounter Code(s): W19.XXXA - Unspecified fall, initial encounter Status: Acute Assessment and Plan: This may have been caused by the infection. (5) Acute UTI: Code(s): N39.0 - Urinary tract infection, site not specified Status: Acute Assessment and Plan: The patient has pyuria. Cultures are Ordered. Will leave it up to NAMRATA Kate to write for the antibiotics. (6) Diabetes mellitus: Code(s): E11.9 - Type 2 diabetes mellitus without complications Status: Acute Assessment and Plan: Management per hospitalist (7) Hypothyroidism: Code(s): E03.9 - Hypothyroidism, unspecified Status: Acute Assessment and Plan: will check a TSH (8) Anemia: Code(s): D64.9 - Anemia, unspecified Status: Acute Assessment and Plan: hemoglobin is mildly low. Much better than it was in May. (9) Hypertension: Code(s): I10 - Essential (primary) hypertension Status: Chronic Assessment and Plan: Blood pressure is better today. 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
[2022-01-19 07:26] LABS: Free T4 Free Thyroxine Reflex 1.53 ng/dL (0.78-2.19)
[2022-01-19] MEDS: ALBUTEROL SULFATE NEB 2.5 MG/3 ML INH 5 MG INHALATION ×3 (07:52→20:32)
[2022-01-19] MEDS: IPRATROPIUM BR 0.02% INH SOLN 0.5 MG/2.5 ML VIAL INHALATION ×3 (07:53→20:32)
[2022-01-19 08:25] LABS: Total Triiodothyronine (T3) 0.52 NG/ML (0.97-1.69)
[2022-01-19] MEDS: SODIUM BICARBONATE 8.4% 150 MEQ in DEXTROSE 5% 1,000 ML 950 ML 100 MEQ IV CONT (08:25)
[2022-01-19] MEDS: SODIUM ZIRCONIUM CYCLOSILICATE 10 GM POWD.PACK PO (08:26)
[2022-01-19 08:51] LABS: Glucose Point of Care 156 mg/dl (65-105)
[2022-01-19 10:31] LABS: Lactic Acid Reflex 3.2 mmol/L (0.7-2.0)
[2022-01-19 11:03] LABS: Hemoglobin A1C 6.1 % (<5.7)
[2022-01-19 12:01] LABS: Glucose Point of Care 143 mg/dl (65-105)
[2022-01-19 13:16] LABS: Reflex Lactic Acid Yes or No Add Lactic
--- NOTE | 2022-01-19 13:18 | PM.IMPN ---
Progress Note: A&P Assessment and Plan (1) Hospice care: Code(s): Z51.5 - Encounter for palliative care Status: Acute Assessment and Plan: patient has advanced liver disease from nonalcoholic steatohepatitis. she has acute on chronic renal failure this time. She has anemia which is chronic. She has chronic right recurrent pleural effusion. Patient has poor quality of life. Her was present in the room along with her son. We discussed in detail about further options including comfort care. At this time the has opted for comfort care options. Patient has been started on hospice. Will consult manager social services for placement (2) Acute kidney injury: Code(s): N17.9 - Acute kidney failure, unspecified Status: Acute Assessment and Plan: -nephrology has been consulted. (3) Anemia: Code(s): D64.9 - Anemia, unspecified Status: Acute Assessment and Plan: - may be due to crf (4) Nonalcoholic steatohepatitis (JOEL): Code(s): K75.81 - Nonalcoholic steatohepatitis (JOEL) Status: Acute Assessment and Plan: she has chronic pleural effusion and she has safe pleural drainage. (5) Recurrent right pleural effusion: Code(s): J90 - Pleural effusion, not elsewhere classified Status: Acute Assessment and Plan: - She has a chronic pleural drain to the right lateral chest (6) Hypothyroidism: Code(s): E03.9 - Hypothyroidism, unspecified Status: Acute (7) Diabetes mellitus: Code(s): E11.9 - Type 2 diabetes mellitus without complications Status: Acute Assessment and Plan: -patient does not appear to be on any diabetic medications Subjective Date/time seen: 01/19/22 13:18 Patient appears in distress. Wants to eat and drink Review of Systems Review of Systems: ROS unobtainable: Yes unobtainable due to medical condition Exam Narrative: WDWN female in NAD. She looks in distress skin no rash head ncat lungs clear cor reg no rub abd BS+ nontender and soft ext no edema. Objective Data Vital Signs Vital Signs: Vital Signs - 24 hr 01/18/22 15:01 01/18/22 15:16 01/18/22 16:00 Temperature Pulse Rate 99 Respiratory Rate 18 Blood Pressure 160/67 H Pulse Oximetry 99 92 93 Oxygen Delivery Nasal Cannula Nasal Cannula Oxygen Flow Rate 2 2 01/18/22 15:15 01/18/22 16:00 01/18/22 18:00 Temperature 97.6 F Pulse Rate 103 H 97 92 Respiratory Rate 20 Blood Pressure 129/55 L Pulse Oximetry 100 Oxygen Delivery Oxygen Flow Rate 01/18/22 19:30 01/18/22 19:30 01/18/22 20:13 Temperature 97.1 F L Pulse Rate 94 94 96 Respiratory Rate 20 20 18 Blood Pressure 130/76 Pulse Oximetry 96 100 Oxygen Delivery Nasal Cannula Oxygen Flow Rate 2 01/18/22 20:00 01/18/22 20:00 01/18/22 22:00 Temperature Pulse Rate 103 H 103 H 98 Respiratory Rate 18 Blood Pressure Pulse Oximetry 100 Oxygen Delivery Nasal Cannula Oxygen Flow Rate 2 01/19/22 00:00 01/19/22 00:00 01/19/22 00:00 Temperature 97.6 F Pulse Rate 100 92 92 Respiratory Rate 18 18 Blood Pressure 151/44 H Pulse Oximetry 98 98 Oxygen Delivery Nasal Cannula Oxygen Flow Rate 2 01/19/22 02:00 01/19/22 04:00 01/19/22 04:00 Temperature 97.5 F L Pulse Rate 86 86 71 Respiratory Rate 18 Blood Pressure 136/51 L Pulse Oximetry 99 Oxygen Delivery Oxygen Flow Rate 01/19/22 04:00 01/19/22 05:55 01/19/22 07:50 Temperature Pulse Rate 71 88 99 Respiratory Rate 18 18 Blood Pressure Pulse Oximetry 99 Oxygen Delivery Nasal Cannula Oxygen Flow Rate 2 01/19/22 07:54 01/19/22 07:59 01/19/22 08:00 Temperature 97.5 F L Pulse Rate 99 102 H 110 H Respiratory Rate 18 20 Blood Pressure 120/88 Pulse Oximetry 96 100 Oxygen Delivery Nasal Cannula Oxygen Flow Rate 2 01/19/22 08:00 01/19/22 08:00 01/19/22 10:00 Temperature Pulse
--- NOTE | 2022-01-19 21:15 | PC.NURSE ---
Transfer received from [facility]. Report received from JAY Campbell.
--- NOTE | 2022-01-19 22:07 | PC.NURSE ---
This patient, Stefanie Pearson, was transferred to [ [facility]/2] on 01/19/22 at 2045. Personal belongings sent with patient. Report given to [erik ]. Appropriate documentation sent with patient.
[2022-01-20] MEDS: IPRATROPIUM BR 0.02% INH SOLN 0.5 MG/2.5 ML VIAL INHALATION ×3 (02:47→08:30)
[2022-01-20] MEDS: ALBUTEROL SULFATE NEB 2.5 MG/3 ML INH 5 MG INHALATION ×3 (02:47→08:30)
[2022-01-20 02:52] VITALS: PULSE 88; RESP 18
[2022-01-20 08:00] VITALS: O2SAT 96
[2022-01-20 08:30] VITALS: PULSE 93; RESP 18
[2022-01-20 08:35] VITALS: PULSE 97; RESP 18
[2022-01-20] MEDS: MORPHINE SULFATE (*CRX) 15 MG TAB IR PO (10:24)
--- NOTE | 2022-01-20 13:02 | PM.DS ---
DS: Admitting Diagnosis Discharge Date January 20, 2022 Admitting Diagnosis non alcoholic steatohepatitis, chronic renal failure DS: Discharge Diagnosis Discharge Diagnosis (1) Hospice care: Code(s): Z51.5 - Encounter for palliative care Status: Acute Assessment and Plan: patient has advanced liver disease from nonalcoholic steatohepatitis. she has acute on chronic renal failure this time. She has anemia which is chronic. She has chronic right recurrent pleural effusion. Patient has poor quality of life. Her was present in the room along with her son. We discussed in detail about further options including comfort care. At this time the has opted for comfort care options. Patient has been started on hospice. Will consult outreach and education social worker for placement (2) Acute kidney injury: Code(s): N17.9 - Acute kidney failure, unspecified Status: Acute Assessment and Plan: -nephrology has been consulted. (3) Anemia: Code(s): D64.9 - Anemia, unspecified Status: Acute Assessment and Plan: - may be due to crf (4) Nonalcoholic steatohepatitis (JOEL): Code(s): K75.81 - Nonalcoholic steatohepatitis (JOEL) Status: Acute Assessment and Plan: she has chronic pleural effusion and she has safe pleural drainage. (5) Recurrent right pleural effusion: Code(s): J90 - Pleural effusion, not elsewhere classified Status: Acute Assessment and Plan: - She has a chronic pleural drain to the right lateral chest (6) Hypothyroidism: Code(s): E03.9 - Hypothyroidism, unspecified Status: Acute (7) Diabetes mellitus: Code(s): E11.9 - Type 2 diabetes mellitus without complications Status: Acute Assessment and Plan: -patient does not appear to be on any diabetic medications DS: Summary Hospital Course Hospital Course: patient has advanced liver disease from nonalcoholic steatohepatitis.? she has acute on chronic renal failure this time. ? She has anemia which is chronic.? She has chronic right recurrent pleural effusion.? Patient has poor quality of life.? Her was present in the room along with her son.? We discussed in detail about further options including comfort care.? At this time the has opted for comfort care options.? Patient has been started on hospice.? Will consult outreach and education social worker for placement Time Spent with Patient Time attestation: Total time spent providing and/or coordinating discharge services: Exam Narrative: WDWN female in NAD. She looks in distress skin no rash head ncat lungs clear cor reg no rub abd BS+ nontender and soft ext no edema. DS: Data Data Completed and Pending Labs on day of discharge: Preliminary micro results at discharge 01/18/22 18:14 Blood Culture - Preliminary Blood 01/18/22 18:14 Blood Culture - Preliminary Blood Discharge Plan Discharge Attending physician on discharge: Mckinley Caldwell Consulting providers: Miguel Balderas Discharging Clinician: Mckinley Caldwell Patient Disposition: Hospice - Home Activity: no preference Diet: as tolerated Stand Alone Forms: General Discharge Information Discharge Medications: Changed morphine 15 mg tablet 30 mg PO TID PRN (Reason: pain (scale score 7-10)) 5 Days Qty: 30 0RF ondansetron 4 mg tablet,disintegrating 4 mg translingual Q8H PRN (Reason: nausea and vomiting) Qty: 20 0RF Date of admission: 01/18/22 13:07 Primary Care Provider: Livia,Megan Ferrari Admitting Provider: Radha Marcial Attending physician on admission: Radha Marcial Condition: Terminal
[2022-01-20 14:00] VITALS: BP 120/43; PULSE 101; RESP 16; TEMP 36.9; O2SAT 99
[2022-01-20 14:28] LABS: EDCOVIDSCREEN Negative (Negative)
== END 2022-01-20 16:00 | disposition hospice, home (50) ==
LOC: ANHED 10:57 → ANH3MEDSUR 01-20 13:00 → ANHIMU 01-21 09:22
PROVIDERS: Internal Medicine Nephrology; Nurse Practitioner; Admitting Provider Family Medicine; Emergency Provider Family Medicine; PCP Family Medicine; Visit Provider Chiropractor
DX: Z51.5 Encounter for palliative care (principal); N17.9 Acute kidney failure, unspecified; I12.9 Hypertensive chronic kidney disease with stage 1 through stage 4 chronic kidney disease, or unspecified chronic kidney disease; N18.30 Chronic kidney disease, stage 3 unspecified; E11.22 Type 2 diabetes mellitus with diabetic chronic kidney disease; D63.1 Anemia in chronic kidney disease; K75.81 Nonalcoholic steatohepatitis (NASH); J90 Pleural effusion, not elsewhere classified; E03.9 Hypothyroidism, unspecified; E87.5 Hyperkalemia; R41.0 Disorientation, unspecified; W19.XXXA Unspecified fall, initial encounter; R45.1 Restlessness and agitation; N39.0 Urinary tract infection, site not specified; Z20.822 Contact with and (suspected) exposure to COVID-19; R00.0 Tachycardia, unspecified; R94.31 Abnormal electrocardiogram [ECG] [EKG]; R90.82 White matter disease, unspecified; M47.812 Spondylosis without myelopathy or radiculopathy, cervical region; M41.82 Other forms of scoliosis, cervical region; J44.9 Chronic obstructive pulmonary disease, unspecified; Z99.81 Dependence on supplemental oxygen; C85.90 Non-Hodgkin lymphoma, unspecified, unspecified site; D72.829 Elevated white blood cell count, unspecified; E87.20 Acidosis, unspecified; I35.0 Nonrheumatic aortic (valve) stenosis; J45.909 Unspecified asthma, uncomplicated; Z96.0 Presence of urogenital implants; K74.60 Unspecified cirrhosis of liver; M81.0 Age-related osteoporosis without current pathological fracture; M19.90 Unspecified osteoarthritis, unspecified site; Z79.891 Long term (current) use of opiate analgesic; Z79.899 Other long term (current) drug therapy
CPT/HCPCS: 36415; 51701; 70450; 71046; 72125; 74018; 76775; 80048; 80053; 80069; 81001; 82550; 82570; 82948; 83036; 83605; 83615; 83735; 84132; 84156; 84300; 84439; 84443; 84480; 85025; 85610; 85730; 87040; 87086; 87426; 93005; 94640; 96361; 96365; 96366; 96375; 96376; 99285; A9270; C9113; C9803; G0378; J0610; J0696; J1815; J2405; J7030; J7070